=== PATIENT | female | born 1950 | race Caucasian/White ===

== ENCOUNTER 2020-01-03 12:02 | Inpatient (IN) | payer OTHER, SELFPAY ==
[2020-01-03] VITALS (12 sets, daily range): BP systolic 122–131; BP diastolic 57–79; PULSE 88–100; RESP 16–35; TEMP 36.5–36.6; O2SAT 84–100; BMI 22.6
--- NOTE | ~2020-01-03 | XR_ITS ---
XR chest 2V 01/03/2020 16:13 Indication: Weakness and cough. Shortness of breath. Procedure: AP and lateral views of the chest Comparison: 04/26/2017 Findings: There is extensive airspace disease throughout both lungs. Heart size normal. No definite p leural effusion or pneumothorax. Impression: 1: Extensive bilateral airspace disease with areas of reticulonodular consolidation, most likely pneu monia. Edema is less favored. There may be underlying chronic interstitial lung disease. Reviewed, dictated and finalized at location B. NDERER Impression: 1: Extensive bilateral airspace disease with areas of reticulonodular consolida tion, most likely pneumonia. Edema is less favored. There may be underlying chr onic interstitial lung disease.
--- NOTE | ~2020-01-03 | XR_ITS ---
XR chest 2V 01/07/2020 08:51 Indication: Hypoxia appeared pneumonia. Procedure: 2 view chest Comparison: Comparison to multiple prior studies sequentially, with oldest reviewed study dated 12/14. Findings: Improving bilateral peripheral interstitial infiltrates both basilar predominance. Heart si ze normal. No pleural effusion or pneumothorax. No acute osseous abnormality. No pneumothorax. Impression: 1: Improving bilateral peripheral interstitial infiltrates, likely resolving pneumonia. Reviewed, dictated and finalized at location A. Impression: 1: Improving bilateral peripheral interstitial infiltrates, likely resolving pn eumonia.
--- NOTE | 2020-01-03 13:05 | PC.NURSE ---
1305- Called [facility] no response
--- NOTE | 2020-01-03 13:05 | PC.NURSE ---
no answer when called from [facility]
--- NOTE | 2020-01-03 14:22 | ED.SOB ---
HPI - SOB/Dyspnea General Chief Complaint: Shortness of Breath/Dyspnea Stated Complaint: altered mental status Time Seen by Provider: 01/03/20 14:22 Source: patient Mode of arrival: wheelchair Limitations: no limitations History of Present Illness HPI Narrative: Pt is a 69 y/o female, with a H/O COPD, who presents to the ED with c/o SOB. Pt is not one home O2 normally. Per family, about 3 weeks ago she had N/V/D and a fever, which got better. For the last 2 weeks she has been having chills intermittently and has been fatigued. Pt is a 1.5-2PPD smoker and has a productive cough with green phlegm. Pt lives with her niece that takes care of her. elicited complaint: shortness of breath Pertinent past history: COPD Onset (ago): unknown Context: recent illness Timing: constant Known history of: COPD Associated symptoms: cough and other (fatigue) Related Data Home Medications Medication Instructions Recorded Confirmed clonazepam 0.5 mg PO HS 01/03/20 hydrocodone-acetaminophen [[place]] 1 tablet PO Q6H PRN 01/03/20 lactulose 30 g PO TID 01/03/20 losartan 50 mg PO DAILY 01/03/20 oxybutynin chloride 5 mg PO TID 01/03/20 phenytoin sodium extended 100 mg PO QID 01/03/20 pravastatin 20 mg PO HS 01/03/20 risperidone 0.5 mg PO BID 01/03/20 venlafaxine 150 mg PO BID 01/03/20 Allergies Allergy/AdvReac Type Severity Reaction Status Date / Time No Known Allergies Allergy Verified 01/03/20 17:55 Review of Systems Review of Systems: All systems reviewed & are unremarkable except as noted in HPI and below Constitutional: Constitutional: Reports chills, Reports fatigue and Denies fever(s) Respiratory: Respiratory: Reports cough and Reports dyspnea Gastrointestinal: Gastrointestinal: Denies diarrhea, Denies nausea and Denies vomiting PMF Past Medical History Medical History (Updated 01/03/20 @ 18:16 by Anum Leigh MD) Anxiety Colon cancer COPD (chronic obstructive pulmonary disease) Depression [place] (hard of hearing) HTN (hypertension) Surgical History Surgical History (Updated 01/03/20 @ 15:07 by Yecenia Trinidad) History of left hip replacement Family History Family History (Updated 07/28/16 @ 11:19 by DOCTOR UNKNOWN) Mother Diabetes mellitus Hypertension Family history of alcoholism Cerebrovascular accident Family history of arthritis Family history of malignant neoplasm Family history of seizure disorder Social History Social History (Updated 01/03/20 @ 15:07 by Yecenia Trinidad) Alcohol intake: former Gender identity (if verbalized by the patient): Female Comments Her PCP is Dr. Chisholm. Exam Const: General: cooperative, no acute distress, alert and ill appearing (mildly) Nutritional Appearance: well nourished Orientation/consciousness: patient oriented x3 Limitations: no limitations HENMT: Mouth: Yes lip normal and Yes moist mucous membranes Resp: Effort & Inspection: normal respiratory effort Auscultation: rhonchi lower bilaterally, wheezes (diffuse) and diminished lung sounds bilateral Cardio: Rate: tachycardic Rhythm: regular rhythm GI: GI Palp: Yes Soft to palpation and No Tenderness to palpation present (GI) Auscultation: normal bowel sounds Skin: General skin exam: normal color Neuro: General: patient oriented x3 Cognition (Neuro): normal cognition Speech: normal speech Extrem: General: normal to inspection, full ROM and no clubbing, cyanosis or edema Psych: Mental Status: mental status grossly normal Affect: normal affect Attitude: cooperative Course Course Emergency Course: Patient presents to the emergency department with weakness and shortness of breath. Patient with findings of hypoxia. Patient started on oxygen and continuous nebulizer treatment. Chest x-ray reveals pneumonia. Patient given IV fluids and IV antibiotics. Will be admitted to hospitalist service for hypoxic respiratory failure due to pneumonia and COPD. Consultations C
--- NOTE | 2020-01-03 14:32 | ECG_ITS ---
Measurements Intervals [place] Rate: 88 P: 38 MO: 152 QRS: 46 QRSD: 88 T: 57 QT: 355 QTc: 430 Interpretive Statements SINUS RHYTHM BASELINE ARTIFACT- I, II, AVR, AVL, AVF, V4-V6 NORMAL ECG Electronically Signed On 01-03-2020 15:05:01 [employer] by Tee Hamlin D.O.
[2020-01-03] MEDS: ALBUTEROL SULFATE NEB 2.5 MG/0.5 ML INH 15 MG INHALATION (14:45)
[2020-01-03] MEDS: IPRATROPIUM BR 0.02% INH SOLN 0.5 MG/2.5 ML VIAL 1.5 MG INHALATION (14:46)
[2020-01-03 14:50] LABS: Basophils Absolute Auto 0.1 K/mm3 (0.0-0.1); Basophils Percent Auto 0.3 % (0.2-1.2); Eosinophils Percent Auto 0.2 % (0-4.4); Hematocrit 32.1 % (37.0-47.0); Hemoglobin 11.1 g/dL (12.0-15.0); Immature Granulocyte Absolute 0.93 K/mm3 (0.00-0.031); Immature Granulocyte Percent A 5.3 % (0-0.5); Lymphocytes Absolute Auto 1.06 K/mm3 (0.9-3.2); Mean Corpuscular HGB Conc 34.6 g/dl (32-36); Mean Corpuscular Hemoglobin 31.7 pg (26-34); Mean Corpuscular Volume 91.7 fl (80-100); Mean Platelet Volume 8.5 fl (7.4-10.4); Monocytes Percent Auto 5.4 % (2.6-8.5); Neutrophils Absolute Auto 14.6 K/mm3 (1.3-6.7); Neutrophils Percent Auto 82.8 % (45.5-73.1); Platelet Count Result 415 k/mm3 (150-375); Red Cell Distribution Width 12.7 % (11.5-14.5); White Blood Count 17.6 K/mm3 (4.5-10.0)
[2020-01-03] MEDS: LACTATED RINGERS 1,000 ML 999 ML IV CONT (14:52)
[2020-01-03 14:54] LABS: Alveolar/Arterial O2 Gradient 100.6 mmHg; Base Excess ABG 3.5 mEq/l (+/-2.0); Device NASAL CANNULA; Fractional Inspired Oxygen 28 %; Modified Allen's Test Pass; Oxygen Content ABG 15.3 %vol (16.0-22.0); Oxygen Saturation ABG 91.1 % (95.0-100.0); Oxyhemoglobin 87.9 % THb (90.0-100.0); PCO2 ABG 36.9 mmHg (35.0-45.0); PO2 ABG 55.5 mmHg (80.0-100.0); PO2 FiO2 Ratio Arterial Blood 1.98 %; Site Drawn RIGHT RADIAL; Total Hemoglobin 12.4 g/dL (12.0-18.0); pH ABG 7.482 (7.350-7.450)
[2020-01-03 15:00] LABS: INR 1.6; Prothrombin Time 18.2 Seconds (11.1-14.7)
[2020-01-03 15:01] LABS: Partial Thromboplastin Time 40.3 SECONDS (22.3-36.8)
[2020-01-03 15:03] LABS: Alanine Aminotransferase 21 U/L (4-35); Albumin Level 3.2 g/dL (3.5-5.1); Alkaline Phosphatase 222 U/L (38-126); Aspartate Amino Transferase 43 U/L (14-36); Bilirubin,Total 0.8 mg/dL (0.2-1.3); Blood Urea Nitrogen 13 mg/dL (7-17); Calcium 8.6 mg/dL (8.4-10.2); Carbon Dioxide 29 mmol/L (22-30); Chloride 86 mmol/L (98-107); Estimated CRCL calculation 81 ml/min; Estimated Glomerular Filt Rate > 60; Glucose 116 mg/dL (65-105); Potassium 3.7 mmol/L (3.4-5.0); Sodium 126 mmol/L (137-145)
[2020-01-03 15:10] LABS: NT Pro B Type Natriuretic Pept 889 PG/ML (5-100)
[2020-01-03 16:06] LABS: Add Urine Microscopic? YES; Appearance Urine Clear (Clear); Bacteria Urine 4+ /hpf; Bilirubin Urine Negative (Negative); Blood Urine Negative (Negative); Color Urine Amber (Yellow); Glucose Urine UA Negative (Negative); Ketones Urine Negative (Negative); Leukocyte Esterase Ur Negative LEU/UL (Negative); Nitrate Urine Negative (Negative); Protein Urine 2+ mg/dL (Negative); RBC Urine 0-2 /hpf (0-2); Specific Grav Ur 1.017 (1.001-1.035); Squamous Epithelial Cell Urine Occasional /hpf (Few)
[2020-01-03 17:31] LABS: Lactic Acid Reflex 1.4 mmol/L (0.7-2.1)
[2020-01-03] MEDS: ALBUTEROL SULFATE NEB 2.5 MG/0.5 ML INH 5 MG INHALATION (20:13)
[2020-01-03] MEDS: IPRATROPIUM BR 0.02% INH SOLN 0.5 MG/2.5 ML VIAL INHALATION (20:13)
--- NOTE | 2020-01-03 20:29 | ADMGEN ---
This patient, Pattie Malloy, was admitted to Medical Room 348-. Patient/family oriented to hospital policies and general routines including ID bracelet, bed and alarms, visiting hours, pain management, procedures, bathroom and other care routines, personal items, smoking policy, room service/diet, and visiting hours. Valuables list has been completed. Information on how to activate the Rapid Response Team has been discussed. Patient/Family are encouraged to report perceived risks to care and to ask questions if they do not understand what they are told or what they should do.
[2020-01-04] MEDS: ALBUTEROL SULFATE NEB 2.5 MG/0.5 ML INH 5 MG INHALATION (01:44)
[2020-01-04] MEDS: IPRATROPIUM BR 0.02% INH SOLN 0.5 MG/2.5 ML VIAL INHALATION (01:45)
[2020-01-04 01:46] VITALS: PULSE 81; RESP 16
[2020-01-04] MEDS: PHENYTOIN SODIUM 100 MG CAP PO ×5 (02:01→21:57)
[2020-01-04 06:00] VITALS: BP 116/58; PULSE 78; RESP 16; TEMP 36.2; O2SAT 95
--- NOTE | 2020-01-04 08:00 | PCRCNOTE ---
Window of time for administration has passed. See next scheduled administration.
[2020-01-04] MEDS: risperiDONE 0.5 MG TABLET PO ×2 (09:21→16:32)
[2020-01-04] MEDS: VITAMIN B COMPLEX CAPSULE 1 CAP PO (09:21)
[2020-01-04] MEDS: OXYBUTYNIN CHLORIDE 5 MG TABLET PO ×3 (09:22→16:30)
--- NOTE | 2020-01-04 09:32 | PM.IMHP ---
H&P: HPI History of Present Illness Chief complaint: Acute hypoxic respiratory failure/sepsis/pneumonia Narrative: Pattie Malloy is a 69 year old female with a history of liver cirrhosis from alcohol abuse in the past, seizures, COPD, tobacco abuse 1.5-2 packs per day, who presented to the emergency department with gradually worsening weakness, fatigue, productive cough and shortness of breath. The patient lives with her nieceEufemia, who provided most of the history who states that the patient had symptoms of possible influenza about 3 or 4 weeks ago, with associated nausea, vomiting, diarrhea, body aches. Once those symptoms resolved a few weeks ago she continued to have worsening fatigue (sleeping most of the day and evening), generalized weakness (began using a walker), productive cough with green/valentino/brown sputum, shortness of breath at rest and with exertion, and Eufemia states it looks like she was having trouble breathing while she was sleeping at night as well. Eufemia also states the patient was becoming more confused and states that she does not take her lactulose every day and sometimes does not have a bowel movement for 2 or 3 days. The patient currently denies any chest pain, shortness of breath, fever, chills, nausea, vomiting, abdominal pain, diarrhea, leg swelling, calf pain, dysuria, frequent urination, headache, dizziness, lightheadedness or any other symptoms at this time. The patient is very hard of hearing which does limit her history. Code status: Full code [id number]: Eufemia Wick Shelly PCP: Dr. Ackerman Review of Systems Review of Systems: All systems reviewed & are unremarkable except as noted in HPI and below PMFSH Past Medical History Medical History (Updated 01/04/20 @ 13:09 by Bonnie Dinh PA-C) Alcoholic cirrhosis of liver Anxiety Colon cancer Underwent partial colectomy, no radiation or chemotherapy COPD (chronic obstructive pulmonary disease) Depression [place] (hard of hearing) HTN (hypertension) Seizure Septic hip History of left hip arthroplasty that became septic and requiring a 2nd surgery. Tobacco abuse Smokes 1.5-2 packs per day Urinary incontinence Stress incontinence Surgical History Surgical History History of left hip replacement x2, after initial became infected. History of partial colectomy Removal of colon cancer Family History Family History Mother Diabetes mellitus Hypertension Family history of alcoholism Cerebrovascular accident Family history of arthritis Family history of malignant neoplasm Family history of seizure disorder Social History Social History (Updated 01/04/20 @ 12:58 by Bonnie Dinh PA-C) Smoking packs per day: 2 Smoking cigarettes per day: 40.0 Years smoked: 53 Smoking pack-years: 106.00 Smoking status: Current every day smoker Tobacco type: cigarettes Second hand tobacco smoke exposure: Yes Alcohol intake: former Alcohol use details: Former alcohol abuse, now with liver cirrhosis Substance use: current Substance use type: marijuana Last use: heavy marijuana use, last use was at least a week ago Living arrangements: with family Additional living arrangements comments: Lives with her niece Eufemia for the last 7 years. She normally walks with out any assist devices, until the last few weeks she has been using a walker. Occupation/Education: retired Gender identity (if verbalized by the patient): Female Spiritual care concerns: No Agree to blood products: Yes Meds Home Medications and Allergies Home Medications Medication Instructions Recorded Confirmed Type clonazepam 0.5 mg PO TID PRN 01/03/20 01/03/20 History hydrocodone-acetaminophen [[place]] 1 tablet PO Q6H PRN 01/03/20 01/03/20 History lactulose 30 ml PO TID 01/03/20 01/03/20 History losartan 5
[2020-01-04 10:17] VITALS: BMI 22.6
[2020-01-04] MEDS: VENLAFAXINE HCL 75 MG TABLET 150 MG PO ×2 (10:39→16:31)
[2020-01-04] MEDS: THERAPEUTIC MULTIVITAMINS/MINERALS TAB (*BKC) 1 TABLET PO (10:39)
[2020-01-04] MEDS: LACTULOSE 20 GM/30 ML UDC PO ×3 (10:39→16:30)
[2020-01-04] MEDS: LOSARTAN POTASSIUM 50 MG TABLET PO (10:39)
[2020-01-04 13:49] LABS: Hematocrit 32.1 % (37.0-47.0); Hemoglobin 10.8 g/dL (12.0-15.0); Mean Corpuscular HGB Conc 33.6 g/dl (32-36); Mean Corpuscular Hemoglobin 31.7 pg (26-34); Mean Corpuscular Volume 94.1 fl (80-100); Mean Platelet Volume 8.8 fl (7.4-10.4); Platelet Count Result 439 k/mm3 (150-375); Red Blood Count 3.41 M/mm3 (4.2-5.4); Red Cell Distribution Width 13.1 % (11.5-14.5); White Blood Count 13.1 K/mm3 (4.5-10.0)
[2020-01-04 13:58] LABS: Alanine Aminotransferase 24 U/L (4-35); Albumin Level 3.2 g/dL (3.5-5.1); Alkaline Phosphatase 197 U/L (38-126); Aspartate Amino Transferase 50 U/L (14-36); Bilirubin,Total 0.5 mg/dL (0.2-1.3); Blood Urea Nitrogen 9 mg/dL (7-17); Calcium 8.8 mg/dL (8.4-10.2); Carbon Dioxide 31 mmol/L (22-30); Chloride 95 mmol/L (98-107); Estimated CRCL calculation 81 ml/min; Estimated Glomerular Filt Rate > 60; Glucose 126 mg/dL (65-105); Potassium 3.4 mmol/L (3.4-5.0); Sodium 132 mmol/L (137-145)
[2020-01-04 14:00] VITALS: BP 139/71; PULSE 85; RESP 18; TEMP 36.2; O2SAT 96
--- NOTE | 2020-01-04 14:00 | PCRCNOTE ---
Window of time for administration has passed. See next scheduled administration.
[2020-01-04 14:13] LABS: Band Neutrophils Percent 3 % (0-6); Basophils Absolute Manual 0.13 K/mm3 (0.0-0.1); Basophils Percent Manual 1 % (0-1); Eosinophils Absolute Manual 0.26 K/mm3 (0.02-0.5); Eosinophils Percent Manual 2 % (0-4); Lymphocytes Absolute Manual 0.78 K/mm3 (1.1-4.5); Metamyelocytes Percent 4 %; Monocytes Absolute Manual 1.04 K/mm3 (0.1-0.90); Monocytes Percent Manual 8 % (3-9); Neutrophils Absolute Manual 10.34 K/mm3 (1.7-7.2); Neutrophils Percent Manual 76 % (46-73); Total Cells Counted 100
[2020-01-04 14:14] LABS: Platelet Estimate Increased (Adequate); Polychromasia 1+ (NORMAL)
[2020-01-04] MEDS: methylPREDNISolone SOD SUCC 125 MG VIAL 60 MG IV PUSH ×2 (16:06→21:56)
[2020-01-04] MEDS: ENOXAPARIN 40 MG/0.4 ML SYRINGE SUB-Q (16:07)
[2020-01-04 21:20] VITALS: BP 136/73; PULSE 76; RESP 18; TEMP 36.4; O2SAT 96
[2020-01-04] MEDS: PRAVASTATIN SODIUM 20 MG TABLET PO (21:56)
[2020-01-04] MEDS: FAMOTIDINE 20 MG TABLET PO (21:56)
--- NOTE | 2020-01-04 22:38 | PCRCNOTE ---
Window of time for administration has passed. See next scheduled administration.
[2020-01-05] VITALS (13 sets, daily range): BP systolic 128–141; BP diastolic 67–75; PULSE 67–88; RESP 16–24; TEMP 36.6–36.7; O2SAT 91–94
[2020-01-05] MEDS: ALBUTEROL SULFATE NEB 2.5 MG/0.5 ML INH 5 MG INHALATION ×4 (04:02→19:17)
[2020-01-05] MEDS: IPRATROPIUM BR 0.02% INH SOLN 0.5 MG/2.5 ML VIAL INHALATION ×4 (04:03→19:17)
[2020-01-05 06:03] LABS: Alanine Aminotransferase 36 U/L (4-35); Albumin Level 3.1 g/dL (3.5-5.1); Alkaline Phosphatase 243 U/L (38-126); Aspartate Amino Transferase 64 U/L (14-36); Bilirubin,Total 0.5 mg/dL (0.2-1.3); Blood Urea Nitrogen 8 mg/dL (7-17); Calcium 8.6 mg/dL (8.4-10.2); Carbon Dioxide 29 mmol/L (22-30); Chloride 97 mmol/L (98-107); Estimated CRCL calculation 98 ml/min; Estimated Glomerular Filt Rate > 60; Glucose 113 mg/dL (65-105); Potassium 3.8 mmol/L (3.4-5.0); Sodium 131 mmol/L (137-145)
[2020-01-05 06:06] LABS: Basophils Absolute Auto 0.1 K/mm3 (0.0-0.1); Basophils Percent Auto 0.9 % (0.2-1.2); Eosinophils Percent Auto 0.2 % (0-4.4); Hematocrit 31.8 % (37.0-47.0); Hemoglobin 10.8 g/dL (12.0-15.0); Immature Granulocyte Absolute 1.45 K/mm3 (0.00-0.031); Immature Granulocyte Percent A 12.6 % (0-0.5); Lymphocytes Absolute Auto 1.13 K/mm3 (0.9-3.2); Lymphocytes Percent Auto 9.8 % (18.3-44.2); Mean Corpuscular Hemoglobin 31.8 pg (26-34); Mean Corpuscular Volume 93.5 fl (80-100); Mean Platelet Volume 8.7 fl (7.4-10.4); Monocytes Absolute Auto 0.6 K/mm3 (0.1-0.6); Neutrophils Absolute Auto 8.2 K/mm3 (1.3-6.7); Neutrophils Percent Auto 71.5 % (45.5-73.1); Platelet Count Result 480 k/mm3 (150-375); White Blood Count 11.5 K/mm3 (4.5-10.0)
[2020-01-05] MEDS: methylPREDNISolone SOD SUCC 125 MG VIAL 60 MG IV PUSH ×3 (06:27→21:58)
[2020-01-05] MEDS: ENOXAPARIN 40 MG/0.4 ML SYRINGE SUB-Q (09:17)
[2020-01-05] MEDS: VITAMIN B COMPLEX CAPSULE 1 CAP PO (09:17)
[2020-01-05] MEDS: LACTULOSE 20 GM/30 ML UDC PO ×3 (09:17→16:45)
[2020-01-05] MEDS: THERAPEUTIC MULTIVITAMINS/MINERALS TAB (*BKC) 1 TABLET PO (09:18)
[2020-01-05] MEDS: VENLAFAXINE HCL 75 MG TABLET 150 MG PO ×2 (09:18→16:46)
[2020-01-05] MEDS: risperiDONE 0.5 MG TABLET PO ×2 (09:18→16:46)
[2020-01-05] MEDS: FAMOTIDINE 20 MG TABLET PO ×2 (09:18→21:58)
[2020-01-05] MEDS: LOSARTAN POTASSIUM 50 MG TABLET PO (09:18)
[2020-01-05] MEDS: PHENYTOIN SODIUM 100 MG CAP PO ×4 (09:18→21:57)
[2020-01-05] MEDS: OXYBUTYNIN CHLORIDE 5 MG TABLET PO ×3 (09:18→16:46)
--- NOTE | 2020-01-05 16:27 | PM.IMPN ---
Progress Note: A&P Assessment and Plan (1) Sepsis: Qualifiers: Acute respiratory failure type: with hypoxia Sepsis acute organ dysfunction status: with acute organ dysfunction Sepsis type: sepsis due to unspecified organism Severe sepsis acute organ dysfunction type: acute respiratory failure Severe sepsis shock status: without septic shock Qualified Code(s): A41.9 - Sepsis, unspecified organism; R65.20 - Severe sepsis without septic shock; J96.01 - Acute respiratory failure with hypoxia Code(s): A41.9 - Sepsis, unspecified organism Status: Acute Assessment and Plan: The patient was septic upon arrival with increased respiratory rate, hypoxia, leukocytosis and diagnosis of pneumonia. Blood cultures, urine cultures negative to date. Sputum cultures pending. VSS, afebrile, WBC improved to 11.5k today Continue IV antibiotics Monitor Trend WBC (2) Acute hypoxemic respiratory failure: Code(s): J96.01 - Acute respiratory failure with hypoxia Status: Acute Assessment and Plan: Hypoxia secondary to acute pneumonia and COPD exacerbation. Patient's initial oxygen saturation was 84% on room air on arrival. ABG shows 55.5 mmHg pO2. Continues to require 2L O2 NC. Hypoxia secondary to acute pneumonia and COPD exacerbation. Ordered a Cornet and incentive spirometer. Continue monitoring oxygen saturation. Wean oxygen as tolerated to keep O2 between 90-95%. Continue DuoNeb treatments Continue solu-medrol at Q8hr today as patient still wheezing on exam Monitor (3) Community acquired pneumonia: Qualifiers: Laterality: unspecified laterality Qualified Code(s): J18.9 - Pneumonia, unspecified organism Code(s): J18.9 - Pneumonia, unspecified organism Status: Acute Assessment and Plan: Patient had influenza-like symptoms a few weeks ago and had progressively worsening respiratory complaints and was found to have bilateral lower lobe pneumonia which is less likely secondary to viral syndrome versus bacterial infection. Continue IV ceftriaxone and azithromycin for community-acquired pneumonia. Mucinex was started along with DuoNeb treatments every 6 hours. Continue Cornet an incentive spirometer ordered. Continue monitoring patient respiratory symptoms over the next few days. (4) COPD exacerbation: Code(s): J44.1 - Chronic obstructive pulmonary disease with (acute) exacerbation Status: Acute Assessment and Plan: Patient has increased wheezing to anterior and posterior lung stanton with inspiration and expiration. Continue IV Solu-Medrol 60 mg q.8 hours for COPD exacerbation as patient still significantly wheezey on exam; consider tapering frequency tomorrow if showing improvement Continue DuoNebs every 6 hours. Continue monitoring the patient's oxygenation (5) Alcoholic cirrhosis of liver: Code(s): K70.30 - Alcoholic cirrhosis of liver without ascites Status: Acute Assessment and Plan: History of liver cirrhosis from alcohol abuse and on lactulose 30 mg 3 times a day. Patient's niece says she does not take her lactulose every day and can sometimes go days without having a bowel movement. Patient A&Ox3 for me today Will continue her lactulose Monitor (6) Tobacco abuse: Code(s): Z72.0 - Tobacco use Status: Acute Assessment and Plan: Patient smokes 1.5-2 packs of cigarettes per day. Smoking cessation essential. nicotine patch p.r.n. if she feels she needs it. (7) Anxiety and depression: Code(s): F41.9 - Anxiety disorder, unspecified; F32.9 - Major depressive disorder, single episode, unspecified Status: Acute
[2020-01-05] MEDS: PRAVASTATIN SODIUM 20 MG TABLET PO (21:58)
[2020-01-06] VITALS (13 sets, daily range): BP systolic 144–157; BP diastolic 69–95; PULSE 63–88; RESP 16–20; TEMP 36.4–36.6; O2SAT 90–99
[2020-01-06] MEDS: IPRATROPIUM BR 0.02% INH SOLN 0.5 MG/2.5 ML VIAL INHALATION ×4 (02:06→19:34)
[2020-01-06] MEDS: ALBUTEROL SULFATE NEB 2.5 MG/0.5 ML INH 5 MG INHALATION ×4 (02:07→19:34)
[2020-01-06 06:33] LABS: Basophils Absolute Auto 0.1 K/mm3 (0.0-0.1); Basophils Percent Auto 0.5 % (0.2-1.2); Eosinophils Percent Auto 0.2 % (0-4.4); Hematocrit 31.1 % (37.0-47.0); Hemoglobin 10.3 g/dL (12.0-15.0); Immature Granulocyte Absolute 1.28 K/mm3 (0.00-0.031); Immature Granulocyte Percent A 10.5 % (0-0.5); Lymphocytes Absolute Auto 1.37 K/mm3 (0.9-3.2); Lymphocytes Percent Auto 11.3 % (18.3-44.2); Mean Corpuscular HGB Conc 33.1 g/dl (32-36); Mean Corpuscular Hemoglobin 31.6 pg (26-34); Mean Corpuscular Volume 95.4 fl (80-100); Mean Platelet Volume 8.8 fl (7.4-10.4); Monocytes Absolute Auto 0.7 K/mm3 (0.1-0.6); Monocytes Percent Auto 6.1 % (2.6-8.5); Neutrophils Absolute Auto 8.7 K/mm3 (1.3-6.7); Neutrophils Percent Auto 71.4 % (45.5-73.1); Platelet Count Result 518 k/mm3 (150-375); Red Blood Count 3.26 M/mm3 (4.2-5.4); Red Cell Distribution Width 13.1 % (11.5-14.5); White Blood Count 12.2 K/mm3 (4.5-10.0)
[2020-01-06] MEDS: methylPREDNISolone SOD SUCC 125 MG VIAL 60 MG IV PUSH ×2 (06:34→17:46)
[2020-01-06 06:52] LABS: Alanine Aminotransferase 58 U/L (4-35); Albumin Level 3.1 g/dL (3.5-5.1); Alkaline Phosphatase 228 U/L (38-126); Aspartate Amino Transferase 91 U/L (14-36); Bilirubin,Total 0.5 mg/dL (0.2-1.3); Blood Urea Nitrogen 8 mg/dL (7-17); Calcium 8.7 mg/dL (8.4-10.2); Carbon Dioxide 29 mmol/L (22-30); Chloride 99 mmol/L (98-107); Estimated CRCL calculation 81 ml/min; Estimated Glomerular Filt Rate > 60; Glucose 87 mg/dL (65-105); Magnesium 1.9 mg/dL (1.6-2.3); Potassium 3.4 mmol/L (3.4-5.0); Sodium 131 mmol/L (137-145)
[2020-01-06] MEDS: FAMOTIDINE 20 MG TABLET PO ×2 (08:43→19:56)
[2020-01-06] MEDS: VENLAFAXINE HCL 75 MG TABLET 150 MG PO ×2 (08:43→16:46)
[2020-01-06] MEDS: THERAPEUTIC MULTIVITAMINS/MINERALS TAB (*BKC) 1 TABLET PO (08:43)
[2020-01-06] MEDS: PHENYTOIN SODIUM 100 MG CAP PO ×4 (08:43→19:56)
[2020-01-06] MEDS: OXYBUTYNIN CHLORIDE 5 MG TABLET PO ×3 (08:44→16:47)
[2020-01-06] MEDS: LOSARTAN POTASSIUM 50 MG TABLET PO (08:44)
[2020-01-06] MEDS: LACTULOSE 20 GM/30 ML UDC PO ×2 (08:44→12:40)
[2020-01-06] MEDS: VITAMIN B COMPLEX CAPSULE 1 CAP PO (08:44)
[2020-01-06] MEDS: ENOXAPARIN 40 MG/0.4 ML SYRINGE SUB-Q (08:44)
[2020-01-06] MEDS: risperiDONE 0.5 MG TABLET PO ×2 (08:44→16:47)
--- NOTE | 2020-01-06 15:24 | PM.IMPN ---
Progress Note: A&P Assessment and Plan (1) Sepsis: Qualifiers: Acute respiratory failure type: with hypoxia Sepsis acute organ dysfunction status: with acute organ dysfunction Sepsis type: sepsis due to unspecified organism Severe sepsis acute organ dysfunction type: acute respiratory failure Severe sepsis shock status: without septic shock Qualified Code(s): A41.9 - Sepsis, unspecified organism; R65.20 - Severe sepsis without septic shock; J96.01 - Acute respiratory failure with hypoxia Code(s): A41.9 - Sepsis, unspecified organism Status: Acute Assessment and Plan: The patient was septic upon arrival with increased respiratory rate, hypoxia, leukocytosis and diagnosis of pneumonia. Blood cultures, urine cultures and sputum cultures were taken. Patient has been afebrile, normal blood pressure, normal heart rate, normal respiratory rate and oxygen saturation 90% on 1.5 L. He was started on IV antibiotics, IV fluid hydration, in further monitoring of vitals and leukocytosis. (2) Acute hypoxemic respiratory failure: Code(s): J96.01 - Acute respiratory failure with hypoxia Status: Acute Assessment and Plan: Patient's initial oxygen saturation was 84% on room air on arrival. She was placed on 2 L via nasal cannula with improvement of her hypoxia. Hypoxia secondary to acute pneumonia and COPD exacerbation. Ordered a Cornet and incentive spirometer. Oxygen saturation 90% on 1.5 L. Will continue weaning as tolerated. Will consult pulmonology due to hypoxia, COPD and not be on any home medications. The patient may require home oxygen upon discharge will have an oxygen evaluation prior to discharge. Continue monitoring oxygen saturation. Wean oxygen as tolerated to keep O2 between 90-95%. DuoNeb treatments. (3) Community acquired pneumonia: Qualifiers: Laterality: unspecified laterality Qualified Code(s): J18.9 - Pneumonia, unspecified organism Code(s): J18.9 - Pneumonia, unspecified organism Status: Acute Assessment and Plan: Patient had influenza like symptoms a few weeks ago and had progressively worsening respiratory complaints and was found to have bilateral lower lobe pneumonia which is less likely secondary to viral syndrome versus bacterial infection. Patient reports feeling better today, still hypoxic Patient was started on IV ceftriaxone and azithromycin for community-acquired pneumonia. Mucinex was started along with DuoNeb treatments every 6 hours. Cornet an incentive spirometer ordered. Will repeat chest x-ray in the morning. Continue monitoring patient respiratory symptoms over the next few days. (4) COPD exacerbation: Code(s): J44.1 - Chronic obstructive pulmonary disease with (acute) exacerbation Status: Acute Assessment and Plan: Patient has increased wheezing to anterior and posterior lung stanton with inspiration and expiration. Patient is on Solu-Medrol q.12 hours. Due to continued wheezing, COPD, hypoxia will have Pulmonary consult for further input which is greatly appreciated. Continue DuoNebs every 6 hours. Continue monitoring the patient's oxygenation, wheezing and decreased Solu-Medrol as tolerated. (5) Alcoholic cirrhosis of liver: Code(s): K70.30 - Alcoholic cirrhosis of liver without ascites Status: Acute Assessment and Plan: History of liver cirrhosis from alcohol abuse and on lactulose 30 mg 3 times a day. The patient has had multiple bowel movements today. She is currently on lactulose 20 mg 3 times a day. Patient's niece says she does not take her lactulose every day and can sometimes go days without having a bowel movement. Will continue her lactulose and monitoring her symptoms.
[2020-01-06] MEDS: PRAVASTATIN SODIUM 20 MG TABLET PO (19:56)
[2020-01-07] VITALS (13 sets, daily range): BP systolic 134–156; BP diastolic 67–76; PULSE 68–81; RESP 16–22; TEMP 36.6–36.9; O2SAT 95–97
[2020-01-07] MEDS: IPRATROPIUM BR 0.02% INH SOLN 0.5 MG/2.5 ML VIAL INHALATION ×4 (01:46→20:45)
[2020-01-07] MEDS: ALBUTEROL SULFATE NEB 2.5 MG/0.5 ML INH 5 MG INHALATION ×4 (01:46→20:45)
--- NOTE | 2020-01-07 03:00 | PCRCNOTE ---
Daylight Savings Time For Daylight Savings Time Ending in the Fall - Clocks are moved back. For Daylight Savings Time Beginning in the Spring - Clocks are moved ahead. For [facility], the time of change occurs at 0200 hrs. Time is taken from the beverage server. This entry on the patient's chart recognizes the change in time reflected during documentation. Example: 2 entries for vital signs may be charted for 0200 hrs.
--- NOTE | 2020-01-07 03:13 | PC.NURSE ---
Daylight Savings Time For Daylight Savings Time Ending in the Fall - Clocks are moved back. For Daylight Savings Time Beginning in the Spring - Clocks are moved ahead. For [facility], the time of change occurs at 0200 hrs. Time is taken from the bartender server. This entry on the patient's chart recognizes the change in time reflected during documentation. Example: 2 entries for vital signs may be charted for 0200 hrs.
[2020-01-07] MEDS: methylPREDNISolone SOD SUCC 125 MG VIAL 60 MG IV PUSH (05:47)
[2020-01-07 06:18] LABS: Hematocrit 31.8 % (37.0-47.0); Hemoglobin 10.5 g/dL (12.0-15.0); Mean Corpuscular Hemoglobin 31.7 pg (26-34); Mean Corpuscular Volume 96.1 fl (80-100); Mean Platelet Volume 8.5 fl (7.4-10.4); Platelet Count Result 517 k/mm3 (150-375); Red Blood Count 3.31 M/mm3 (4.2-5.4); Red Cell Distribution Width 13.2 % (11.5-14.5); White Blood Count 9.9 K/mm3 (4.5-10.0)
[2020-01-07 06:37] LABS: Blood Urea Nitrogen 7 mg/dL (7-17); Calcium 8.3 mg/dL (8.4-10.2); Carbon Dioxide 29 mmol/L (22-30); Chloride 99 mmol/L (98-107); Estimated CRCL calculation 98 ml/min; Estimated Glomerular Filt Rate > 60; Glucose 74 mg/dL (65-105); Potassium 3.2 mmol/L (3.4-5.0); Sodium 132 mmol/L (137-145)
[2020-01-07] MEDS: ENOXAPARIN 40 MG/0.4 ML SYRINGE SUB-Q (09:19)
[2020-01-07] MEDS: NYSTATIN 100,000 UNITS/ML SUSP 5 ML ORAL.SUSP PO ×4 (09:19→20:16)
[2020-01-07] MEDS: POTASSIUM CHLORIDE 20 MEQ PACKET (FOR LIQUID) 40 MEQ PO (09:19)
[2020-01-07] MEDS: VENLAFAXINE HCL 75 MG TABLET 150 MG PO ×2 (09:20→16:59)
[2020-01-07] MEDS: LOSARTAN POTASSIUM 50 MG TABLET PO (09:20)
[2020-01-07] MEDS: THERAPEUTIC MULTIVITAMINS/MINERALS TAB (*BKC) 1 TABLET PO (09:20)
[2020-01-07] MEDS: PHENYTOIN SODIUM 100 MG CAP PO ×4 (09:20→20:16)
[2020-01-07] MEDS: VITAMIN B COMPLEX CAPSULE 1 CAP PO (09:21)
[2020-01-07] MEDS: OXYBUTYNIN CHLORIDE 5 MG TABLET PO ×3 (09:21→16:59)
[2020-01-07] MEDS: LACTULOSE 20 GM/30 ML UDC PO ×2 (09:21→16:58)
[2020-01-07] MEDS: risperiDONE 0.5 MG TABLET PO ×2 (09:21→16:59)
[2020-01-07] MEDS: FAMOTIDINE 20 MG TABLET PO ×2 (09:21→20:16)
--- NOTE | 2020-01-07 10:26 | PM.IMPN ---
Progress Note: A&P Assessment and Plan (1) Sepsis: Qualifiers: Acute respiratory failure type: with hypoxia Sepsis acute organ dysfunction status: with acute organ dysfunction Sepsis type: sepsis due to unspecified organism Severe sepsis acute organ dysfunction type: acute respiratory failure Severe sepsis shock status: without septic shock Qualified Code(s): A41.9 - Sepsis, unspecified organism; R65.20 - Severe sepsis without septic shock; J96.01 - Acute respiratory failure with hypoxia Code(s): A41.9 - Sepsis, unspecified organism Status: Acute Assessment and Plan: The patient was septic upon arrival with increased respiratory rate, hypoxia, leukocytosis and diagnosis of pneumonia. Blood cultures, urine cultures and sputum cultures were taken. Patient has been afebrile, normal blood pressure, normal heart rate, normal respiratory rate and she was 97% on 2 L via nasal cannula this morning. He was started on IV antibiotics, IV fluid hydration, in further monitoring of vitals and leukocytosis. (2) Acute hypoxemic respiratory failure: Code(s): J96.01 - Acute respiratory failure with hypoxia Status: Acute Assessment and Plan: Patient's initial oxygen saturation was 84% on room air on arrival. She was placed on 2 L via nasal cannula with improvement of her hypoxia. Hypoxia secondary to acute pneumonia and COPD exacerbation. Ordered a Cornet and incentive spirometer. Oxygen saturation 97% on 2 L. Will continue weaning as tolerated. Will consult pulmonology due to hypoxia, COPD and not be on any home medications. The patient may require home oxygen upon discharge will have an oxygen evaluation prior to discharge. Continue monitoring oxygen saturation. Wean oxygen as tolerated to keep O2 between 90-95%. DuoNeb treatments. (3) Community acquired pneumonia: Qualifiers: Laterality: unspecified laterality Qualified Code(s): J18.9 - Pneumonia, unspecified organism Code(s): J18.9 - Pneumonia, unspecified organism Status: Acute Assessment and Plan: Patient had influenza like symptoms a few weeks ago and had progressively worsening respiratory complaints and was found to have bilateral lower lobe pneumonia which is less likely secondary to viral syndrome versus bacterial infection. Patient reports feeling better today, still hypoxic Patient was started on IV ceftriaxone and azithromycin for community-acquired pneumonia. Mucinex was started along with DuoNeb treatments every 6 hours. Cornet an incentive spirometer ordered. Will repeat chest x-ray in the morning. Continue monitoring patient respiratory symptoms over the next few days. (4) COPD exacerbation: Code(s): J44.1 - Chronic obstructive pulmonary disease with (acute) exacerbation Status: Acute Assessment and Plan: Patient has increased wheezing to anterior and posterior lung stanton with inspiration and expiration. No wheezing auscultated today. Will decrease Solu-Medrol to q.24 hours. Pulmonary consult for further input which is greatly appreciated. Continue DuoNebs every 6 hours. Continue monitoring the patient's oxygenation, wheezing and decreased Solu-Medrol as tolerated. (5) Alcoholic cirrhosis of liver: Code(s): K70.30 - Alcoholic cirrhosis of liver without ascites Status: Acute Assessment and Plan: History of liver cirrhosis from alcohol abuse and on lactulose 30 mg 3 times a day. The patient has had 1 bowel movement today. She is currently on lactulose 20 mg BID. Patient's niece says she does not take her lactulose every day and can sometimes go days without having a bowel movement. Will continue her lactulose and monitoring her symptoms.
--- NOTE | 2020-01-07 15:58 | PM.CNPUL ---
Assessment and Plan Assessment and plan (1) Community acquired pneumonia: Qualifiers: Laterality: unspecified laterality Qualified Code(s): J18.9 - Pneumonia, unspecified organism Code(s): J18.9 - Pneumonia, unspecified organism Status: Acute Assessment and Plan: Agree with current antibiotic regimen of Ceftriaxone and Azithromycin. Clinically improving. - Influenza A/B swab rapid oredered to r/o supperimposed infection - Legionella urine antigen ordered. (2) Acute hypoxemic respiratory failure: Code(s): J96.01 - Acute respiratory failure with hypoxia Status: Acute Assessment and Plan: Resolved. on minimal oxygen (3) COPD exacerbation: Code(s): J44.1 - Chronic obstructive pulmonary disease with (acute) exacerbation Status: Acute Assessment and Plan: - continue with current systemic steroids for 5-7 days - continue with nebulized bronchodilators as currently ordered - PT/OT and encourage mobilization. History of Present Illness History of Present Illness Consult date: 01/07/20 Chief complaint: Acute hypoxic respiratory failure/sepsis/pneumonia Narrative: 69 y/o female with COPD, HTN, hyperlipidemia, seizure disorder admisted with acute hypoxemic respiratory failure due to pnuemonia. CXR showed diffuse bilateral diffuse interstitial infiltrates. It was difficult getting a history from the patient as she is very hard of hearding. She did admite to haider colored sputum production. She was also hyponatremic and had leukocytosis on admission both of which are improving. She was started on Ceftrixone, Azithromycin, systemic steroids, Nebulized bronchodilators and oxygen therapy. She is starting to feel better Review of Systems Review of Systems: All systems reviewed & are unremarkable except as noted in HPI and below [facility] Past Medical History Medical History (Updated 01/04/20 @ 13:09 by Bonnie Dinh PA-C) Alcoholic cirrhosis of liver Anxiety Colon cancer Underwent partial colectomy, no radiation or chemotherapy COPD (chronic obstructive pulmonary disease) Depression [place] (hard of hearing) HTN (hypertension) Seizure Septic hip History of left hip arthroplasty that became septic and requiring a 2nd surgery. Tobacco abuse Smokes 1.5-2 packs per day Urinary incontinence Stress incontinence Surgical History Surgical History History of left hip replacement x2, after initial became infected. History of partial colectomy Removal of colon cancer Family History Family History Mother Diabetes mellitus Hypertension Family history of alcoholism Cerebrovascular accident Family history of arthritis Family history of malignant neoplasm Family history of seizure disorder Social History Social History (Updated 01/04/20 @ 12:58 by Bonnie Dinh PA-C) Smoking packs per day: 2 Smoking cigarettes per day: 40.0 Years smoked: 53 Smoking pack-years: 106.00 Smoking status: Current every day smoker Tobacco type: cigarettes Second hand tobacco smoke exposure: Yes Alcohol intake: former Alcohol use details: Former alcohol abuse, now with liver cirrhosis Substance use: current Substance use type: marijuana Last use: heavy marijuana use, last use was at least a week ago Living arrangements: with family Additional living arrangements comments: Lives with her niece Eufemia for the last 7 years. She normally walks with out any assist devices, until the last few weeks she has been using a walker. Occupation/Education: retired Gender identity (if verbalized by the patient): Female Spiritual care concerns: No Agree to blood products: Yes Meds Home Medications and Allergies Home Medications Medication Instructions Recorded Confirmed Type clonazepam 0.5 mg PO TID PRN 01/03/20 01/03/20 Hi
[2020-01-07 16:46] LABS: Influenza Control Positive
[2020-01-07] MEDS: PRAVASTATIN SODIUM 20 MG TABLET PO (20:16)
[2020-01-08] VITALS (12 sets, daily range): BP systolic 144–150; BP diastolic 70–77; PULSE 66–100; RESP 16–20; TEMP 36.5–36.8; O2SAT 84–100
[2020-01-08] MEDS: ALBUTEROL SULFATE NEB 2.5 MG/0.5 ML INH 5 MG INHALATION ×3 (02:43→14:13)
[2020-01-08] MEDS: IPRATROPIUM BR 0.02% INH SOLN 0.5 MG/2.5 ML VIAL INHALATION ×3 (02:44→14:13)
[2020-01-08 06:11] LABS: Hematocrit 32.8 % (37.0-47.0); Hemoglobin 10.8 g/dL (12.0-15.0); Mean Corpuscular HGB Conc 32.9 g/dl (32-36); Mean Platelet Volume 8.4 fl (7.4-10.4); Platelet Count Result 500 k/mm3 (150-375); Red Blood Count 3.38 M/mm3 (4.2-5.4); Red Cell Distribution Width 13.3 % (11.5-14.5); White Blood Count 10.2 K/mm3 (4.5-10.0)
[2020-01-08 06:27] LABS: Blood Urea Nitrogen 7 mg/dL (7-17); Calcium 8.8 mg/dL (8.4-10.2); Carbon Dioxide 27 mmol/L (22-30); Chloride 101 mmol/L (98-107); Estimated CRCL calculation 81 ml/min; Estimated Glomerular Filt Rate > 60; Glucose 83 mg/dL (65-105); Magnesium 1.9 mg/dL (1.6-2.3); Potassium 3.4 mmol/L (3.4-5.0); Sodium 133 mmol/L (137-145)
--- NOTE | 2020-01-08 08:31 | PCOTNOTE ---
Attempted to see pt for skilled OT this morning. Pt was eating breakfast.
[2020-01-08] MEDS: VITAMIN B COMPLEX CAPSULE 1 CAP PO (08:56)
[2020-01-08] MEDS: LACTULOSE 20 GM/30 ML UDC PO ×2 (08:56→17:26)
[2020-01-08] MEDS: predniSONE 20 MG TABLET 60 MG PO (08:56)
[2020-01-08] MEDS: OXYBUTYNIN CHLORIDE 5 MG TABLET PO ×3 (08:56→17:27)
[2020-01-08] MEDS: risperiDONE 0.5 MG TABLET PO ×2 (08:56→17:27)
[2020-01-08] MEDS: LOSARTAN POTASSIUM 50 MG TABLET PO (08:56)
[2020-01-08] MEDS: VENLAFAXINE HCL 75 MG TABLET 150 MG PO ×2 (08:56→17:28)
[2020-01-08] MEDS: THERAPEUTIC MULTIVITAMINS/MINERALS TAB (*BKC) 1 TABLET PO (08:57)
[2020-01-08] MEDS: NYSTATIN 100,000 UNITS/ML SUSP 5 ML ORAL.SUSP PO ×3 (08:57→17:26)
[2020-01-08] MEDS: ENOXAPARIN 40 MG/0.4 ML SYRINGE SUB-Q (08:57)
[2020-01-08] MEDS: FAMOTIDINE 20 MG TABLET PO (08:57)
[2020-01-08] MEDS: PHENYTOIN SODIUM 100 MG CAP PO ×3 (08:57→17:27)
--- NOTE | 2020-01-08 12:50 | PM.DS ---
DS: Diagnosis Admitting Diagnosis Admitting Diagnosis: Sepsis, unspecified organism Discharge Diagnosis (1) Sepsis: Qualifiers: Acute respiratory failure type: with hypoxia Sepsis acute organ dysfunction status: with acute organ dysfunction Sepsis type: sepsis due to unspecified organism Severe sepsis acute organ dysfunction type: acute respiratory failure Severe sepsis shock status: without septic shock Qualified Code(s): A41.9 - Sepsis, unspecified organism; R65.20 - Severe sepsis without septic shock; J96.01 - Acute respiratory failure with hypoxia Code(s): A41.9 - Sepsis, unspecified organism Status: Acute Assessment and Plan: The patient was septic upon arrival with increased respiratory rate, hypoxia, leukocytosis and diagnosis of pneumonia. Blood cultures, urine cultures and sputum cultures were taken. Patient has been afebrile, normal blood pressure, normal heart rate, normal respiratory rate and she was 96% on 2 L via nasal cannula this morning. (2) Acute hypoxemic respiratory failure: Code(s): J96.01 - Acute respiratory failure with hypoxia Status: Acute Assessment and Plan: Patient's initial oxygen saturation was 84% on room air on arrival. She was placed on 2 L via nasal cannula with improvement of her hypoxia. Hypoxia secondary to acute pneumonia and COPD exacerbation. Ordered a Cornet and incentive spirometer. Oxygen saturation 96% on 2 L. Home Oxygen Evaluation showed the patient required 2L of oxygen with rest and with exertion. Pulmonology evaluated the patient and recommends starting some home medications daily and nebulizer treatments. Educate the patient and family about the importance of keeping her oxygen saturation between 90-95% to prevent hypercapnia. (3) Community acquired pneumonia: Qualifiers: Laterality: unspecified laterality Qualified Code(s): J18.9 - Pneumonia, unspecified organism Code(s): J18.9 - Pneumonia, unspecified organism Status: Acute Assessment and Plan: Patient had influenza like symptoms a few weeks ago and had progressively worsening respiratory complaints and was found to have bilateral lower lobe pneumonia which is less likely secondary to viral syndrome versus bacterial infection. Patient reports feeling better today, still hypoxic and requiring 2 L via nasal cannula. She states her sputum production is more clear today. Continue with Mucinex as needed for chest congestion. Continue Cornet an incentive spirometer throughout the day. Patient is overall feeling better and will discharge her home on oral Augmentin for another few days. (4) COPD exacerbation: Code(s): J44.1 - Chronic obstructive pulmonary disease with (acute) exacerbation Status: Acute Assessment and Plan: Patient has increased wheezing to anterior and posterior lung stanton with inspiration and expiration. No wheezing auscultated today. Will discharge her on prednisone taper. Pulmonary evaluated the patient and will follow-up with her in 1 week. (5) Alcoholic cirrhosis of liver: Code(s): K70.30 - Alcoholic cirrhosis of liver without ascites Status: Acute Assessment and Plan: History of liver cirrhosis from alcohol abuse and on lactulose 30 mg 3 times a day. The patient has had 1 bowel movement today. She is currently on lactulose 20 mg BID. Indicated patient and family that they need to make sure she has 2-3 bowel movements per day to removed the ammonia level and toxins from her body. They understand agree with plans time. (6) Tobacco abuse: Code(s): Z72.0 - Tobacco use Status: Acute Assessment and Plan: Patient smokes 1.5-2 packs of ciga
--- NOTE | 2020-01-08 13:45 | PM.PNPUL ---
Progress Note: A&P Assessment and Plan (1) Community acquired pneumonia: Qualifiers: Laterality: unspecified laterality Qualified Code(s): J18.9 - Pneumonia, unspecified organism Code(s): J18.9 - Pneumonia, unspecified organism Status: Acute Assessment and Plan: Agree with current antibiotic regimen of Ceftriaxone and Azithromycin. Clinically improving with decrease in infiltrates from 01/02 compared to 01/07/2020. Her WBC is 10.8, up minimally from 9.9 yesterday, lower than at admission. Sodium is 133, almost normal. - Influenza A/B swab rapid is Negative. - Legionella urine antigen is still pending. - For discharge, I recommend * Pred taper with 60 for 2 days, decrease by 10 mg every 2 days until she is completely off, * Stopping azithromycin as she has completed a full course, * Augmentin 875 mg twice a day for 2 more days. * Repeat CXR in a month. * She may follow up in our office, calling to make an appointment after discharge. Since she has no inhalers at home, she would benefit from having a * nebulizer for albuterol and ipratropium up to 4 times a day as needed for shortness of breath. Care Coordination is schooling me in how to get this to happen with the help of RT. She should also be on a controller med such as * Symbicort 160/4.5, 2 puffs twice a day, rinse and spit after using. Plans discussed with Bonnie Dinh PA-C. (2) Acute hypoxemic respiratory failure: Code(s): J96.01 - Acute respiratory failure with hypoxia Status: Acute Assessment and Plan: Resolved. on minimal oxygen; now 96% on 1 L/min. - Home O2 study pending. She may not need O2 to go home. She lives in a small room, in a house with her niece, who smokes. She does not exert herself much at home, and may not require supplemental O2 at discharge. (3) COPD exacerbation: Code(s): J44.1 - Chronic obstructive pulmonary disease with (acute) exacerbation Status: Acute Assessment and Plan: - continue with oral steroids for several more days. - continue with nebulized bronchodilators as currently ordered - PT/OT and encourage mobilization. (4) Tobacco abuse: Code(s): Z72.0 - Tobacco use Status: Acute Assessment and Plan: We talked about tobacco cessation. She lives with her niece who smokes. Patient is somewhat interested in quitting tobacco, and I encouraged her to stay off when she returns home since she has been off tobacco since admission since Jan 02. Subjective Date/time seen: 01/08/20 13:45 69 y/o female with COPD, HTN, hyperlipidemia, seizure disorder admisted with acute hypoxemic respiratory failure due to pnuemonia. CXR showed diffuse bilateral diffuse interstitial infiltrates. She is alert, feels better and wants to go home. She is on 1 L/min at rest. She was not on O2 before coming to the hospital. She had her sputum and hyponatremic with leukocytosis on admission, better. She was treated with Ceftriaxone, Azithromycin, systemic steroids, Nebulized bronchodilators and oxygen therapy. Blood cultures were negative. Sputum grew yeast = not a pathogen. Review of Systems Review of Systems: All systems reviewed & are unremarkable except as noted in HPI and below Exam Const: General: comfortable and no acute distress HENMT: Mouth: Yes moist mucous membranes Neck: Neck: supple and no JVD Resp: Effort & Inspection: normal respiratory effort Auscultation: crackles (rick the right base) and diminished lung sounds Cardio: Rate: regular rate Rhythm: regular rhythm GI: Auscultation: normal bowel sounds Skin: General skin exam: normal color and no rashes or lesions noted Neuro: Speech: normal speech Extrem: General: normal to inspection, no edema and no pedal edema Psych: Mental Status: mental status grossly normal (with decreased hearing which creates a barrier to communicating) Affect: normal affect Objective Data Vital Signs Vital Signs: Vital
--- NOTE | 2020-01-08 15:14 | HOMEO2EVAL ---
Home Oxygen Evaluation RC: Home Oxygen (O2) Evaluation Start: 01/08/20 07:54 Freq: ONCE Status: Active Protocol: RPE Activity Type Activity Date Activity User E-Sign Co-Sign Detail Recorded Client Recorded Date Recorded By Document 01/08/20 14:08 KRM [id number] 01/08/20 15:14 KRM Document 01/08/20 14:09 KRM [id number] 01/08/20 15:14 KRM Document 01/08/20 14:11 KRM [id number] 01/08/20 15:14 KRM 01/08/20 01/08/20 01/08/20 14:08 14:09 14:11 Home O2 Evaluation Test Phase Resting Resting Resting Oxygen Delivery Room Air Nasal Cannula Nasal Cannula Oxygen Flow Rate (L/min) 1 2 Pulse Oximetry (90-100 %) 84 L 89 L 91 Pulse Rate (60-100 beats/min) 89 87 89 Home Oxygen Evaluation Comments PT. WAS NOT ABLE TO AMBULATE AT THIS TIME. Treatment Charges O2 Evaluation
--- NOTE | 2020-01-08 15:14 | PCRCNOTE ---
HOME O2 EVALUATION COMPLETE. PT. REQUIRES 2LPM. SETTING PT. UP WITH APRIA.
[2020-01-10 18:52] LABS: Legionella pneumophila Ag Ur Not Detected (Not Detected)
== END 2020-01-08 19:43 | disposition home or self-care (01) | DRG 720 ==
LOC: ANHED 18:16 → ANH3MED 18:57
PROVIDERS: Internal Medicine Critical Care Medicine; Physician Assistant; Admitting Provider Internal Medicine; Emergency Provider Emergency Medicine; PCP Family Medicine; Visit Provider Physician Assistant
DX: A41.9 Sepsis, unspecified organism (principal); J96.01 Acute respiratory failure with hypoxia; R65.20 Severe sepsis without septic shock; J18.9 Pneumonia, unspecified organism; J44.1 Chronic obstructive pulmonary disease with (acute) exacerbation; J44.0 Chronic obstructive pulmonary disease with (acute) lower respiratory infection; F17.210 Nicotine dependence, cigarettes, uncomplicated; F41.8 Other specified anxiety disorders; R56.9 Unspecified convulsions; H91.90 Unspecified hearing loss, unspecified ear; K70.30 Alcoholic cirrhosis of liver without ascites; Z90.49 Acquired absence of other specified parts of digestive tract; Z85.038 Personal history of other malignant neoplasm of large intestine; I10 Essential (primary) hypertension; N39.3 Stress incontinence (female) (male); Z96.642 Presence of left artificial hip joint; F10.10 Alcohol abuse, uncomplicated; B37.9 Candidiasis, unspecified; E87.1 Hypo-osmolality and hyponatremia
CPT/HCPCS: 36415; 36600; 51701; 71046; 80048; 80053; 81001; 82805; 83605; 83735; 83880; 85025; 85027; 85610; 85730; 87040; 87070; 87086; 87205; 87449; 87804; 93005; 94618; 94640; 94667; 94668; 96361; 96365; 96367; 97110; 97116; 97161; 97165; 97530; 97535; 99291; A9270; J0456; J0696; J1650; J2930; J7120; J7512

== ENCOUNTER 2020-04-14 18:28 | Outpatient (CLI) | payer OTHER, SELFPAY ==
--- NOTE | ~2020-04-14 | XR_ITS ---
EXAMINATION: XR chest 2V DATE: 04/14/2020 19:31 INDICATION: Pneumonia. TECHNIQUE: Frontal and lateral views of the chest were obtained. COMPARISON: Chest 2 views 01/07/2020, 01/03/2020 FINDINGS: There are mild airspace opacities in the lower lung zones. No pleural effusion or pneumotho rax. The heart size is normal. There are multiple chronic compression fractures in the spine. IMPRESSION: 1. Worsened mild airspace opacities in the lower lung zones, consistent with atelectasis versus pneum onia. Reviewed, dictated and finalized at location A. IMPRESSION: 1. Worsened mild airspace opacities in the lower lung zones, consistent with at electasis versus pneumonia.
[2020-04-14 18:54] LABS: Basophils Absolute Auto 0.06 K/mm3 (0.00-0.10); Basophils Percent Auto 1.1 % (0.0-1.0); Eosinophils Absolute Auto 0.12 K/mm3 (0.02-0.50); Eosinophils Percent Auto 2.2 % (1.0-6.0); Hemoglobin 13.2 g/dL (11.7-13.8); Immature Granulocyte Absolute 0.01 K/mm3 (0.00-0.00); Immature Granulocyte Percent A 0.2 % (0.0-0.0); Lymphocytes Absolute Auto 1.32 K/mm3 (1.10-4.50); Lymphocytes Percent Auto 24.1 % (18.0-42.0); Mean Corpuscular HGB Conc 33.8 g/dL (32.0-36.0); Mean Corpuscular Hemoglobin 32.9 pg (27.0-31.0); Mean Corpuscular Volume 97.3 fL (78.0-102.0); Monocytes Absolute Auto 0.63 K/mm3 (0.10-0.90); Monocytes Percent Auto 11.5 % (2.0-11.0); Neutrophils Absolute Auto 3.3 K/mm3 (1.7-7.2); Neutrophils Percent Auto 60.9 % (50.0-70.0); Platelet Count Result 313 K/mm3 (150-420); Red Blood Count 4.01 M/mm3 (4.20-5.40); Red Cell Distribution Width 12.2 % (11.6-14.4); White Blood Count 5.5 K/mm3 (4.8-10.8)
[2020-04-14 19:09] LABS: Add Urine Microscopic? YES; Appearance Urine Sl Cloudy (Clear); Bilirubin Urine Negative (Negative); Blood Urine Negative (Negative); Color Urine Yellow (Yellow); Glucose Urine UA Negative (Negative); Ketones Urine Negative (Negative); Leukocyte Esterase Ur 1+ (Negative); Nitrate Urine Positive (Negative); Protein Urine Negative (Negative); Urobilinogen Urine 0.2 mg/dL (0.2-1.0)
[2020-04-14 19:14] LABS: Creatinine Urine 28.28 mg/dL (40-278)
[2020-04-14 19:17] LABS: RBC Urine None seen /hpf (0-2); WBC Clumps Urine Present /hpf; WBC Urine 21-30 /hpf (0-3)
[2020-04-14 19:18] LABS: Bacteria Urine 3+ /hpf; Mucus Urine None seen /lpf; Squamous Epithelial Cell Urine Few /hpf (Few)
[2020-04-14 19:19] LABS: Microalbumin Urine Random 87.4 mg/L
[2020-04-14 19:26] LABS: Alanine Aminotransferase 30 U/L (14-59); Albumin Level 3.3 g/dL (3.4-5.0); Alkaline Phosphatase 162 U/L (46-116); Anion Gap 8.6 mmol/L (7-16); Aspartate Amino Transferase 33 U/L (15-37); Bilirubin,Total 0.2 mg/dL (0.00-1.00); Blood Urea Nitrogen 5 mg/dL (7-18); Calcium 8.4 mg/dL (8.5-10.1); Carbon Dioxide 30 mmol/L (21-32); Chloride 93 mmol/L (98-108); Estimated Glomerular Filt Rate > 60; Glucose 72 mg/dL (70-99); Osmolality Calculated 262 mOsm/kg (285-295); Potassium 3.6 mmol/L (3.5-5.1); Sodium 128 mmol/L (136-145); Thyroid Stimulating Hormone 2.91 uIU/mL (0.36-3.74); Total Protein 7.4 g/dL (6.4-8.2)
[2020-04-14 19:39] LABS: Ammonia < 10 umol/L (11-32)
== END 2020-04-14 18:29 | disposition home or self-care (01) ==
LOC: CHSLAB 18:30
PROVIDERS: PCP Family Medicine; Visit Provider Family Medicine
DX: J18.9 Pneumonia, unspecified organism (principal); E11.9 Type 2 diabetes mellitus without complications; K72.10 Chronic hepatic failure without coma; I10 Essential (primary) hypertension
CPT/HCPCS: 36415; 71046; 80053; 81001; 82043; 82140; 84443; 85025

== ENCOUNTER 2021-03-20 18:24 | Outpatient (CLI) | payer OTHER, SELFPAY ==
[2021-03-20 18:55] LABS: Alanine Aminotransferase 28 U/L (14-59); Albumin Level 3.4 g/dL (3.4-5.0); Alkaline Phosphatase 119 U/L (46-116); Ammonia 25 umol/L (11-32); Anion Gap 9 mmol/L (8-16); Aspartate Amino Transferase 20 U/L (15-37); Bilirubin,Total 0.2 mg/dL (0.00-1.00); Blood Urea Nitrogen 8 mg/dL (7-18); Calcium 8.7 mg/dL (8.5-10.1); Carbon Dioxide 26 mmol/L (21-32); Chloride 97 mmol/L (98-108); Estimated Glomerular Filt Rate > 60; Glucose 97 mg/dL (70-99); Osmolality Calculated 272 mOsm/kg (285-295); Sodium 132 mmol/L (136-145); Total Protein 6.9 g/dL (6.4-8.2)
[2021-03-20 19:00] LABS: Basophils Absolute Auto 0.05 K/mm3 (0.00-0.10); Basophils Percent Auto 0.8 % (0.0-1.0); Eosinophils Absolute Auto 0.18 K/mm3 (0.02-0.50); Eosinophils Percent Auto 2.8 % (1.0-6.0); Hemoglobin 12.8 g/dL (11.7-13.8); Immature Granulocyte Absolute 0.02 K/mm3 (0.00-0.00); Immature Granulocyte Percent A 0.3 % (0.0-0.0); Lymphocytes Absolute Auto 1.31 K/mm3 (1.10-4.50); Lymphocytes Percent Auto 20.1 % (18.0-42.0); Mean Corpuscular HGB Conc 35.6 g/dL (32.0-36.0); Mean Corpuscular Hemoglobin 34.4 pg (27.0-31.0); Mean Corpuscular Volume 96.8 fL (78.0-102.0); Mean Platelet Volume 8.7 fl (9.2-11.8); Monocytes Absolute Auto 0.69 K/mm3 (0.10-0.90); Monocytes Percent Auto 10.6 % (2.0-11.0); Neutrophils Absolute Auto 4.3 K/mm3 (1.7-7.2); Neutrophils Percent Auto 65.4 % (50.0-70.0); Platelet Count Result 281 K/mm3 (150-420); Red Blood Count 3.72 M/mm3 (4.20-5.40); Red Cell Distribution Width 12.2 % (11.6-14.4); White Blood Count 6.5 K/mm3 (4.8-10.8)
== END 2021-03-20 18:25 | disposition home or self-care (01) ==
LOC: CHSLAB 18:26
PROVIDERS: PCP Family Medicine; Visit Provider Family Medicine
DX: K72.00 Acute and subacute hepatic failure without coma (principal); I10 Essential (primary) hypertension
CPT/HCPCS: 36415; 80053; 82140; 85025

== ENCOUNTER 2021-10-26 18:25 | Inpatient (IN) | payer OTHER, SELFPAY ==
[2021-10-26] VITALS (13 sets, daily range): BP systolic 93–112; BP diastolic 58–76; PULSE 87–147; RESP 18–34; TEMP 36.6–36.8; O2SAT 91–94; BMI 27.1
--- NOTE | ~2021-10-26 | US_ITS ---
EXAMINATION: US abscess cyst aspiration EXAM DATE: 11/02/2021 13:06 INDICATION: Periprosthetic abscess left hip dislocation. TECHNIQUE: The procedure including the risks, benefits, and alternatives was discussed with the patie nt. Risks discussed included bleeding and infection. The patient understood the risks and agreed to p roceed. Left hip was evaluated by ultrasound to determine location of fluid collection. The skin overlying t he left hip was prepped and draped in usual sterile fashion. Anesthetic was administered with 3 mL of 1% lidocaine subcutaneously. An 18 gauge needle was then used to aspirate fluid under sonographic gu idance. Real-time ultrasound demonstrate the needle tip within the fluid collection. A total of 43 mL purulent appearing material was able to be aspirated. There was still some residual fluid present af ter the procedure unable to be aspirated. Sample this fluid was placed in a purple top bile and the r emainder in a syringe, sent to the lab for cell count, differential, culture and sensitivity (this wa s specifically discussed with the lab and angiography technologist). The entry site was cleaned and dr essed. There were no immediate complications. FINDINGS: Real-time ultrasound images demonstrated needle tip within the collection overlying left h ip, hip joint effusion. IMPRESSION: 1. Status post left hip aspiration yielding 43 mL purulent appearing material. Some fluid remained a nd was unable to be aspirated. 2. Follow-up lab results. Reviewed, dictated and finalized at location A. ING INSPECTOR IMPRESSION: 1. Status post left hip aspiration yielding 43 mL purulent appearing material. Some fluid remained and was unable to be aspirated. 2. Follow-up lab results.
--- NOTE | ~2021-10-26 | CT_ITS ---
EXAMINATION: CT abdomen pelvis w con DATE: 10/26/2021 20:05 INDICATION: Lower abdominal pain. Urinary incontinence. TECHNIQUE: Computed tomography (CT) of the abdomen and pelvis was performed with 100 mL Omnipaque-350 intravenous contrast. Automated exposure control and iterative reconstruction technique were employe d. The dose-length product was 530.88 mGy-cm. COMPARISON: None FINDINGS: Very small right pleural effusion. Patchy airspace opacities in the dependent basilar aspect of the b ilateral lower lobes with mild smooth septal line thickening the basilar right lower lobe. Heart size is normal. Atherosclerotic coronary artery calcific lesion. No pericardial effusion. Small sliding-t ype hiatal hernia. A few scattered splenic calcification consistent with old granulomatous disease. N odular liver surface consistent with cirrhosis. A few small calcified gallstones in the dependent asp ect of the otherwise normal-appearing gallbladder. Pancreas and bilateral adrenal glands are normal. There are few subcentimeter bilateral renal cysts. Prominent cephalad displacement of a dislocated fi fth left total hip arthroplasty with longstem modular femoral component with cerclage wires. Streak a rtifact from the arthroplasty obscures portions of the left and inferior pelvis. Moderate amount of s tool throughout the normal caliber colon. No obstruction. Suture lines in the region of the sequences suggesting prior bowel surgery with possible ileocolic anastomosis. Bladder and uterus are unremarka ble. No free intraperitoneal gas or fluid. No pathologically enlarged abdominal or pelvic lymphadenop athy. Severe lumbar spondylosis. Chronic compression fractures at T10, L1, L2 and L5. Severe right hi p osteoarthritis. IMPRESSION: 1. No evident acute intra-abdominal/pelvic process. Evaluation in the pelvis is somewhat limited by p rominent metallic streak artifact from a dislocated revision left total hip arthroplasty. 2. Patchy consolidation at the basilar left lower lobes which could represent atelectasis or pneumoni a. 3. Small right pleural effusion. 4. Cirrhosis. Reviewed, dictated and finalized at location . NG TRIMMER IMPRESSION: 1. No evident acute intra-abdominal/pelvic process. Evaluation in the pelvis is somewhat limited by prominent metallic streak artifact from a dislocated lauren ion left total hip arthroplasty. 2. Patchy consolidation at the basilar left lower lobes which could represent a telectasis or pneumonia. 3. Small right pleural effusion. 4. Cirrhosis.
--- NOTE | ~2021-10-26 | XR_ITS ---
EXAMINATION: XR chest 1V portable DATE: 10/26/2021 19:05 INDICATION: Weakness and cough TECHNIQUE: frontal view of the chest was obtained. COMPARISON: Chest radiograph dated 04/14/2020 FINDINGS: Again seen is pulmonary vascular congestion and lower lung predominant increased interstitial pattern . No pleural effusion or pneumothorax. The cardiomediastinal silhouette is normal. Severe right gleno humeral osteoarthritis. IMPRESSION: 1. Pulmonary vascular congestion and lower lung predominant increased interstitial pattern which coul d represent pulmonary edema, pneumonia, atelectasis or some combination thereof. Reviewed, dictated and finalized at location H. SURISED CONTAINER FILLER IMPRESSION: 1. Pulmonary vascular congestion and lower lung predominant increased interstit ial pattern which could represent pulmonary edema, pneumonia, atelectasis or so me combination thereof.
--- NOTE | ~2021-10-26 | XR_ITS ---
EXAMINATION: XR hip LT 2V w AP pelvis INDICATION: Left hip pain TECHNIQUE: Two views of the left hip are obtained. COMPARISON: 06/24/2015 FINDINGS: There are changes of left total hip arthroplasty. The femoral component of the arthroplasty is dislocated and proximally migrated with respect to the acetabular component. No fracture is ident ified. There is severe osteoarthritis of the right hip. IMPRESSION: 1. Dislocated femoral component of the left hip arthroplasty. Reviewed, dictated and finalized at location F. NG MIXER
--- NOTE | ~2021-10-26 | US_ITS ---
EXAMINATION: US hip asp inj w image LT DATE: 10/31/2021 13:17 INDICATION: Left hip joint effusion. TECHNIQUE: The procedure including the risks, benefits, and alternatives was discussed with the patie nt. Risks discussed included bleeding and infection. The patient understood the risks and agreed to p roceed. The skin overlying the left hip was prepped and draped in usual sterile fashion. Anesthetic was administered with 1% lidocaine subcutaneously. An 18 gauge needle was then used to aspirate flui d under continuous sonographic guidance. The entry site was cleaned and dressed. There were no immed iate complications. FINDINGS: Ultrasound images demonstrate the needle in a left hip joint effusion. IMPRESSION: 1. Ultrasound-guided needle aspiration of the left hip effusion yielding 80 mL opaque, green-brown fl uid. Note that not all of the fluid could be aspirated. Reviewed, dictated and finalized at location A. CTOR OF USER EXPERIENCE IMPRESSION: 1. Ultrasound-guided needle aspiration of the left hip effusion yielding 80 mL opaque, green-brown fluid. Note that not all of the fluid could be aspirated.
--- NOTE | 2021-10-26 18:49 | ECG_ITS ---
Measurements Intervals [place] Rate: 94 P: 51 MS: 164 QRS: 38 QRSD: 86 T: 50 QT: 327 QTc: 410 Interpretive Statements SINUS RHYTHM BASELINE ARTIFACT- I, II, III, AVR, AVL, AVF, V1-V6 NORMAL ECG Electronically Signed On 10-26-2021 20:15:17 CAR BODY INSPECTOR by Tee Hamlin D.O.
[2021-10-26 19:22] LABS: Hematocrit 28.8 % (37.0-47.0); Hemoglobin 10.2 g/dL (12.0-15.0); Mean Corpuscular HGB Conc 35.4 g/dl (32-36); Mean Corpuscular Hemoglobin 33.8 pg (26-34); Mean Corpuscular Volume 95.4 fl (80-100); Mean Platelet Volume 8.6 fl (7.4-10.4); Platelet Count Result 289 k/mm3 (150-375); Red Blood Count 3.02 M/mm3 (4.2-5.4); Red Cell Distribution Width 12.4 % (11.5-14.5); White Blood Count 20.2 K/mm3 (4.5-10.0)
--- NOTE | 2021-10-26 19:24 | PC.NURSE ---
Report received from CARMEN Yap. Assumed care of patient at this time.
[2021-10-26 19:34] LABS: Alanine Aminotransferase 16 U/L (4-35); Albumin Level 2.9 g/dL (3.5-5.1); Alkaline Phosphatase 139 U/L (38-126); Anion Gap 3 mmol/L (8-16); Aspartate Amino Transferase 32 U/L (14-36); Bilirubin,Total 0.7 mg/dL (0.2-1.3); Blood Urea Nitrogen 17 mg/dL (7-17); Calcium 7.9 mg/dL (8.4-10.2); Carbon Dioxide 25 mmol/L (22-30); Chloride 89 mmol/L (98-107); Estimated CRCL calculation 56 ml/min; Estimated Glomerular Filt Rate > 60; Glucose 91 mg/dL (65-110); Potassium 4.4 mmol/L (3.4-5.0); Sodium 117 mmol/L (137-145)
[2021-10-26 19:36] LABS: Add Urine Microscopic? YES; Appearance Urine Cloudy (Clear); Bacteria Urine 2+ /hpf; Bilirubin Urine Negative (Negative); Blood Urine Negative (Negative); Color Urine Amber (Yellow); Glucose Urine UA Negative (Negative); Ketones Urine Negative (Negative); Leukocyte Esterase Ur Negative LEU/UL (Negative); Mucus Urine Rare /lpf; Nitrate Urine Negative (Negative); Protein Urine Negative (Negative); RBC Urine 0-2 /hpf (0-2); Specific Grav Ur 1.014 (1.001-1.035); Squamous Epithelial Cell Urine Rare /hpf (Few)
[2021-10-26 19:52] LABS: Lymphocytes Percent Manual 4 % (18-44); Neutrophils Percent Manual 96 % (46-73); Total Cells Counted 100
--- NOTE | 2021-10-26 19:52 | PC.NURSE ---
Patient taken to CT via stretcher.
[2021-10-26 19:53] LABS: Platelet Estimate Adequate (Adequate)
--- NOTE | 2021-10-26 19:54 | ED.GENADULT ---
HPI - General Adult General Chief complaint: Weakness Stated complaint: increased weakness x 2 days with dry cough Time Seen by Provider: 10/26/21 19:19 History of Present Illness HPI narrative: Patient is a 71-year-old female who presents to the ER with weakness. She is hard of hearing and has difficulty giving a history. She endorses lower abdominal pain that is worse with palpation. She has been incontinent of urine. She cannot give any history regarding to how long she has had abdominal discomfort. She does not endorse any respiratory distress or cough at this time. Related Data Home Medications Medication Instructions Recorded Confirmed Multivitamin Women 50 Plus 1 tablet PO DAILY 01/03/20 10/27/21 clonazepam 0.5 mg PO TID PRN 01/03/20 10/27/21 hydrocodone-acetaminophen [[place]] 1 tablet PO Q6H PRN 01/03/20 10/27/21 losartan 50 mg PO DAILY 01/03/20 10/27/21 oxybutynin chloride 5 mg PO TID 01/03/20 10/27/21 phenytoin sodium extended 100 mg PO QID 01/03/20 10/27/21 pravastatin 20 mg PO HS 01/03/20 10/27/21 risperidone 0.5 mg PO BID 01/03/20 10/27/21 venlafaxine 112.5 mg PO BID 01/03/20 10/27/21 vitamin B complex [Super B-50 1 cap PO DAILY 01/03/20 10/27/21 Complex] Allergies Allergy/AdvReac Type Severity Reaction Status Date / Time No Known Allergies Allergy Verified 10/27/21 00:49 Review of Systems Review of Systems: ROS unobtainable: Yes other (Hard of hearing) [facility] Past Medical History Medical History (Updated 10/27/21 @ 07:20 by Osmany Clemons MD) Alcoholic cirrhosis of liver Anxiety Colon cancer Underwent partial colectomy, no radiation or chemotherapy COPD (chronic obstructive pulmonary disease) Depression [place] (hard of hearing) HTN (hypertension) Seizure Septic hip History of left hip arthroplasty that became septic and requiring a 2nd surgery. Tobacco abuse Smokes 1.5-2 packs per day Urinary incontinence Stress incontinence Surgical History Surgical History History of left hip replacement x2, after initial became infected. History of partial colectomy Removal of colon cancer Family History Family History Mother Diabetes mellitus Hypertension Family history of alcoholism Cerebrovascular accident Family history of arthritis Family history of malignant neoplasm Family history of seizure disorder Social History Social History (Updated 01/04/20 @ 12:58 by Bonnie Silva PA-C) Smoking packs per day: 1 Smoking cigarettes per day: 20.0 Years smoked: 40 Smoking pack-years: 40.00 Smoking status: Heavy tobacco smoker Tobacco type: cigarettes Second hand tobacco smoke exposure: Yes Alcohol intake: former Alcohol use details: Former alcohol abuse, now with liver cirrhosis Substance use: current Substance use type: marijuana Other substance usage details: former heavy drinker-no drinks in 4-5 yrs Last use: heavy marijuana use, last use was at least a week ago Additional living arrangements comments: Lives with her niece Eufemia for the last 7 years. She normally walks with out any assist devices, until the last few weeks she has been using a walker. Gender identity (if verbalized by the patient): Female Spiritual care concerns: No Agree to blood products: Yes Exam Narrative: GENERAL: Chronically ill-appearing, well-nourished, and in no acute distress. HEAD: Normocephalic, atraumatic. ENT: Mucous membranes moist. CHEST: Clear to auscultation. No respiratory distress. HEART: Regular rate and rhythm. Normal peripheral pulses. ABDOMEN: Soft, mild tenderness to bilateral lower quadrants of the abdomen with no guarding, nondistended, normal active bowel sounds. EXTREMITIES: Normal range of motion. No edema. SKIN: Warm, dry, no rash. NEURO: Alert and oriented x3. PSYCH: Normal mood and affect. Course Course Yusra
[2021-10-26] MEDS: SODIUM CHLORIDE 0.9% IV 1,000 ML 999 ML IV CONT (20:13)
--- NOTE | 2021-10-26 21:50 | PM.IMHP ---
H&P: HPI History of Present Illness Date/Time: 10/26/21 21:50 Chief Complaint: Weakness Narrative: This is a 71-year-old female with past medical history significant for hypertension, seizure, tobacco use, COPD, colon cancer, alcoholic cirrhosis of the liver, dislocated left arthroplasty of the hip. Patient was brought to the emergency room by a family member most of the history was taken from medical records and family member as patient is very hard of hearing and therefore history taking is somehow limited. Patient according to records was complaining of abdominal pain a CT of abdomen and pelvis did not show any acute abnormalities except for left dislocated arthroplasty of the hip which is seems to be chronic, however it did show lung infiltrates. Preliminary workup was significant for a sodium of 117, a white count of 20,000, chest x-ray was significant for diffuse bilateral infiltrates of both lung stanton. In emergency room patient had a blood pressure upon presentation of 93/62 and an oxygen saturation of 84% on room air patient required supplementation of oxygen by nasal cannula and required fluid boluses as well she then had a heart rate that increased to 160-170 and an EKG showed atrial fibrillation with rapid ventricular response. Patient is been admitted for further evaluation, management and treatment Review of Systems Review of Systems: Abdominal pain ,shortness of breath. ROS unobtainable: Yes other (History taking was extremely limited due to patient been hard of hearing.) [facility] Past Medical History Medical History (Updated 10/27/21 @ 02:16 by Alda Farias MD) Alcoholic cirrhosis of liver Anxiety Colon cancer Underwent partial colectomy, no radiation or chemotherapy COPD (chronic obstructive pulmonary disease) Depression [place] (hard of hearing) HTN (hypertension) Seizure Septic hip History of left hip arthroplasty that became septic and requiring a 2nd surgery. Tobacco abuse Smokes 1.5-2 packs per day Urinary incontinence Stress incontinence Surgical History Surgical History History of left hip replacement x2, after initial became infected. History of partial colectomy Removal of colon cancer Family History Family History Mother Diabetes mellitus Hypertension Family history of alcoholism Cerebrovascular accident Family history of arthritis Family history of malignant neoplasm Family history of seizure disorder Social History Social History (Updated 01/04/20 @ 12:58 by Bonnie Silva PA-C) Smoking packs per day: 1 Smoking cigarettes per day: 20.0 Years smoked: 40 Smoking pack-years: 40.00 Smoking status: Heavy tobacco smoker Tobacco type: cigarettes Second hand tobacco smoke exposure: Yes Alcohol intake: former Alcohol use details: Former alcohol abuse, now with liver cirrhosis Substance use: current Substance use type: marijuana Other substance usage details: former heavy drinker-no drinks in 4-5 yrs Last use: heavy marijuana use, last use was at least a week ago Additional living arrangements comments: Lives with her niece Eufemia for the last 7 years. She normally walks with out any assist devices, until the last few weeks she has been using a walker. Gender identity (if verbalized by the patient): Female Spiritual care concerns: No Agree to blood products: Yes Meds Home Medications and Allergies Home Medications Medication Instructions Recorded Confirmed Type Multivitamin Women 50 Plus 1 tablet PO DAILY 01/03/20 10/27/21 History clonazepam 0.5 mg PO TID PRN 01/03/20 10/27/21 History hydrocodone-acetaminophen [[place]] 1 tablet PO Q6H PRN 01/03/20 10/27/21 History losartan 50 mg PO DAILY 01/03/20 10/27/21 History oxybutynin chloride 5 mg PO TID 01/03/20 10/27/21 History phenytoin sodium extended 100 mg PO QID 01/03/20
--- NOTE | 2021-10-26 21:52 | PC.NURSE ---
Patient placed on 2Lvia NC due to O2 sat decreased when sleeping.
--- NOTE | 2021-10-26 22:11 | PC.NURSE ---
1845 Patient went in to negar, TOR obtain EKG. in room. EKG obtained.
--- NOTE | 2021-10-26 22:12 | ECG_ITS ---
Measurements Intervals [place] Rate: 144 P: NV: 0 QRS: 42 QRSD: 77 T: 0 QT: 258 QTc: 400 Interpretive Statements ATRIAL FIBRILLATION WITH RAPID VENTRICULAR RESPONSE LOW QRS VOLTAGE IN PRECORDIAL LEADS NONSPECIFIC ST & T-WAVE ABNORMALITY- DIFFUSE LEADS BASELINE ARTIFACT- I, III, AVR, AVL,A VF ABNORMAL ECG Electronically Signed On 10-27-2021 16:45:39 AERONAUTICAL RESEARCH ENGINEER by Tee Hamlin D.O.
[2021-10-26] MEDS: SODIUM CHLORIDE 0.9% IV 1,000 ML 125 ML IV CONT (22:20)
[2021-10-26] MEDS: dilTIAZem HCl INJ 25 MG/5 ML VIAL 10 MG IV PUSH (22:20)
[2021-10-26 22:51] LABS: EDCOVIDSCREEN Negative (Negative)
--- NOTE | 2021-10-26 23:54 | PC.NURSE ---
2345 left voicemail for Eufemia to call back for admission information.
[2021-10-27] VITALS (35 sets, daily range): BP systolic 89–145; BP diastolic 58–85; PULSE 66–156; RESP 16–20; TEMP 36.4–36.9; O2SAT 90–97
[2021-10-27] MEDS: SODIUM CHLORIDE 0.9% IV 1,000 ML 999 ML IV CONT
--- NOTE | 2021-10-27 | ECHO_ITS ---
Patient Info Name: Pattie Malloy Age: 71 years : 1950 Gender: Female Ht: 61 in Wt: 143 lbs BSA: 1.69 m2 HR: 133 bpm BP: 104 / 63 mmHg Heart Rhythm: Tachycardia Technical Quality: Fair Exam Date: 10/27/2021 10:56 AM Exam Location: [facility] Pulmonary Patient Status: Inpatient Admit Date: 10/27/2021 Staff Ordering Physician: Alda Farias MD Computational Chemist: Shaneka Steele RDCS Attending Provider: Alda Farias MD Referring Physician: Jarrett SANTAMARIA; Exam Type: CA echo dop color flow w con Study Info Indications - Afib Complete two-dimensional, color flow and Doppler transthoracic echocardiogram is performed. Summary 1. Complete two-dimensional, color flow and Doppler transthoracic echocardiogram is performed. 2. Left ventricular systolic function is hyperdynamic, estimated at >70%. 3. Right ventricular chamber dimension is normal. 4. Left atrial chamber dimension is severely enlarged. 5. There is mild aortic valve sclerosis. 6. Definity contrast injected to improve visualization. Left Ventricle Left ventricular chamber dimension is normal. Left ventricular systolic function is hyperdynamic, estimated at >70%. The left ventricular diastolic function is indeterminate. Right Ventricle Right ventricular chamber dimension is normal. Left Atria Left atrial chamber dimension is severely enlarged. Right Atria Right atrial chamber dimension is normal. Aortic Valve The aortic valve is trileaflet. There is mild aortic valve sclerosis. Pulmonic Valve The pulmonic valve is not well visualized. Mitral Valve The mitral valve has normal leaflets. Tricuspid Valve The tricuspid valve leaflets are not well visualized. Pericardium/Pleural The pericardium appears normal. Aorta The aortic root size at the sinus of Valsalva is normal. Left Ventricular Outflow Tract Name Value Normal LVOT 2D LVOT Diameter 1.99 cm LVOT Doppler LVOT Peak Gradient 5 mmHg LVOT Mean Gradient 2 mmHg LVOT VTI 13.95 cm LVOT VTI/AV VTI Ratio 0.75 LVOT Stroke Volume 43.42 ml LVOT CO 6.34 l/min LVOT CI 3.75 L/min/m2 Pulmonic Valve Name Value Normal RVOT Doppler RVOT Peak Gradient 3 mmHg PV Doppler PV Peak Gradient 4 mmHg Tricuspid Valve Name Value Normal TV Regurgitation Doppler
--- NOTE | 2021-10-27 | PC.NURSE ---
This patient, Pattie Malloy, was admitted to IMU Room 212-01. Patient/family oriented to hospital policies and general routines including ID bracelet, bed and alarms, visiting hours, pain management, procedures, bathroom and other care routines, personal items, smoking policy, room service/diet, and visiting hours. Valuables list has been completed. Information on how to activate the Rapid Response Team has been discussed. Patient/Family are encouraged to report perceived risks to care and to ask questions if they do not understand what they are told or what they should do.
[2021-10-27] MEDS: dilTIAZem 100 MG/100 ML 100 MG/100 ML BAG IV CONT (01:30)
[2021-10-27] MEDS: ENOXAPARIN 80 MG/0.8 ML SYRINGE 65 MG SUB-Q ×2 (01:30→13:44)
[2021-10-27 02:11] LABS: Sodium 119 mmol/L (137-145)
[2021-10-27] MEDS: methylPREDNISolone SOD SUCC 40 MG VIAL IV PUSH ×4 (02:54→19:59)
[2021-10-27] MEDS: IPRATROPIUM BR 0.02% INH SOLN 0.5 MG/2.5 ML VIAL INHALATION ×4 (03:40→21:27)
[2021-10-27] MEDS: dilTIAZem HCl INJ 25 MG/5 ML VIAL 20 MG IV PUSH (04:29)
[2021-10-27 05:17] LABS: Hematocrit 29.7 % (37.0-47.0); Hemoglobin 10.7 g/dL (12.0-15.0); Mean Corpuscular Hemoglobin 33.2 pg (26-34); Mean Corpuscular Volume 92.2 fl (80-100); Mean Platelet Volume 8.5 fl (7.4-10.4); Platelet Count Result 334 k/mm3 (150-375); Red Blood Count 3.22 M/mm3 (4.2-5.4); Red Cell Distribution Width 12.1 % (11.5-14.5); White Blood Count 24.3 K/mm3 (4.5-10.0)
[2021-10-27 05:25] LABS: Anion Gap 8 mmol/L (8-16); Blood Urea Nitrogen 11 mg/dL (7-17); Calcium 7.3 mg/dL (8.4-10.2); Carbon Dioxide 20 mmol/L (22-30); Chloride 96 mmol/L (98-107); Estimated CRCL calculation 75 ml/min; Estimated Glomerular Filt Rate > 60; Glucose 100 mg/dL (65-110); Magnesium 1.8 mg/dL (1.6-2.3); Phosphorus 3.5 mg/dL (2.5-4.5); Potassium 3.9 mmol/L (3.4-5.0); Sodium 124 mmol/L (137-145)
[2021-10-27 05:26] LABS: Sodium 124 mmol/L (137-145)
[2021-10-27] MEDS: DEXTROSE 5%/0.45% SOD CHL 1,000 ML 75 ML IV CONT (07:33)
[2021-10-27] MEDS: PHENYTOIN SODIUM 100 MG EXTENDED RELEASE CAP PO ×4 (08:47→21:48)
[2021-10-27] MEDS: LOSARTAN POTASSIUM 50 MG TABLET PO (08:47)
[2021-10-27] MEDS: risperiDONE 0.5 MG TABLET PO ×2 (08:48→17:42)
[2021-10-27] MEDS: OXYBUTYNIN CHLORIDE 5 MG TABLET PO ×3 (08:48→17:43)
[2021-10-27] MEDS: THERAPEUTIC MULTIVITAMINS/MINERALS TAB (*BKC) 1 TABLET PO (08:48)
[2021-10-27] MEDS: VENLAFAXINE HCL 37.5 MG TABLET 112.5 MG PO ×2 (08:48→17:42)
[2021-10-27 08:59] LABS: Sodium 123 mmol/L (137-145)
[2021-10-27] MEDS: FLUTICASONE/SALMETEROL 115-21 MCG INHALER 1 PUFF 2 PUFF INHALATION ×2 (09:09→21:27)
[2021-10-27] MEDS: PERFLUTREN LIPID MICROSPHERES 1.5 ML VIAL DILUTED TO 10 ML TOTAL VOLUME IV PUSH (12:00)
[2021-10-27] MEDS: dilTIAZem 100 MG/100 ML 100 MG/100 ML BAG 10 MG IV CONT ×2 (12:05→19:57)
--- NOTE | 2021-10-27 12:12 | P.CONNP_ITS ---
Assessment and Plan Assessment and plan (1) Hyponatremia: Code(s): E87.1 - Hypo-osmolality and hyponatremia Status: Acute Assessment and Plan: * acute on chronic from review of records * acute component: * suspect due volume depletion/dehydration * possible pneumonia * noted improvement in sodium with normal saline IVFs * chronic component - multiple risk factors: * known lung disease at baseline (COPD) * liver cirrhosis * venlafaxine use (and possibly clonazepam) * narcotic use (Narco) * due to concerns of overcorrection, normal saline IVFs on hold * check urine electrolytes, SPEP, UPEP, cortisol, TSH as well as serum/urine osmolality * goal for rate of change is ~ 4 - 6mmol/L in 24hr but not to exceed 8mmol/L * follow serial sodium levels for now (2) Atrial fibrillation with RVR: Code(s): I48.91 - Unspecified atrial fibrillation Status: Acute Assessment and Plan: * possibly exacerbated by pneumonia * rate control strategy * started on anticoagulation * follow-up on Echo * Cardiology consulted (3) Community acquired pneumonia: Code(s): J18.9 - Pneumonia, unspecified organism Status: Acute Assessment and Plan: * as noted by admission imaging * follow blood cultures * on empiric antibiotics (4) Acute hypoxemic respiratory failure: Code(s): J96.01 - Acute respiratory failure with hypoxia Status: Acute Assessment and Plan: * suspect secondary to pneumonia * complicated by known history of COPD * on steroids, neubulizer treatments, and antibiotics * follow respiratory status (5) Hypotension: Code(s): I95.9 - Hypotension, unspecified Status: Acute Assessment and Plan: * as noted since admission * s/p IVF boluses in ER * due to Afib with RVR(?) * on last hospitalization in December 2019, BP was running ~ 120 - 150s systolic Will continue to follow. History of Present Illness Reason for Consult Consult date: 10/27/21 Reason for consult: hyponatremia (acute on chronic) Chief Complaint Chief complaint: Pneumonia,Hyponatremia,Hypoxia,COVID PUI History of Present Illness Narrative: A great majority of the history I have obtained is from review of the electronic medical record as getting a full and complete history from the patient is somewhat difficult given the fact that she is hard of hearing But she was able to provide some information. The patient is a 71-year-old female with a past medical history as outlined below who presented to [facility] Emergency room for weakness and abdominal pain. Family reports that the patient has been complaint of lower abdominal pain a lthough it is not entirely clear how long this symptom has been present. The pain is apparently worse with palpation and there is nothing reported that seems to improve the symptoms. She denies any history of fever, chills, nausea, diarrhea, shortness of breath or chest pain. No reported cough or sputum production either. Workup and evaluation emergency room demonstrated the patient to be somewhat hypotensive with systolic BP is in the 90s and in no acute distress other than the a for mentioned abdominal pain. she was found to be hypoxic with an O2 saturation of 84% on room air which improved after application of oxygen by nasal cannula. Her heart rate was noted to be in the 161 70s an EKG demonstrated atrial fibrillation with rapid ventricular response. Routine blood test [place] [id number], a sodium level of 117, and a chest
--- NOTE | 2021-10-27 12:12 | PM.CNNEP ---
Assessment and Plan Assessment and plan (1) Hyponatremia: Code(s): E87.1 - Hypo-osmolality and hyponatremia Status: Acute Assessment and Plan: acute on chronic from review of records acute component: suspect due volume depletion/dehydration possible pneumonia noted improvement in sodium with normal saline IVFs chronic component - multiple risk factors: known lung disease at baseline (COPD) liver cirrhosis venlafaxine use (and possibly clonazepam) narcotic use (Narco) due to concerns of overcorrection, normal saline IVFs on hold check urine electrolytes, SPEP, UPEP, cortisol, TSH as well as serum/urine osmolality goal for rate of change is ~ 4 - 6mmol/L in 24hr but not to exceed 8mmol/L follow serial sodium levels for now (2) Atrial fibrillation with RVR: Code(s): I48.91 - Unspecified atrial fibrillation Status: Acute Assessment and Plan: possibly exacerbated by pneumonia rate control strategy started on anticoagulation follow-up on Echo Cardiology consulted (3) Community acquired pneumonia: Code(s): J18.9 - Pneumonia, unspecified organism Status: Acute Assessment and Plan: as noted by admission imaging follow blood cultures on empiric antibiotics (4) Acute hypoxemic respiratory failure: Code(s): J96.01 - Acute respiratory failure with hypoxia Status: Acute Assessment and Plan: suspect secondary to pneumonia complicated by known history of COPD on steroids, neubulizer treatments, and antibiotics follow respiratory status (5) Hypotension: Code(s): I95.9 - Hypotension, unspecified Status: Acute Assessment and Plan: as noted since admission s/p IVF boluses in ER due to Afib with RVR(?) on last hospitalization in December 2019, BP was running ~ 120 - 150s systolic Will continue to follow. History of Present Illness Reason for Consult Consult date: 10/27/21 Reason for consult: hyponatremia (acute on chronic) Chief Complaint Chief complaint: Pneumonia,Hyponatremia,Hypoxia,COVID PUI History of Present Illness Narrative: A great majority of the history I have obtained is from review of the electronic medical record as getting a full and complete history from the patient is somewhat difficult given the fact that she is hard of hearing But she was able to provide some information. The patient is a 71-year-old female with a past medical history as outlined below who presented to [facility] Emergency room for weakness and abdominal pain. Family reports that the patient has been complaint of lower abdominal pain although it is not entirely clear how long this symptom has been present. The pain is apparently worse with palpation and there is nothing reported that seems to improve the symptoms. She denies any history of fever, chills, nausea, diarrhea, shortness of breath or chest pain. No reported cough or sputum production either. Workup and evaluation emergency room demonstrated the patient to be somewhat hypotensive with systolic BP is in the 90s and in no acute distress other than the a for mentioned abdominal pain. she was found to be hypoxic with an O2 saturation of 84% on room air which improved after application of oxygen by nasal cannula. Her heart rate was noted to be in the 161 70s an EKG demonstrated atrial fibrillation with rapid ventricular response. Routine blood test [place] [id number], a sodium level of 117, and a chest x-ray which demonstrated diffuse bilateral infiltrates in both lungs. Given her abdominal pain, a CT scan of her abdomen pelvis was done which demonstrated no intra-abdominal abnormalities aside from a left dislocated arthroplasty. She received IV fluid boluses in the emergency room given her relative hypotension, appropriate cultures were drawn given the a for mentioned pneumonia, and she was started on IV antibi
[2021-10-27 13:07] LABS: Sodium 124 mmol/L (137-145)
[2021-10-27 14:07] LABS: Creatinine Urine 73.3 mg/dL; Total Protein Urine Random 26 mg/dL; Ur Ttl Prot Creatinine Ratio 0.35 mg/mg (0-0.20)
[2021-10-27 14:12] LABS: Sodium Urine Random 6 meq/L
[2021-10-27 14:32] LABS: Eosinophil Urine Rare % (None Seen)
--- NOTE | 2021-10-27 16:05 | PM.CNCAR ---
Assessment and Plan Additional Plan 71-year-old woman with a history of chronic liver disease related to alcohol abuse and a history of chronic lung disease related to heavy cigarette smoking. She enters the hospital with generalized weakness was found to be hyponatremic and in that setting he went acute be into atrial fib and now appears to be more typically in atrial flutter this afternoon. She has been placed on some IV diltiazem which is modestly improving the heart rate. She has been anticoagulated with Lovenox. Echocardiogram has been done as yet to be interpreted. I am going to start her on sotalol at this time to try to restore sinus rhythm since we have records this just began this morning. If and when she converts the IV diltiazem can be stopped. I am going to stop the losartan she normally takes for blood pressure as her blood pressure is marginal and at this time she may not tolerate sotalol well in combination with the ARB. Follow her with you during this hospitalization. Chi Cha MD [facility] History of Present Illness History of Present Illness Consult date/time: 10/27/21 16:05 Consult reason: atrial fibrillation Reason For Visit: Pneumonia,Hyponatremia,Hypoxia,COVID PUI Narrative: This is a 71-year-old woman who I am seeing at the request of the hospitalist for assistance with evaluation of atrial fib. She has no prior history of this according to the chart or according to the patient. She is a very poor historian when I came into the room to see her this afternoon only indicating that she was brought here by family members because she was extremely weak. She was not really aware of any sense of palpitations shortness of breath chest pain or any other specific cardiac symptomatology. In the emergency room while she was being evaluated for this weakness she was found to be rather hyponatremic with a sodium level of 116 and was then admitted for further evaluation and management. When she got here her 1st electrocardiogram showed sinus rhythm/sinus tachycardia. Subsequent EKG appears to show atrial fib with RVR. She is not specifically aware of the tachy palpitations. She on telemetry now appears to be more in a typical atrial flutter with a fairly regular rhythm with a heart rate of about 140. She was placed on some IV diltiazem and given anticoagulation with Lovenox. In this setting I am seeing her in consultation. According to the records she has a history of hypertension history of chronic lung disease from heavy cigarette smoking and a history of alcoholic cirrhosis from a former history of ethanol excess. Upon entering the room to see her she is not in any distress but she seems to be rather hard of hearing and once again a bit unclear as to why she is in the hospital. Review of Systems Review of Systems: ROS unobtainable: Yes unobtainable due to mental status PMFSH Past Medical History Medical History (Updated 10/27/21 @ 12:21 by Dennis Ayala MD) Alcoholic cirrhosis of liver Anxiety Colon cancer Underwent partial colectomy, no radiation or chemotherapy COPD (chronic obstructive pulmonary disease) Depression KAIBAB (hard of hearing) HTN (hypertension) Seizure Septic hip History of left hip arthroplasty that became septic and requiring a 2nd surgery. Tobacco abuse Smokes 1.5-2 packs per day Urinary incontinence Stress incontinence Surgical History Surgical History History of left hip replacement x2, after initial became infected. History of partial colectomy Removal of colon cancer Family History Family History Mother Diabetes mellitus Hypertension Family history of alcoholism Cerebrovascular accident Family history of arthritis Family history of malignant neoplasm Family history of seizure disorder Social History Social History (Updated 01/04/20 @ 12:58 by Dana
--- NOTE | 2021-10-27 17:41 | PCRCNOTE ---
Window of time for administration has passed. See next scheduled administration.
--- NOTE | 2021-10-27 17:44 | PM.IMPN ---
Progress Note: A&P Assessment and Plan (1) Acute hypoxemic respiratory failure: Code(s): J96.01 - Acute respiratory failure with hypoxia Status: Acute Assessment and Plan: Supplemental oxygen by nasal cannula 2 L Try and keep oxygen saturation between 92-94% Supportive care Continuous pulse ox 10/27/2021 Interval history: 71-year-old female with history of alcohol abuse resulting in liver cirrhosis as well as emphysema with chronic smoking presented emergency department with a complaint of generalized weakness unfortunately patient is very hard of hearing currently quite somnolent upon arrival patient was in atrial fibrillation with RVR diltiazem drip was started however patient blood pressure is soft, patient seen by plugger continue diltiazem drip and added sotalol and hope for converting into sinus rhythm, will continue to monitor and further recommendation to follow. (2) Community acquired pneumonia: Code(s): J18.9 - Pneumonia, unspecified organism Status: Acute Assessment and Plan: Patient was started on Rocephin and Zithromax Cultures in progress Supportive care COVID-19 is negative (3) COPD exacerbation: Code(s): J44.1 - Chronic obstructive pulmonary disease with (acute) exacerbation Status: Acute Assessment and Plan: Breathing treatments q.4 Systemic steroids (4) Atrial fibrillation with RVR: Code(s): I48.91 - Unspecified atrial fibrillation Status: Acute Assessment and Plan: Started on diltiazem drip Continue to monitor Echocardiogram in a.m. Started on anticoagulation (5) Tobacco abuse: Code(s): Z72.0 - Tobacco use Status: Acute Assessment and Plan: Currently blood pressure is on the lower side nicotine patch not a good choice Encouraged tobacco cessation (6) Alcoholic cirrhosis of liver: Code(s): K70.30 - Alcoholic cirrhosis of liver without ascites Status: Acute Assessment and Plan: Patient on lactulose Currently with blood pressure being low and signs of dehydration on physical exam with dry mucous membranes Holding lactulose Restart as needed (7) Seizure: Code(s): R56.9 - Unspecified convulsions Status: Acute Assessment and Plan: Continue home meds Continue to monitor Subjective Date/time seen: 10/27/21 17:44 Chief Complaint: Weakness Narrative: This is a 71-year-old female with past medical history significant for hypertension, seizure, tobacco use, COPD, colon cancer, alcoholic cirrhosis of the liver, dislocated left arthroplasty of the hip. Patient was brought to the emergency room by a family member most of the history was taken from medical records and family member as patient is very hard of hearing and therefore history taking is somehow limited. Patient according to records was complaining of abdominal pain a CT of abdomen and pelvis did not show any acute abnormalities except for left dislocated arthroplasty of the hip which is seems to be chronic, however it did show lung infiltrates. Preliminary workup was significant for a sodium of 117, a white count of 20,000, chest x-ray was significant for diffuse bilateral infiltrates of both lung stnaton. In emergency room patient had a blood pressure upon presentation of 93/62 and an oxygen saturation of 84% on room air patient required supplementation of oxygen by nasal cannula and required fluid boluses as well she then had a heart rate that increased to 160-170 and an EKG showed atrial fibrillation with rapid ventricular response. Patient is been admitted for further evaluation, management and treatment. 10/27/2021 Interval history: 71-year-old female with history of alcohol abuse resulting in liver cirrhosis as well as emphysema with chronic smoking presented emergency department with a complaint of generalized weakness unfortunately patient is very hard of hearing currently quite somnolent upon arrival patient was in atr
[2021-10-27] MEDS: DOXYCYCLINE IV 100 MG in SODIUM CHLORIDE 0.9% IV 100 ML IVPB (18:50)
[2021-10-27 19:07] LABS: Sodium 120 mmol/L (137-145)
[2021-10-27] MEDS: SODIUM CHLORIDE 0.9% IV 1,000 ML 50 ML IV CONT (19:52)
[2021-10-27] MEDS: SOTALOL HCL 80 MG TABLET PO (19:59)
--- NOTE | 2021-10-27 20:09 | ECG_ITS ---
Measurements Intervals [place] Rate: 64 P: 49 VT: 174 QRS: 42 QRSD: 86 T: 53 QT: 377 QTc: 391 Interpretive Statements SINUS RHYTHM BASELINE ARTIFACT- I, III, AVL NORMAL ECG Electronically Signed On 10-28-2021 7:32:36 UNDERWRITING ACCOUNT REPRESENTATIVE by Tee Hamlin D.O.
[2021-10-27 23:20] LABS: Sodium 118 mmol/L (137-145)
[2021-10-28] VITALS (28 sets, daily range): BP systolic 107–121; BP diastolic 60–67; PULSE 55–78; RESP 18–20; TEMP 35.9–36.7; O2SAT 92–100
[2021-10-28] MEDS: ENOXAPARIN 80 MG/0.8 ML SYRINGE 65 MG SUB-Q ×2 (00:17→12:58)
[2021-10-28] MEDS: HYDROcodone/acetaminophen (*CRX) 5-325 MG TABLET 1 TAB PO ×3 (02:08→21:20)
[2021-10-28] MEDS: TRIMETHOBENZAMIDE HCL 200 MG/2 ML VIAL IM (02:33)
[2021-10-28] MEDS: methylPREDNISolone SOD SUCC 40 MG VIAL IV PUSH ×4 (02:35→20:59)
[2021-10-28] MEDS: IPRATROPIUM BR 0.02% INH SOLN 0.5 MG/2.5 ML VIAL INHALATION ×5 (03:11→21:13)
[2021-10-28 03:50] LABS: Sodium 119 mmol/L (137-145)
[2021-10-28] MEDS: DOXYCYCLINE IV 100 MG in SODIUM CHLORIDE 0.9% IV 100 ML IVPB ×2 (05:27→16:57)
[2021-10-28 06:25] LABS: Hematocrit 26.9 % (37.0-47.0); Hemoglobin 9.6 g/dL (12.0-15.0); Mean Corpuscular HGB Conc 35.7 g/dl (32-36); Mean Corpuscular Hemoglobin 33.3 pg (26-34); Mean Corpuscular Volume 93.4 fl (80-100); Mean Platelet Volume 8.9 fl (7.4-10.4); Platelet Count Result 344 k/mm3 (150-375); Red Blood Count 2.88 M/mm3 (4.2-5.4); Red Cell Distribution Width 12.5 % (11.5-14.5); White Blood Count 23.4 K/mm3 (4.5-10.0)
[2021-10-28 06:50] LABS: Sodium 118 mmol/L (137-145)
[2021-10-28 07:17] LABS: Cortisol Random 8.53 ug/dL
[2021-10-28] MEDS: FLUTICASONE/SALMETEROL 115-21 MCG INHALER 1 PUFF 2 PUFF INHALATION ×2 (08:34→21:13)
[2021-10-28] MEDS: THERAPEUTIC MULTIVITAMINS/MINERALS TAB (*BKC) 1 TABLET PO (09:05)
[2021-10-28] MEDS: OXYBUTYNIN CHLORIDE 5 MG TABLET PO ×3 (09:06→16:59)
[2021-10-28] MEDS: PHENYTOIN SODIUM 100 MG EXTENDED RELEASE CAP PO ×4 (09:06→20:58)
[2021-10-28] MEDS: VENLAFAXINE HCL 37.5 MG TABLET 112.5 MG PO ×2 (09:06→16:59)
[2021-10-28] MEDS: risperiDONE 0.5 MG TABLET PO ×2 (09:06→17:00)
[2021-10-28] MEDS: SOTALOL HCL 80 MG TABLET PO ×2 (09:07→20:58)
[2021-10-28 10:36] LABS: Albumin Level 2.9 g/dL (3.5-5.1); Anion Gap 2 mmol/L (8-16); Blood Urea Nitrogen 21 mg/dL (7-17); Carbon Dioxide 24 mmol/L (22-30); Chloride 92 mmol/L (98-107); Estimated CRCL calculation 56 ml/min; Estimated Glomerular Filt Rate > 60; Glucose 127 mg/dL (65-110); Phosphorus 3.1 mg/dL (2.5-4.5); Potassium 4.2 mmol/L (3.4-5.0); Sodium 118 mmol/L (137-145)
--- NOTE | 2021-10-28 11:00 | ECG_ITS ---
Measurements Intervals [place] Rate: 59 P: 32 SC: 181 QRS: 29 QRSD: 93 T: 39 QT: 457 QTc: 453 Interpretive Statements SINUS BRADYCARDIA BASELINE ARTIFACT- I, II, III, AVR, V1, V5 BORDERLINE ECG Electronically Signed On 10-28-2021 11:46:04 DEVELOPMENTAL MATHEMATICS INSTRUCTOR by Tee Hamlin D.O.
[2021-10-28] MEDS: SODIUM CHLORIDE 0.9% IV 1,000 ML 75 ML IV CONT (11:05)
--- NOTE | 2021-10-28 11:27 | PM.IMPN ---
Progress Note: A&P Assessment and Plan (1) Acute hypoxemic respiratory failure: Code(s): J96.01 - Acute respiratory failure with hypoxia Status: Acute Assessment and Plan: Supplemental oxygen by nasal cannula 2 L Try and keep oxygen saturation between 92-94% Supportive care Continuous pulse ox 10/27/2021 Interval history: 71-year-old female with history of alcohol abuse resulting in liver cirrhosis as well as emphysema with chronic smoking presented emergency department with a complaint of generalized weakness unfortunately patient is very hard of hearing currently quite somnolent upon arrival patient was in atrial fibrillation with RVR diltiazem drip was started however patient blood pressure is soft, patient seen by raise driller continue diltiazem drip and added sotalol and hope for converting into sinus rhythm, will continue to monitor and further recommendation to follow. 10/28/2021 On oxygen supplementation which is decreasing not in respiratory distress due to pneumonia underlying (2) Community acquired pneumonia: Code(s): J18.9 - Pneumonia, unspecified organism Status: Acute Assessment and Plan: Patient was started on Rocephin and Zithromax Cultures positive for GC in chains Supportive care COVID-19 is negative On vancomycin ceftriaxone and doxycycline Check pneumococcal Legionella and mycoplasma (3) COPD exacerbation: Code(s): J44.1 - Chronic obstructive pulmonary disease with (acute) exacerbation Status: Acute Assessment and Plan: Breathing treatments q.4 Systemic steroids (4) Atrial fibrillation with RVR: Code(s): I48.91 - Unspecified atrial fibrillation Status: Acute Assessment and Plan: Started on diltiazem drip now off was loaded with sotalol converted to sinus rhythm Continue to monitor Echocardiogram 10/27/2021 EF more than 70% severely enlarged left atrium mild aortic valve sclerosis Started on anticoagulation with enoxaparin (5) Tobacco abuse: Code(s): Z72.0 - Tobacco use Status: Acute Assessment and Plan: Currently blood pressure is on the lower side nicotine patch not a good choice Encouraged tobacco cessation (6) Alcoholic cirrhosis of liver: Code(s): K70.30 - Alcoholic cirrhosis of liver without ascites Status: Acute Assessment and Plan: Patient on lactulose Currently with blood pressure being low and signs of dehydration on physical exam with dry mucous membranes Holding lactulose Restart as needed (7) Seizure: Code(s): R56.9 - Unspecified convulsions Status: Acute Assessment and Plan: Continue home meds Continue to monitor (8) Bacteremia: Code(s): R78.81 - Bacteremia Status: Acute Assessment and Plan: Blood culture 10/26/2021 GPC in chains (9) Hypotension: Code(s): I95.9 - Hypotension, unspecified Status: Acute Assessment and Plan: This is improved continue to monitor likely from sepsis with bacteremia (10) Hyponatremia: Code(s): E87.1 - Hypo-osmolality and hyponatremia Status: Acute Assessment and Plan: 117 on admission baseline sodium 130s in 03/2021 have been mild chronic hyponatremia Improved with IV hydration to 120s, dwindling down again this morning is been restarted on normal saline at 75 cc an hour Nephrology has been consulted Subjective Date/time seen: 10/28/21 11:27 Interval history: HPI:This is a 71-year-old female with past medical history significant for hypertension, seizure, tobacco use, COPD, colon cancer, alcoholic cirrhosis of the liver, dislocated left arthroplasty of the hip. Patient was brought to the emergency room by a family member most of the history was taken from medical records and family member as patient is very hard of hearing and therefore history taking is somehow limited. Patient according to records was complaining of abdominal pain a CT of abdomen and pelvis did not s
--- NOTE | 2021-10-28 12:02 | P.PNNP_ITS ---
Progress Note: A&P Assessment and Plan (1) Hyponatremia: Code(s): E87.1 - Hypo-osmolality and hyponatremia Status: Acute Assessment and Plan: * acute on chronic from review of records * sodium has been running 126 - 133mmol in the last year * acute component: * suspect due volume depletion/dehydration -- initial improvement in sodium with IVFs -- urine electrolytes c/w prerenal azotemia * possible pneumonia * chronic component - multiple risk factors: * known lung disease at baseline (COPD) * liver cirrhosis * venlafaxine use (and possibly clonazepam) * narcotic use ([place]) * SPEP, UPEP as well as serum/urine osmolality pending * TSH normal and cortisol level low * on IV steroids so unable to check cosyntropin stim test now * goal for rate of change is ~ 4 - 6mmol/L in 24hr but not to exceed 8mmol/L * sodium has worsened in the last 24 hours * restart trial of normal saline given prerenal electrolytes * change all IVPB/IV meds to normal saline carrier fluid * not eating/drinking very much but may need to add fluid restriction * if sodium fails to improve today, will consider 3% saline to get sodium level > 120 * follow serial sodium levels for now (2) Atrial fibrillation with RVR: Code(s): I48.91 - Unspecified atrial fibrillation Status: Acute Assessment and Plan: * resolving at this connor * possibly exacerbated by pneumonia * converted to NSR with sotalol * on anticoagulation * Echo results noted * Cardiology following (3) Community acquired pneumonia: Code(s): J18.9 - Pneumonia, unspecified organism Status: Acute Assessment and Plan: * as noted by admission imaging * follow blood cultures positive for Strep pneumoniae * on antibiotics * follow repeat cultures (4) Acute hypoxemic respiratory failure: Code(s): J96.01 - Acute respiratory failure with hypoxia Status: Acute Assessment and Plan: * suspect secondary to pneumonia (+blood cultures noted) * complicated by known history of COPD * on steroids, nebulizer treatments, and antibiotics * follow respiratory status (5) Hypotension: Code(s): I95.9 - Hypotension, unspecified Status: Acute Assessment and Plan: * as noted since admission * doing a bit better at this time * s/p IVF boluses in ER * due to Afib with RVR versus sepsis (+blood cultures) or combination of both * on last hospitalization in December 2019, BP was running ~ 120 - 150s systolic Will continue to follow. Subjective Date/time seen: 10/28/21 12:02 Mentation today seems a bit better in comparison to when I saw her yesterday; still quite hard of hearing but able to respond to questions; denies any acute issues/problems at the time of my visit; no events overnight or earlier this AM. Exam Narrative: General: WD/WN female in NAD Heart: normal S1 and S2; no rub Lungs: coarse with a few wheezes noted Abdomen: soft, nontender, nondistended, positive bowel sounds Extremities: no cyanosis or clubbing; no edema Skin: warm and dry Objective Data Vital Signs Vital Signs: Vital Signs Temp Pulse Resp BP Pulse Ox 10/28/21 09:07 67 10/28/21 08:43 61 18 10/28/21 08:34 70 18 94 10/28/21 08:33 35.9 C L 64 20 120/67 100 10/28/21 05:57 59 L 10/28/21 04
--- NOTE | 2021-10-28 12:02 | PM.PNNEP ---
Progress Note: A&P Assessment and Plan (1) Hyponatremia: Code(s): E87.1 - Hypo-osmolality and hyponatremia Status: Acute Assessment and Plan: acute on chronic from review of records sodium has been running 126 - 133mmol in the last year acute component: suspect due volume depletion/dehydration -- initial improvement in sodium with IVFs -- urine electrolytes c/w prerenal azotemia possible pneumonia chronic component - multiple risk factors: known lung disease at baseline (COPD) liver cirrhosis venlafaxine use (and possibly clonazepam) narcotic use ([place]co) SPEP, UPEP as well as serum/urine osmolality pending TSH normal and cortisol level low on IV steroids so unable to check cosyntropin stim test now goal for rate of change is ~ 4 - 6mmol/L in 24hr but not to exceed 8mmol/L sodium has worsened in the last 24 hours restart trial of normal saline given prerenal electrolytes change all IVPB/IV meds to normal saline carrier fluid not eating/drinking very much but may need to add fluid restriction if sodium fails to improve today, will consider 3% saline to get sodium level > 120 follow serial sodium levels for now (2) Atrial fibrillation with RVR: Code(s): I48.91 - Unspecified atrial fibrillation Status: Acute Assessment and Plan: resolving at this connor possibly exacerbated by pneumonia converted to NSR with sotalol on anticoagulation Echo results noted Cardiology following (3) Community acquired pneumonia: Code(s): J18.9 - Pneumonia, unspecified organism Status: Acute Assessment and Plan: as noted by admission imaging follow blood cultures positive for Strep pneumoniae on antibiotics follow repeat cultures (4) Acute hypoxemic respiratory failure: Code(s): J96.01 - Acute respiratory failure with hypoxia Status: Acute Assessment and Plan: suspect secondary to pneumonia (+blood cultures noted) complicated by known history of COPD on steroids, nebulizer treatments, and antibiotics follow respiratory status (5) Hypotension: Code(s): I95.9 - Hypotension, unspecified Status: Acute Assessment and Plan: as noted since admission doing a bit better at this time s/p IVF boluses in ER due to Afib with RVR versus sepsis (+blood cultures) or combination of both on last hospitalization in December 2019, BP was running ~ 120 - 150s systolic Will continue to follow. Subjective Date/time seen: 10/28/21 12:02 Mentation today seems a bit better in comparison to when I saw her yesterday; still quite hard of hearing but able to respond to questions; denies any acute issues/problems at the time of my visit; no events overnight or earlier this AM. Exam Narrative: General: WD/WN female in NAD Heart: normal S1 and S2; no rub Lungs: coarse with a few wheezes noted Abdomen: soft, nontender, nondistended, positive bowel sounds Extremities: no cyanosis or clubbing; no edema Skin: warm and dry Objective Data Vital Signs Vital Signs: Vital Signs Temp Pulse Resp BP Pulse Ox 10/28/21 09:07 67 10/28/21 08:43 61 18 10/28/21 08:34 70 18 94 10/28/21 08:33 35.9 C L 64 20 120/67 100 10/28/21 05:57 59 L 10/28/21 04:00 36.7 C 58 L 20 121/60 97 10/28/21 03:20 57 L 18 10/28/21 03:12 55 L 18 10/28/21 02:00 59 L 10/28/21 00:00 58 L 97 10/27/21 23:46 36.7 C 66 20 129/63 97 10/27/21 22:00 71 94 10/27/21 21:40 84 18 10/27/21 21:31 75 96 10/27/21 21:28 75 18 10/27/21 21:06 145/85 H 10/27/21 20:27 71 10/27/21 20:00 36.6 C 126 H 20 104/65 96 10/27/21 19:59 139 H 10/27/21 19:57 138 H 10/27/21 18:00 135 H 10/27/21 16:00 36.6 C 140 H 18 92/61 L 95 10/27/21 15:37 89/60 L 10/27/21 14:00 134 H Intake/Output
--- NOTE | 2021-10-28 13:14 | PM.PNCARD ---
Progress Note: A&P Assessment and Plan (1) Atrial fibrillation with RVR: Code(s): I48.91 - Unspecified atrial fibrillation Status: Acute Assessment and Plan: New onset of atrial fibrillation that was witnessed on telemetry during this admission. She was initially placed on a diltiazem drip for rate control. Yesterday, she was also started on sotalol which successfully restored sinus rhythm. Diltiazem has since been stopped. Today she remains in sinus rhythm with a rate in the high 50s. She's being anticoagulated with lovenox now, she has a [id number] score of 3 (age, female gender, HTN) so systemic anticoagulation is indicated. Will shift her to apixaban starting this evening. Continue sotalol 80 mg p.o. b.i.d.. Check EKG 2 hours after each dose for 5 doses monitor electrolytes daily in particular K+ and Mag with goal levels of 4.0 and 2.0 Check mag now Continue telemetry Avoid addition of any QT prolonging agents (already on venlafaxine) (2) Acute hypoxemic respiratory failure: Code(s): J96.01 - Acute respiratory failure with hypoxia Status: Acute Assessment and Plan: Chronic lung disease now with acute respiratory failure due to pneumonia. She is started antibiotics. Stable on 2 L oxygen per nasal cannula. Management per primary service. (3) Encounter for monitoring sotalol therapy: Code(s): Z51.81 - Encounter for therapeutic drug level monitoring; Z79.899 - Other group home (current) drug therapy Status: Acute Assessment and Plan: First dose sotalol 10/17/21 at 20:00. QTc this A.M. after second dose 453ms. Avoid use of any other QT prolonging agents. Continue current dose of sotalol. Subjective Date/time seen: 10/28/21 13:14 Review of Systems Review of Systems: ROS unobtainable: Yes unobtainable due to mental status Exam Const: General: comfortable and no acute distress Other: Elderly white female sleeping comfortably in bed. Awakens to voice. HENMT: Head: normal to inspection Ears: hearing grossly abnormal bilaterally Mouth: Yes moist mucous membranes Eyes: Sclera: sclerae normal Pupils: Equal, round and reactive pupils present Neck: Neck: supple and no JVD Resp: Effort & Inspection: normal respiratory effort Auscultation: wheezes expiratory wheezes and diminished lung sounds Cardio: Rate: regular rate Rhythm: regular rhythm Heart sounds: no murmurs Peripheral pulses: Peripheral pulses 2+ throughout GI: Auscultation: normal bowel sounds Skin: General skin exam: normal color Neuro: Cranial nerves: Yes Equal, round and reactive pupils present Cognition (Neuro): normal cognition Extrem: General: normal to inspection Objective Data Vital Signs Vital Signs: Vital Signs - 24 hr 10/27/21 14:00 10/27/21 15:37 10/27/21 16:00 Temperature 36.6 C Pulse Rate 134 H 140 H Respiratory Rate 18 Blood Pressure 89/60 L 92/61 L Pulse Oximetry 95 10/27/21 18:00 10/27/21 19:57 10/27/21 19:59 Temperature Pulse Rate 135 H 138 H 139 H Respiratory Rate Blood Pressure Pulse Oximetry 10/27/21 20:00 10/27/21 20:27 10/27/21 21:06 Temperature 36.6 C Pulse Rate 126 H 71 Respiratory Rate 20 Blood Pressure 104/65 145/85 H Pulse Oximetry 96 10/27/21 21:28 10/27/21 21:31 10/27/21 21:40 Temperature Pulse Rate 75 75 84 Respiratory Rate 18 18 Blood Pressure Pulse Oximetry 96 10/27/21 22:00 10/27/21 23:46 10/28/21 00:00 Temperature 36.7 C Pulse Rate 71 66 58 L Respiratory Rate 20 Blood Pressure 129/63 Pulse Oximetry 94 97 97 10/28/21 02:00 10/28/21 03:12 10/28/21 03:20 Temperature Pulse Rate 59 L 55 L 57 L Respiratory Rate 18 18 Blood Pressure Pulse Oximetry 10/28/21 04:00 10/28/21 05:57 10/28/21 08:33 Temperature 36.7 C 35.9 C L Pulse Rate 58 L 59 L 64 Respiratory Rate 20 20 Blood Pressure 121/60 120/67 Pulse Oximetry 97 100 10/28/21 08:34
[2021-10-28 14:33] LABS: Ammonia < 9 umol/L (9-30); Anion Gap 7 mmol/L (8-16); Blood Urea Nitrogen 21 mg/dL (7-17); Calcium 7.9 mg/dL (8.4-10.2); Carbon Dioxide 22 mmol/L (22-30); Chloride 93 mmol/L (98-107); Estimated CRCL calculation 56 ml/min; Estimated Glomerular Filt Rate > 60; Glucose 122 mg/dL (65-110); Potassium 4.4 mmol/L (3.4-5.0); Sodium 122 mmol/L (137-145)
[2021-10-28] MEDS: VANCOMYCIN HCL 1,000 MG in SODIUM CHLORIDE 0.9% IV 250 ML 250 MG IVPB (16:58)
[2021-10-28 19:06] LABS: Sodium 121 mmol/L (137-145)
[2021-10-28] MEDS: cefTRIAXone 2 GM in SODIUM CHLORIDE 0.9% IV 100 ML IVPB (20:59)
[2021-10-28] MEDS: APIXABAN 5 MG TABLET PO (20:59)
[2021-10-28 22:35] LABS: Sodium 120 mmol/L (137-145)
[2021-10-29] VITALS (21 sets, daily range): BP systolic 101–128; BP diastolic 50–72; PULSE 50–69; RESP 16–24; TEMP 35.8–36.7; O2SAT 91–97
[2021-10-29] MEDS: IPRATROPIUM BR 0.02% INH SOLN 0.5 MG/2.5 ML VIAL INHALATION ×5 (01:36→21:05)
[2021-10-29] MEDS: methylPREDNISolone SOD SUCC 40 MG VIAL IV PUSH ×4 (02:18→20:29)
[2021-10-29] MEDS: HYDROcodone/acetaminophen (*CRX) 5-325 MG TABLET 1 TAB PO ×2 (02:30→18:55)
--- NOTE | 2021-10-29 04:48 | ECG_ITS ---
Measurements Intervals [place] Rate: 53 P: 37 ME: 190 QRS: 42 QRSD: 89 T: 49 QT: 479 QTc: 452 Interpretive Statements SINUS BRADYCARDIA LOW QRS VOLTAGE IN PRECORDIAL LEADS BASELINE ARTIFACT- I, III BORDERLINE ECG Electronically Signed On 10-29-2021 5:43:38 CLINICAL LEADER by Tee Hamlin D.O.
[2021-10-29 05:18] LABS: Hematocrit 28.6 % (37.0-47.0); Hemoglobin 10.1 g/dL (12.0-15.0); Mean Corpuscular HGB Conc 35.3 g/dl (32-36); Mean Corpuscular Hemoglobin 33.7 pg (26-34); Mean Corpuscular Volume 95.3 fl (80-100); Mean Platelet Volume 8.8 fl (7.4-10.4); Platelet Count Result 419 k/mm3 (150-375); Red Cell Distribution Width 12.8 % (11.5-14.5); White Blood Count 22.5 K/mm3 (4.5-10.0)
[2021-10-29 05:31] LABS: Anion Gap 6 mmol/L (8-16); Blood Urea Nitrogen 22 mg/dL (7-17); Calcium 7.8 mg/dL (8.4-10.2); Carbon Dioxide 21 mmol/L (22-30); Chloride 97 mmol/L (98-107); Estimated CRCL calculation 55 ml/min; Estimated Glomerular Filt Rate > 60; Glucose 105 mg/dL (65-110); Potassium 4.5 mmol/L (3.4-5.0); Sodium 124 mmol/L (137-145)
[2021-10-29] MEDS: DOXYCYCLINE IV 100 MG in SODIUM CHLORIDE 0.9% IV 100 ML IVPB ×2 (06:25→18:55)
[2021-10-29 06:35] LABS: Vancomycin Trough 14.4 ug/mL (10.0-20.0)
[2021-10-29] MEDS: FLUTICASONE/SALMETEROL 115-21 MCG INHALER 1 PUFF 2 PUFF INHALATION ×2 (08:40→20:40)
[2021-10-29] MEDS: VANCOMYCIN HCL 1,250 MG in SODIUM CHLORIDE 0.9% IV 250 ML 250 MG IVPB ×2 (09:53→20:27)
[2021-10-29] MEDS: MORPHINE SULFATE (*CRX) 4 MG/ML INJ IV PUSH (09:57)
[2021-10-29] MEDS: cefTRIAXone 2 GM in SODIUM CHLORIDE 0.9% IV 100 ML IVPB ×2 (09:57→22:05)
[2021-10-29] MEDS: PHENYTOIN SODIUM 100 MG EXTENDED RELEASE CAP PO ×4 (10:08→20:28)
[2021-10-29] MEDS: SOTALOL HCL 80 MG TABLET PO ×2 (10:08→20:28)
[2021-10-29] MEDS: APIXABAN 5 MG TABLET PO ×2 (10:09→20:28)
[2021-10-29] MEDS: SODIUM CHLORIDE 500 MG TABLET PO ×2 (10:09→18:52)
[2021-10-29] MEDS: OXYBUTYNIN CHLORIDE 5 MG TABLET PO ×3 (10:09→18:53)
[2021-10-29] MEDS: VENLAFAXINE HCL 37.5 MG TABLET 112.5 MG PO ×2 (10:09→18:53)
[2021-10-29] MEDS: THERAPEUTIC MULTIVITAMINS/MINERALS TAB (*BKC) 1 TABLET PO (10:10)
[2021-10-29] MEDS: risperiDONE 0.5 MG TABLET PO ×2 (10:10→18:52)
--- NOTE | 2021-10-29 10:41 | ECG_ITS ---
Measurements Intervals [place] Rate: 63 P: 43 AL: 177 QRS: 44 QRSD: 78 T: 57 QT: 416 QTc: 426 Interpretive Statements SINUS RHYTHM ATRIAL PREMATURE COMPLEX LOW QRS VOLTAGE IN PRECORDIAL LEADS BASELINE ARTIFACT- I, II, III, AVL, V1, V6 BORDERLINE ECG Electronically Signed On 10-29-2021 13:33:13 DRIVER MANAGER by Tee Hamlin D.O.
[2021-10-29 11:30] LABS: Albumin Level 2.7 g/dL (3.5-5.1); Anion Gap 6 mmol/L (8-16); Blood Urea Nitrogen 21 mg/dL (7-17); Calcium 7.8 mg/dL (8.4-10.2); Carbon Dioxide 23 mmol/L (22-30); Chloride 98 mmol/L (98-107); Estimated CRCL calculation 55 ml/min; Estimated Glomerular Filt Rate > 60; Glucose 100 mg/dL (65-110); Phosphorus 3.1 mg/dL (2.5-4.5); Potassium 4.2 mmol/L (3.4-5.0); Sodium 127 mmol/L (137-145)
--- NOTE | 2021-10-29 11:38 | P.PNNP_ITS ---
Progress Note: A&P Assessment and Plan (1) Hyponatremia: Code(s): E87.1 - Hypo-osmolality and hyponatremia Status: Acute Assessment and Plan: * acute on chronic from review of records * sodium has been running 126 - 133mmol in the last year * acute component: * suspect due volume depletion/dehydration -- initial improvement in sodium with IVFs -- urine electrolytes c/w prerenal azotemia * possible pneumonia * chronic component - multiple risk factors: * known lung disease at baseline (COPD) * liver cirrhosis * venlafaxine use (and possibly clonazepam) * narcotic use ([place]) * SPEP, UPEP as well as serum/urine osmolality pending * TSH normal and cortisol level low, probably suppressed by the steroids. * on IV steroids so unable to check cosyntropin stim test now * Will repeat this once off IV steroids * goal for rate of change is ~ 4 - 6mmol/L in 24hr but not to exceed 8mmol/L * sodium has worsened in the last 24 hours * Sodium level improved to 127. * On sodium chloride tablets. * On 1200cc fluid restriction * follow serial sodium levels for now (2) Atrial fibrillation with RVR: Code(s): I48.91 - Unspecified atrial fibrillation Status: Acute Assessment and Plan: * converted to NSR with sotalol * HR 61 * on anticoagulation * Echo results noted * Cardiology following (3) Community acquired pneumonia: Code(s): J18.9 - Pneumonia, unspecified organism Status: Acute Assessment and Plan: * as noted by admission imaging * follow blood cultures positive for Strep pneumoniae * on doxy, ceftriaxone, vancomycin. (4) Acute hypoxemic respiratory failure: Code(s): J96.01 - Acute respiratory failure with hypoxia Status: Acute Assessment and Plan: * suspect secondary to pneumonia (+blood cultures noted) * complicated by known history of COPD * on steroids, nebulizer treatments, and antibiotics * follow respiratory status (5) Hypotension: Code(s): I95.9 - Hypotension, unspecified Status: Acute Assessment and Plan: * Blood pressure improved the last few days. Will continue to follow. Subjective Date/time seen: 10/29/21 11:38 Interval history: Patient is feeling okay. Patient is eating and drinking okay Exam Narrative: General: WD/WN female in NAD Heart: normal S1 and S2; no rub or gallop. Lungs: coarse with a few wheezes noted Abdomen: soft, nontender, nondistended, positive bowel sounds Extremities: no cyanosis or clubbing; no edema Skin: no rash Objective Data Vital Signs Vital Signs: Vital Signs - 24 hr 10/28/21 12:00 10/28/21 12:05 10/28/21 12:15 Temperature Pulse Rate 58 L 72 76 Respiratory Rate 18 18 Blood Pressure Pulse Oximetry 10/28/21 12:45 10/28/21 14:00 10/28/21 14:35 Temperature 36.3 C L Pulse Rate 58 L 66 77 Respiratory Rate 18 18 Blood Pressure 108/61 Pulse Oximetry 100 10/28/21 14:45 10/28/21 16:00 10/28/21 16:25 Temperature 36.7 C Pulse Rate 78 60 58 L Respiratory Rate 18 18 Blood Pressure 115/66 Pulse Oximetry 95 10/28/21 18:00 10/28/21 20:00 10/28/21 20:58 Temperature 36.2
--- NOTE | 2021-10-29 11:38 | PM.PNNEP ---
Progress Note: A&P Assessment and Plan (1) Hyponatremia: Code(s): E87.1 - Hypo-osmolality and hyponatremia Status: Acute Assessment and Plan: acute on chronic from review of records sodium has been running 126 - 133mmol in the last year acute component: suspect due volume depletion/dehydration -- initial improvement in sodium with IVFs -- urine electrolytes c/w prerenal azotemia possible pneumonia chronic component - multiple risk factors: known lung disease at baseline (COPD) liver cirrhosis venlafaxine use (and possibly clonazepam) narcotic use ([place]) SPEP, UPEP as well as serum/urine osmolality pending TSH normal and cortisol level low, probably suppressed by the steroids. on IV steroids so unable to check cosyntropin stim test now Will repeat this once off IV steroids goal for rate of change is ~ 4 - 6mmol/L in 24hr but not to exceed 8mmol/L sodium has worsened in the last 24 hours Sodium level improved to 127. On sodium chloride tablets. On 1200cc fluid restriction follow serial sodium levels for now (2) Atrial fibrillation with RVR: Code(s): I48.91 - Unspecified atrial fibrillation Status: Acute Assessment and Plan: converted to NSR with sotalol HR 61 on anticoagulation Echo results noted Cardiology following (3) Community acquired pneumonia: Code(s): J18.9 - Pneumonia, unspecified organism Status: Acute Assessment and Plan: as noted by admission imaging follow blood cultures positive for Strep pneumoniae on doxy, ceftriaxone, vancomycin. (4) Acute hypoxemic respiratory failure: Code(s): J96.01 - Acute respiratory failure with hypoxia Status: Acute Assessment and Plan: suspect secondary to pneumonia (+blood cultures noted) complicated by known history of COPD on steroids, nebulizer treatments, and antibiotics follow respiratory status (5) Hypotension: Code(s): I95.9 - Hypotension, unspecified Status: Acute Assessment and Plan: Blood pressure improved the last few days. Will continue to follow. Subjective Date/time seen: 10/29/21 11:38 Interval history: Patient is feeling okay. Patient is eating and drinking okay Exam Narrative: General: WD/WN female in NAD Heart: normal S1 and S2; no rub or gallop. Lungs: coarse with a few wheezes noted Abdomen: soft, nontender, nondistended, positive bowel sounds Extremities: no cyanosis or clubbing; no edema Skin: no rash Objective Data Vital Signs Vital Signs: Vital Signs - 24 hr 10/28/21 12:00 10/28/21 12:05 10/28/21 12:15 Temperature Pulse Rate 58 L 72 76 Respiratory Rate 18 18 Blood Pressure Pulse Oximetry 10/28/21 12:45 10/28/21 14:00 10/28/21 14:35 Temperature 36.3 C L Pulse Rate 58 L 66 77 Respiratory Rate 18 18 Blood Pressure 108/61 Pulse Oximetry 100 10/28/21 14:45 10/28/21 16:00 10/28/21 16:25 Temperature 36.7 C Pulse Rate 78 60 58 L Respiratory Rate 18 18 Blood Pressure 115/66 Pulse Oximetry 95 10/28/21 18:00 10/28/21 20:00 10/28/21 20:58 Temperature 36.2 C L Pulse Rate 64 64 62 Respiratory Rate 18 Blood Pressure 107/62 Pulse Oximetry 95 10/28/21 21:14 10/28/21 21:16 10/28/21 21:20 Temperature Pulse Rate 68 70 Respiratory Rate 18 18 Blood Pressure Pulse Oximetry 92 10/28/21 22:00 10/29/21 00:00 10/29/21 01:37 Temperature 36.1 C L Pulse Rate 55 L 51 L 54 L Respiratory Rate 18 16 Blood Pressure 105/54 L Pulse Oximetry 97 10/29/21 02:00 10/29/21 04:00 10/29/21 06:00 Temperature 35.8 C L Pulse Rate 62 51 L 58 L Respiratory Rate 20 Blood Pressure 112/59 L Pulse Oximetry 91 10/29/21 08:00 10/29/21 08:39 10/29/21 08:46 Temperature 36.6 C Pulse Rate 55 L 51 L 57 L Respiratory Rate 24 H 16 16 Blood Pressure 114/72 Pulse Oximetry 92
--- NOTE | 2021-10-29 11:53 | PM.PNCARD ---
Progress Note: A&P Additional Plan 71-year-old lady with atrial fibrillation RVR on presentation. She presented mostly with symptomatic/problematic weakness and hyponatremia. She converted to sinus rhythm with sotalol she is stable from that perspective ECG looks fine no evidence of QT prolongation. From the cardiovascular perspective she can be discharged at this time. The primary team has not seen her yet today so I am not sure if plans are for discharge at this time. We will follow her with you during the hospital stay and arrange for appropriate office follow-up of her atrial fibrillation upon discharge. Chi Cha MD [facility] Subjective Date/time seen: Date of service: 10/29/21 11:53 Interval history: Follow-up visit in this 71-year-old lady with: Acute onset of atrial fibrillation with RVR. She has been she started on sotalol which medically converted her to sinus rhythm. Rhythm is stable ECG is normal no QT prolongation. She is systemically anticoagulated with apixaban. Patient is free of any cardiovascular complaints today. Exam Const: General: comfortable and no acute distress Other: Elderly white female sleeping comfortably in bed. Awakens to voice. HENMT: Head: normal to inspection Ears: hearing grossly abnormal bilaterally Mouth: Yes moist mucous membranes Eyes: Sclera: sclerae normal Pupils: Equal, round and reactive pupils present Neck: Neck: supple and no JVD Resp: Effort & Inspection: normal respiratory effort Auscultation: wheezes expiratory wheezes and diminished lung sounds Other: Breath sounds are diminished throughout both lung [place] no active wheezing or rales Cardio: Rate: regular rate Rhythm: regular rhythm Heart sounds: no murmurs Peripheral pulses: Peripheral pulses 2+ throughout GI: Auscultation: normal bowel sounds Skin: General skin exam: normal color Neuro: Cranial nerves: Yes Equal, round and reactive pupils present Cognition (Neuro): normal cognition Extrem: General: normal to inspection Objective Data Vital Signs Vital Signs: Vital Signs - 24 hr 10/28/21 12:00 10/28/21 12:05 10/28/21 12:15 Temperature Pulse Rate 58 L 72 76 Respiratory Rate 18 18 Blood Pressure Pulse Oximetry 10/28/21 12:45 10/28/21 14:00 10/28/21 14:35 Temperature 36.3 C L Pulse Rate 58 L 66 77 Respiratory Rate 18 18 Blood Pressure 108/61 Pulse Oximetry 100 10/28/21 14:45 10/28/21 16:00 10/28/21 16:25 Temperature 36.7 C Pulse Rate 78 60 58 L Respiratory Rate 18 18 Blood Pressure 115/66 Pulse Oximetry 95 10/28/21 18:00 10/28/21 20:00 10/28/21 20:58 Temperature 36.2 C L Pulse Rate 64 64 62 Respiratory Rate 18 Blood Pressure 107/62 Pulse Oximetry 95 10/28/21 21:14 10/28/21 21:16 10/28/21 21:20 Temperature Pulse Rate 68 70 Respiratory Rate 18 18 Blood Pressure Pulse Oximetry 92 10/28/21 22:00 10/29/21 00:00 10/29/21 01:37 Temperature 36.1 C L Pulse Rate 55 L 51 L 54 L Respiratory Rate 18 16 Blood Pressure 105/54 L Pulse Oximetry 97 10/29/21 02:00 10/29/21 04:00 10/29/21 06:00 Temperature 35.8 C L Pulse Rate 62 51 L 58 L Respiratory Rate 20 Blood Pressure 112/59 L Pulse Oximetry 91 10/29/21 08:00 10/29/21 08:39 10/29/21 08:46 Temperature 36.6 C Pulse Rate 55 L 51 L 57 L Respiratory Rate 24 H 16 16 Blood Pressure 114/72 Pulse Oximetry 92 10/29/21 10:08 10/29/21 11:21 10/29/21 11:29 Temperature Pulse Rate 60 59 L 61 Respiratory Rate 16 18 Blood Pressure Pulse Oximetry Intake/Output Intake/Output: Intake & Output 10/26/21 10/27/21 10/28/21 10/29/21 23:59 23:59 23:59 23:59 Intake Total 1300 2301 2842 850 Output Total 1250 1025 3200 Balance 1300 1051 3763 -1379 Meds/Results Medications: Active Medications Generic Name Dose Route Start Last Admin Trade Name Freq PRN Reason Stop Dose Admin Acetaminophen 650 mg 10/26/21 22:02 Acetami
--- NOTE | 2021-10-29 12:33 | PM.IMPN ---
Progress Note: A&P Assessment and Plan (1) Acute hypoxemic respiratory failure: Code(s): J96.01 - Acute respiratory failure with hypoxia Status: Acute Assessment and Plan: Supplemental oxygen by nasal cannula 2 L Try and keep oxygen saturation between 92-94% Supportive care Continuous pulse ox 10/27/2021 Interval history: 71-year-old female with history of alcohol abuse resulting in liver cirrhosis as well as emphysema with chronic smoking presented emergency department with a complaint of generalized weakness unfortunately patient is very hard of hearing currently quite somnolent upon arrival patient was in atrial fibrillation with RVR diltiazem drip was started however patient blood pressure is soft, patient seen by block setter gypsum continue diltiazem drip and added sotalol and hope for converting into sinus rhythm, will continue to monitor and further recommendation to follow. 10/28/2021 On oxygen supplementation which is decreasing not in respiratory distress due to pneumonia underlying (2) Community acquired pneumonia: Code(s): J18.9 - Pneumonia, unspecified organism Status: Acute Assessment and Plan: Patient was started on Rocephin and Zithromax Cultures positive for Streptococcus pneumoniae Supportive care COVID-19 is negative On vancomycin ceftriaxone and doxycycline Check pneumococcal Legionella and mycoplasma (3) COPD exacerbation: Code(s): J44.1 - Chronic obstructive pulmonary disease with (acute) exacerbation Status: Acute Assessment and Plan: Breathing treatments q.4 Systemic steroids (4) Atrial fibrillation with RVR: Code(s): I48.91 - Unspecified atrial fibrillation Status: Acute Assessment and Plan: Started on diltiazem drip now off was loaded with sotalol converted to sinus rhythm Continue to monitor Echocardiogram 10/27/2021 EF more than 70% severely enlarged left atrium mild aortic valve sclerosis Started on anticoagulation with enoxaparin which is switch to apixaban now Remains on sotalol and apixaban per Cardiology (5) Tobacco abuse: Code(s): Z72.0 - Tobacco use Status: Acute Assessment and Plan: Currently blood pressure is on the lower side nicotine patch not a good choice Encouraged tobacco cessation (6) Alcoholic cirrhosis of liver: Code(s): K70.30 - Alcoholic cirrhosis of liver without ascites Status: Acute Assessment and Plan: Patient on lactulose Currently with blood pressure being low and signs of dehydration on physical exam with dry mucous membranes Holding lactulose Restart as needed (7) Seizure: Code(s): R56.9 - Unspecified convulsions Status: Acute Assessment and Plan: Continue home meds Continue to monitor (8) Bacteremia: Code(s): R78.81 - Bacteremia Status: Acute Assessment and Plan: Blood culture 10/26/2021 GPC in chains turned out to be Streptococcus pneumoniae Repeat blood culture this morning to ensure clearance (9) Hypotension: Code(s): I95.9 - Hypotension, unspecified Status: Acute Assessment and Plan: This is improved continue to monitor likely from sepsis with bacteremia Hypotension has now resolved (10) Hyponatremia: Code(s): E87.1 - Hypo-osmolality and hyponatremia Status: Acute Assessment and Plan: 117 on admission baseline sodium 130s in 03/2021 have been mild chronic hyponatremia Improved with IV hydration to 120s, dwindling down again this morning is been restarted on normal saline at 75 cc an hour Nephrology has been consulted Slowly improving sodium level nephrology being consulted and following Subjective Date/time seen: 10/29/21 12:33 Interval history: HPI:This is a 71-year-old female with past medical history significant for hypertension, seizure, tobacco use, COPD, colon cancer, alcoholic cirrhosis of the liver, dislocated left arthroplasty of the hip. Patient was brought to
[2021-10-29 18:52] LABS: Sodium 120 mmol/L (137-145)
[2021-10-30] VITALS (20 sets, daily range): BP systolic 115–154; BP diastolic 60–77; PULSE 49–93; RESP 14–18; TEMP 36.2–36.7; O2SAT 92–95
[2021-10-30] MEDS: IPRATROPIUM BR 0.02% INH SOLN 0.5 MG/2.5 ML VIAL INHALATION ×4 (00:50→21:11)
[2021-10-30] MEDS: methylPREDNISolone SOD SUCC 40 MG VIAL IV PUSH ×3 (02:58→15:01)
[2021-10-30 05:19] LABS: Hemoglobin 11.1 g/dL (12.0-15.0); Mean Corpuscular HGB Conc 34.7 g/dl (32-36); Mean Corpuscular Volume 95.2 fl (80-100); Mean Platelet Volume 8.7 fl (7.4-10.4); Platelet Count Result 497 k/mm3 (150-375); Red Blood Count 3.36 M/mm3 (4.2-5.4); Red Cell Distribution Width 12.9 % (11.5-14.5); White Blood Count 21.5 K/mm3 (4.5-10.0)
[2021-10-30] MEDS: DOXYCYCLINE IV 100 MG in SODIUM CHLORIDE 0.9% IV 100 ML IVPB (05:20)
[2021-10-30 05:30] LABS: Anion Gap 7 mmol/L (8-16); Blood Urea Nitrogen 21 mg/dL (7-17); Calcium 7.9 mg/dL (8.4-10.2); Carbon Dioxide 23 mmol/L (22-30); Chloride 97 mmol/L (98-107); Estimated CRCL calculation 55 ml/min; Estimated Glomerular Filt Rate > 60; Glucose 103 mg/dL (65-110); Potassium 4.7 mmol/L (3.4-5.0); Sodium 127 mmol/L (137-145)
[2021-10-30] MEDS: VENLAFAXINE HCL 37.5 MG TABLET 112.5 MG PO ×2 (08:20→17:51)
[2021-10-30] MEDS: SOTALOL HCL 80 MG TABLET PO ×2 (08:20→20:54)
[2021-10-30] MEDS: FUROSEMIDE 20 MG TABLET PO ×2 (08:21→17:52)
[2021-10-30] MEDS: THERAPEUTIC MULTIVITAMINS/MINERALS TAB (*BKC) 1 TABLET PO (08:21)
[2021-10-30] MEDS: SODIUM CHLORIDE 500 MG TABLET PO ×2 (08:21→17:51)
[2021-10-30] MEDS: APIXABAN 5 MG TABLET PO ×2 (08:21→20:54)
[2021-10-30] MEDS: PHENYTOIN SODIUM 100 MG EXTENDED RELEASE CAP PO ×4 (08:21→20:55)
[2021-10-30] MEDS: OXYBUTYNIN CHLORIDE 5 MG TABLET PO ×3 (08:21→17:51)
[2021-10-30] MEDS: risperiDONE 0.5 MG TABLET PO ×2 (08:21→17:52)
[2021-10-30] MEDS: FLUTICASONE/SALMETEROL 115-21 MCG INHALER 1 PUFF 2 PUFF INHALATION ×2 (08:30→21:13)
--- NOTE | 2021-10-30 09:00 | PC.NURSE ---
This patient, Pattie Malloy, was received from IMU on 10/30/21 at 0900. Patient/family oriented to unit policies and routines
[2021-10-30] MEDS: cefTRIAXone 2 GM in SODIUM CHLORIDE 0.9% IV 100 ML IVPB ×2 (09:37→20:55)
[2021-10-30] MEDS: HYDROcodone/acetaminophen (*CRX) 5-325 MG TABLET 1 TAB PO ×2 (09:37→15:01)
--- NOTE | 2021-10-30 09:39 | P.PNNP_ITS ---
Progress Note: A&P Assessment and Plan (1) Hyponatremia: Code(s): E87.1 - Hypo-osmolality and hyponatremia Status: Acute Assessment and Plan: * acute on chronic from review of records * sodium has been running 126 - 133mmol in the last year * Chronic component most likely multifactorial, including cirrhosis, venlafaxine, narcotics, and COPD. * SPEP and UPEP pending. * Osmolality is are still not back yet. * She has an acute component: * suspect due volume depletion/dehydration * possible pneumonia * TSH normal and cortisol level low, probably suppressed by the steroids. * on IV steroids so unable to check cosyntropin stim test now * Will repeat this once off IV steroids * goal for rate of change is ~ 4 - 6mmol/L in 24hr but not to exceed 8mmol/L * sodium is bouncing up and down. 10/28 Na 120 then 127 then 120 10/29 Na 124 10/30 Na 127 * Treatment: * On lasix 20 bid and sodium chloride tablets bid. * On 1000cc fluid restriction * check another sodium later today. (2) Atrial fibrillation with RVR: Code(s): I48.91 - Unspecified atrial fibrillation Status: Acute Assessment and Plan: * converted to NSR with sotalol * on anticoagulation * Cardiology following (3) Community acquired pneumonia: Code(s): J18.9 - Pneumonia, unspecified organism Status: Acute Assessment and Plan: * as noted by admission imaging * follow blood cultures positive for Strep pneumoniae * wbc still high (on steroids) and pt afebrile. * on doxy, ceftriaxone, vancomycin. (4) Acute hypoxemic respiratory failure: Code(s): J96.01 - Acute respiratory failure with hypoxia Status: Acute Assessment and Plan: * suspect secondary to pneumonia (+blood cultures noted) * complicated by known history of COPD * on steroids, nebulizer treatments, and antibiotics * follow respiratory status (5) Hypotension: Code(s): I95.9 - Hypotension, unspecified Status: Acute Assessment and Plan: * Blood pressure improved the last few days. * off bp meds. Subjective Date/time seen: 10/30/21 09:39 Interval history: Patient is feeling okay. Getting a new IV. Patient is eating and drinking okay No chest pain or shortness of breath Exam Narrative: General: WD/WN female in NAD Heart: normal S1 and S2; no rub Lungs: Fairly clear Abdomen: soft, nontender, nondistended, positive bowel sounds Extremities: no cyanosis or clubbing; no edema Skin: no rash or subQ nodules Objective Data Vital Signs Vital Signs: Vital Signs - 24 hr 10/29/21 10:00 10/29/21 10:08 10/29/21 11:21 Temperature Pulse Rate 60 60 59 L Respiratory Rate 16 Blood Pressure Pulse Oximetry 10/29/21 11:29 10/29/21 12:00 10/29/21 16:00 Temperature 36.7 C 36.7 C Pulse Rate 61 57 L 58 L Respiratory Rate 18 24 H 24 H Blood Pressure 128/66 120/62 Pulse Oximetry 92 91 10/29/21 16:32 10/29/21 20:00 10/29/21 20:28 Temperature 36.7 C Pulse Rate 64 59 L 59 L Respiratory Rate 16 18 Blood Pressure 101/58 L Pulse Oximetry 97 10/29/21 21:05 10/29/21 21:16 10/29/21 22:00 Temperature Pulse Rate 66 69 60 Re
--- NOTE | 2021-10-30 09:39 | PM.PNNEP ---
Progress Note: A&P Assessment and Plan (1) Hyponatremia: Code(s): E87.1 - Hypo-osmolality and hyponatremia Status: Acute Assessment and Plan: acute on chronic from review of records sodium has been running 126 - 133mmol in the last year Chronic component most likely multifactorial, including cirrhosis, venlafaxine, narcotics, and COPD. SPEP and UPEP pending. Osmolality is are still not back yet. She has an acute component: suspect due volume depletion/dehydration possible pneumonia TSH normal and cortisol level low, probably suppressed by the steroids. on IV steroids so unable to check cosyntropin stim test now Will repeat this once off IV steroids goal for rate of change is ~ 4 - 6mmol/L in 24hr but not to exceed 8mmol/L sodium is bouncing up and down. 10/28 Na 120 then 127 then 120 10/29 Na 124 10/30 Na 127 Treatment: On lasix 20 bid and sodium chloride tablets bid. On 1000cc fluid restriction check another sodium later today. (2) Atrial fibrillation with RVR: Code(s): I48.91 - Unspecified atrial fibrillation Status: Acute Assessment and Plan: converted to NSR with sotalol on anticoagulation Cardiology following (3) Community acquired pneumonia: Code(s): J18.9 - Pneumonia, unspecified organism Status: Acute Assessment and Plan: as noted by admission imaging follow blood cultures positive for Strep pneumoniae wbc still high (on steroids) and pt afebrile. on doxy, ceftriaxone, vancomycin. (4) Acute hypoxemic respiratory failure: Code(s): J96.01 - Acute respiratory failure with hypoxia Status: Acute Assessment and Plan: suspect secondary to pneumonia (+blood cultures noted) complicated by known history of COPD on steroids, nebulizer treatments, and antibiotics follow respiratory status (5) Hypotension: Code(s): I95.9 - Hypotension, unspecified Status: Acute Assessment and Plan: Blood pressure improved the last few days. off bp meds. Subjective Date/time seen: 10/30/21 09:39 Interval history: Patient is feeling okay. Getting a new IV. Patient is eating and drinking okay No chest pain or shortness of breath Exam Narrative: General: WD/WN female in NAD Heart: normal S1 and S2; no rub Lungs: Fairly clear Abdomen: soft, nontender, nondistended, positive bowel sounds Extremities: no cyanosis or clubbing; no edema Skin: no rash or subQ nodules Objective Data Vital Signs Vital Signs: Vital Signs - 24 hr 10/29/21 10:00 10/29/21 10:08 10/29/21 11:21 Temperature Pulse Rate 60 60 59 L Respiratory Rate 16 Blood Pressure Pulse Oximetry 10/29/21 11:29 10/29/21 12:00 10/29/21 16:00 Temperature 36.7 C 36.7 C Pulse Rate 61 57 L 58 L Respiratory Rate 18 24 H 24 H Blood Pressure 128/66 120/62 Pulse Oximetry 92 91 10/29/21 16:32 10/29/21 20:00 10/29/21 20:28 Temperature 36.7 C Pulse Rate 64 59 L 59 L Respiratory Rate 16 18 Blood Pressure 101/58 L Pulse Oximetry 97 10/29/21 21:05 10/29/21 21:16 10/29/21 22:00 Temperature Pulse Rate 66 69 60 Respiratory Rate 16 16 Blood Pressure Pulse Oximetry 10/29/21 23:22 10/30/21 00:00 10/30/21 00:50 Temperature 36.7 C Pulse Rate 57 L 52 L 66 Respiratory Rate 20 16 Blood Pressure 106/50 L Pulse Oximetry 97 10/30/21 01:00 10/30/21 02:00 10/30/21 04:00 Temperature Pulse Rate 63 51 L 51 L Respiratory Rate Blood Pressure Pulse Oximetry 10/30/21 08:00 10/30/21 08:20 10/30/21 08:49 Temperature 36.7 C 36.3 C L Pulse Rate 93 55 L 51 L Respiratory Rate 18 16 Blood Pressure 115/77 128/60 Pulse Oximetry 95 92 Intake/Output Intake/Output: Intake & Output 10/27/21 10/28/21 10/29/21 10/30/21 23:59 23:59 23:59 23:59 Intake Total 2301 2842 2290 Output Total 1250 1025 3200 1550 Balance 1050 2210 -918 -4403 Meds/Results
[2021-10-30 09:47] LABS: Albumin Level 2.6 g/dL (3.5-5.1); Anion Gap 5 mmol/L (8-16); Blood Urea Nitrogen 20 mg/dL (7-17); Calcium 7.7 mg/dL (8.4-10.2); Carbon Dioxide 22 mmol/L (22-30); Chloride 98 mmol/L (98-107); Estimated CRCL calculation 64 ml/min; Estimated Glomerular Filt Rate > 60; Glucose 96 mg/dL (65-110); Phosphorus 3.3 mg/dL (2.5-4.5); Potassium 4.4 mmol/L (3.4-5.0); Sodium 125 mmol/L (137-145)
--- NOTE | 2021-10-30 10:25 | ECG_ITS ---
Measurements Intervals [place] Rate: 52 P: 57 SD: 176 QRS: 44 QRSD: 83 T: 34 QT: 486 QTc: 453 Interpretive Statements SINUS BRADYCARDIA LOW QRS VOLTAGE IN PRECORDIAL LEADS BORDERLINE ST-T WAVE ABNORMALITY- HIGH LATERAL LEADS BASELINE ARTIFACT- I, III, AVL, V1-V6 BORDERLINE ECG Electronically Signed On 10-30-2021 10:00:16 BUSINESS UNIT DIRECTOR by Tee Hamlin D.O.
[2021-10-30] MEDS: VANCOMYCIN HCL 1,250 MG in SODIUM CHLORIDE 0.9% IV 250 ML 250 MG IVPB (11:06)
--- NOTE | 2021-10-30 14:57 | PM.IMPN ---
Progress Note: A&P Assessment and Plan (1) Acute hypoxemic respiratory failure: Code(s): J96.01 - Acute respiratory failure with hypoxia Status: Acute Assessment and Plan: Supplemental oxygen by nasal cannula 2 L Try and keep oxygen saturation between 92-94% Supportive care Continuous pulse ox 10/27/2021 Interval history: 71-year-old female with history of alcohol abuse resulting in liver cirrhosis as well as emphysema with chronic smoking presented emergency department with a complaint of generalized weakness unfortunately patient is very hard of hearing currently quite somnolent upon arrival patient was in atrial fibrillation with RVR diltiazem drip was started however patient blood pressure is soft, patient seen by fire equipment inspector helper continue diltiazem drip and added sotalol and hope for converting into sinus rhythm, will continue to monitor and further recommendation to follow. 10/28/2021 On oxygen supplementation which is decreasing not in respiratory distress due to pneumonia underlying (2) Community acquired pneumonia: Code(s): J18.9 - Pneumonia, unspecified organism Status: Acute Assessment and Plan: Patient was started on Rocephin and Zithromax Cultures positive for Streptococcus pneumoniae Supportive care COVID-19 is negative On vancomycin ceftriaxone and doxycycline Check pneumococcal Legionella and mycoplasma Will stop his doxycycline (3) COPD exacerbation: Code(s): J44.1 - Chronic obstructive pulmonary disease with (acute) exacerbation Status: Acute Assessment and Plan: Breathing treatments q.4 Systemic steroids (4) Atrial fibrillation with RVR: Code(s): I48.91 - Unspecified atrial fibrillation Status: Acute Assessment and Plan: Started on diltiazem drip now off was loaded with sotalol converted to sinus rhythm Continue to monitor Echocardiogram 10/27/2021 EF more than 70% severely enlarged left atrium mild aortic valve sclerosis Started on anticoagulation with enoxaparin which is switch to apixaban now Remains on sotalol and apixaban per Cardiology (5) Tobacco abuse: Code(s): Z72.0 - Tobacco use Status: Acute Assessment and Plan: Currently blood pressure is on the lower side nicotine patch not a good choice Encouraged tobacco cessation (6) Alcoholic cirrhosis of liver: Code(s): K70.30 - Alcoholic cirrhosis of liver without ascites Status: Acute Assessment and Plan: Patient on lactulose Currently with blood pressure being low and signs of dehydration on physical exam with dry mucous membranes Holding lactulose Restart as needed (7) Seizure: Code(s): R56.9 - Unspecified convulsions Status: Acute Assessment and Plan: Continue home meds Continue to monitor (8) Bacteremia: Code(s): R78.81 - Bacteremia Status: Acute Assessment and Plan: Blood culture 10/26/2021 GPC in chains turned out to be Streptococcus pneumoniae Repeat blood culture this morning to ensure clearance (9) Hypotension: Code(s): I95.9 - Hypotension, unspecified Status: Acute Assessment and Plan: This is improved continue to monitor likely from sepsis with bacteremia Hypotension has now resolved (10) Hyponatremia: Code(s): E87.1 - Hypo-osmolality and hyponatremia Status: Acute Assessment and Plan: 117 on admission baseline sodium 130s in 03/2021 have been mild chronic hyponatremia Improved with IV hydration to 120s, dwindling down again this morning is been restarted on normal saline at 75 cc an hour Nephrology has been consulted Slowly improving sodium level nephrology being consulted and following Subjective Date/time seen: 10/30/21 14:57 Interval history: HPI:This is a 71-year-old female with past medical history significant for hypertension, seizure, tobacco use, COPD, colon cancer, alcoholic cirrhosis of the liver, dislocated left arthroplasty of the hip.
[2021-10-30 18:25] LABS: Sodium 125 mmol/L (137-145)
[2021-10-30 21:12] LABS: Pneumococcal Antigen Urine Detected (Not Detected)
[2021-10-30 22:59] LABS: Vancomycin Trough 20.4 ug/mL (10.0-20.0)
[2021-10-31] VITALS (20 sets, daily range): BP systolic 105–138; BP diastolic 51–58; PULSE 50–59; RESP 16–24; TEMP 36.1–36.5; O2SAT 93–95; BMI 10.0
[2021-10-31] MEDS: IPRATROPIUM BR 0.02% INH SOLN 0.5 MG/2.5 ML VIAL INHALATION ×5 (01:13→21:22)
[2021-10-31] MEDS: VANCOMYCIN HCL 1,250 MG in SODIUM CHLORIDE 0.9% IV 250 ML 125 MG IVPB (01:21)
[2021-10-31 05:18] LABS: Hematocrit 30.9 % (37.0-47.0); Hemoglobin 11.1 g/dL (12.0-15.0); Mean Corpuscular HGB Conc 35.9 g/dl (32-36); Mean Corpuscular Hemoglobin 33.4 pg (26-34); Mean Corpuscular Volume 93.1 fl (80-100); Mean Platelet Volume 8.7 fl (7.4-10.4); Platelet Count Result 505 k/mm3 (150-375); Red Blood Count 3.32 M/mm3 (4.2-5.4); Red Cell Distribution Width 12.5 % (11.5-14.5); White Blood Count 25.1 K/mm3 (4.5-10.0)
[2021-10-31 05:29] LABS: Anion Gap 7 mmol/L (8-16); Blood Urea Nitrogen 18 mg/dL (7-17); Calcium 7.8 mg/dL (8.4-10.2); Carbon Dioxide 23 mmol/L (22-30); Chloride 95 mmol/L (98-107); Estimated CRCL calculation 75 ml/min; Estimated Glomerular Filt Rate > 60; Glucose 90 mg/dL (65-110); Magnesium 1.9 mg/dL (1.6-2.3); Potassium 3.9 mmol/L (3.4-5.0); Sodium 125 mmol/L (137-145)
--- NOTE | 2021-10-31 06:38 | PCRCNOTE ---
Window of time for administration has passed. See next scheduled administration.
[2021-10-31 07:51] LABS: Glucose Point of Care 85 mg/dl (65-105)
[2021-10-31] MEDS: FLUTICASONE/SALMETEROL 115-21 MCG INHALER 1 PUFF 2 PUFF INHALATION ×2 (09:05→21:25)
[2021-10-31] MEDS: FUROSEMIDE 20 MG TABLET PO (09:29)
[2021-10-31] MEDS: APIXABAN 5 MG TABLET PO ×2 (09:29→21:35)
[2021-10-31] MEDS: OXYBUTYNIN CHLORIDE 5 MG TABLET PO ×3 (09:29→17:06)
[2021-10-31] MEDS: THERAPEUTIC MULTIVITAMINS/MINERALS TAB (*BKC) 1 TABLET PO (09:29)
[2021-10-31] MEDS: predniSONE 20 MG TABLET 40 MG PO (09:29)
[2021-10-31] MEDS: risperiDONE 0.5 MG TABLET PO ×2 (09:30→17:06)
[2021-10-31] MEDS: PHENYTOIN SODIUM 100 MG EXTENDED RELEASE CAP PO ×4 (09:30→21:35)
[2021-10-31] MEDS: SODIUM CHLORIDE 1 GM TABLET PO ×2 (09:31→17:07)
[2021-10-31] MEDS: ACETAMINOPHEN 325 MG TABLET 650 MG PO (09:42)
--- NOTE | 2021-10-31 09:43 | PCOTNOTE ---
Pt. has dislocated L hip, awaiting change in orders from ortho consult. Will follow-up when appropriate for therapy
[2021-10-31 09:46] LABS: Albumin Level 2.6 g/dL (3.5-5.1); Anion Gap 6 mmol/L (8-16); Blood Urea Nitrogen 18 mg/dL (7-17); Calcium 7.9 mg/dL (8.4-10.2); Carbon Dioxide 24 mmol/L (22-30); Chloride 95 mmol/L (98-107); Estimated CRCL calculation 56 ml/min; Estimated Glomerular Filt Rate > 60; Glucose 88 mg/dL (65-110); Phosphorus 3.5 mg/dL (2.5-4.5); Potassium 4.2 mmol/L (3.4-5.0); Sodium 125 mmol/L (137-145)
--- NOTE | 2021-10-31 09:47 | P.PNNP_ITS ---
Progress Note: A&P Assessment and Plan (1) Hyponatremia: Code(s): E87.1 - Hypo-osmolality and hyponatremia Status: Acute Assessment and Plan: * acute on chronic from review of records * sodium has been running 126 - 133mmol in the last year * Chronic component most likely multifactorial, including cirrhosis, venlafaxine, narcotics, and COPD. * SPEP and UPEP pending. * Osmolality tests pending * She has an acute component: * suspect due volume depletion/dehydration * possible pneumonia * venlefaxine * TSH normal and cortisol level low, probably suppressed by the steroids. * on IV steroids so unable to check cosyntropin stim test now * Will repeat this once off IV steroids * goal for rate of change is ~ 4 - 6mmol/L in 24hr but not to exceed 8mmol/L * sodium is bouncing up and down. 10/28 Na 120 then 127 then 120 10/29 Na 124 10/30 Na 127 then 125 10/31 Na 125 * Current treatment: * On lasix 20 bid and sodium chloride tablets bid. * On 1000cc fluid restriction * sodium still low. * will cut venlafaxine down. * since volume status looks okay will stop lasix. (2) Atrial fibrillation with RVR: Code(s): I48.91 - Unspecified atrial fibrillation Status: Acute Assessment and Plan: * converted to NSR with sotalol * on anticoagulation * Cardiology following (3) Community acquired pneumonia: Code(s): J18.9 - Pneumonia, unspecified organism Status: Acute Assessment and Plan: * as noted by admission imaging * follow blood cultures positive for Strep pneumoniae * wbc still high (on steroids) and pt afebrile. * on doxy, ceftriaxone, vancomycin. (4) Acute hypoxemic respiratory failure: Code(s): J96.01 - Acute respiratory failure with hypoxia Status: Acute Assessment and Plan: * suspect secondary to pneumonia (+blood cultures noted) * complicated by known history of COPD * on steroids, nebulizer treatments, and antibiotics * breathing comfortably. (5) Hypotension: Code(s): I95.9 - Hypotension, unspecified Status: Acute Assessment and Plan: * BP doing fine Subjective Date/time seen: 10/31/21 09:47 Interval history: Patient is feeling okay. In some pain. Patient is eating and drinking okay No chest pain or shortness of breath Exam Narrative: General: WD/WN female in NAD Heart: normal S1 and S2; no rub or gallop Lungs: Clear to auscultation Abdomen: soft, nontender, nondistended, positive bowel sounds Extremities: no cyanosis or clubbing; no edema Skin: no rash or subQ nodules Objective Data Vital Signs Vital Signs: Vital Signs - 24 hr 10/30/21 12:00 10/30/21 14:00 10/30/21 15:38 Temperature 36.7 C Pulse Rate 49 L 50 L 71 Respiratory Rate 14 16 Blood Pressure 154/73 H Pulse Oximetry 95 10/30/21 15:50 10/30/21 16:00 10/30/21 20:00 Temperature Pulse Rate 65 49 L 56 L Respiratory Rate 18 Blood Pressure Pulse Oximetry 10/30/21 20:54 10/30/21 21:13 10/30/21 21:14 Temperature Pulse Rate 56 L 56 L Respiratory Rate 16 Blood Pressure Pulse Oximetry 92 10/30/21 21:23 10/30/21 22:00 10/31/21 00:00 Temperat
--- NOTE | 2021-10-31 09:47 | PM.PNNEP ---
Progress Note: A&P Assessment and Plan (1) Hyponatremia: Code(s): E87.1 - Hypo-osmolality and hyponatremia Status: Acute Assessment and Plan: acute on chronic from review of records sodium has been running 126 - 133mmol in the last year Chronic component most likely multifactorial, including cirrhosis, venlafaxine, narcotics, and COPD. SPEP and UPEP pending. Osmolality tests pending She has an acute component: suspect due volume depletion/dehydration possible pneumonia venlefaxine TSH normal and cortisol level low, probably suppressed by the steroids. on IV steroids so unable to check cosyntropin stim test now Will repeat this once off IV steroids goal for rate of change is ~ 4 - 6mmol/L in 24hr but not to exceed 8mmol/L sodium is bouncing up and down. 10/28 Na 120 then 127 then 120 10/29 Na 124 10/30 Na 127 then 125 10/31 Na 125 Current treatment: On lasix 20 bid and sodium chloride tablets bid. On 1000cc fluid restriction sodium still low. will cut venlafaxine down. since volume status looks okay will stop lasix. (2) Atrial fibrillation with RVR: Code(s): I48.91 - Unspecified atrial fibrillation Status: Acute Assessment and Plan: converted to NSR with sotalol on anticoagulation Cardiology following (3) Community acquired pneumonia: Code(s): J18.9 - Pneumonia, unspecified organism Status: Acute Assessment and Plan: as noted by admission imaging follow blood cultures positive for Strep pneumoniae wbc still high (on steroids) and pt afebrile. on doxy, ceftriaxone, vancomycin. (4) Acute hypoxemic respiratory failure: Code(s): J96.01 - Acute respiratory failure with hypoxia Status: Acute Assessment and Plan: suspect secondary to pneumonia (+blood cultures noted) complicated by known history of COPD on steroids, nebulizer treatments, and antibiotics breathing comfortably. (5) Hypotension: Code(s): I95.9 - Hypotension, unspecified Status: Acute Assessment and Plan: BP doing fine Subjective Date/time seen: 10/31/21 09:47 Interval history: Patient is feeling okay. In some pain. Patient is eating and drinking okay No chest pain or shortness of breath Exam Narrative: General: WD/WN female in NAD Heart: normal S1 and S2; no rub or gallop Lungs: Clear to auscultation Abdomen: soft, nontender, nondistended, positive bowel sounds Extremities: no cyanosis or clubbing; no edema Skin: no rash or subQ nodules Objective Data Vital Signs Vital Signs: Vital Signs - 24 hr 10/30/21 12:00 10/30/21 14:00 10/30/21 15:38 Temperature 36.7 C Pulse Rate 49 L 50 L 71 Respiratory Rate 14 16 Blood Pressure 154/73 H Pulse Oximetry 95 10/30/21 15:50 10/30/21 16:00 10/30/21 20:00 Temperature Pulse Rate 65 49 L 56 L Respiratory Rate 18 Blood Pressure Pulse Oximetry 10/30/21 20:54 10/30/21 21:13 10/30/21 21:14 Temperature Pulse Rate 56 L 56 L Respiratory Rate 16 Blood Pressure Pulse Oximetry 92 10/30/21 21:23 10/30/21 22:00 10/31/21 00:00 Temperature 36.2 C L Pulse Rate 55 L 54 L 52 L Respiratory Rate 16 16 Blood Pressure 138/65 Pulse Oximetry 94 10/31/21 01:15 10/31/21 04:00 10/31/21 06:00 Temperature 36.5 C Pulse Rate 51 L 54 L 53 L Respiratory Rate 16 16 Blood Pressure 138/53 L Pulse Oximetry 94 10/31/21 09:04 10/31/21 09:12 10/31/21 09:35 Temperature Pulse Rate 56 L 55 L 50 L Respiratory Rate 16 20 Blood Pressure 116/54 L Pulse Oximetry Intake/Output Intake/Output: Intake & Output 10/28/21 10/29/21 10/30/21 10/31/21 23:59 23:59 23:59 23:59 Intake Total 2842 2290 1050 440 Output Total 1025 3200 2750 1300 Balance 1817 -910 -1700 -860 Meds/Results Medications: Active Medications Generic Name Dose Route Start Last Admin Trade Name Freq PRN Reason Stop
[2021-10-31] MEDS: cefTRIAXone 2 GM in SODIUM CHLORIDE 0.9% IV 100 ML IVPB ×2 (09:58→21:34)
--- NOTE | 2021-10-31 11:40 | PM.CNOR ---
Assessment and Plan Additional Plan patient is a 71-year-old female that was asked to see this morning for evaluation of her left hip. She was admitted to the hospital on the , 5 days ago, complaining of weakness for 2 days with dry cough. She was found to be hypoxic hypotensive required fluid resuscitation and was complaining of lower abdominal pain and CT abdomen pelvis showed a severely displaced, dislocated left hip replacement jaison prosthesis and inferior lung pulmonary infiltrates. Both blood cultures done at admission were positive for strep pneumoniae. Last night she was complaining of more pain in her left hip and an x-ray was obtained which again shows the severely dislocated left hip. 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 The admission note states that she has been living with her niece bonny for the last 7 years. It states that prior to 3 weeks ago she was able to walk without gait aid but then at 3 weeks ago had to use a walker. I asked the patient about this in several different ways and she is adamant that she has not been able to walk without a walker for the last 2 years or more. While she lays in bed the left leg is had a neutral rotation but is approximately 6 in shorter than the right and she also was adamant that this shortening is chronic. She cannot remember when she had her 1st hip replacement in terms of we years other than to state that it has been a while. I think that her memory for dates is very poor. She does have chronic all call X serosa is and elevated ammonia levels and has had confusion with hospitalizations previously here. However, she remembers very well the name of her orthopedic surgeon Dr. Bennett at [facility]. Her history suggests that she had a hip replacement that was complicated with infection and the x-rays show that she has a jaison prosthesis a Jumbo cup with a titanium bulk block screwed to the lateral ilium to provide superior support for a Super Jumbo cup. The abduction angle looks very good. And, the acetabular component seems to be integrated with the acetabular bone. Approximately 50% of the cup is uncovered laterally where there is a sizable bulk graft supporting it. There is no cross-table lateral and I reviewed the CT scan and there was too much artifact for me to estimate the version of the cup. There is a proximal femoral replacement endoprosthesis present which comprises approximately the proximal 30 or 35% of the subtrochanteric shaft the femur which as a tapered stem which appears well fixed in the distal shaft with 2 cables the proximal end of the shaft and some evidence of resorption of the proximal shaft bone. I did not appreciate any obvious osteolysis on the acetabular side. The hip is completely dislocated and the femoral head rides approximately 85-90 mm proximal to its normal location in the center of the acetabular component. Its proximal level is probably a little bit proximal to the level of the anterior superior iliac spine. On exam today she has 1+ edema in both calves ankles feet which is little bit more prominent on the left on the right. When she lays supine the left leg looks about 6 in shorter. The rotational left foot is normal. She was able to sit up in bed and look at her foot in see the difference in lengths and confirm that she has had this leg length difference for at least a couple of years. She states that she saw Dr. Bennett about this and that he said that there was nothing to do about this and that it would always be short on the left leg. I could flex her left hip to about 40? then she felt discomfort. She was unable do a straight leg raise. She does move her ankle into dorsiflexion and plantar flexion as well as her toes on command and it denies any numbness to light touch testing. She had a 1+ dorsalis pedis pulse that I can feel on the
--- NOTE | 2021-10-31 11:47 | PM.IMPN ---
Progress Note: A&P Assessment and Plan (1) Septicemia: Code(s): A41.9 - Sepsis, unspecified organism Status: Acute Assessment and Plan: Patient with tachycardia and leukocytosis present on admission. Blood cultures positive for Streptococcus pneumoniae most likely from a lung source. Repeat blood cultures 10/29 are no growth today. Since cultures are negative for 2 days, will stop vancomycin and continue Rocephin. She is on high-dose Rocephin which will continue. WBC higher possibly related to steroids? Stop Prednisone. Watch for diarrhea to suggest CDiff (2) Acute hypoxemic respiratory failure: Code(s): J96.01 - Acute respiratory failure with hypoxia Status: Acute Assessment and Plan: Supplemental oxygen by nasal cannula 2 L Try and keep oxygen saturation between 92-94% Supportive care Continuous pulse ox 10/27/2021 Interval history: 71-year-old female with history of alcohol abuse resulting in liver cirrhosis as well as emphysema with chronic smoking presented emergency department with a complaint of generalized weakness unfortunately patient is very hard of hearing currently quite somnolent upon arrival patient was in atrial fibrillation with RVR diltiazem drip was started however patient blood pressure is soft, patient seen by sales development coordinator continue diltiazem drip and added sotalol and hope for converting into sinus rhythm, will continue to monitor and further recommendation to follow. 10/28/2021 On oxygen supplementation which is decreasing not in respiratory distress due to pneumonia underlying 10/31/21 -acute hypoxic respiratory failure resolved. Patient has been weaned to room air on 10/20/2021. Change nebs to p.r.n.. (3) Community acquired pneumonia: Code(s): J18.9 - Pneumonia, unspecified organism Status: Acute Assessment and Plan: Patient was started on Rocephin and Zithromax Blood Cultures positive for Streptococcus pneumoniae COVID-19 is negative Antibiotics changed to vancomycin ceftriaxone and doxycycline Urine pneumococcal antigen positive which is not unexpected. Sensitivities pending but biogram 100% sensitive to Rocephin. Repeat BCx NGTD. Doxycycline has been stopped. Will stop vancomycin today. (4) COPD exacerbation: Code(s): J44.1 - Chronic obstructive pulmonary disease with (acute) exacerbation Status: Acute Assessment and Plan: No further wheezing. Patient on room air. Will stop Prednisone given the fact she is bacteremic. (5) Atrial fibrillation with RVR: Code(s): I48.91 - Unspecified atrial fibrillation Status: Acute Assessment and Plan: Started was on diltiazem drip but able to be weaned off. She was started on sotalol as convert to normal sinus rhythm. She is now bradycardic at times and as such will decrease sotalol dose. Echocardiogram 10/27/2021 EF more than 70% severely enlarged left atrium mild aortic valve sclerosis. She has been started on Eliquis. Appreciate cardiology input. (6) Hyponatremia: Code(s): E87.1 - Hypo-osmolality and hyponatremia Status: Acute Assessment and Plan: Sodium was 117 on admission. Baseline sodium runs in the 130s. Sodium has improved to 125 but stable. She is on sodium chloride tablets. Appreciate Nephrology input. (7) Hypotension: Code(s): I95.9 - Hypotension, unspecified Status: Acute Assessment and Plan: Blood pressure has been soft at times possibly related to the sepsis and bacteremia. Blood pressure better controlled. Continue to monitor. (8) Alcoholic cirrhosis of liver: Code(s): K70.30 - Alcoholic cirrhosis of liver without ascites Status: Acute Assessment and Plan: Lactulose on hold due to use hypotension and clinical findings of dehydration. Continue to monitor for now. (9) Seizure: Code(s): R56.9 - Unspecified convulsions Status: Acute Assessment and P
[2021-10-31] MEDS: HYDROcodone/acetaminophen (*CRX) 5-325 MG TABLET 1 TAB PO ×2 (13:27→21:36)
[2021-10-31 14:21] LABS: Chloride Rand Ur 20 mmol/L (32-290); Chloride/Creatinine Rand Ur 33 (38-318); Creatinine Random Urine 61 mg/dL (20-275)
[2021-10-31 16:22] LABS: Sodium 124 mmol/L (137-145)
[2021-10-31 16:34] LABS: Creatinine, Random Urine 67 mg/dL (20-275); Total Protein/Creatinine Ratio 627 mg/g creat (21-161)
[2021-10-31] MEDS: VENLAFAXINE HCL 75 MG TABLET PO (17:07)
--- NOTE | 2021-10-31 17:29 | PM.PNORT ---
Progress Note: A&P Additional Plan I spoke with Dr Ackerman who reviewed Dr Bennett's note ( [facility]) from 2019 and patient was noted to have a dislocation of her CHANEL at that time. The dislocation was never addressed , so , it has been chronic for 2 years. Radiologist removed 80 cc green brown fluid (which sounds like dense pus). Cell count with diff was not set up according to lab but they will try and do this now as wel as stat gram stain. Cultures may not grow if has Strep Pneumo in fluid due to Ceftriaxoe treatment. 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 Subjective Subjective Date/Time Seen: 10/31/21 17:29 Objective Data Vital Signs Vital Signs: Vital Signs - 24 hr 10/30/21 20:00 10/30/21 20:54 10/30/21 21:13 Temperature Pulse Rate 56 L 56 L 56 L Respiratory Rate 16 Blood Pressure Pulse Oximetry 10/30/21 21:14 10/30/21 21:23 10/30/21 22:00 Temperature 36.2 C L Pulse Rate 55 L 54 L Respiratory Rate 16 16 Blood Pressure 138/65 Pulse Oximetry 92 94 10/31/21 00:00 10/31/21 01:15 10/31/21 04:00 Temperature Pulse Rate 52 L 51 L 54 L Respiratory Rate 16 Blood Pressure Pulse Oximetry 10/31/21 06:00 10/31/21 08:00 10/31/21 09:04 Temperature 36.5 C Pulse Rate 53 L 53 L 56 L Respiratory Rate 16 16 Blood Pressure 138/53 L Pulse Oximetry 94 10/31/21 09:12 10/31/21 09:35 10/31/21 10:48 Temperature Pulse Rate 55 L 50 L 50 L Respiratory Rate 20 Blood Pressure 116/54 L Pulse Oximetry 10/31/21 12:00 10/31/21 12:08 10/31/21 13:58 Temperature 36.2 C L Pulse Rate 55 L 55 L 52 L Respiratory Rate 20 20 24 H Blood Pressure 111/51 L Pulse Oximetry 95 10/31/21 16:00 10/31/21 16:34 10/31/21 16:44 Temperature Pulse Rate 54 L 56 L 55 L Respiratory Rate 20 20 Blood Pressure Pulse Oximetry Intake/Output Intake/Output: Intake & Output 10/28/21 10/29/21 10/30/21 10/31/21 23:59 23:59 23:59 23:59 Intake Total 2842 2290 1050 790 Output Total 1025 3200 2750 1800 Balance 1817 910 -1700 1010 Meds/Results Medications: Active Medications Generic Name Dose Route Start Last Admin Trade Name Freq PRN Reason Stop Dose Admin Acetaminophen 650 mg 10/26/21 22:02 10/31/21 09:42 Acetaminophen 325 Mg Tablet PO 650 mg Q4H PRN Administration Mild Pain (1-3) or Fever Hydrocodone Bitart/Acetaminophen 1 tab 10/26/21 22:02 10/31/21 13:27 Hydrocodone/Acetaminophen (*Crx) 5-325 Mg Tablet PO 1 tab Q4H PRN Administration Pain Rated 4-6 Apixaban 5 mg 10/28/21 21:00 10/31/21 09:29 Apixaban 5 Mg Tablet PO 5 mg Q12HR HORACIO Administration Ceftriaxone Sodium 2 gm/ 100 mls @ 200 mls/hr 10/28/21 21:00 10/31/21 09:58 Sodium Chloride IVPB 100 mls/hr Q12HR HORACIO Administration Ipratropium [place] 0.5 mg 10/27/21 04:00 10/31/21 16:34 Ipratropium Br 0.02% Inh Soln 0.5 Mg/2.5 Ml Vial INHALATION 0.5 mg Q4HRT HORACIO Administration Levalbuterol HCl 1.25 mg 10/27/21 04:00 10/31/21 16:34 Levalbuterol Neb 1.25 Mg/0.5 Ml INHALATION 1.25 mg Q4HRT HORACIO Administration Morphine Sulfate 2 mg 10/31/21 12:11 Morphine Sulfate (*Crx) 2 Mg/Ml Inj IV PUSH Q2H PRN Pain Rated 7-10 Multivitamins/Calcium 1 tablet 10/27/21 09:00 10/31/21 09:29 Therapeutic Multivitamins/Minerals Tab (*Bkc) PO 1 tablet DAILY HORACIO Administration Oxybutynin Chloride 5 mg 10/27/21 09:00 10/31/21 17:06 Oxybutynin Chloride 5 Mg Tablet PO 5 mg TID HORACIO Administration Phenytoin Sodium 100 mg 10/27/21 09:00 10/31/21 17:06 Phenytoin Sodium 100 Mg Extended Release Cap PO 100 mg QID HORACIO Administration Promethazine HCl 12.5 mg 10/26/21 22:02 Promethazine Hcl 25 Mg/Ml Ampul IV PUSH
[2021-10-31 19:29] LABS: Appearance Synovial Fluid Turbid (Clear); Color Synovial Fluid Other (Colorless); Source Synovial Fluid Synovial fluid
[2021-10-31 19:30] LABS: Lymphocytes Synovial Fluid 2 %; Macrophages Synovial Fluid 1 %; Neutrophils Synovial Fluid 97 % (0-25); RBC Synovial Fluid 62329 /uL (0-0)
--- NOTE | 2021-10-31 19:38 | PM.PNORT ---
Progress Note: A&P Additional Plan Left hip asp fluid wbc count 230,000 and 97% neuts. Gram stain GPC. This indicates a periprosthetic abscess and will require explantation. I will discuss transfer with with hospt service. ADD: I just spoke with Dr Ng and she will initiate transfer tonight. Subjective Subjective Date/Time Seen: 10/31/21 19:38 Objective Data Vital Signs Vital Signs: Vital Signs - 24 hr 10/30/21 20:00 10/30/21 20:54 10/30/21 21:13 Temperature Pulse Rate 56 L 56 L 56 L Respiratory Rate 16 Blood Pressure Pulse Oximetry 10/30/21 21:14 10/30/21 21:23 10/30/21 22:00 Temperature 36.2 C L Pulse Rate 55 L 54 L Respiratory Rate 16 16 Blood Pressure 138/65 Pulse Oximetry 92 94 10/31/21 00:00 10/31/21 01:15 10/31/21 04:00 Temperature Pulse Rate 52 L 51 L 54 L Respiratory Rate 16 Blood Pressure Pulse Oximetry 10/31/21 06:00 10/31/21 08:00 10/31/21 09:04 Temperature 36.5 C Pulse Rate 53 L 53 L 56 L Respiratory Rate 16 16 Blood Pressure 138/53 L Pulse Oximetry 94 10/31/21 09:12 10/31/21 09:35 10/31/21 10:48 Temperature Pulse Rate 55 L 50 L 50 L Respiratory Rate 20 Blood Pressure 116/54 L Pulse Oximetry 10/31/21 12:00 10/31/21 12:08 10/31/21 13:58 Temperature 36.2 C L Pulse Rate 55 L 55 L 52 L Respiratory Rate 20 20 24 H Blood Pressure 111/51 L Pulse Oximetry 95 10/31/21 16:00 10/31/21 16:34 10/31/21 16:44 Temperature Pulse Rate 54 L 56 L 55 L Respiratory Rate 20 20 Blood Pressure Pulse Oximetry Intake/Output Intake/Output: Intake & Output 10/28/21 10/29/21 10/30/21 10/31/21 23:59 23:59 23:59 23:59 Intake Total 2842 2290 1050 1090 Output Total 1025 3200 2750 2100 Balance 9977 -910 -1700 -1010 Meds/Results Medications: Active Medications Generic Name Dose Route Start Last Admin Trade Name Freq PRN Reason Stop Dose Admin Acetaminophen 650 mg 10/26/21 22:02 10/31/21 09:42 Acetaminophen 325 Mg Tablet PO 650 mg Q4H PRN Administration Mild Pain (1-3) or Fever Hydrocodone Bitart/Acetaminophen 1 tab 10/26/21 22:02 10/31/21 13:27 Hydrocodone/Acetaminophen (*Crx) 5-325 Mg Tablet PO 1 tab Q4H PRN Administration Pain Rated 4-6 Apixaban 5 mg 10/28/21 21:00 10/31/21 09:29 Apixaban 5 Mg Tablet PO 5 mg Q12HR HORACIO Administration Ceftriaxone Sodium 2 gm/ 100 mls @ 200 mls/hr 10/28/21 21:00 10/31/21 10:58 Sodium Chloride IVPB Infused Q12HR HORACIO Infusion Ipratropium [place] 0.5 mg 10/27/21 04:00 10/31/21 16:34 Ipratropium Br 0.02% Inh Soln 0.5 Mg/2.5 Ml Vial INHALATION 0.5 mg Q4HRT HORACIO Administration Levalbuterol HCl 1.25 mg 10/27/21 04:00 10/31/21 16:34 Levalbuterol Neb 1.25 Mg/0.5 Ml INHALATION 1.25 mg Q4HRT HORACIO Administration Morphine Sulfate 2 mg 10/31/21 12:11 Morphine Sulfate (*Crx) 2 Mg/Ml Inj IV PUSH Q2H PRN Pain Rated 7-10 Multivitamins/Calcium 1 tablet 10/27/21 09:00 10/31/21 09:29 Therapeutic Multivitamins/Minerals Tab (*Bkc) PO 1 tablet DAILY HORACIO Administration Oxybutynin Chloride 5 mg 10/27/21 09:00 10/31/21 17:06 Oxybutynin Chloride 5 Mg Tablet PO 5 mg TID HORACIO Administration Phenytoin Sodium 100 mg 10/27/21 09:00 10/31/21 17:06 Phenytoin Sodium 100 Mg Extended Release Cap PO 100 mg QID HORACIO Administration Promethazine HCl 12.5 mg 10/26/21 22:02 Promethazine Hcl 25 Mg/Ml Ampul IV PUSH Q6H PRN Nausea Risperidone 0.5 mg 10/27/21 09:00 10/31/21 17:06 Risperidone 0.5 Mg Tablet PO 0.5 mg BID HORACIO Administration Fluticasone/Salmeterol 2 puff 10/27/21 08:00 10/31/21 09:05 Fluticasone/Salmeterol 115-21 Mcg Inhaler 1 Puff INHALATION 2 puff Q12HRT HORACIO Administration Sodium Chloride 1 gm 10/31/21 09:00 10/31/21 17:07 Sodium Chloride 1 Gm Tablet PO 1 gm BID HORACIO Administration Sotalol HCl 40 mg 10/31/21 21:00 Sotalol Hcl
--- NOTE | 2021-10-31 20:32 | PM.EVENT ---
Event Note Event Note Event Note: 10/31/2021 at 8:00 p.m. I received a call from orthopedic surgeon after he had a received results from IR guided arthrocentesis of the patient's hip. The patient's synovial fluid demonstrated greater than 200,000 nucleated cells and 97% neutrophils. [place] [address] up to 25,000. G stain also demonstrate Gram-positive cocci. The patient had had bacteremia on her initial blood cultures from the with strep pneumonia. Her repeat blood cultures have been negative. I contacted Dr. Lopez the resident I was on-call for Dr. Bennett the orthopedic service at [facility]. He informed me the patient has chronic septic arthritis and she has been told in the past that if she does not quit smoking in make lifestyle changes diarrhea needed for appropriate wound healing she is not a candidate for revision of her hip. He stated that if the patient was overtly septic her her clinical condition worsened then they would consider performing an girdle amputation. But if she is clinically stable he recommended continuing antibiotics and treating the patient's pneumonia and then transition the patient to doxycycline b.i.d. for suppressive therapy. If he needed E stated he would recommend consulting Infectious Disease for antibiotic recommendations. Given the patient's white count has continued to increase I will place patient on vancomycin for the short term. And re-evaluate patient's condition in a.m.. 45 minutes was spent in patient care and attempting transfer.
[2021-10-31 21:10] LABS: Mycoplasma IgM Antibody Titer 15 U/mL (<770)
[2021-10-31] MEDS: SOTALOL HCL 40 MG TABLET PO (21:34)
[2021-11-01] VITALS (15 sets, daily range): BP systolic 114–129; BP diastolic 55–59; PULSE 54–82; RESP 17–20; TEMP 35.9–36.9; O2SAT 92–98
[2021-11-01] MEDS: HYDROcodone/acetaminophen (*CRX) 5-325 MG TABLET 1 TAB PO ×3 (01:52→17:04)
[2021-11-01 06:13] LABS: Basophils Absolute Auto 0.1 K/mm3 (0.0-0.1); Basophils Percent Auto 0.5 % (0.2-1.2); Eosinophils Absolute Auto 0.1 K/mm3 (0-0.3); Eosinophils Percent Auto 0.4 % (0-4.4); Hematocrit 31.2 % (37.0-47.0); Immature Granulocyte Absolute 1.78 K/mm3 (0.00-0.031); Immature Granulocyte Percent A 9.1 % (0-0.5); Lymphocytes Absolute Auto 0.86 K/mm3 (0.9-3.2); Lymphocytes Percent Auto 4.4 % (18.3-44.2); Mean Corpuscular HGB Conc 35.3 g/dl (32-36); Mean Corpuscular Hemoglobin 33.5 pg (26-34); Mean Corpuscular Volume 95.1 fl (80-100); Mean Platelet Volume 8.8 fl (7.4-10.4); Monocytes Absolute Auto 1.1 K/mm3 (0.1-0.6); Monocytes Percent Auto 5.4 % (2.6-8.5); Neutrophils Absolute Auto 15.7 K/mm3 (1.3-6.7); Neutrophils Percent Auto 80.2 % (45.5-73.1); Platelet Count Result 425 k/mm3 (150-375); Red Blood Count 3.28 M/mm3 (4.2-5.4); Red Cell Distribution Width 12.9 % (11.5-14.5); White Blood Count 19.6 K/mm3 (4.5-10.0)
[2021-11-01 06:37] LABS: Albumin 1.9 g/dL (3.8-4.8); Alpha 1 Globulin 0.6 g/dL (0.2-0.3); Alpha 2 Globulin 1.1 g/dL (0.5-0.9); Beta 1 Globulin 0.3 g/dL (0.4-0.6); Gamma Globulin 0.6 g/dL (0.8-1.7); Protein, Total 4.8 g/dL (6.1-8.1)
[2021-11-01 06:57] LABS: Albumin Level 2.5 g/dL (3.5-5.1); Anion Gap 8 mmol/L (8-16); Blood Urea Nitrogen 12 mg/dL (7-17); Calcium 7.5 mg/dL (8.4-10.2); Carbon Dioxide 24 mmol/L (22-30); Chloride 95 mmol/L (98-107); Estimated CRCL calculation 56 ml/min; Estimated Glomerular Filt Rate > 60; Glucose 96 mg/dL (65-110); Phosphorus 3.5 mg/dL (2.5-4.5); Potassium 3.3 mmol/L (3.4-5.0); Sodium 127 mmol/L (137-145)
[2021-11-01] MEDS: cefTRIAXone 2 GM in SODIUM CHLORIDE 0.9% IV 100 ML IVPB ×2 (08:33→21:39)
[2021-11-01] MEDS: SOTALOL HCL 40 MG TABLET PO ×2 (08:34→21:40)
[2021-11-01] MEDS: SODIUM CHLORIDE 1 GM TABLET PO ×2 (08:34→17:00)
[2021-11-01] MEDS: VENLAFAXINE HCL 75 MG TABLET PO ×2 (08:34→17:00)
[2021-11-01] MEDS: OXYBUTYNIN CHLORIDE 5 MG TABLET PO ×3 (08:34→17:00)
[2021-11-01] MEDS: PHENYTOIN SODIUM 100 MG EXTENDED RELEASE CAP PO ×4 (08:34→21:40)
[2021-11-01] MEDS: APIXABAN 5 MG TABLET PO (08:34)
[2021-11-01] MEDS: THERAPEUTIC MULTIVITAMINS/MINERALS TAB (*BKC) 1 TABLET PO (08:34)
[2021-11-01] MEDS: risperiDONE 0.5 MG TABLET PO ×2 (08:35→17:00)
[2021-11-01] MEDS: FLUTICASONE/SALMETEROL 115-21 MCG INHALER 1 PUFF 2 PUFF INHALATION ×2 (09:06→20:39)
[2021-11-01] MEDS: IPRATROPIUM BR 0.02% INH SOLN 0.5 MG/2.5 ML VIAL INHALATION ×4 (09:06→20:39)
--- NOTE | 2021-11-01 09:36 | P.PNNP_ITS ---
Progress Note: A&P Assessment and Plan (1) Hyponatremia: Code(s): E87.1 - Hypo-osmolality and hyponatremia Status: Acute Assessment and Plan: * acute on chronic from review of records * sodium has been running 126 - 133mmol in the last year * Chronic component most likely multifactorial, including cirrhosis, venlafaxine, narcotics, and COPD. * SPEP and UPEP pending. * Osmolality tests pending * She has an acute component: * suspect due volume depletion/dehydration * pneumonia * venlefaxine * TSH normal and cortisol level low, probably suppressed by the steroids. * on IV steroids so unable to check cosyntropin stim test now * Will repeat this once off IV steroids * goal for rate of change is ~ 4 - 6mmol/L in 24hr but not to exceed 8mmol/L * sodium is bouncing up and down. 10/28 Na 120 then 127 then 120 10/29 Na 124 10/30 Na 127 then 125 10/31 Na 125 11/01 Na 127 * Current treatment: * On 1000cc fluid restriction * sodium slowly better. * on lower dose of venlafaxine. (2) Atrial fibrillation with RVR: Code(s): I48.91 - Unspecified atrial fibrillation Status: Acute Assessment and Plan: * converted to NSR with sotalol * on anticoagulation * Cardiology following (3) Community acquired pneumonia: Code(s): J18.9 - Pneumonia, unspecified organism Status: Acute Assessment and Plan: * as noted by admission imaging * follow blood cultures positive for Strep pneumoniae * wbc still high (on steroids) and pt afebrile. * on doxy, ceftriaxone, vancomycin. (4) Acute hypoxemic respiratory failure: Code(s): J96.01 - Acute respiratory failure with hypoxia Status: Acute Assessment and Plan: * suspect secondary to pneumonia (+blood cultures noted) * complicated by known history of COPD * on steroids, nebulizer treatments, and antibiotics * breathing comfortably. (5) Hypotension: Code(s): I95.9 - Hypotension, unspecified Status: Acute Assessment and Plan: * BP doing fine (6) Septic arthritis: Code(s): M00.9 - Pyogenic arthritis, unspecified Status: Acute Assessment and Plan: Dr Eckert's note seen. Getting broad-spectrum antibiotics. Notes about approach as above Subjective Date/time seen: 11/01/21 09:36 Interval history: Patient is feeling okay. Poor appetite, but eating what she can. Breathing okay. No chest pain or shortness of breath Exam Narrative: General: WD/WN female in NAD Heart: normal S1 and S2; no rub or gallop Lungs: Clear Abdomen: soft, nontender, nondistended, positive bowel sounds Extremities: no cyanosis or clubbing; no edema Skin: no rash Objective Data Vital Signs Vital Signs: Vital Signs - 24 hr 10/31/21 10:48 10/31/21 12:00 10/31/21 12:08 Temperature Pulse Rate 50 L 55 L 55 L Respiratory Rate 20 20 Blood Pressure Pulse Oximetry 10/31/21 13:58 10/31/21 16:00 10/31/21 16:34 Temperature 36.2 C L Pulse Rate 52 L 54 L 56 L Respiratory Rate 24 H 20 Blood Pressure 111/51 L Pulse Oximetry 95 10/31/21 16:44 10/31/21 19:58 10/31/21 20:00 Temperature 36.1 C L Pulse Rate 55 L 56 L 58 L Respiratory Rate 20 18 Blo
--- NOTE | 2021-11-01 09:36 | PM.PNNEP ---
Progress Note: A&P Assessment and Plan (1) Hyponatremia: Code(s): E87.1 - Hypo-osmolality and hyponatremia Status: Acute Assessment and Plan: acute on chronic from review of records sodium has been running 126 - 133mmol in the last year Chronic component most likely multifactorial, including cirrhosis, venlafaxine, narcotics, and COPD. SPEP and UPEP pending. Osmolality tests pending She has an acute component: suspect due volume depletion/dehydration pneumonia venlefaxine TSH normal and cortisol level low, probably suppressed by the steroids. on IV steroids so unable to check cosyntropin stim test now Will repeat this once off IV steroids goal for rate of change is ~ 4 - 6mmol/L in 24hr but not to exceed 8mmol/L sodium is bouncing up and down. 10/28 Na 120 then 127 then 120 10/29 Na 124 10/30 Na 127 then 125 10/31 Na 125 11/01 Na 127 Current treatment: On 1000cc fluid restriction sodium slowly better. on lower dose of venlafaxine. (2) Atrial fibrillation with RVR: Code(s): I48.91 - Unspecified atrial fibrillation Status: Acute Assessment and Plan: converted to NSR with sotalol on anticoagulation Cardiology following (3) Community acquired pneumonia: Code(s): J18.9 - Pneumonia, unspecified organism Status: Acute Assessment and Plan: as noted by admission imaging follow blood cultures positive for Strep pneumoniae wbc still high (on steroids) and pt afebrile. on doxy, ceftriaxone, vancomycin. (4) Acute hypoxemic respiratory failure: Code(s): J96.01 - Acute respiratory failure with hypoxia Status: Acute Assessment and Plan: suspect secondary to pneumonia (+blood cultures noted) complicated by known history of COPD on steroids, nebulizer treatments, and antibiotics breathing comfortably. (5) Hypotension: Code(s): I95.9 - Hypotension, unspecified Status: Acute Assessment and Plan: BP doing fine (6) Septic arthritis: Code(s): M00.9 - Pyogenic arthritis, unspecified Status: Acute Assessment and Plan: Dr Eckert's note seen. Getting broad-spectrum antibiotics. Notes about approach as above Subjective Date/time seen: 11/01/21 09:36 Interval history: Patient is feeling okay. Poor appetite, but eating what she can. Breathing okay. No chest pain or shortness of breath Exam Narrative: General: WD/WN female in NAD Heart: normal S1 and S2; no rub or gallop Lungs: Clear Abdomen: soft, nontender, nondistended, positive bowel sounds Extremities: no cyanosis or clubbing; no edema Skin: no rash Objective Data Vital Signs Vital Signs: Vital Signs - 24 hr 10/31/21 10:48 10/31/21 12:00 10/31/21 12:08 Temperature Pulse Rate 50 L 55 L 55 L Respiratory Rate 20 20 Blood Pressure Pulse Oximetry 10/31/21 13:58 10/31/21 16:00 10/31/21 16:34 Temperature 36.2 C L Pulse Rate 52 L 54 L 56 L Respiratory Rate 24 H 20 Blood Pressure 111/51 L Pulse Oximetry 95 10/31/21 16:44 10/31/21 19:58 10/31/21 20:00 Temperature 36.1 C L Pulse Rate 55 L 56 L 58 L Respiratory Rate 20 18 Blood Pressure 105/58 L Pulse Oximetry 93 10/31/21 21:23 10/31/21 21:33 10/31/21 21:34 Temperature Pulse Rate 59 L 58 L 59 L Respiratory Rate 22 H 20 Blood Pressure Pulse Oximetry 11/01/21 00:00 11/01/21 04:00 11/01/21 04:38 Temperature 35.9 C L Pulse Rate 54 L 60 56 L Respiratory Rate 18 Blood Pressure 129/57 L Pulse Oximetry 92 11/01/21 08:34 11/01/21 09:06 11/01/21 09:13 Temperature Pulse Rate 56 L 72 79 Respiratory Rate 17 18 Blood Pressure Pulse Oximetry Intake/Output Intake/Output: Intake & Output 10/29/21 10/30/21 10/31/21 11/01/21 23:59 23:59 23:59 23:59 Intake Total 2290 1050 1190 310 Output Total 3200 2750 2100 400 Balance -910 -1700 -910 -90 Meds/Results M
--- NOTE | 2021-11-01 10:02 | PM.PNORT ---
Progress Note: A&P Additional Plan Note from Dr. Ng from last night indicates that she did speak with Dr. Costa orthopedic service at [facility] and they are aware of the situation. we are awaiting transfer to their orthopedic service for definitive treatment. Antibiotic suppression was discussed. The option of hip disarticulation amputation was also discussed. And then there is the consideration for incision drainage and debridement of abscess cavity. Explantation of the implants is Another option if subsequent revision surgery were a consideration would be component explantation but she was not felt to be a candidate for reimplantation apparently because of her health status and addiction to smoking. it was recommended that Infectious Disease be consulted and I have ordered that. White count is down to 19.6 following the aspiration of 80 cc purulent fluid yesterday. I am going to put her Eliquis on hold in the event that a surgical procedure proves necessarily. We can address anticoagulation on a day-by-day basis while we wait for transfer or at least until we know what day she will be transferred and then we can time the anticoagulation accordingly. If she is going to be here for several days, DVT prophylaxis would be appropriate and I would consider Lovenox 30 mg twice daily as it reverses in 24 hours instead of 48 hours and can be pharmacologically reversed in the emergency. Again we can modify that plan when we know her date of transfer. Subjective Subjective Date/Time Seen: 11/01/21 10:02 Objective Data Vital Signs Vital Signs: Vital Signs - 24 hr 10/31/21 10:48 10/31/21 12:00 10/31/21 12:08 Temperature Pulse Rate 50 L 55 L 55 L Respiratory Rate 20 20 Blood Pressure Pulse Oximetry 10/31/21 13:58 10/31/21 16:00 10/31/21 16:34 Temperature 36.2 C L Pulse Rate 52 L 54 L 56 L Respiratory Rate 24 H 20 Blood Pressure 111/51 L Pulse Oximetry 95 10/31/21 16:44 10/31/21 19:58 10/31/21 20:00 Temperature 36.1 C L Pulse Rate 55 L 56 L 58 L Respiratory Rate 20 18 Blood Pressure 105/58 L Pulse Oximetry 93 10/31/21 21:23 10/31/21 21:33 10/31/21 21:34 Temperature Pulse Rate 59 L 58 L 59 L Respiratory Rate 22 H 20 Blood Pressure Pulse Oximetry 11/01/21 00:00 11/01/21 04:00 11/01/21 04:38 Temperature 35.9 C L Pulse Rate 54 L 60 56 L Respiratory Rate 18 Blood Pressure 129/57 L Pulse Oximetry 92 11/01/21 08:34 11/01/21 09:06 11/01/21 09:13 Temperature Pulse Rate 56 L 72 79 Respiratory Rate 17 18 Blood Pressure Pulse Oximetry Intake/Output Intake/Output: Intake & Output 10/29/21 10/30/21 10/31/21 11/01/21 23:59 23:59 23:59 23:59 Intake Total 2290 1050 1190 410 Output Total 3200 2750 2100 1350 Balance -910 -1700 -910 -940 Meds/Results Medications: Active Medications Generic Name Dose Route Start Last Admin Trade Name Freq PRN Reason Stop Dose Admin Acetaminophen 650 mg 10/26/21 22:02 10/31/21 09:42 Acetaminophen 325 Mg Tablet PO 650 mg Q4H PRN Administration Mild Pain (1-3) or Fever Hydrocodone Bitart/Acetaminophen 1 tab 10/26/21 22:02 11/01/21 06:07 Hydrocodone/Acetaminophen (*Crx) 5-325 Mg Tablet PO 1 tab Q4H PRN Administration Pain Rated 4-6 Ceftriaxone Sodium 2 gm/ 100 mls @ 200 mls/hr 10/28/21 21:00 11/01/21 08:33 Sodium Chloride IVPB 100 mls/hr Q12HR HORACIO Administration Vancomycin HCl 1,250 mg in 250 mls @ 200 mls/hr 10/31/21 22:00 11/01/21 00:30 Vancomycin 1,250 Mg/D5w 250 Ml IVPB Infused Q12H HORACIO Infusion Ipratropium [place] 0.5 mg 10/27/21 04:00 11/01/21 09:06 Ipratropium Br 0.02% Inh Soln 0.5 Mg/2.5 Ml Vial INHALATION 0.5 mg Q4HRT HORACIO Administration Levalbuterol HCl 1.25 mg 10/27/21 04:00 11/01/21 09:06 Levalbuterol Neb 1.25 Mg/0.5 Ml INHALATION 1.25 mg Q4HRT HORACIO Administration Morphine Sulfate 2 mg
--- NOTE | 2021-11-01 12:32 | PM.PNORT ---
Progress Note: A&P Additional Plan Patient was seen. Her white count again is down to 19.6. She is afebrile with temperature in the 36 degree range. Her vital signs are stable. She is very hard of hearing again but if 1 speaks loudly and slowly she can understand. 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 Cultures are pending. She did have positive blood cultures on 10/26 strep pneumoniae. It is not clear whether that the blood cultures came from her left hip or from pneumonia On exam she was in good spirits and smile during the conversation. She is not having any pain unless she moves. She again has mild swelling edema diffusely around the left hip but no focal erythema or fluctuance noted. I have canceled the consultation for Infectious Disease because we do not have an infectious disease specialist that comes to this hospital as of very recently as the infectious disease specialist group recently resigned from staff. Patient is on ceftriaxone and vancomycin was started last night for additional g positive coverage. I did stop her Eliquis 5 mg twice daily. Her last dose was 9:00 a.m. this morning. I explained to the patient that We plan to transfer her to [facility] for higher level of orthopedic care and we are awaiting transfer and the hospitalist is going to be working on that again today. Subjective Subjective Date/Time Seen: 11/01/21 12:32 Objective Data Vital Signs Vital Signs: Vital Signs - 24 hr 10/31/21 13:58 10/31/21 16:00 10/31/21 16:34 Temperature 36.2 C L Pulse Rate 52 L 54 L 56 L Respiratory Rate 24 H 20 Blood Pressure 111/51 L Pulse Oximetry 95 10/31/21 16:44 10/31/21 19:58 10/31/21 20:00 Temperature 36.1 C L Pulse Rate 55 L 56 L 58 L Respiratory Rate 20 18 Blood Pressure 105/58 L Pulse Oximetry 93 10/31/21 21:23 10/31/21 21:33 10/31/21 21:34 Temperature Pulse Rate 59 L 58 L 59 L Respiratory Rate 22 H 20 Blood Pressure Pulse Oximetry 11/01/21 00:00 11/01/21 04:00 11/01/21 04:38 Temperature 35.9 C L Pulse Rate 54 L 60 56 L Respiratory Rate 18 Blood Pressure 129/57 L Pulse Oximetry 92 11/01/21 08:34 11/01/21 09:06 11/01/21 09:13 Temperature Pulse Rate 56 L 72 79 Respiratory Rate 17 18 Blood Pressure Pulse Oximetry 11/01/21 11:48 11/01/21 12:01 Temperature Pulse Rate 74 78 Respiratory Rate 17 19 Blood Pressure Pulse Oximetry Intake/Output Intake/Output: Intake & Output 10/29/21 10/30/21 10/31/21 11/01/21 23:59 23:59 23:59 23:59 Intake Total 2290 1050 1190 760 Output Total 3200 2750 2100 1350 Balance -910 -1700 -910 -590 Meds/Results Medications: Active Medications Generic Name Dose Route Start Last Admin Trade Name Freq PRN Reason Stop Dose Admin Acetaminophen 650 mg 10/26/21 22:02 10/31/21 09:42 Acetaminophen 325 Mg Tablet PO 650 mg Q4H PRN Administration Mild Pain (1-3) or Fever Hydrocodone Bitart/Acetaminophen 1 tab 10/26/21 22:02 11/01/21 06:07 Hydrocodone/Acetaminophen (*Crx) 5-325 Mg Tablet PO 1 tab Q4H PRN Administration Pain Rated 4-6 Ceftriaxone Sodium 2 gm/ 100 mls @ 200 mls/hr 10/28/21 21:00 11/01/21 09:33 Sodium Chloride IVPB Infused Q12HR HORACIO Infusion Vancomycin HCl 1,250 mg in 250 mls @ 200 mls/hr 10/31/21 22:00 11/01/21 11:20 Vancomycin 1,250 Mg/D5w 250 Ml IVPB Infused Q12H HORACIO Infusion Ipratropium [place] 0.5 mg 10/27/21 04:00 11/01/21 11:47 Ipratropium Br 0.02% Inh Soln 0.5 Mg/2.5 Ml Vial INHALATION 0.5 mg Q4HRT HORACIO Administration Levalbuterol HCl 1.25 mg 10/27/21 04:00 11/01/21 11:46 Levalbuterol Neb 1.25 Mg/0.5 Ml INHALATION 1.25 mg Q4HRT HORACIO Administration Morphine Sulfate 2 mg 10/31/21 12:11 Morphine Sulfate (*Crx) 2 Mg/Ml Inj IV PUSH Q2H PRN Pain Rated 7-10 Multivitamins/Calcium 1 tablet 10/27/21 09:00
--- NOTE | 2021-11-01 16:48 | P.PNIM_ITS ---
Progress Note: A&P Assessment and Plan (1) Septicemia: Code(s): A41.9 - Sepsis, unspecified organism Status: Acute Assessment and Plan: Patient with tachycardia and leukocytosis present on admission. Blood cultures positive for Streptococcus pneumoniae most likely from a lung source. Repeat blood cultures 10/29 are no growth today. Since cultures are negative for 2 days, will stop vancomycin and continue Rocephin. She is on high-dose Rocephin which will continue. WBC higher possibly related to steroids? Stop Prednisone. 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 10/28/2021 On oxygen supplementation which is decreasing not in respiratory distress due to pneumonia underlying 10/31/21 -acute hypoxic respiratory failure resolved. Patient has been weaned to room air on 10/20/2021. Change nebs to p.r.n.. (3) Community acquired pneumonia: Code(s): J18.9 - Pneumonia, unspecified organism Status: Acute Assessment and Plan: Patient was started on Rocephin and Zithromax Blood Cultures positive for Streptococcus pneumoniae COVID-19 is negative Antibiotics changed to vancomycin ceftriaxone and doxycycline Urine pneumococcal antigen positive which is not unexpected. Sensitivities pending but biogram 100% sensitive to Rocephin. Repeat BCx NGTD. Doxycycline has been stopped. Will stop vancomycin today. 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 Patient on room air. Will stop Prednisone given the fact she is bacteremic. (5) Atrial fibrillation with RVR: Code(s): I48.91 - Unspecified atrial fibrillation Status: Acute Assessment and Plan: Started was on diltiazem drip but able to be weaned off. She was started on sotalol as convert to normal sinus rhythm. She is now bradycardic at times and as such will decrease sotalol dose. Echocardiogram 10/27/2021 EF more than 70% severely enlarged left atrium mild aortic valve sclerosis. She has been started on Eliquis. Appreciate cardiology input. (6) Hyponatremia: Code(s): E87.1 - Hypo-osmolality and hyponatremia Status: Acute Assessment and Plan: Sodium was 117 on admission. Baseline sodium runs in the 130s. Sodium has improved to 125 but stable. She is on sodium chloride tablets. Appreciate Nephrology input. (7) Hypotension: Code(s): I95.9 - Hypotension, unspecified Status: Acute Assessment and Plan: Blood pressure has been soft at times possibly related to the sepsis and bacteremia. Blood pressure bet
[2021-11-02] VITALS (14 sets, daily range): BP systolic 108–136; BP diastolic 56–61; PULSE 54–88; RESP 16–20; TEMP 35.7–36.6; O2SAT 92–97
[2021-11-02] MEDS: IPRATROPIUM BR 0.02% INH SOLN 0.5 MG/2.5 ML VIAL INHALATION ×4 (00:08→20:13)
[2021-11-02] MEDS: HYDROcodone/acetaminophen (*CRX) 5-325 MG TABLET 1 TAB PO ×3 (00:25→14:25)
[2021-11-02 08:46] LABS: Basophils Absolute Auto 0.1 K/mm3 (0.0-0.1); Basophils Percent Auto 0.7 % (0.2-1.2); Eosinophils Absolute Auto 0.2 K/mm3 (0-0.3); Eosinophils Percent Auto 0.8 % (0-4.4); Hematocrit 33.1 % (37.0-47.0); Hemoglobin 11.3 g/dL (12.0-15.0); Immature Granulocyte Absolute 1.58 K/mm3 (0.00-0.031); Immature Granulocyte Percent A 7.9 % (0-0.5); Lymphocytes Absolute Auto 0.94 K/mm3 (0.9-3.2); Lymphocytes Percent Auto 4.7 % (18.3-44.2); Mean Corpuscular HGB Conc 34.1 g/dl (32-36); Mean Corpuscular Hemoglobin 33.8 pg (26-34); Mean Corpuscular Volume 99.1 fl (80-100); Mean Platelet Volume 8.5 fl (7.4-10.4); Monocytes Percent Auto 4.8 % (2.6-8.5); Neutrophils Absolute Auto 16.1 K/mm3 (1.3-6.7); Neutrophils Percent Auto 81.1 % (45.5-73.1); Platelet Count Result 455 k/mm3 (150-375); Red Blood Count 3.34 M/mm3 (4.2-5.4); Red Cell Distribution Width 13.2 % (11.5-14.5); White Blood Count 19.9 K/mm3 (4.5-10.0)
[2021-11-02 08:54] LABS: Alanine Aminotransferase 29 U/L (4-35); Albumin Level 2.7 g/dL (3.5-5.1); Alkaline Phosphatase 166 U/L (38-126); Anion Gap 5 mmol/L (8-16); Aspartate Amino Transferase 31 U/L (14-36); Bilirubin,Total 0.3 mg/dL (0.2-1.3); Blood Urea Nitrogen 8 mg/dL (7-17); Calcium 7.4 mg/dL (8.4-10.2); Carbon Dioxide 21 mmol/L (22-30); Chloride 98 mmol/L (98-107); Estimated CRCL calculation 66 ml/min; Estimated Glomerular Filt Rate > 60; Glucose 105 mg/dL (65-110); Phosphorus 3.1 mg/dL (2.5-4.5); Potassium 3.3 mmol/L (3.4-5.0); Sodium 124 mmol/L (137-145)
--- NOTE | 2021-11-02 09:08 | P.PNNP_ITS ---
Progress Note: A&P Assessment and Plan (1) Hyponatremia: Code(s): E87.1 - Hypo-osmolality and hyponatremia Status: Acute Assessment and Plan: * acute on chronic from review of records * sodium has been running 126 - 133mmol in the last year * Chronic component most likely multifactorial, including cirrhosis, venlafaxine, narcotics, and COPD. * SPEP and UPEP negative. * Osmolality tests pending? Will repeat the order. * She has an acute component: * suspect due volume depletion/dehydration * pneumonia * venlefaxine * TSH normal and cortisol level low, probably suppressed by the steroids. * on IV steroids so unable to check cosyntropin stim test now * Off steroids now. * Repeat cortisol in a couple of days * goal for rate of change is ~ 4 - 6mmol/L in 24hr but not to exceed 8mmol/L * sodium is bouncing up and down. 10/28 Na 120 then 127 then 120 10/29 Na 124 10/30 Na 127 then 125 10/31 Na 125 11/01 Na 127 11/02 Na 124 * Current treatment: * On 1000cc fluid restriction * sodium back down again. It seems to be wandering in the mid 120s. Will try demeclocycline. Has swelling so will add Lasix as well * on lower dose of venlafaxine. Continue to wean this to off after a few more days (2) Atrial fibrillation with RVR: Code(s): I48.91 - Unspecified atrial fibrillation Status: Acute Assessment and Plan: * converted to NSR with sotalol * on anticoagulation * Cardiology following (3) Community acquired pneumonia: Code(s): J18.9 - Pneumonia, unspecified organism Status: Acute Assessment and Plan: * as noted by admission imaging * follow blood cultures positive for Strep pneumoniae * wbc still high but this is probably due to the hip. * on ceftriaxone, vancomycin. (4) Acute hypoxemic respiratory failure: Code(s): J96.01 - Acute respiratory failure with hypoxia Status: Acute Assessment and Plan: * suspect secondary to pneumonia (+blood cultures noted) * complicated by known history of COPD * on steroids, nebulizer treatments, and antibiotics * breathing comfortably. (5) Hypotension: Code(s): I95.9 - Hypotension, unspecified Status: Acute Assessment and Plan: * BP doing fine (6) Septic arthritis: Code(s): M00.9 - Pyogenic arthritis, unspecified Status: Acute Assessment and Plan: Dr Eckert's note seen. Getting broad-spectrum antibiotics. Notes about approach as above Subjective Date/time seen: 11/02/21 09:08 Interval history: Patient is feeling okay. Poor appetite She has some hip pain still. Breathing okay. No chest pain or shortness of breath Exam Narrative: General: WD/WN female in NAD Heart: normal S1 and S2; no rub or gallop Lungs: Clear bilaterally Abdomen: soft, nontender, nondistended, positive bowel sounds Extremities: no cyanosis or clubbing; 1+ bilateral edema Skin: no rash Objective Data Vital Signs Vital Signs: Vital Signs - 24 hr 11/01/21 09:13 11/01/21 11:48 11/01/21 12:01 Temperature Pulse Rate 79 74 55 L Respiratory Rate 18 17 19 Blood Pressure Pulse Oximetry 11/01/21 14:00 11/01/21 16:04 11/01/21 20:00 Temperature 36.9 C Pulse Rate 54 L 58 L 62 Respiratory Rate 20
--- NOTE | 2021-11-02 09:08 | PM.PNNEP ---
Progress Note: A&P Assessment and Plan (1) Hyponatremia: Code(s): E87.1 - Hypo-osmolality and hyponatremia Status: Acute Assessment and Plan: acute on chronic from review of records sodium has been running 126 - 133mmol in the last year Chronic component most likely multifactorial, including cirrhosis, venlafaxine, narcotics, and COPD. SPEP and UPEP negative. Osmolality tests pending? Will repeat the order. She has an acute component: suspect due volume depletion/dehydration pneumonia venlefaxine TSH normal and cortisol level low, probably suppressed by the steroids. on IV steroids so unable to check cosyntropin stim test now Off steroids now. Repeat cortisol in a couple of days goal for rate of change is ~ 4 - 6mmol/L in 24hr but not to exceed 8mmol/L sodium is bouncing up and down. 10/28 Na 120 then 127 then 120 10/29 Na 124 10/30 Na 127 then 125 10/31 Na 125 11/01 Na 127 11/02 Na 124 Current treatment: On 1000cc fluid restriction sodium back down again. It seems to be wandering in the mid 120s. Will try demeclocycline. Has swelling so will add Lasix as well on lower dose of venlafaxine. Continue to wean this to off after a few more days (2) Atrial fibrillation with RVR: Code(s): I48.91 - Unspecified atrial fibrillation Status: Acute Assessment and Plan: converted to NSR with sotalol on anticoagulation Cardiology following (3) Community acquired pneumonia: Code(s): J18.9 - Pneumonia, unspecified organism Status: Acute Assessment and Plan: as noted by admission imaging follow blood cultures positive for Strep pneumoniae wbc still high but this is probably due to the hip. on ceftriaxone, vancomycin. (4) Acute hypoxemic respiratory failure: Code(s): J96.01 - Acute respiratory failure with hypoxia Status: Acute Assessment and Plan: suspect secondary to pneumonia (+blood cultures noted) complicated by known history of COPD on steroids, nebulizer treatments, and antibiotics breathing comfortably. (5) Hypotension: Code(s): I95.9 - Hypotension, unspecified Status: Acute Assessment and Plan: BP doing fine (6) Septic arthritis: Code(s): M00.9 - Pyogenic arthritis, unspecified Status: Acute Assessment and Plan: Dr Eckert's note seen. Getting broad-spectrum antibiotics. Notes about approach as above Subjective Date/time seen: 11/02/21 09:08 Interval history: Patient is feeling okay. Poor appetite She has some hip pain still. Breathing okay. No chest pain or shortness of breath Exam Narrative: General: WD/WN female in NAD Heart: normal S1 and S2; no rub or gallop Lungs: Clear bilaterally Abdomen: soft, nontender, nondistended, positive bowel sounds Extremities: no cyanosis or clubbing; 1+ bilateral edema Skin: no rash Objective Data Vital Signs Vital Signs: Vital Signs - 24 hr 11/01/21 09:13 11/01/21 11:48 11/01/21 12:01 Temperature Pulse Rate 79 74 55 L Respiratory Rate 18 17 19 Blood Pressure Pulse Oximetry 11/01/21 14:00 11/01/21 16:04 11/01/21 20:00 Temperature 36.9 C Pulse Rate 54 L 58 L 62 Respiratory Rate 20 Blood Pressure 121/59 L Pulse Oximetry 98 11/01/21 20:36 11/01/21 20:56 11/01/21 21:40 Temperature 36.1 C L Pulse Rate 82 61 61 Respiratory Rate 20 18 Blood Pressure 114/55 L Pulse Oximetry 95 11/02/21 00:00 11/02/21 00:08 11/02/21 04:00 Temperature Pulse Rate 56 L 88 59 L Respiratory Rate 20 Blood Pressure Pulse Oximetry 11/02/21 04:35 Temperature 35.7 C L Pulse Rate 58 L Respiratory Rate 18 Blood Pressure 136/59 L Pulse Oximetry 93 Intake/Output Intake/Output: Intake & Output 10/30/21 10/31/21 11/01/21 11/02/21 23:59 23:59 23:59 23:59 Intake Total 1050 1190 1760 120 Output Total 2750 2100 1900 400 Balance -1700 -910 -1
[2021-11-02] MEDS: THERAPEUTIC MULTIVITAMINS/MINERALS TAB (*BKC) 1 TABLET PO (09:10)
[2021-11-02] MEDS: risperiDONE 0.5 MG TABLET PO ×2 (09:11→17:00)
[2021-11-02] MEDS: VENLAFAXINE HCL 75 MG TABLET PO ×2 (09:11→17:00)
[2021-11-02] MEDS: OXYBUTYNIN CHLORIDE 5 MG TABLET PO ×3 (09:11→16:59)
[2021-11-02] MEDS: SOTALOL HCL 40 MG TABLET PO (09:11)
[2021-11-02] MEDS: PHENYTOIN SODIUM 100 MG EXTENDED RELEASE CAP PO ×3 (09:11→17:00)
[2021-11-02] MEDS: SODIUM CHLORIDE 1 GM TABLET PO ×2 (09:11→17:00)
[2021-11-02] MEDS: cefTRIAXone 2 GM in SODIUM CHLORIDE 0.9% IV 100 ML IVPB (09:14)
[2021-11-02 09:15] LABS: Vancomycin Trough 20.5 ug/mL (10.0-20.0)
--- NOTE | 2021-11-02 10:15 | PM.IMPN ---
Progress Note: A&P Assessment and Plan (1) Septicemia: Code(s): A41.9 - Sepsis, unspecified organism Status: Acute Assessment and Plan: Patient with tachycardia and leukocytosis present on admission. Blood cultures positive for Streptococcus pneumoniae most likely from a lung source. Repeat blood cultures 10/29 are no growth today. Since cultures are negative for 2 days, will stop vancomycin and continue Rocephin. She is on high-dose Rocephin which will continue. WBC higher possibly related to steroids? Stop Prednisone. Watch for diarrhea to suggest CDiff (2) Acute hypoxemic respiratory failure: Code(s): J96.01 - Acute respiratory failure with hypoxia Status: Acute Assessment and Plan: Supplemental oxygen by nasal cannula 2 L Try and keep oxygen saturation between 92-94% Supportive care Continuous pulse ox 10/27/2021 Interval history: 71-year-old female with history of alcohol abuse resulting in liver cirrhosis as well as emphysema with chronic smoking presented emergency department with a complaint of generalized weakness unfortunately patient is very hard of hearing currently quite somnolent upon arrival patient was in atrial fibrillation with RVR diltiazem drip was started however patient blood pressure is soft, patient seen by audit specialist continue diltiazem drip and added sotalol and hope for converting into sinus rhythm, will continue to monitor and further recommendation to follow. 10/28/2021 On oxygen supplementation which is decreasing not in respiratory distress due to pneumonia underlying 10/31/21 -acute hypoxic respiratory failure resolved. Patient has been weaned to room air on 10/20/2021. Change nebs to p.r.n.. (3) Community acquired pneumonia: Code(s): J18.9 - Pneumonia, unspecified organism Status: Acute Assessment and Plan: Patient was started on Rocephin and Zithromax Blood Cultures positive for Streptococcus pneumoniae COVID-19 is negative Antibiotics changed to vancomycin ceftriaxone and doxycycline Urine pneumococcal antigen positive which is not unexpected. Sensitivities pending but biogram 100% sensitive to Rocephin. Repeat BCx NGTD. Doxycycline has been stopped. Will stop vancomycin today. 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 Patient on room air. Will stop Prednisone given the fact she is bacteremic. (5) Atrial fibrillation with RVR: Code(s): I48.91 - Unspecified atrial fibrillation Status: Acute Assessment and Plan: Started was on diltiazem drip but able to be weaned off. She was started on sotalol as convert to normal sinus rhythm. She is now bradycardic at times and as such will decrease sotalol dose. Echocardiogram 10/27/2021 EF more than 70% severely enlarged left atrium mild aortic valve sclerosis. She has been started on Eliquis. Appreciate cardiology input. (6) Hyponatremia: Code(s): E87.1 - Hypo-osmolality and hyponatremia Status: Acute Assessment and Plan: Sodium was 117 on admission. Baseline sodium runs in the 130s. Sodium has improved to 125 but stable. She is on sodium chloride tablets. Appreciate Nephrology input. (7) Hypotension: Code(s): I95.9 - Hypotension, unspecified Status: Acute Assessment and Plan: Blood pressure has been soft at times possibly related to the sepsis and bacteremia. Blood pressure better controlled. Continue to monitor. (8) Alcoholic cirrhosis of liver: Code(s): K70.30 - Alcoholic cirrhosis of liver without ascites Status: Acute Assessment and Plan: Lactulose on hold due to use hypotension and clinical findings of dehydration. Continue to monitor for now. (9) Seizure: Code(s): R56.9 -
[2021-11-02] MEDS: POTASSIUM CHLORIDE 20 MEQ TABLET 40 MEQ PO (10:23)
[2021-11-02] MEDS: FUROSEMIDE 20 MG TABLET PO ×2 (10:23→16:59)
--- NOTE | 2021-11-02 10:24 | PCRCNOTE ---
Window of time for administration has passed. See next scheduled administration.
[2021-11-02] MEDS: FLUTICASONE/SALMETEROL 115-21 MCG INHALER 1 PUFF 2 PUFF INHALATION ×2 (10:45→20:15)
--- NOTE | 2021-11-02 10:47 | PM.PNORT ---
Subjective Subjective Date/Time Seen: 11/02/21 10:47 Objective Data Vital Signs Vital Signs: Vital Signs - 24 hr 11/01/21 11:48 11/01/21 12:01 11/01/21 14:00 Temperature 36.9 C Pulse Rate 74 55 L 54 L Respiratory Rate 17 19 20 Blood Pressure 121/59 L Pulse Oximetry 98 11/01/21 16:04 11/01/21 20:00 11/01/21 20:36 Temperature Pulse Rate 58 L 62 82 Respiratory Rate 20 Blood Pressure Pulse Oximetry 11/01/21 20:56 11/01/21 21:40 11/02/21 00:00 Temperature 36.1 C L Pulse Rate 61 61 56 L Respiratory Rate 18 Blood Pressure 114/55 L Pulse Oximetry 95 11/02/21 00:08 11/02/21 04:00 11/02/21 04:35 Temperature 35.7 C L Pulse Rate 88 59 L 58 L Respiratory Rate 20 18 Blood Pressure 136/59 L Pulse Oximetry 93 11/02/21 09:11 11/02/21 09:17 11/02/21 10:46 Temperature Pulse Rate 68 66 54 L Respiratory Rate 16 20 Blood Pressure 108/56 L Pulse Oximetry 97 Intake/Output Intake/Output: Intake & Output 10/30/21 10/31/21 11/01/21 11/02/21 23:59 23:59 23:59 23:59 Intake Total 1050 1190 1760 340 Output Total 2750 2100 1900 400 Balance -1700 -910 -140 -60 Meds/Results Medications: Active Medications Generic Name Dose Route Start Last Admin Trade Name Navinq PRN Reason Stop Dose Admin Acetaminophen 650 mg 10/26/21 22:02 10/31/21 09:42 Acetaminophen 325 Mg Tablet PO 650 mg Q4H PRN Administration Mild Pain (1-3) or Fever Hydrocodone Bitart/Acetaminophen 1 tab 10/26/21 22:02 11/02/21 09:12 Hydrocodone/Acetaminophen (*Crx) 5-325 Mg Tablet PO 1 tab Q4H PRN Administration Pain Rated 4-6 Demeclocycline HCl 150 mg 11/02/21 13:00 Demeclocycline Hcl 150 Mg Tablet PO QID HORACIO Furosemide 20 mg 11/02/21 09:15 11/02/21 10:23 Furosemide 20 Mg Tablet PO 20 mg BID HORACIO Administration Ceftriaxone Sodium 2 gm/ 100 mls @ 200 mls/hr 10/28/21 21:00 11/02/21 09:45 Sodium Chloride IVPB Infused Q12HR HORACIO Infusion Vancomycin HCl 1,250 mg in 250 mls @ 200 mls/hr 10/31/21 22:00 11/02/21 09:22 Vancomycin 1,250 Mg/D5w 250 Ml IVPB 200 mls/hr Q12H HORACIO Administration Ipratropium [place] 0.5 mg 10/27/21 04:00 11/02/21 10:45 Ipratropium Br 0.02% Inh Soln 0.5 Mg/2.5 Ml Vial INHALATION 0.5 mg Q4HRT HORACIO Administration Levalbuterol HCl 1.25 mg 10/27/21 04:00 11/02/21 10:45 Levalbuterol Neb 1.25 Mg/0.5 Ml INHALATION 1.25 mg Q4HRT HORACIO Administration Morphine Sulfate 2 mg 10/31/21 12:11 Morphine Sulfate (*Crx) 2 Mg/Ml Inj IV PUSH Q2H PRN Pain Rated 7-10 Multivitamins/Calcium 1 tablet 10/27/21 09:00 11/02/21 09:10 Therapeutic Multivitamins/Minerals Tab (*Bkc) PO 1 tablet DAILY HORACIO Administration Oxybutynin Chloride 5 mg 10/27/21 09:00 11/02/21 09:11 Oxybutynin Chloride 5 Mg Tablet PO 5 mg TID HORACIO Administration Phenytoin Sodium 100 mg 10/27/21 09:00 11/02/21 09:11 Phenytoin Sodium 100 Mg Extended Release Cap PO 100 mg QID HORACIO Administration Promethazine HCl 12.5 mg 10/26/21 22:02 Promethazine Hcl 25 Mg/Ml Ampul IV PUSH Q6H PRN Nausea Risperidone 0.5 mg 10/27/21 09:00 11/02/21 09:11 Risperidone 0.5 Mg Tablet PO 0.5 mg BID HORACIO Administration Fluticasone/Salmeterol 2 puff 10/27/21 08:00 11/02/21 10:45 Fluticasone/Salmeterol 115-21 Mcg Inhaler 1 Puff INHALATION 2 puff Q12HRT HORACIO Administration Sodium Chloride 1 gm 10/31/21 09:00 11/02/21 09:11 Sodium Chloride 1 Gm Tablet PO 1 gm BID HORACIO Administration Sotalol HCl 40 mg 10/31/21 21:00 11/02/21 09:11 Sotalol Hcl 40 Mg Tablet PO 40 mg Q12HR HORACIO Administration Venlafaxine HCl 75 mg 10/31/21 17:00 11/02/21 09:11 Venlafaxine Hcl 75 Mg Tablet PO 75 mg BIDWM HORACIO Administration Radiology Results: ITS Impressions Chest X-Ray 10/26/21 19:13 IMPRESSION: 1. Pulmonary vascular congestion and lower lung predominant increased interstit
--- NOTE | 2021-11-02 10:48 | PM.PNORT ---
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 Cultures are no growth thus far but she had positive blood cultures on admission on 10/26 both showing Streptococcus pneumoniae and it is probable that her left hip infection is to Streptococcus pneumoniae. Cultures may not grow as she was on antibiotics for 3 or 4 days IV prior to aspiration. She is being maintained on ceftriaxone IV. We are still awaiting for acceptance for transfer to [facility] in [place]. If she cannot be transferred today then I would recommend that she be seen in the office by Dr. Bennett tomorrow in [place] and then I am sure he would have the power to admit her if he felt necessary. On exam today she states her pain is still 10/10. She has mild to moderate diffuse edema around the left hip. She was not up to the chair yesterday. She is not sure she could tolerate that but is willing to try it today. She has a Matson catheter and and does not want to be removed today until she feels that she would be able to transfer to the [facility]. Her CBC is still pending. Her temperature remains in the 35-36 range. Her Eliquis is on hold as of yesterday morning. Usually, in the event of an active infection such as she has now, surgical debridement is a part of the treatment process as it is less common that antibiotics alone will resolve a deep periprosthetic abscess which she has. That should be performed at a tertiary care institution. Debridement would be associated with increased risk of neurovascular injury because of the marked distortion of anatomy. That is certainly a concern. I am going to order another aspiration under ultrasound guidance to assist in maintaining abscess decompression. We do not have infectious disease specialist coverage and if she is going to be transferred for an outpatient visit with Dr. Bennett and if he feels that no surgery is indicated then it would be optimal to have her seen by an infectious disease specialist at the same time. Subjective Subjective Date/Time Seen: 11/02/21 10:48 Objective Data Vital Signs Vital Signs: Vital Signs - 24 hr 11/01/21 11:48 11/01/21 12:01 11/01/21 14:00 Temperature 36.9 C Pulse Rate 74 55 L 54 L Respiratory Rate 17 19 20 Blood Pressure 121/59 L Pulse Oximetry 98 11/01/21 16:04 11/01/21 20:00 11/01/21 20:36 Temperature Pulse Rate 58 L 62 82 Respiratory Rate 20 Blood Pressure Pulse Oximetry 11/01/21 20:56 11/01/21 21:40 11/02/21 00:00 Temperature 36.1 C L Pulse Rate 61 61 56 L Respiratory Rate 18 Blood Pressure 114/55 L Pulse Oximetry 95 11/02/21 00:08 11/02/21 04:00 11/02/21 04:35 Temperature 35.7 C L Pulse Rate 88 59 L 58 L Respiratory Rate 20 18 Blood Pressure 136/59 L Pulse Oximetry 93 11/02/21 09:11 11/02/21 09:17 11/02/21 10:46 Temperature Pulse Rate 68 66 54 L Respiratory Rate 16 20 Blood Pressure 108/56 L Pulse Oximetry 97 11/02/21 10:47 Temperature Pulse Rate Respiratory Rate Blood Pressure Pulse Oximetry 92 Intake/Output Intake/Output: Intake & Output 10/30/21 10/31/21 11/01/21 11/02/21 23:59 23:59 23:59 23:59 Intake Total 1050 1190 1760 340 Output Total 2750 2100 1900 400 Balance -1700 -910 -140 -60 Meds/Results Medications: Active Medications Generic Name Dose Route Start Last Admin Trade Name Jackelyn PRN Reason Stop Dose Admin Acetaminophen 650 mg 10/26/21 22:02 10/31/21 09:42 Acetaminophen 325 Mg Tablet PO 650 mg Q4H PRN Administration Mild Pain (1-3) or Fever Hydrocodone Bitart/Acetaminophen 1 tab 10/26/21 22:02 11/02/21 09:12 Hydrocodone/Acetaminophen (*Crx) 5-325 Mg Tablet PO 1 tab Q4H PRN Administration Pain Rated 4-6 Demeclocycline HCl 150 mg 11/02/21 13:00 Demeclocycline Hcl 150 Mg Tablet PO QID HORACIO Furosemide 20 mg 11/02/21
--- NOTE | 2021-11-02 11:45 | PCOTNOTE ---
Attempted to see Patient for OT treatment session. Per RN, Patient is waiting to go down for a hip aspiration in ultrasound. Per RN, she will let therapy services know when she returns.
[2021-11-02] MEDS: DEMECLOCYCLINE HCL 150 MG TABLET PO ×2 (12:55→16:59)
--- NOTE | 2021-11-02 13:27 | PCOTNOTE ---
Attempted to check back on Patient at this time. Patient has not returned to her room at this time.
--- NOTE | 2021-11-02 13:32 | PCPTNOTE ---
Attempted to see patient for Physical Therapy session. Patient declined at this time stating she just returned from her hip aspiration and was in pain. Will attempt at a later time.
[2021-11-02 14:16] LABS: Appearance Synovial Fluid Turbid (Clear); Color Synovial Fluid Other (Colorless); Source Synovial Fluid Synovial fluid
--- NOTE | 2021-11-02 17:55 | PCRCNOTE ---
Window of time for administration has passed. See next scheduled administration.
--- NOTE | 2021-11-02 18:31 | PC.NURSE ---
called report at 1820 to [facility] in [place]. Report given to Eri. She is to go to room 203 bed 2.
--- NOTE | 2021-11-03 08:07 | PM.TDS ---
Transfer Discharge Sum: Prov Provider Date of admission: 10/27/21 12:43 Primary care physician: Castro Ackerman MD Admitting clinician: Alda Farias MD Consults: 10/27/21 Consult to Physician Routine Comment: Consulting Provider: Johnathan Barbosa Reason for consultation: A-fib, tachycardia, hypotension, cardizem drip Has provider been notified: Yes Consult to Physician Routine Comment: Consulting Provider: Dennis Ayala call center analyst/MD group to consult: nephrology Reason for consultation: hyponatremia Has provider been notified: Yes 10/31/21 Consult to Physician Routine Comment: Consulting Provider: Zeeshan Eckert Reason for consultation: hip dislocation Has provider been notified: Yes DS: Admitting Diagnosis Discharge Date 11/02/21 Admitting Diagnosis weakness DS: Discharge Diagnosis Discharge Diagnosis (1) Septicemia: Code(s): A41.9 - Sepsis, unspecified organism Status: Acute Assessment and Plan: Patient with tachycardia and leukocytosis present on admission. Blood cultures positive for Streptococcus pneumoniae most likely from a lung source suspected however was found to have left hip infection as well. Repeat blood cultures 10/29 are no growth today. She is on high-dose Rocephin along with vancomycin. WBC count still remained higher, could be from steroid hence was tapered off. she was later found to have left hip infection with abscess collection. (2) Acute hypoxemic respiratory failure: Code(s): J96.01 - Acute respiratory failure with hypoxia Status: Acute Assessment and Plan: Supplemental oxygen by nasal cannula 2 L on presentation. Try and keep oxygen saturation between 92-94% Supportive care Continuous pulse ox initail cxr with congestion vs pneumonia. however pateint denies any sob or cough all clinical stigmata for respiratory problem were negative. she was started on nebs and was weaned off the oxygen during the hospital stay. (3) Community acquired pneumonia: Code(s): J18.9 - Pneumonia, unspecified organism Status: Acute Assessment and Plan: Patient was started on Rocephin and Zithromax Blood Cultures positive for Streptococcus pneumoniae COVID-19 is negative Antibiotics changed to vancomycin ceftriaxone Urine pneumococcal antigen positive which is not unexpected. Sensitivities pending but biogram 100% sensitive to Rocephin. Repeat BCx NGTD. Doxycycline has been stopped. 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 Patient on room air. Will stop Prednisone given the fact she is bacteremic. (5) Atrial fibrillation with RVR: Code(s): I48.91 - Unspecified atrial fibrillation Status: Acute Assessment and Plan: Started was on diltiazem drip but able to be weaned off. She was started on sotalol as convert to normal sinus rhythm. She is now bradycardic at times and as such will decrease sotalol dose. Echocardiogram 10/27/2021 EF more than 70% severely enlarged left atrium mild aortic valve sclerosis. She has been started on Eliquis. Appreciate cardiology input. (6) Hyponatremia: Code(s): E87.1 - Hypo-osmolality and hyponatremia Status: Acute Assessment and Plan: Sodium was 117 on admission. Baseline sodium runs in the 130s. Sodium has improved to 125 but stable. She is on sodium chloride tablets. Appreciate Nephrology input who followed during the hospital stay. (7) Hypotension: Code(s): I95.9 - Hypotension, unspecified Status: Acute Assessment and Plan: Blood pressure has been soft at times possibly related to the sepsis and bacteremia. Blood pressure better controlled. Continue to monitor. (8) Alcoholic cirrhosis of
[2021-11-03 21:00] LABS: Legionella pneumophila Ag Ur Not Detected (Not Detected)
== END 2021-11-02 20:30 | disposition short-term general hospital (02) | DRG 720 ==
LOC: ANHED 19:19 → ANHIMU 23:02 → ANH2MED 10-30 17:02 → ANHIMU 11-05 17:02
PROVIDERS: Emergency Medicine; Family Medicine; Internal Medicine; Internal Medicine Nephrology; Nurse Practitioner; Orthopaedic Surgery; Admitting Provider Internal Medicine; Emergency Provider Emergency Medicine; PCP Family Medicine; Visit Provider Internal Medicine
DX: A40.3 Sepsis due to Streptococcus pneumoniae (principal); J18.9 Pneumonia, unspecified organism; J96.01 Acute respiratory failure with hypoxia; T84.52XA Infection and inflammatory reaction due to internal left hip prosthesis, initial encounter; T84.021A Dislocation of internal left hip prosthesis, initial encounter; Z20.822 Contact with and (suspected) exposure to COVID-19; J44.1 Chronic obstructive pulmonary disease with (acute) exacerbation; J44.0 Chronic obstructive pulmonary disease with (acute) lower respiratory infection; I48.91 Unspecified atrial fibrillation; E87.2 Acidosis; K70.30 Alcoholic cirrhosis of liver without ascites; I48.92 Unspecified atrial flutter; I95.9 Hypotension, unspecified; R56.9 Unspecified convulsions; E87.1 Hypo-osmolality and hyponatremia; F17.210 Nicotine dependence, cigarettes, uncomplicated; R32 Unspecified urinary incontinence; X58.XXXA Exposure to other specified factors, initial encounter; H91.93 Unspecified hearing loss, bilateral; Z85.038 Personal history of other malignant neoplasm of large intestine
CPT/HCPCS: 20611; 36415; 51701; 71045; 73502; 74177; 76942; 80048; 80053; 80069; 80202; 81001; 81050; 82140; 82436; 82533; 82570; 82948; 83605; 83735; 84100; 84155; 84156; 84165; 84166; 84295; 84300; 84443; 85025; 85027; 85999; 86738; 87040; 87070; 87075; 87077; 87186; 87205; 87426; 87449; 87899; 89051; 93005; 94640; 96361; 96365; 96366; 96367; 96372; 96375; 97161; 97167; 99285; A9270; C8929; C9803; G0378; G0379; J0456; J0696; J1650; J2270; J2920; J3250; J3370; J7030; J7050; J7512; Q9957; Q9967

== ENCOUNTER 2021-12-07 11:43 | Outpatient (NON) | payer OTHER, SELFPAY ==
[2021-12-07 12:19] LABS: Basophils Percent Auto 1.4 % (0.0-1.0); Eosinophils Absolute Auto 0.47 K/mm3 (0.02-0.50); Eosinophils Percent Auto 6.7 % (1.0-6.0); Hemoglobin 9.7 g/dL (11.7-13.8); Immature Granulocyte Absolute 0.04 K/mm3 (0.00-0.00); Immature Granulocyte Percent A 0.6 % (0.0-0.0); Lymphocytes Absolute Auto 0.93 K/mm3 (1.10-4.50); Lymphocytes Percent Auto 13.3 % (18.0-42.0); Mean Corpuscular HGB Conc 32.3 g/dL (32.0-36.0); Mean Corpuscular Hemoglobin 33.8 pg (27.0-31.0); Mean Corpuscular Volume 104.5 fL (78.0-102.0); Mean Platelet Volume 9.3 fl (9.2-11.8); Monocytes Absolute Auto 0.57 K/mm3 (0.10-0.90); Monocytes Percent Auto 8.2 % (2.0-11.0); Neutrophils Absolute Auto 4.9 K/mm3 (1.7-7.2); Neutrophils Percent Auto 69.8 % (50.0-70.0); Platelet Count Result 320 K/mm3 (150-420); Red Blood Count 2.87 M/mm3 (4.20-5.40); Red Cell Distribution Width 14.4 % (11.6-14.4)
[2021-12-07 12:28] LABS: Alanine Aminotransferase 21 U/L (14-59); Albumin Level 2.7 g/dL (3.4-5.0); Alkaline Phosphatase 147 U/L (46-116); Anion Gap 10 mmol/L (8-16); Aspartate Amino Transferase 14 U/L (15-37); Bilirubin,Total 0.2 mg/dL (0.00-1.00); Blood Urea Nitrogen 19 mg/dL (7-18); CRP 1.3 mg/dL (0.0-0.9); Calcium 8.4 mg/dL (8.5-10.1); Carbon Dioxide 24 mmol/L (21-32); Chloride 100 mmol/L (98-108); Estimated Glomerular Filt Rate > 60; Glucose 219 mg/dL (70-99); Osmolality Calculated 287 mOsm/kg (285-295); Potassium 4.3 mmol/L (3.5-5.1); Sodium 134 mmol/L (136-145); Total Protein 7.4 g/dL (6.4-8.2); Vancomycin Trough 13.9 ug/mL (10.0-15.0)
== END 2021-12-07 11:44 | disposition home or self-care (01) ==
LOC: CHSLAB 11:54
DX: L89.622 Pressure ulcer of left heel, stage 2 (principal); T84.52XA Infection and inflammatory reaction due to internal left hip prosthesis, initial encounter; Z45.2 Encounter for adjustment and management of vascular access device
CPT/HCPCS: 36415; 80053; 80202; 85025; 86140

== ENCOUNTER 2021-12-09 10:11 | Outpatient (NON) | payer OTHER, SELFPAY ==
[2021-12-09 10:50] LABS: Basophils Percent Auto 1.4 % (0.0-1.0); Eosinophils Absolute Auto 0.61 K/mm3 (0.02-0.50); Eosinophils Percent Auto 8.8 % (1.0-6.0); Hematocrit 30.3 % (35.0-42.0); Hemoglobin 9.5 g/dL (11.7-13.8); Immature Granulocyte Absolute 0.02 K/mm3 (0.00-0.00); Immature Granulocyte Percent A 0.3 % (0.0-0.0); Lymphocytes Absolute Auto 0.89 K/mm3 (1.10-4.50); Lymphocytes Percent Auto 12.8 % (18.0-42.0); Mean Corpuscular HGB Conc 31.4 g/dL (32.0-36.0); Mean Corpuscular Hemoglobin 32.5 pg (27.0-31.0); Mean Corpuscular Volume 103.8 fL (78.0-102.0); Monocytes Percent Auto 11.5 % (2.0-11.0); Neutrophils Absolute Auto 4.5 K/mm3 (1.7-7.2); Neutrophils Percent Auto 65.2 % (50.0-70.0); Platelet Count Result 381 K/mm3 (150-420); Red Blood Count 2.92 M/mm3 (4.20-5.40); Red Cell Distribution Width 14.4 % (11.6-14.4); White Blood Count 6.9 K/mm3 (4.8-10.8)
[2021-12-09 11:08] LABS: Alanine Aminotransferase 18 U/L (14-59); Albumin Level 2.7 g/dL (3.4-5.0); Alkaline Phosphatase 150 U/L (46-116); Anion Gap 10 mmol/L (8-16); Aspartate Amino Transferase 16 U/L (15-37); Bilirubin,Total 0.2 mg/dL (0.00-1.00); Blood Urea Nitrogen 13 mg/dL (7-18); CRP 4.1 mg/dL (0.0-0.9); Calcium 8.5 mg/dL (8.5-10.1); Carbon Dioxide 26 mmol/L (21-32); Chloride 98 mmol/L (98-108); Estimated Glomerular Filt Rate > 60; Glucose 138 mg/dL (70-99); Osmolality Calculated 280 mOsm/kg (285-295); Potassium 4.3 mmol/L (3.5-5.1); Sodium 134 mmol/L (136-145); Total Protein 7.2 g/dL (6.4-8.2); Vancomycin Trough 18.7 ug/mL (10.0-15.0)
== END 2021-12-09 10:12 | disposition home or self-care (01) ==
LOC: CHSLAB 10:37
DX: M00.9 Pyogenic arthritis, unspecified (principal); R78.81 Bacteremia; Z79.2 Long term (current) use of antibiotics
CPT/HCPCS: 36415; 80053; 80202; 85025; 86140

== ENCOUNTER 2021-12-15 11:55 | Outpatient (NON) | payer OTHER, SELFPAY ==
[2021-12-15 12:12] LABS: Basophils Absolute Auto 0.07 K/mm3 (0.00-0.10); Basophils Percent Auto 0.9 % (0.0-1.0); Eosinophils Absolute Auto 0.39 K/mm3 (0.02-0.50); Eosinophils Percent Auto 5.1 % (1.0-6.0); Hematocrit 28.4 % (35.0-42.0); Hemoglobin 9.1 g/dL (11.7-13.8); Immature Granulocyte Absolute 0.04 K/mm3 (0.00-0.00); Immature Granulocyte Percent A 0.5 % (0.0-0.0); Lymphocytes Absolute Auto 1.08 K/mm3 (1.10-4.50); Lymphocytes Percent Auto 14.1 % (18.0-42.0); Mean Corpuscular Hemoglobin 32.9 pg (27.0-31.0); Mean Corpuscular Volume 102.5 fL (78.0-102.0); Mean Platelet Volume 8.6 fl (9.2-11.8); Monocytes Absolute Auto 0.94 K/mm3 (0.10-0.90); Monocytes Percent Auto 12.3 % (2.0-11.0); Neutrophils Absolute Auto 5.1 K/mm3 (1.7-7.2); Neutrophils Percent Auto 67.1 % (50.0-70.0); Platelet Count Result 393 K/mm3 (150-420); Red Blood Count 2.77 M/mm3 (4.20-5.40); Red Cell Distribution Width 13.9 % (11.6-14.4); White Blood Count 7.6 K/mm3 (4.8-10.8)
[2021-12-15 12:24] LABS: Alanine Aminotransferase 18 U/L (14-59); Albumin Level 2.5 g/dL (3.4-5.0); Alkaline Phosphatase 178 U/L (46-116); Anion Gap 10 mmol/L (8-16); Aspartate Amino Transferase 16 U/L (15-37); Bilirubin,Total 0.2 mg/dL (0.00-1.00); Blood Urea Nitrogen 10 mg/dL (7-18); CRP 4.9 mg/dL (0.0-0.9); Calcium 8.4 mg/dL (8.5-10.1); Carbon Dioxide 26 mmol/L (21-32); Chloride 97 mmol/L (98-108); Estimated Glomerular Filt Rate > 60; Glucose 110 mg/dL (70-99); Osmolality Calculated 276 mOsm/kg (285-295); Potassium 4.2 mmol/L (3.5-5.1); Sodium 133 mmol/L (136-145); Total Protein 6.9 g/dL (6.4-8.2); Vancomycin Trough 19.6 ug/mL (10.0-15.0)
== END 2021-12-15 11:56 | disposition home or self-care (01) ==
LOC: CHSLAB 11:58
PROVIDERS: PCP Family Medicine
DX: T84.52XA Infection and inflammatory reaction due to internal left hip prosthesis, initial encounter (principal); R78.81 Bacteremia; Z79.2 Long term (current) use of antibiotics
CPT/HCPCS: 36415; 80053; 80202; 85025; 86140

== ENCOUNTER 2021-12-23 09:53 | Outpatient (NON) | payer OTHER, SELFPAY ==
[2021-12-23 10:25] LABS: Basophils Absolute Auto 0.08 K/mm3 (0.00-0.10); Eosinophils Absolute Auto 0.34 K/mm3 (0.02-0.50); Eosinophils Percent Auto 4.4 % (1.0-6.0); Hematocrit 32.5 % (35.0-42.0); Hemoglobin 10.4 g/dL (11.7-13.8); Immature Granulocyte Absolute 0.04 K/mm3 (0.00-0.00); Immature Granulocyte Percent A 0.5 % (0.0-0.0); Lymphocytes Absolute Auto 1.09 K/mm3 (1.10-4.50); Lymphocytes Percent Auto 14.1 % (18.0-42.0); Mean Corpuscular Hemoglobin 31.8 pg (27.0-31.0); Mean Corpuscular Volume 99.4 fL (78.0-102.0); Mean Platelet Volume 8.5 fl (9.2-11.8); Monocytes Absolute Auto 0.97 K/mm3 (0.10-0.90); Monocytes Percent Auto 12.6 % (2.0-11.0); Neutrophils Absolute Auto 5.2 K/mm3 (1.7-7.2); Neutrophils Percent Auto 67.4 % (50.0-70.0); Platelet Count Result 429 K/mm3 (150-420); Red Blood Count 3.27 M/mm3 (4.20-5.40); Red Cell Distribution Width 13.9 % (11.6-14.4); White Blood Count 7.7 K/mm3 (4.8-10.8)
[2021-12-23 10:51] LABS: Alanine Aminotransferase 16 U/L (14-59); Albumin Level 2.7 g/dL (3.4-5.0); Alkaline Phosphatase 195 U/L (46-116); Anion Gap 9 mmol/L (8-16); Aspartate Amino Transferase 15 U/L (15-37); Bilirubin,Total 0.2 mg/dL (0.00-1.00); Blood Urea Nitrogen 9 mg/dL (7-18); Calcium 8.7 mg/dL (8.5-10.1); Carbon Dioxide 28 mmol/L (21-32); Chloride 101 mmol/L (98-108); Estimated Glomerular Filt Rate > 60; Glucose 84 mg/dL (70-99); Osmolality Calculated 283 mOsm/kg (285-295); Potassium 4.3 mmol/L (3.5-5.1); Sodium 138 mmol/L (136-145); Total Protein 7.4 g/dL (6.4-8.2)
== END 2021-12-23 09:54 | disposition home or self-care (01) ==
LOC: CHSLAB 10:01
PROVIDERS: PCP Family Medicine
DX: M00.9 Pyogenic arthritis, unspecified (principal); R78.81 Bacteremia; Z79.2 Long term (current) use of antibiotics
CPT/HCPCS: 36415; 80053; 85025; 86140

== ENCOUNTER 2022-04-09 14:43 | Outpatient (CLI) | payer OTHER, SELFPAY ==
[2022-04-09 15:25] LABS: SARS-CoV-2 Ag Negative (Negative)
== END 2022-04-09 14:44 | disposition home or self-care (01) ==
LOC: CHSLAB 14:46
PROVIDERS: PCP Family Medicine; Visit Provider Family Medicine
DX: Z20.822 Contact with and (suspected) exposure to COVID-19 (principal)
CPT/HCPCS: 87426; C9803

== ENCOUNTER 2022-06-02 11:33 | Outpatient (CLI) | payer OTHER, SELFPAY ==
[2022-06-02 15:35] LABS: SARS-CoV-2 RNA PCR Negative (Negative)
== END 2022-06-02 11:34 | disposition home or self-care (01) ==
LOC: CHSLAB 11:36
PROVIDERS: PCP Family Medicine; Visit Provider Family Medicine
DX: Z20.822 Contact with and (suspected) exposure to COVID-19 (principal)
CPT/HCPCS: C9803; U0003; U0005

== ENCOUNTER 2022-10-14 11:47 | Emergency (ER) | payer OTHER, SELFPAY ==
--- NOTE | ~2022-10-14 | CT_ITS ---
Non-contrast CT scan of the Pelvis Clinical indication: Left hip abscess Technique: 2.5 mm axial scans were obtained through the pelvis without intravenous or oral contrast. Dose reduction technique was used on this scan by utilizing automated exposure control and iterative reconstruction technique. The dose-length product (DLP) was 654.31 mGy-cm. COMPARISON: 10/26/2021 Findings: Visualized inferior portions of the liver and kidneys are unremarkable. There is extensive atherosclerotic change of the aorta and iliac vessels. No bowel obstruction is identified. Urinary bladder unremarkable. No definite pelvic mass seen. The patient is status post prior total left hip arthroplasty. There is superior dislocation of the fe moral head component from the acetabular cup, probably best visualized on the AP topogram/manager knowledge image . No acute osseous fracture seen. Streak artifact from the hardware somewhat limits evaluation, no de finite abscess seen in the left hip region. There is subcutaneous soft tissue edema at the lateral as pect of the left hip/proximal thigh region. Impression: Superior dislocation of femoral head component from the acetabular cup component of left hip arthropl asty. Subcutaneous soft tissue edema about the left hip, but no definite abscess seen. Extensive streak art ifact somewhat limits evaluation. Reviewed, dictated and finalized at location [] F GRINDER Impression: Superior dislocation of femoral head component from the acetabular cup componen t of left hip arthroplasty. Subcutaneous soft tissue edema about the left hip, but no definite abscess seen . Extensive streak artifact somewhat limits evaluation.
[2022-10-14 13:12] VITALS: BP 125/78; PULSE 86; RESP 20; TEMP 36.6; O2SAT 95
--- NOTE | 2022-10-14 13:21 | ECG_ITS ---
Measurements Intervals [place] Rate: 136 P: [place]: 0 QRS: 49 QRSD: 86 T: 0 QT: 292 QTc: 440 Interpretive Statements ATRIAL FIBRILLATION WITH RAPID VENTRICULAR RESPONSE NONSPECIFIC T-WAVE ABNORMALITY ABNORMAL RHYTHM ECG COMPARED TO ECG 10/30/2021 01:27:00 ATRIAL FIBRILLATION NOW PRESENT T-WAVE ABNORMALITY NOW PRESENT Electronically Signed On 10-14-2022 15:59:44 OFFICE ADMINISTRATIVE ASSISTANT by Linh Preston M.D.
[2022-10-14 14:05] LABS: Hematocrit 30.3 % (35.0-42.0); Hemoglobin 10.7 g/dL (11.7-13.8); Mean Corpuscular HGB Conc 35.3 g/dL (32.0-36.0); Mean Corpuscular Hemoglobin 32.5 pg (27.0-31.0); Mean Corpuscular Volume 92.1 fL (78.0-102.0); Mean Platelet Volume 8.6 fl (9.2-11.8); Platelet Count Result 340 K/mm3 (150-420); Red Blood Count 3.29 M/mm3 (4.20-5.40); Red Cell Distribution Width 12.7 % (11.6-14.4)
[2022-10-14 14:11] LABS: White Blood Count 23.2 K/mm3 (4.8-10.8)
[2022-10-14 14:23] LABS: Alanine Aminotransferase 30 U/L (14-59); Albumin Level 1.7 g/dL (3.4-5.0); Alkaline Phosphatase 193 U/L (46-116); Anion Gap 9 mmol/L (8-16); Aspartate Amino Transferase 44 U/L (15-37); Bilirubin,Total 0.6 mg/dL (0.00-1.00); Blood Urea Nitrogen 17 mg/dL (7-18); Calcium 7.9 mg/dL (8.5-10.1); Carbon Dioxide 23 mmol/L (21-32); Chloride 90 mmol/L (98-108); Estimated CRCL calculation 50 ml/min; Estimated Glomerular Filt Rate > 60; Glucose 82 mg/dL (70-99); Osmolality Calculated 254 mOsm/kg (285-295); Potassium 3.9 mmol/L (3.5-5.1); Sodium 122 mmol/L (136-145); Total Protein 6.4 g/dL (6.4-8.2); Troponin I 6.7 ng/L (0.00-60.4)
[2022-10-14 14:24] LABS: Band Neutrophils Percent 5 % (0-6); Basophils Percent Manual 0 % (0-1); Eosinophils Percent Manual 0 % (1-6); Lymphocytes Absolute Manual 0.69 K/mm3 (1.1-4.5); Lymphocytes Percent Manual 3 % (18-44); Metamyelocytes Percent 2 %; Monocytes Absolute Manual 0.46 K/mm3 (0.1-0.90); Monocytes Percent Manual 2 % (3-9); Myelocytes Percent 6 %; Neutrophils Absolute Manual 20.18 K/mm3 (1.7-7.2); Neutrophils Percent Manual 82 % (46-73); Platelet Estimate Adequate (Adequate); Total Cells Counted 100
[2022-10-14] MEDS: AMPICILLIN SULB 3 GM/NS 100 ML 3 GM/100 ML VIAL IVPB (14:27)
[2022-10-14] MEDS: MORPHINE SULFATE (*CRX) 2 MG/ML INJ IV PUSH (14:27)
[2022-10-14] MEDS: SODIUM CHLORIDE 0.9% IV 500 ML 999 ML IV CONT (14:28)
[2022-10-14 15:00] VITALS: BP 118/79; PULSE 80; RESP 20; O2SAT 96
[2022-10-14 16:34] VITALS: BP 108/81; PULSE 86; RESP 18; TEMP 37; O2SAT 98
--- NOTE | 2022-10-14 16:49 | PC.NURSE ---
1645 ATTEMPTED TO CALL REPORT TO [facility] AND WAS TOLD THEY WILL CALL ME BACK FOR REPORT
--- NOTE | 2022-10-14 16:50 | PC.NURSE ---
CALL PLACED TO [facility] TRANSFER AT 1600 ORTHO SURGEON CALLED BACK AT [address] HORAN RETURNED CALL AT 1620
--- NOTE | 2022-10-14 17:38 | ED.WOUNDLAC ---
HPI - Wound/Laceration General Chief Complaint: Wound/Laceration Stated Complaint: ambulance Time Seen by Provider: 10/14/22 11:49 Source: patient, EMS and RN notes reviewed Mode of arrival: EMS Limitations: no limitations History of Present Illness HPI narrative: left hip abscess which started oozing when left hip was hit gently on the commode x this am. pt has chronic left hip dislocation. Onset (ago): hour(s) (2) Extremity Location: Left: hip Place: home Context: accidental Associated symptoms: pain Treatments prior to arrival: bandage Related Data Home Medications Medication Instructions Recorded Confirmed clonazepam 0.5 mg tablet 0.5 mg PO TID PRN anxiety 01/03/20 10/27/21 hydrocodone 10 mg-acetaminophen 1 tablet PO Q6H PRN Pain, Severe 01/03/20 10/27/21 325 mg tablet (Celestine) losartan 50 mg tablet 50 mg PO DAILY 01/03/20 10/27/21 multivit with 1 tablet PO DAILY 01/03/20 10/27/21 [id number]-TX-lutein 8 mg iron-400 mcg-300 mcg tablet (Multivitamin Women 50 Plus) oxybutynin chloride 5 mg tablet 5 mg PO TID 01/03/20 10/27/21 phenytoin sodium extended 100 mg 100 mg PO QID 01/03/20 10/27/21 capsule pravastatin 20 mg tablet 20 mg PO HS 01/03/20 10/27/21 risperidone 0.5 mg tablet 0.5 mg PO BID 01/03/20 10/27/21 venlafaxine 75 mg tablet 112.5 mg PO BID 01/03/20 10/27/21 vitamin B complex (Super B-50 1 cap PO DAILY 01/03/20 10/27/21 Complex capsule) Saccharomyces boulardii 250 mg 250 mg PO BID 10/14/22 10/14/22 capsule (Florastor) albuterol 90 mcg/actuation aerosol mcg inhalation 10/14/22 inhaler ammonium lactate 12 % topical cream 1 applic topical DAILY 10/14/22 10/14/22 cyanocobalamin (vitamin B-12) 1,000 mcg PO DAILY 10/14/22 10/14/22 1,000 mcg capsule duloxetine 30 mg capsule,delayed 30 mg PO BID 10/14/22 10/14/22 release (Cymbalta) famotidine 10 mg tablet 10 mg PO DAILY 10/14/22 10/14/22 folic acid 1 mg tablet 1 mg PO DAILY 10/14/22 10/14/22 Allergies Allergy/AdvReac Type Severity Reaction Status Date / Time No Known Allergies Allergy Verified 10/27/21 00:49 Review of Systems Review of Systems: All systems reviewed & are unremarkable except as noted in HPI and below Constitutional: Constitutional: Reports no additional constitutional complaints Eyes: Eyes: Reports no additional eye complaints ENT: Reports system reviewed and no additional complaints, except as documented Cardiovascular: Cardiovascular: Reports no additional cardiovascular complaints Respiratory: Respiratory: Reports no additional respiratory complaints Gastrointestinal: Gastrointestinal: Reports no additional gastrointestinal complaints Genitourinary: Genitourinary: Reports no additional female genitourinary complaints Musculoskeletal: Musculoskeletal: Reports no additional musculoskeletal complaints Integumentary/Breasts: Skin/Breast: Reports system reviewed and no additional complaints, except as docu Neurologic: Reports system reviewed and no additional complaints, except as documented Psychiatric: Psychiatric: Reports no additional psychiatric complaints Endocrine: Endocrine: Reports no additional endocrine complaints Hematologic/Lymphatic: Hematologic/Lymphatic: Reports no additional hematologic/lymphatic complaints Allergic/Immunologic: Allergic/Immunologic: Reports no additional allergic/immunologic complaints PMFSH Past Medical History Medical History Alcoholic cirrhosis of liver Anxiety Colon cancer Underwent partial colectomy, no radiation or chemotherapy COPD (chronic obstructive pulmonary disease) Depression [place] (hard of hearing) HTN (hypertension) Seizure Septic arthritis Septic hip History of left hip arthroplasty that became septic and requiring a 2nd surgery. Tobacco abuse Smokes 1.5-2 packs per day Urinary incontinence Stress incontinence Surgical History Surgical History (Reviewed 10/16/22 @ 17:54 by Isrrael
[2022-10-14 17:46] VITALS: BP 121/94; RESP 18; TEMP 36.7; O2SAT 97
--- NOTE | 2022-10-20 12:25 | PC.NURSE ---
final blood culture reports x2: no growth after 5 days. no action needed.
== END 2022-10-14 18:36 | disposition short-term general hospital (02) ==
PROVIDERS: Emergency Provider Emergency Medicine; PCP Family Medicine
DX: S73.005A Unspecified dislocation of left hip, initial encounter (principal); L02.416 Cutaneous abscess of left lower limb; I10 Essential (primary) hypertension; J44.9 Chronic obstructive pulmonary disease, unspecified; F17.210 Nicotine dependence, cigarettes, uncomplicated; Z85.038 Personal history of other malignant neoplasm of large intestine; Z79.891 Long term (current) use of opiate analgesic; W22.09XA Striking against other stationary object, initial encounter
CPT/HCPCS: 36415; 72192; 80053; 83605; 84484; 85025; 87040; 93005; 96365; 96375; 99285; J0295; J2270; J7040

== ENCOUNTER 2023-01-07 15:44 | Emergency (ER) | payer OTHER, SELFPAY ==
--- NOTE | ~2023-01-07 | CT_ITS ---
EXAMINATION: CT abdomen pelvis w con DATE: 01/07/2023 17:36 INDICATION: Abdominal distention with nausea and vomiting TECHNIQUE: Computed tomography (CT) of the abdomen and pelvis was performed with 100 mL Omnipaque-350 intravenous contrast. Automated exposure control and iterative reconstruction technique were employe d. The dose-length product was 676.38 mGy-cm. COMPARISON: 10/26/2021 FINDINGS: Mild dependent atelectasis in the bilateral lower lobes. Heart size is normal. Atherosclerotic craig ry artery calcification. No pericardial or pleural effusion. Small sliding-type hiatal hernia. Shrunk en and nodular cirrhotic liver. And there are couple closely opposed to 3.1 cm and 2.3 cm heterogeneo us enhancing nodules at the posterior aspect of the right hepatic lobe. Sludge and a few small calcif ied gallstones in the dependent aspect of the otherwise normal gallbladder with no wall thickening or pericholecystic inflammatory stranding to suggest acute cholecystitis. Multiple splenic calcificatio ns consistent with old granulomatous disease. Pancreas and bilateral adrenal glands are normal. Sever al subcentimeter low-attenuation cysts at both the left and right kidneys. Prominent distention of th e bladder measures 11.4 x 12.3 x 9.8 cm. Uterus and bilateral adnexa are unremarkable. Proximal right hemicolectomy with ileocolic anastomosis in the right abdomen. Moderate amount of stool scattered th roughout the colon. No abnormal bowel wall thickening or obstruction. No free intraperitoneal gas or fluid. No interval change in asymmetric mildly prominent but still normal-sized likely reactive left inguinal lymph node. There is calcified atherosclerosis of the aorta and many of the other arteries. Chronic dislocated left total hip arthroplasty with prominent cephalad migration of the head of the femoral component relative to the acetabulum. There is also a plate and screw fixation along the ceph alad aspect of the left acetabulum. Advanced right hip osteoarthritis. Severe lumbar spondylosis with chronic L1 and L2 compression fractures. IMPRESSION: 1. No acute intra-abdominal/pelvic process. 2. Cirrhotic liver with a couple indeterminate 3.1 and 2.3 cm heterogeneously enhancing mass in the r ight hepatic lobe. Recommend further evaluation with multiphase pre and postcontrast MRI or CT. 3. Cholelithiasis. Reviewed, dictated and finalized at location A. TYPE TELEGRAPHER IMPRESSION: 1. No acute intra-abdominal/pelvic process. 2. Cirrhotic liver with a couple indeterminate 3.1 and 2.3 cm heterogeneously e nhancing mass in the right hepatic lobe. Recommend further evaluation with mult iphase pre and postcontrast MRI or CT. 3. Cholelithiasis.
[2023-01-07 15:45] VITALS: BP 163/84; PULSE 58; RESP 20; O2SAT 96
--- NOTE | 2023-01-07 15:58 | ECG_ITS ---
Measurements Intervals [place] Rate: 58 P: 40 FL: 183 QRS: 41 QRSD: 90 T: 59 QT: 432 QTc: 427 Interpretive Statements SINUS BRADYCARDIA EARLY PRECORDIAL R/S TRANSITION BASELINE ARTIFACT- I, II, AVR, V6 BORDERLINE ECG COMPARED TO ECG 10/14/2022 14:44:16 SINUS BRADYCARDIA NOW PRESENT Electronically Signed On 01-07-2023 19:13:40 COMPENSATION/BENEFITS SPECIALIST by Tee Hamlin D.O.
[2023-01-07] MEDS: SODIUM CHLORIDE 0.9% IV 500 ML 999 ML IV CONT (16:11)
[2023-01-07] MEDS: PANTOPRAZOLE SODIUM IV 40 MG VIAL IV PUSH (16:11)
[2023-01-07] MEDS: ONDANSETRON INJ 4 MG/2 ML VIAL IV PUSH (16:11)
[2023-01-07 16:16] LABS: Basophils Percent Auto 1.3 % (0.0-1.0); Eosinophils Absolute Auto 0.19 K/mm3 (0.02-0.50); Eosinophils Percent Auto 2.5 % (1.0-6.0); Hemoglobin 12.8 g/dL (11.7-13.8); Immature Granulocyte Absolute 0.06 K/mm3 (0.00-0.00); Immature Granulocyte Percent A 0.8 % (0.0-0.0); Lymphocytes Absolute Auto 1.13 K/mm3 (1.10-4.50); Lymphocytes Percent Auto 14.6 % (18.0-42.0); Mean Corpuscular HGB Conc 33.7 g/dL (32.0-36.0); Mean Corpuscular Hemoglobin 32.1 pg (27.0-31.0); Mean Corpuscular Volume 95.2 fL (78.0-102.0); Mean Platelet Volume 8.4 fl (9.2-11.8); Monocytes Absolute Auto 1.17 K/mm3 (0.10-0.90); Monocytes Percent Auto 15.1 % (2.0-11.0); Neutrophils Absolute Auto 5.1 K/mm3 (1.7-7.2); Neutrophils Percent Auto 65.7 % (50.0-70.0); Platelet Count Result 351 K/mm3 (150-420); Red Blood Count 3.99 M/mm3 (4.20-5.40); Red Cell Distribution Width 13.5 % (11.6-14.4); White Blood Count 7.8 K/mm3 (4.8-10.8)
[2023-01-07 16:29] VITALS: BP 163/84; PULSE 60; RESP 20; TEMP 36.4; O2SAT 95
[2023-01-07 16:31] LABS: INR 1.1; Prothrombin Time 12.4 Seconds (9.50-12.10)
[2023-01-07 16:33] LABS: Alanine Aminotransferase 27 U/L (14-59); Albumin Level 2.9 g/dL (3.4-5.0); Alkaline Phosphatase 243 U/L (46-116); Anion Gap 7 mmol/L (8-16); Aspartate Amino Transferase 29 U/L (15-37); Bilirubin,Total 0.3 mg/dL (0.00-1.00); Blood Urea Nitrogen 20 mg/dL (7-18); CRP 2.6 mg/dL (0.0-0.9); Calcium 6.5 mg/dL (8.5-10.1); Carbon Dioxide 30 mmol/L (21-32); Chloride 95 mmol/L (98-108); Estimated Glomerular Filt Rate > 60; Glucose 110 mg/dL (70-99); Lipase 19 U/L (16-77); Osmolality Calculated 277 mOsm/kg (285-295); Sodium 132 mmol/L (136-145); Troponin I 5.9 ng/L (0.00-60.4)
[2023-01-07 16:49] LABS: Lactic Acid Reflex 0.6 mmol/L (0.4-2.0)
[2023-01-07 17:30] VITALS: BP 162/91; PULSE 61; RESP 20; O2SAT 95
[2023-01-07 18:11] LABS: Ammonia 22 umol/L (11-32)
--- NOTE | 2023-01-07 18:29 | ED.WEAKNESS ---
HPI - Weakness General Chief complaint: Weakness Stated complaint: generalized weakness/nausea Time Seen by Provider: 01/07/23 18:29 Source: patient and EMS Mode of arrival: EMS Limitations: no limitations History of Present Illness HPI Narrative: This is a 72-year-old a history of failure actually has some weakness and some nausea currently not nauseated there is no vomiting is currently on lactulose and not complaining of any fever chills no abdominal pain no chest pain no dysuria no shortness of breath. MD Complaint: generalized weakness Onset (ago): hour(s) Duration: improved Severity: mild Related Data Home Medications Medication Instructions Recorded Confirmed clonazepam 0.5 mg tablet 0.5 mg PO BID 01/03/20 01/07/23 multivit with 1 tablet PO DAILY 01/03/20 01/07/23 curqicec-nuvu-MT-lutein 8 mg iron-400 mcg-300 mcg tablet (Multivitamin Women 50 Plus) oxybutynin chloride 5 mg tablet 5 mg PO TID 01/03/20 01/07/23 phenytoin sodium extended 100 mg 100 mg PO QID 01/03/20 01/07/23 capsule venlafaxine 75 mg tablet 75 mg PO TID 01/03/20 01/07/23 Saccharomyces boulardii 250 mg 250 mg PO BID 10/14/22 01/07/23 capsule (Florastor) cyanocobalamin (vitamin B-12) 1,000 mcg PO DAILY 10/14/22 01/07/23 1,000 mcg capsule famotidine 10 mg tablet 40 mg PO DAILY 10/14/22 01/07/23 folic acid 1 mg tablet 1 mg PO DAILY 10/14/22 01/07/23 albuterol sulfate 90 mcg/actuation 2 inh inhalation Q6H PRN Shortness 01/07/23 01/07/23 aerosol inhaler Of Breath doxycycline monohydrate 100 mg 100 mg PO BID 01/07/23 01/07/23 tablet metoprolol succinate 25 mg 25 mg PO DAILY 01/07/23 01/07/23 tablet,extended release 24 hr oxycodone 5 mg tablet 5 mg PO Q6H PRN Pain 01/07/23 01/07/23 thiamine HCl (vitamin B1) 100 mg 100 mg PO BID 01/07/23 01/07/23 tablet Allergies Allergy/AdvReac Type Severity Reaction Status Date / Time NSAIDS (Non-Steroidal Allergy Unknown Verified 01/07/23 16:39 Anti-Inflamma Review of Systems Review of Systems: All systems reviewed & are unremarkable except as noted in HPI and below PMFSH Past Medical History Medical History Alcoholic cirrhosis of liver Anxiety Colon cancer Underwent partial colectomy, no radiation or chemotherapy COPD (chronic obstructive pulmonary disease) Depression [place] (hard of hearing) HTN (hypertension) Seizure Septic arthritis Septic hip History of left hip arthroplasty that became septic and requiring a 2nd surgery. Tobacco abuse Smokes 1.5-2 packs per day Urinary incontinence Stress incontinence Surgical History Surgical History History of left hip replacement x2, after initial became infected. History of partial colectomy Removal of colon cancer Family History Family History Mother Diabetes mellitus Hypertension Family history of alcoholism Cerebrovascular accident Family history of arthritis Family history of malignant neoplasm Family history of seizure disorder Social History Social History Smoking packs per day: 1 Smoking cigarettes per day: 20.0 Years smoked: 40 Smoking pack-years: 40.00 Smoking status: Heavy tobacco smoker Tobacco type: cigarettes Second hand tobacco smoke exposure: Yes Alcohol intake: former Alcohol use details: Former alcohol abuse, now with liver cirrhosis Substance use: current Substance use type: marijuana Other substance usage details: former heavy drinker-no drinks in 4-5 yrs Last use: heavy marijuana use, last use was at least a week ago Living arrangements: with family Additional living arrangements comments: Lives with her niece Eufemia for the last 7 years. She normally walks with out any assist devices, until the last few weeks she has been using a walker. Oc
[2023-01-07 18:51] VITALS: BP 159/104; PULSE 70; TEMP 36.6; O2SAT 96
== END 2023-01-07 19:20 | disposition home or self-care (01) ==
PROVIDERS: Emergency Provider Emergency Medicine; PCP Family Medicine
DX: K70.30 Alcoholic cirrhosis of liver without ascites (principal); R53.1 Weakness; I10 Essential (primary) hypertension; J44.9 Chronic obstructive pulmonary disease, unspecified; F17.210 Nicotine dependence, cigarettes, uncomplicated; Z85.038 Personal history of other malignant neoplasm of large intestine
CPT/HCPCS: 36415; 74177; 80053; 82140; 83605; 83690; 84484; 85025; 85610; 85730; 86140; 93005; 96361; 96374; 96375; 99284; C9113; J2405; J7040; Q9967

== ENCOUNTER 2023-01-13 13:45 | Emergency (ER) | payer OTHER, SELFPAY ==
[2023-01-13 13:45] VITALS: BP 157/99; PULSE 84; RESP 20; TEMP 36.5; O2SAT 92
--- NOTE | 2023-01-13 14:00 | ED.NAVMDI ---
HPI - Nausea/Vomiting/Diarrhea General Chief complaint: Nausea/Vomiting/Diarrhea Stated complaint: vomiting and altered LOC Time Seen by Provider: 01/13/23 13:58 Source: patient Mode of arrival: ambulatory History of Present Illness HPI Narrative: 72-year-old female, smoker with a history of alcoholic cirrhosis, marijuana use,COPD, seizure disorder, incontinence, colon cancer status post colectomy, status post hip surgery with shortening, bed-bound patient presents to the ER with -- large volume vomitus -- altered mental status. The patient is noted to be very drowsy MD elicited complaint: nausea and vomiting Onset (ago): day(s) Description of vomiting: watery Associated nausea: Yes Associated abdominal pain: No Severity: mild Related Data Home Medications Medication Instructions Recorded Confirmed clonazepam 0.5 mg tablet 0.5 mg PO BID 01/03/20 01/13/23 multivit with 1 tablet PO DAILY 01/03/20 01/13/23 gbdiopbu-xuwm-LL-lutein 8 mg iron-400 mcg-300 mcg tablet (Multivitamin Women 50 Plus) oxybutynin chloride 5 mg tablet 5 mg PO TID 01/03/20 01/13/23 phenytoin sodium extended 100 mg 100 mg PO QID 01/03/20 01/13/23 capsule venlafaxine 75 mg tablet 75 mg PO TID 01/03/20 01/13/23 Saccharomyces boulardii 250 mg 250 mg PO BID 10/14/22 01/13/23 capsule (Florastor) cyanocobalamin (vitamin B-12) 1,000 mcg PO DAILY 10/14/22 01/13/23 1,000 mcg capsule famotidine 10 mg tablet 40 mg PO DAILY 10/14/22 01/13/23 folic acid 1 mg tablet 1 mg PO DAILY 10/14/22 01/13/23 albuterol sulfate 90 mcg/actuation 2 inh inhalation Q6H PRN Shortness 01/07/23 01/07/23 aerosol inhaler Of Breath doxycycline monohydrate 100 mg 100 mg PO BID 01/07/23 01/13/23 tablet metoprolol succinate 25 mg 25 mg PO DAILY 01/07/23 01/13/23 tablet,extended release 24 hr oxycodone 5 mg tablet 5 mg PO Q6H PRN Pain 01/07/23 01/13/23 thiamine HCl (vitamin B1) 100 mg 100 mg PO BID 01/07/23 01/13/23 tablet lactulose 10 gram/15 mL oral 20 ml PO TID 01/13/23 01/13/23 solution Allergies Allergy/AdvReac Type Severity Reaction Status Date / Time NSAIDS (Non-Steroidal Allergy Unknown Verified 01/13/23 13:59 Anti-Inflamma Review of Systems Review of Systems: All systems reviewed & are unremarkable except as noted in HPI and below Constitutional: Constitutional: Reports as per HPI and Reports no additional constitutional complaints Eyes: Eyes: Reports as per HPI and Reports no additional eye complaints ENT: Reports system reviewed and no additional complaints, except as documented and Reports as per HPI Cardiovascular: Cardiovascular: Reports as per HPI and Reports no additional cardiovascular complaints Respiratory: Respiratory: Reports as per HPI and Reports no additional respiratory complaints Gastrointestinal: Gastrointestinal: Reports as per HPI, Reports no additional gastrointestinal complaints, Reports nausea and Reports vomiting Genitourinary: Genitourinary: Reports no additional female genitourinary complaints and Reports as per HPI Musculoskeletal: Musculoskeletal: Reports no additional musculoskeletal complaints and Reports as per HPI Integumentary/Breasts: Skin/Breast: Reports system reviewed and no additional complaints, except as docu and Reports as per HPI Neurologic: Reports system reviewed and no additional complaints, except as documented and Reports as per HPI Comments: drowsy Psychiatric: Psychiatric: Reports no additional psychiatric complaints and Reports as per HPI Endocrine: Endocrine: Reports no additional endocrine complaints and Reports as per HPI Hematologic/Lymphatic: Hematologic/Lymphatic: Reports no additional hematologic/lymphatic complaints and Reports as per HPI Allergic/Immunologic: Allergic/Immunologic: Reports no additional allergic/immunologic complaints and Reports as per HPI [facility] Past Medical History Medical History Alcoholic cirrhos
[2023-01-13 14:08] VITALS: BP 157/99; PULSE 84; RESP 20; TEMP 36.5; O2SAT 92
[2023-01-13 14:23] LABS: Basophils Absolute Auto 0.03 K/mm3 (0.00-0.10); Basophils Percent Auto 0.3 % (0.0-1.0); Eosinophils Absolute Auto 0.02 K/mm3 (0.02-0.50); Eosinophils Percent Auto 0.2 % (1.0-6.0); Hematocrit 40.4 % (35.0-42.0); Hemoglobin 13.7 g/dL (11.7-13.8); Immature Granulocyte Absolute 0.07 K/mm3 (0.00-0.00); Immature Granulocyte Percent A 0.6 % (0.0-0.0); Lymphocytes Absolute Auto 0.83 K/mm3 (1.10-4.50); Lymphocytes Percent Auto 6.9 % (18.0-42.0); Mean Corpuscular HGB Conc 33.9 g/dL (32.0-36.0); Mean Corpuscular Hemoglobin 31.4 pg (27.0-31.0); Mean Corpuscular Volume 92.4 fL (78.0-102.0); Mean Platelet Volume 8.2 fl (9.2-11.8); Monocytes Absolute Auto 0.92 K/mm3 (0.10-0.90); Monocytes Percent Auto 7.7 % (2.0-11.0); Neutrophils Absolute Auto 10.1 K/mm3 (1.7-7.2); Neutrophils Percent Auto 84.3 % (50.0-70.0); Platelet Count Result 285 K/mm3 (150-420); Red Blood Count 4.37 M/mm3 (4.20-5.40); Red Cell Distribution Width 13.5 % (11.6-14.4)
[2023-01-13 14:30] VITALS: BP 179/65; PULSE 60; RESP 16; TEMP 36.6; O2SAT 96
[2023-01-13 14:39] LABS: Alanine Aminotransferase 27 U/L (14-59); Albumin Level 2.7 g/dL (3.4-5.0); Alkaline Phosphatase 264 U/L (46-116); Anion Gap 7 mmol/L (8-16); Aspartate Amino Transferase 32 U/L (15-37); Bilirubin,Total 0.3 mg/dL (0.00-1.00); Blood Urea Nitrogen 8 mg/dL (7-18); Calcium 8.4 mg/dL (8.5-10.1); Carbon Dioxide 32 mmol/L (21-32); Chloride 87 mmol/L (98-108); Estimated CRCL calculation 56 ml/min; Estimated Glomerular Filt Rate > 60; Glucose 127 mg/dL (70-99); Osmolality Calculated 262 mOsm/kg (285-295); Potassium 3.6 mmol/L (3.5-5.1); Sodium 126 mmol/L (136-145); Total Protein 7.5 g/dL (6.4-8.2)
[2023-01-13 14:42] LABS: INR 1.1; Partial Thromboplastin Time 35.1 SEC (23.90-30.70); Prothrombin Time 12.3 Seconds (9.50-12.10)
[2023-01-13 14:44] LABS: Lipase 13 U/L (16-77); Troponin I 7.2 ng/L (0.00-60.4)
[2023-01-13 14:49] LABS: Ammonia < 10 umol/L (11-32)
[2023-01-13 15:30] VITALS: BP 183/74; PULSE 61; RESP 16; TEMP 36.6; O2SAT 97
== END 2023-01-13 16:05 ==
PROVIDERS: Emergency Provider Internal Medicine Critical Care Medicine; PCP Family Medicine
DX: E87.1 Hypo-osmolality and hyponatremia (principal); K74.60 Unspecified cirrhosis of liver; R11.2 Nausea with vomiting, unspecified; J44.9 Chronic obstructive pulmonary disease, unspecified; I10 Essential (primary) hypertension; F17.210 Nicotine dependence, cigarettes, uncomplicated; Z85.038 Personal history of other malignant neoplasm of large intestine
CPT/HCPCS: 36415; 80053; 82140; 83690; 84484; 85025; 85610; 85730; 99283

== ENCOUNTER 2023-01-16 10:11 | Outpatient (CLI) | payer OTHER, SELFPAY ==
--- NOTE | ~2023-01-16 | MR_ITS ---
MRI of the abdomen: Clinical indication: Right hepatic mass. Technique: Coronal SSFSE ARC, WATER:coronal LAVA-FLEX, Coronal 2D FIESTA FatSat, Axial SSFSE BH ARC, Axial 3D DualEcho BH, Axial SSFSE-IR, Axial DWI b=500, Axial 2D FIESTA FatSat, pre and dynamic postco ntrast Axial LAVA ARC, postcontrast Coronal In and Opposed phase LAVA FLEX. Following intravenous adm inistration of 10 cc MultiHance gadolinium, T1-weighted fat-sat imaging was performed in the axial an d coronal planes. COMPARISON: CT dated 01/07/2023 and 10/26/2021 Findings: Multiple gallstones are noted. The common bile duct is nondilated. No filling defects are seen within the CBD. No evidence of intrahepatic biliary ductal dilatation. The pancreatic duct is no rmal in size. In the posterior, inferior right hepatic lobe, there is a subtle mass measuring 3.2 cm in diameter, v yayo subtly T1 hypointense, with a very subtle hyperintense border on T2 fat-sat images. This correlat es with finding on recent CT scan. Lesion demonstrates apparent hypervascular enhancement pattern, as well as apparent restricted diffusion. Underlying liver demonstrate a nodular contour, suspicious fo r cirrhosis. Spleen, pancreas, adrenals, kidneys appear normal. The aorta and the paraaortic regions appear normal . Impression: 3.2 cm hypervascular mass in the posterior right hepatic lobe, which correlates with lesion seen on r ecent CT. In the setting of cirrhosis, this is suspicious for hepatocellular carcinoma, however there is suggestion that the lesion is subtly present on prior CT from 10/26/2021, and relative stability over this time interval would favor benign lesion. Therefore, the findings are overall inconclusive. Hepatocellular carcinoma is not excluded. Correlation with serum alpha-fetoprotein level advised. Tis ten sampling should be considered versus short-term follow-up exam to reassess. Cholelithiasis. Reviewed, dictated and finalized at [facility]. Impression: 3.2 cm hypervascular mass in the posterior right hepatic lobe, which correlates with lesion seen on recent CT. In the setting of cirrhosis, this is suspicious for hepatocellular carcinoma, however there is suggestion that the lesion is s ubtly present on prior CT from 10/26/2021, and relative stability over this shabbir e interval would favor benign lesion. Therefore, the findings are overall incon clusive. Hepatocellular carcinoma is not excluded. Correlation with serum alpha -fetoprotein level advised. Tissue sampling should be considered versus short-t erm follow-up exam to reassess. Cholelithiasis.
== END 2023-01-16 10:12 | disposition home or self-care (01) ==
LOC: CHSIMG 10:15
PROVIDERS: PCP Family Medicine; Visit Provider Family Medicine
DX: R16.0 Hepatomegaly, not elsewhere classified (principal); K80.20 Calculus of gallbladder without cholecystitis without obstruction
CPT/HCPCS: 74183; A9577

== ENCOUNTER 2023-01-28 12:36 | Inpatient (IN) | payer OTHER, SELFPAY ==
[2023-01-28] VITALS (7 sets, daily range): BP systolic 147–163; BP diastolic 80–109; PULSE 72–81; RESP 17–20; TEMP 36.1–37.1; O2SAT 94–98; BMI 25.7
--- NOTE | ~2023-01-28 | CT_ITS ---
EXAMINATION: CT brain wo con DATE: 01/28/2023 13:08 INDICATION: Confusion. TECHNIQUE: Computed tomography (CT) of the head was performed without intravenous contrast. The mA wa s adjusted according to patient size. Iterative reconstruction technique was employed. The dose-lengt h product was 605.33 mGy-cm. COMPARISON: None FINDINGS: There is an old infarct in left thalamus. There are scattered areas of low attenuation in t he cerebral white matter. There is no intracranial hemorrhage, acute infarction, or abnormal intracra nial mass lesion. The ventricles are normal in size. There is mucosal thickening in the paranasal sin uses. There are small bilateral mastoid effusions. IMPRESSION: 1. 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 2. Moderate nonspecific cerebral white matter disease, which likely represents chronic small vessel i schemic disease. Reviewed, dictated and finalized at location [facility]. IMPRESSION: 1. 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 2. Moderate nonspecific cerebral white matter disease, which likely represents chronic small vessel ischemic disease.
--- NOTE | 2023-01-28 12:54 | ECG_ITS ---
Measurements Intervals [place] Rate: 83 P: 76 NH: 171 QRS: 39 QRSD: 82 T: 64 QT: 318 QTc: 375 Interpretive Statements SINUS RHYTHM EARLY PRECORDIAL R/S TRANSITION BORDERLINE ST-T WAVE ABNORMALITY- DIFFUSE LEADS BASELINE ARTIFACT- I, II, III, AVR, AVL, AVF, V1-V6 BORDERLINE ECG COMPARED TO ECG 01/07/2023 16:14:02 SIN[address] NOW PRESENT ST-T WAVE ABNORMALITY NOW PRESENT Electronically Signed On 01-28-2023 13:21:10 CDT by Tee Hamlin D.O.
[2023-01-28 13:27] LABS: Basophils Percent Auto 0.8 % (0.0-1.0); Eosinophils Absolute Auto 0.07 K/mm3 (0.02-0.50); Eosinophils Percent Auto 0.6 % (1.0-6.0); Hematocrit 39.1 % (35.0-42.0); Hemoglobin 13.5 g/dL (11.7-13.8); Immature Granulocyte Absolute 0.07 K/mm3 (0.00-0.00); Immature Granulocyte Percent A 0.6 % (0.0-0.0); Lymphocytes Absolute Auto 0.69 K/mm3 (1.10-4.50); Lymphocytes Percent Auto 5.6 % (18.0-42.0); Mean Corpuscular HGB Conc 34.5 g/dL (32.0-36.0); Mean Corpuscular Hemoglobin 32.1 pg (27.0-31.0); Mean Corpuscular Volume 93.1 fL (78.0-102.0); Mean Platelet Volume 8.1 fl (9.2-11.8); Monocytes Absolute Auto 1.05 K/mm3 (0.10-0.90); Monocytes Percent Auto 8.4 % (2.0-11.0); Neutrophils Absolute Auto 10.5 K/mm3 (1.7-7.2); Platelet Count Result 369 K/mm3 (150-420); White Blood Count 12.4 K/mm3 (4.8-10.8)
[2023-01-28] MEDS: SODIUM CHLORIDE 0.9% IV 1,000 ML 999 ML IV CONT (13:28)
[2023-01-28 13:42] LABS: INR 1.4; Partial Thromboplastin Time 34.6 SEC (23.90-30.70); Prothrombin Time 14.9 Seconds (9.50-12.10)
[2023-01-28 13:49] LABS: Lactic Acid Reflex 0.8 mmol/L (0.4-2.0)
[2023-01-28 13:52] LABS: Alanine Aminotransferase 54 U/L (14-59); Albumin Level 2.4 g/dL (3.4-5.0); Alkaline Phosphatase 250 U/L (46-116); Ammonia 24 umol/L (11-32); Anion Gap 8 mmol/L (8-16); Aspartate Amino Transferase 60 U/L (15-37); Bilirubin,Total 0.6 mg/dL (0.00-1.00); Blood Urea Nitrogen 19 mg/dL (7-18); Calcium 8.3 mg/dL (8.5-10.1); Carbon Dioxide 29 mmol/L (21-32); Chloride 102 mmol/L (98-108); Estimated Glomerular Filt Rate > 60; Glucose 138 mg/dL (70-99); Osmolality Calculated 292 mOsm/kg (285-295); Potassium 3.4 mmol/L (3.5-5.1); Sodium 139 mmol/L (136-145); Total Protein 7.1 g/dL (6.4-8.2)
[2023-01-28 13:53] LABS: CRP 3.5 mg/dL (0.0-0.9); NT Pro B Type Natriuretic Pept 391 pg/mL (0-125)
[2023-01-28 14:09] LABS: Appearance Urine Slightly Cloudy (Clear); Bilirubin Urine Negative (Negative); Blood Urine Trace-Intact (Negative); Color Urine Light Yellow (Yellow); Glucose Urine UA Negative (Negative); Ketones Urine Negative (Negative); Leukocyte Esterase Ur 1+ LEU/UL (Negative); Nitrate Urine Positive (Negative); Protein Urine 1+ (Negative); Urobilinogen Urine 0.2 mg/dL (0.2-1.0); pH Urine 7.5 (5.0-8.0)
[2023-01-28 14:11] LABS: Add Urine Microscopic? YES; Bacteria Urine 3+ /hpf; RBC Urine 0-2 /hpf (0-2); Squamous Epithelial Cell Urine Few /hpf (Few)
[2023-01-28 14:13] LABS: Amphetamine Screen Urine Negative (Negative); Barbiturate Screen Urine Negative (Negative); Benzodiazepines Screen Urine Negative (Negative); Cannabinoid Screen Urine Negative (Negative); Cocaine Screen Urine Negative (Negative); Methadone Screen Urine Negative (Negative); Opiate Screen Urine Negative (Negative); Phencyclidine Screen Urine Negative (Negative)
--- NOTE | 2023-01-28 14:46 | ED.WEAKNESS ---
HPI - Weakness General Chief complaint: Weakness Stated complaint: hallucinations Time Seen by Provider: 01/28/23 12:42 Source: patient Mode of arrival: ambulatory Limitations: no limitations History of Present Illness HPI Narrative: this is a 72-year-old female [facility] patient presents with a generalized weakness was seen yesterday at hospital ER and was diagnosed with a urinary tract infection and sent back to the nursing, EMS was called and patient was brought to our facility [facility] with confusion and generalized weakness, patient not complaining of any pain or discomfort, there is no abdominal pain no shortness of breath no chest pain no fever chills vitals are stable. Patient does have weakness and confusion, patient with history of depression urinary incontinence hypertension. MD Complaint: generalized weakness Onset (ago): day(s) Duration: constant Location: generalized Severity: moderate Relieving factors: none Exacerbating factors: none Related Data Home Medications Medication Instructions Recorded Confirmed clonazepam 0.5 mg tablet 0.5 mg PO BID 01/03/20 01/28/23 multivit with 1 tablet PO DAILY 01/03/20 01/28/23 mmtvxjxz-equd-ST-lutein 8 mg iron-400 mcg-300 mcg tablet (Multivitamin Women 50 Plus) oxybutynin chloride 5 mg tablet 5 mg PO TID 01/03/20 01/28/23 phenytoin sodium extended 100 mg 100 mg PO QID 01/03/20 01/28/23 capsule venlafaxine 75 mg tablet 75 mg PO TID 01/03/20 01/28/23 Saccharomyces boulardii 250 mg 250 mg PO BID 10/14/22 01/28/23 capsule (Florastor) cyanocobalamin (vitamin B-12) 1,000 mcg PO DAILY 10/14/22 01/28/23 1,000 mcg capsule famotidine 10 mg tablet 40 mg PO DAILY 10/14/22 01/28/23 folic acid 1 mg tablet 1 mg PO DAILY 10/14/22 01/28/23 albuterol sulfate 90 mcg/actuation 2 inh inhalation Q6H PRN Shortness 01/07/23 01/28/23 aerosol inhaler Of Breath doxycycline monohydrate 100 mg 100 mg PO BID 01/07/23 01/28/23 tablet metoprolol succinate 25 mg 25 mg PO DAILY 01/07/23 01/28/23 tablet,extended release 24 hr oxycodone 5 mg tablet 5 mg PO Q6H PRN Pain 01/07/23 01/28/23 thiamine HCl (vitamin B1) 100 mg 100 mg PO BID 01/07/23 01/28/23 tablet lactulose 10 gram/15 mL oral 20 ml PO TID 01/13/23 01/28/23 solution Allergies Allergy/AdvReac Type Severity Reaction Status Date / Time NSAIDS (Non-Steroidal Allergy Unknown Verified 01/13/23 13:59 Anti-Inflamma Review of Systems Review of Systems: All systems reviewed & are unremarkable except as noted in HPI and below PMFSH Past Medical History Medical History Alcoholic cirrhosis of liver Anxiety Colon cancer Underwent partial colectomy, no radiation or chemotherapy COPD (chronic obstructive pulmonary disease) Depression [place] (hard of hearing) HTN (hypertension) Seizure Septic arthritis Septic hip History of left hip arthroplasty that became septic and requiring a 2nd surgery. Tobacco abuse Smokes 1.5-2 packs per day Urinary incontinence Stress incontinence Surgical History Surgical History History of left hip replacement x2, after initial became infected. History of partial colectomy Removal of colon cancer Family History Family History Mother Diabetes mellitus Hypertension Family history of alcoholism Cerebrovascular accident Family history of arthritis Family history of malignant neoplasm Family history of seizure disorder Social History Social History Smoking packs per day: 1 Smoking cigarettes per day: 20.0 Years smoked: 40 Smoking pack-years: 40.00 Smoking status: Heavy tobacco smoker Tobacco type: cigarettes Second hand tobacco smoke exposure: Yes Alcohol intake: former Alcohol use details: Former alcohol abuse, now wit
--- NOTE | 2023-01-28 16:20 | ADMGEN ---
This patient, Pattie Malloy, was admitted to 2nd Floor Room 207-1. Patient/family oriented to hospital policies and general routines including ID bracelet, bed and alarms, visiting hours, pain management, procedures, bathroom and other care routines, personal items, smoking policy, room service/diet, and visiting hours. Information on how to activate the Rapid Response Team has been discussed. Patient/Family are encouraged to report perceived risks to care and to ask questions if they do not understand what they are told or what they should do.
[2023-01-28] MEDS: LACTULOSE 20 GM/30 ML UDC 13.3333 GM PO (17:38)
[2023-01-28] MEDS: VENLAFAXINE HCL 75 MG TABLET PO (17:39)
[2023-01-28] MEDS: THIAMINE HCL 100 MG TABLET PO (17:39)
[2023-01-28] MEDS: METOPROLOL SUCCINATE EXT REL 25 MG TABCR PO (17:39)
[2023-01-28] MEDS: oxyBUTYnin CHLORIDE 5 MG TABLET PO (17:39)
[2023-01-28] MEDS: SACCHAROMYCES BOULARDII 250 MG CAPSULE PO (17:39)
[2023-01-28] MEDS: PHENYTOIN SODIUM 100 MG EXTENDED RELEASE CAP PO ×2 (17:40→21:36)
[2023-01-28] MEDS: BUDESONIDE/FORMOTEROL (*SP) 160-4.5 MCG 6 GM INH 2 PUFF INHALATION (21:37)
[2023-01-28] MEDS: ONDANSETRON INJ 4 MG/2 ML VIAL IV PUSH (21:52)
[2023-01-29 05:30] LABS: Basophils Absolute Auto 0.11 K/mm3 (0.00-0.10); Basophils Percent Auto 0.9 % (0.0-1.0); Eosinophils Absolute Auto 0.14 K/mm3 (0.02-0.50); Eosinophils Percent Auto 1.2 % (1.0-6.0); Hematocrit 36.8 % (35.0-42.0); Hemoglobin 12.4 g/dL (11.7-13.8); Immature Granulocyte Absolute 0.06 K/mm3 (0.00-0.00); Immature Granulocyte Percent A 0.5 % (0.0-0.0); Lymphocytes Absolute Auto 0.78 K/mm3 (1.10-4.50); Lymphocytes Percent Auto 6.7 % (18.0-42.0); Mean Corpuscular HGB Conc 33.7 g/dL (32.0-36.0); Mean Corpuscular Hemoglobin 31.6 pg (27.0-31.0); Mean Corpuscular Volume 93.9 fL (78.0-102.0); Mean Platelet Volume 8.3 fl (9.2-11.8); Monocytes Absolute Auto 1.11 K/mm3 (0.10-0.90); Monocytes Percent Auto 9.6 % (2.0-11.0); Neutrophils Absolute Auto 9.4 K/mm3 (1.7-7.2); Neutrophils Percent Auto 81.1 % (50.0-70.0); Platelet Count Result 314 K/mm3 (150-420); Red Blood Count 3.92 M/mm3 (4.20-5.40); Red Cell Distribution Width 14.1 % (11.6-14.4); White Blood Count 11.6 K/mm3 (4.8-10.8)
[2023-01-29 05:56] LABS: Alanine Aminotransferase 49 U/L (14-59); Albumin Level 2.1 g/dL (3.4-5.0); Alkaline Phosphatase 225 U/L (46-116); Anion Gap 8 mmol/L (8-16); Aspartate Amino Transferase 58 U/L (15-37); Bilirubin,Total 0.5 mg/dL (0.00-1.00); Blood Urea Nitrogen 13 mg/dL (7-18); Calcium 7.6 mg/dL (8.5-10.1); Carbon Dioxide 28 mmol/L (21-32); Chloride 102 mmol/L (98-108); Estimated CRCL calculation 49 ml/min; Estimated Glomerular Filt Rate > 60; Glucose 88 mg/dL (70-99); Magnesium 1.6 mg/dL (1.8-2.4); Osmolality Calculated 285 mOsm/kg (285-295); Potassium 3.1 mmol/L (3.5-5.1); Sodium 138 mmol/L (136-145); Total Protein 6.2 g/dL (6.4-8.2)
--- NOTE | 2023-01-29 06:15 | PM.IMHP ---
H&P: HPI History of Present Illness Date/Time: 01/29/23 06:15 Chief Complaint: Confusion with hallucinations Narrative: Patient is a 72-year-old female with a past medical history of COPD, hypertension, frequent UTIs, seizures , alcohol cirrhosis, colon cancer who [facility] ED [facility] with complaints of increased confusion and hallucinations. Patient is a very poor historian and just keeps saying Stop it! Quit it! and she looks all over the room. I asked her if she was seeing people or things and she really did not answer. She would not answer any my questions as well most of the H&P was taken from the EMR. patient was noted to have been at the ED at [facility] on 01/27/23 per ED provider. At that time she was diagnosed with a UTI and hyponatremia. patient was given IV fluids and was started on doxycycline. [facility] to the [facility]. The [facility] brought her [facility] to the ED as they stated that her confusion has increased and she was seeing things including spiders on the wall. UA did appear infectious with positive nitrates, leukocyte esterase, mild WBCs and 3+ bacteria. Patient has been started on IV ceftriaxone. Awaiting culture results this time. WBCs are slightly elevated at 12.4 on admission currently 11.6. Head CT was performed and showed no old infarct of left thalamus. Strength is present bilaterally patient is A&O x1. Blood pressure appears elevated however not sure if it is accurate as the patient is not entertaining the idea of getting her blood pressure taken. Home medications has been restarted. Complete review of systems unable to be obtained due to patient's mental status. Patient is being admitted to the hospitalist in observation Review of Systems Review of Systems: ROS unobtainable: Yes unobtainable due to mental status [facility] Past Medical History Medical History (Updated 01/29/23 @ 06:47 by DAYANA Ayala) Acute confusion Acute hyponatremia Acute hypoxemic respiratory failure Alcoholic cirrhosis of liver Anxiety Atrial fibrillation with RVR Bacteremia Colon cancer Underwent partial colectomy, no radiation or chemotherapy Community acquired pneumonia COPD (chronic obstructive pulmonary disease) COPD exacerbation Depression DVT prophylaxis Encounter for monitoring sotalol therapy Hip dislocation, left [place] (hard of [place]) HTN (hypertension) Hyponatremia Hypotension Seizure Sepsis Septic arthritis Septic hip History of left hip arthroplasty that became septic and requiring a 2nd surgery. Septicemia Thrush Tobacco abuse Smokes 1.5-2 packs per day Urinary incontinence Stress incontinence Weakness Surgical History Surgical History History of left hip replacement x2, after initial became infected. History of partial colectomy Removal of colon cancer Family History Family History Mother Diabetes mellitus Hypertension Family history of alcoholism Cerebrovascular accident Family history of arthritis Family history of malignant neoplasm Family history of seizure disorder Social History Social History Smoking packs per day: 1 Smoking cigarettes per day: 20.0 Years smoked: 40 Smoking pack-years: 40.00 Smoking status: Former smoker Tobacco type: cigarettes Second hand tobacco smoke exposure: Yes Alcohol intake: former Alcohol use details: Former alcohol abuse, now with liver cirrhosis Substance use: current Substance use type: marijuana Other substance usage details: former heavy drinker-no drinks in 4-5 yrs Last use: heavy marijuana use, last use was at least a week ago Living arrangements: with family Additional living arrangements comments: Lives with her niece Eufemia for the last 7 years. She normally walks with out any assist devices, u
[2023-01-29 07:18] LABS: Creatine Kinase 11 U/L (26-192)
--- NOTE | 2023-01-29 07:20 | PC.NURSE ---
Jack Potts NP, notified of pt's high panic value of 39.7 on phenytoin. Order received and noted.
[2023-01-29 08:00] VITALS: BP 151/75; PULSE 71; RESP 16; TEMP 36.3; O2SAT 94
[2023-01-29] MEDS: SODIUM CHLORIDE 0.9% IV 250 ML 50 ML IV CONT (09:14)
[2023-01-29] MEDS: KCL 20 MEQ/SW 100 ML 100 ML 50 MEQ IVPB ×2 (09:15→14:11)
[2023-01-29] MEDS: ENOXAPARIN 40 MG/0.4 ML SYRINGE SUB-Q (09:18)
[2023-01-29 10:03] VITALS: PULSE 71
[2023-01-29] MEDS: METOPROLOL SUCCINATE EXT REL 25 MG TABCR PO (10:03)
[2023-01-29] MEDS: LACTULOSE 20 GM/30 ML UDC 13.3333 GM PO ×3 (10:04→16:43)
[2023-01-29] MEDS: POTASSIUM CHLORIDE 20 MEQ TABLET 40 MEQ PO (10:04)
[2023-01-29] MEDS: VENLAFAXINE HCL 75 MG TABLET PO ×3 (10:04→16:43)
--- NOTE | 2023-01-29 10:10 | PC.NURSE ---
Patient non compliant with most care. Patient dislodged her IV and OIL SEPARATOR started a new site, and patient immediately pulled it out as OIL SEPARATOR was walking away. Patient took only a few of her PO meds and refused the others. New IV site established in [facility] and K+ running at this time.
[2023-01-29] MEDS: oxyBUTYnin CHLORIDE 5 MG TABLET PO ×2 (12:56→16:43)
[2023-01-29 16:00] VITALS: BP 142/108; PULSE 72; RESP 16; TEMP 36.1; O2SAT 96
[2023-01-29] MEDS: THIAMINE HCL 100 MG TABLET PO (16:43)
[2023-01-29] MEDS: SACCHAROMYCES BOULARDII 250 MG CAPSULE PO (16:43)
[2023-01-29 18:13] LABS: Potassium 4.4 mmol/L (3.5-5.1)
--- NOTE | 2023-01-29 18:32 | PC.NURSE ---
Jack Potts, LAMINATING PRESS OPERATOR/Hosptitalist, notified of Potassium level now 4.4. Also notified of BP of 146/90. New orders received.
[2023-01-29] MEDS: lisinopriL 10 MG TABLET PO (18:55)
[2023-01-29] MEDS: BUDESONIDE/FORMOTEROL (*SP) 160-4.5 MCG 6 GM INH 2 PUFF INHALATION (20:08)
[2023-01-29] MEDS: HYDROcodone/acetaminophen (*CRX) 5-325 MG TABLET 1 TAB PO (20:09)
--- NOTE | 2023-01-29 20:25 | PC.NURSE ---
Given ice cream, tried to suck on spoon like it was a straw. When oriented to spoon and coached to use spoon was unable to lift spoon to mouth, kept putting spoon to chin and lower lip. This nurse fed patient ice cream, tolerated well. No nausea.
[2023-01-30] VITALS: BP 112/63; PULSE 71; RESP 18; TEMP 37
[2023-01-30 05:14] LABS: Basophils Absolute Auto 0.06 K/mm3 (0.00-0.10); Basophils Percent Auto 0.6 % (0.0-1.0); Eosinophils Absolute Auto 0.19 K/mm3 (0.02-0.50); Eosinophils Percent Auto 1.9 % (1.0-6.0); Hematocrit 33.3 % (35.0-42.0); Hemoglobin 10.8 g/dL (11.7-13.8); Immature Granulocyte Absolute 0.06 K/mm3 (0.00-0.00); Immature Granulocyte Percent A 0.6 % (0.0-0.0); Lymphocytes Absolute Auto 1.11 K/mm3 (1.10-4.50); Lymphocytes Percent Auto 11.1 % (18.0-42.0); Mean Corpuscular HGB Conc 32.4 g/dL (32.0-36.0); Mean Corpuscular Hemoglobin 30.8 pg (27.0-31.0); Mean Corpuscular Volume 94.9 fL (78.0-102.0); Mean Platelet Volume 8.4 fl (9.2-11.8); Monocytes Absolute Auto 1.05 K/mm3 (0.10-0.90); Monocytes Percent Auto 10.5 % (2.0-11.0); Neutrophils Absolute Auto 7.5 K/mm3 (1.7-7.2); Neutrophils Percent Auto 75.3 % (50.0-70.0); Platelet Count Result 264 K/mm3 (150-420); Red Blood Count 3.51 M/mm3 (4.20-5.40); Red Cell Distribution Width 14.1 % (11.6-14.4)
[2023-01-30 05:33] LABS: Alanine Aminotransferase 52 U/L (14-59); Albumin Level 2.1 g/dL (3.4-5.0); Alkaline Phosphatase 218 U/L (46-116); Anion Gap 6 mmol/L (8-16); Aspartate Amino Transferase 62 U/L (15-37); Bilirubin,Total 0.6 mg/dL (0.00-1.00); Blood Urea Nitrogen 10 mg/dL (7-18); CRP 3.6 mg/dL (0.0-0.9); Calcium 7.8 mg/dL (8.5-10.1); Carbon Dioxide 28 mmol/L (21-32); Chloride 103 mmol/L (98-108); Creatine Kinase 10 U/L (26-192); Estimated CRCL calculation 43 ml/min; Estimated Glomerular Filt Rate > 60; Glucose 88 mg/dL (70-99); Magnesium 1.6 mg/dL (1.8-2.4); Osmolality Calculated 282 mOsm/kg (285-295); Potassium 4.4 mmol/L (3.5-5.1); Sodium 137 mmol/L (136-145)
[2023-01-30 08:00] VITALS: BP 140/68; PULSE 82; RESP 17; TEMP 36.4; O2SAT 94
[2023-01-30] MEDS: BUDESONIDE/FORMOTEROL (*SP) 160-4.5 MCG 6 GM INH 2 PUFF INHALATION ×2 (08:57→20:50)
[2023-01-30] MEDS: FAMOTIDINE 20 MG TABLET 40 MG PO (08:58)
[2023-01-30] MEDS: SACCHAROMYCES BOULARDII 250 MG CAPSULE PO ×2 (08:58→16:42)
[2023-01-30] MEDS: ENOXAPARIN 40 MG/0.4 ML SYRINGE SUB-Q (08:58)
[2023-01-30 08:59] VITALS: PULSE 84
[2023-01-30] MEDS: oxyBUTYnin CHLORIDE 5 MG TABLET PO ×2 (08:59→16:42)
[2023-01-30] MEDS: THERAPEUTIC MULTIVITAMINS/MINERALS TAB (*BKC) 1 TABLET PO (08:59)
[2023-01-30] MEDS: FOLIC ACID 1 MG TABLET PO (08:59)
[2023-01-30] MEDS: VENLAFAXINE HCL 75 MG TABLET PO ×2 (08:59→16:42)
[2023-01-30] MEDS: METOPROLOL SUCCINATE EXT REL 25 MG TABCR PO (08:59)
[2023-01-30] MEDS: lisinopriL 10 MG TABLET PO (08:59)
[2023-01-30] MEDS: THIAMINE HCL 100 MG TABLET PO ×2 (08:59→16:42)
[2023-01-30] MEDS: CYANOCOBALAMIN 1,000 MCG TABLET 1000 MCG PO (08:59)
[2023-01-30] MEDS: MAGNESIUM SULF 2 GM/WATER 50ML 2 GM/50 ML BAG IVPB (09:50)
--- NOTE | 2023-01-30 11:59 | P.PNIM_ITS ---
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 * could be related to UTI * ammonia level normal * Check a Dilantin level-elevated, hold Dilantin and recheck level in the morning * blood cultures and urine culture pending * continue IV Rocphin * adjust antibiotics when cultures results * continue trend mental status (2) Acute UTI: Code(s): N39.0 - Urinary tract infection, site not specified Status: Acute Assessment and Plan: * UA does appear infectious with positive nitrates, leukocyte esterase, WBCs and bacteria present * patient is noted to be incontinent * urine cultures pending * continue IV ceftriaxone * WBCs trending down * continue trend labs * adjust and deescalate as indicated (3) Seizure: Code(s): R56.9 - Unspecified convulsions Status: Acute Assessment and Plan: * head CT stable * will plan to continue home medications, Phenytoin 100 mg q.i.d. once Dilantin level down to normal * Obtain Dilantin level-elevated * Adjust medications as indicate * Seizure Precautions (4) Anxiety and depression: Code(s): F41.9 - Anxiety disorder, unspecified; F32.9 - Major depressive disorder, single episode, unspecified Status: Acute Assessment and Plan: * Continue home medications * Adjust therapy as indicated (5) Alcoholic cirrhosis of liver: Qualifiers: Ascites presence: unspecified Qualified Code(s): K70.30 - Alcoholic cirrhosis of liver without ascites Code(s): K70.30 - Alcoholic cirrhosis of liver without ascites Status: Acute Assessment and Plan: * History * Last Abd CT showed a lesion * Continue outpatient follow up * Ammonia level is stable * Could be contributing to the confusion and hallucinations Subjective Date/time seen: 01/30/23 1020 Review of Systems Review of Systems: ROS unobtainable: Yes unobtainable due to mental status (Patient very confused with visual hallucinations) Exam Narrative: patient is alert and oriented to self and here only. When asked where she was she keeps repeating I am right here. Patient having visual hallucinations of 2 dogs playing on the helipad outside. Const: General: comfortable and no acute distress HENMT: Face/Nose/Sinus: Normal nares present Mouth: Yes moist mucous membranes Eyes: General: appearance normal, both eyes and all related structures Neck: Neck: supple and no JVD Resp: Effort & Inspection: normal respiratory effort Other: Patient appears in no acute respiratory distress. Able to speak in complete sentences without difficulty. No use of accessory muscles appreciated. Lung sounds are clear and equal bilaterally. Cardio: Rate: regular rate Rhythm: regular rhythm Other: normal S1-S2 without any rub, murmur, gallop noted GI: Other: abdomen soft, nondistended, nontender to palpation with bowel sounds present x4 quad
--- NOTE | 2023-01-30 11:59 | PM.IMPN ---
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 could be related to UTI ammonia level normal Check a Dilantin level-elevated, hold Dilantin and recheck level in the morning blood cultures and urine culture pending continue IV Rocphin adjust antibiotics when cultures results continue trend mental status (2) Acute UTI: Code(s): N39.0 - Urinary tract infection, site not specified Status: Acute Assessment and Plan: UA does appear infectious with positive nitrates, leukocyte esterase, WBCs and bacteria present patient is noted to be incontinent urine cultures pending continue IV ceftriaxone WBCs trending down continue trend labs adjust and deescalate as indicated (3) Seizure: Code(s): R56.9 - Unspecified convulsions Status: Acute Assessment and Plan: head CT stable will plan to continue home medications, Phenytoin 100 mg q.i.d. once Dilantin level down to normal Obtain Dilantin level-elevated Adjust medications as indicate Seizure Precautions (4) Anxiety and depression: Code(s): F41.9 - Anxiety disorder, unspecified; F32.9 - Major depressive disorder, single episode, unspecified Status: Acute Assessment and Plan: Continue home medications Adjust therapy as indicated (5) Alcoholic cirrhosis of liver: Qualifiers: Ascites presence: unspecified Qualified Code(s): K70.30 - Alcoholic cirrhosis of liver without ascites Code(s): K70.30 - Alcoholic cirrhosis of liver without ascites Status: Acute Assessment and Plan: History Last Abd CT showed a lesion Continue outpatient follow up Ammonia level is stable Could be contributing to the confusion and hallucinations Subjective Date/time seen: 01/30/23 1020 Review of Systems Review of Systems: ROS unobtainable: Yes unobtainable due to mental status (Patient very confused with visual hallucinations) Exam Narrative: patient is alert and oriented to self and here only. When asked where she was she keeps repeating I am right here. Patient having visual hallucinations of 2 dogs playing on the helipad outside. Const: General: comfortable and no acute distress HENMT: Face/Nose/Sinus: Normal nares present Mouth: Yes moist mucous membranes Eyes: General: appearance normal, both eyes and all related structures Neck: Neck: supple and no JVD Resp: Effort & Inspection: normal respiratory effort Other: Patient appears in no acute respiratory distress. Able to speak in complete sentences without difficulty. No use of accessory muscles appreciated. Lung sounds are clear and equal bilaterally. Cardio: Rate: regular rate Rhythm: regular rhythm Other: normal S1-S2 without any rub, murmur, gallop noted GI: Other: abdomen soft, nondistended, nontender to palpation with bowel sounds present x4 quadrants. Skin: General skin exam: normal color and no rashes or lesions noted Neuro: Speech: normal speech Motor exam (neuro): Normal motor muscle tone present throughout Sensory Exam: normal sensation Other: Patient is alert and oriented to person and year only, however is mildly confused with visual hallucinations present Extrem: General: normal to inspection Other: bilateral pedal and posterior tibial pulses palpated and equal without any edema noted Psych: Other: patient is alert and oriented to person and year only however, is mildly confused with visual hallucinations present Objective Data Vital Signs Vital Signs: Vital Signs - 24 hr
[2023-01-30] MEDS: ACIDOPHILUS/BULGARICUS CHEWABLE TABLET 1 TABLET PO ×3 (12:07→20:49)
[2023-01-30 16:00] VITALS: BP 117/73; PULSE 77; RESP 18; TEMP 36.8; O2SAT 95
[2023-01-30 20:00] VITALS: PULSE 77; RESP 18; O2SAT 95
[2023-01-30] MEDS: HYDROcodone/acetaminophen (*CRX) 5-325 MG TABLET 1 TAB PO (20:52)
[2023-01-30] MEDS: clonazePAM (*CRX) 0.5 MG TABLET PO (20:52)
[2023-01-31] VITALS: BP 103/67; PULSE 73; RESP 16; TEMP 36.4; O2SAT 96
[2023-01-31 05:17] LABS: Basophils Absolute Auto 0.09 K/mm3 (0.00-0.10); Eosinophils Absolute Auto 0.26 K/mm3 (0.02-0.50); Eosinophils Percent Auto 2.8 % (1.0-6.0); Hematocrit 33.9 % (35.0-42.0); Hemoglobin 11.2 g/dL (11.7-13.8); Immature Granulocyte Absolute 0.07 K/mm3 (0.00-0.00); Immature Granulocyte Percent A 0.7 % (0.0-0.0); Lymphocytes Absolute Auto 1.06 K/mm3 (1.10-4.50); Lymphocytes Percent Auto 11.3 % (18.0-42.0); Mean Corpuscular Hemoglobin 31.1 pg (27.0-31.0); Mean Corpuscular Volume 94.2 fL (78.0-102.0); Mean Platelet Volume 8.4 fl (9.2-11.8); Monocytes Absolute Auto 0.86 K/mm3 (0.10-0.90); Monocytes Percent Auto 9.2 % (2.0-11.0); Platelet Count Result 254 K/mm3 (150-420); Red Cell Distribution Width 14.1 % (11.6-14.4); White Blood Count 9.4 K/mm3 (4.8-10.8)
[2023-01-31 05:32] LABS: Alanine Aminotransferase 65 U/L (14-59); Albumin Level 2.2 g/dL (3.4-5.0); Alkaline Phosphatase 257 U/L (46-116); Anion Gap 6 mmol/L (8-16); Aspartate Amino Transferase 70 U/L (15-37); Bilirubin,Total 0.5 mg/dL (0.00-1.00); Blood Urea Nitrogen 7 mg/dL (7-18); Calcium 7.4 mg/dL (8.5-10.1); Carbon Dioxide 28 mmol/L (21-32); Chloride 100 mmol/L (98-108); Estimated CRCL calculation 47 ml/min; Estimated Glomerular Filt Rate > 60; Glucose 82 mg/dL (70-99); Osmolality Calculated 275 mOsm/kg (285-295); Potassium 3.9 mmol/L (3.5-5.1); Sodium 134 mmol/L (136-145); Total Protein 6.2 g/dL (6.4-8.2)
[2023-01-31 08:00] VITALS: BP 131/86; PULSE 73; RESP 16; TEMP 35.9; O2SAT 96
--- NOTE | 2023-01-31 09:17 | P.PNIM_ITS ---
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 * ammonia level normal * blood cultures and urine culture with the growth of enterococcus started nitrofurantoin (2) Acute UTI: Code(s): N39.0 - Urinary tract infection, site not specified Status: Acute Assessment and Plan: * UA does appear infectious with positive nitrates, leukocyte esterase, WBCs and bacteria present * patient is noted to be incontinent * unknown baseline at this time * Head CT negative for any acute findings, 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 once Dilantin level down to normal * Obtain Dilantin level-elevated * Adjust medications as indicate * Seizure Precautions (4) Anxiety and depression: Code(s): F41.9 - Anxiety disorder, unspecified; F32.9 - Major depressive disorder, single episode, unspecified Status: Acute Assessment and Plan: * Continue home medications * Adjust therapy as indicated (5) Alcoholic cirrhosis of liver: Qualifiers: Ascites presence: unspecified Qualified Code(s): K70.30 - Alcoholic cirrhosis of liver without ascites Code(s): K70.30 - Alcoholic cirrhosis of liver without ascites Status: Acute Assessment and Plan: * History * Last Abd CT showed a lesion * Continue outpatient follow up * Ammonia level is stable * Could be contributing to the confusion and hallucinations Subjective Date/time seen: 01/31/23 09:17 Review of Systems Review of Systems: All systems reviewed & are unremarkable except as noted in HPI and below Exam Narrative: patient is alert and oriented to self and here only. When asked where she was she keeps repeating I am right here. Patient having visual hallucinations of 2 dogs playing on the helipad outside. Const: General: comfortable, no acute distress and well nourished Nutritional Appearance: well nourished Orientation/consciousness: patient oriented x3 Limitations: no limitations HENMT: Head: normal to inspection Face/Nose/Sinus: Normal nares present Mouth: Yes moist mucous membranes Eyes: General: appearance normal, both eyes and all related structures Conjunctivae: conjunctivae normal Pupils: Equal, round and reactive pupils present Neck: Neck: normal visual inspection, supple and no JVD Chest: Chest palpation & inspection: normal inspection of the chest Resp: Effort & Inspection: normal respiratory effort Auscultation: clear to auscultation bilaterally Other: Patient appears in no acute respiratory distress. Able to speak in complete sentences without difficulty. No use of accessory muscles appreciated. Lung
--- NOTE | 2023-01-31 09:17 | PM.IMPN ---
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 ammonia level normal blood cultures and urine culture with the growth of enterococcus started nitrofurantoin (2) Acute UTI: Code(s): N39.0 - Urinary tract infection, site not specified Status: Acute Assessment and Plan: UA does appear infectious with positive nitrates, leukocyte esterase, WBCs and bacteria present patient is noted to be incontinent unknown baseline at this time Head CT negative for any acute findings, 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 once Dilantin level down to normal Obtain Dilantin level-elevated Adjust medications as indicate Seizure Precautions (4) Anxiety and depression: Code(s): F41.9 - Anxiety disorder, unspecified; F32.9 - Major depressive disorder, single episode, unspecified Status: Acute Assessment and Plan: Continue home medications Adjust therapy as indicated (5) Alcoholic cirrhosis of liver: Qualifiers: Ascites presence: unspecified Qualified Code(s): K70.30 - Alcoholic cirrhosis of liver without ascites Code(s): K70.30 - Alcoholic cirrhosis of liver without ascites Status: Acute Assessment and Plan: History Last Abd CT showed a lesion Continue outpatient follow up Ammonia level is stable Could be contributing to the confusion and hallucinations Subjective Date/time seen: 01/31/23 09:17 Review of Systems Review of Systems: All systems reviewed & are unremarkable except as noted in HPI and below Exam Narrative: patient is alert and oriented to self and here only. When asked where she was she keeps repeating I am right here. Patient having visual hallucinations of 2 dogs playing on the helipad outside. Const: General: comfortable, no acute distress and well nourished Nutritional Appearance: well nourished Orientation/consciousness: patient oriented x3 Limitations: no limitations HENMT: Head: normal to inspection Face/Nose/Sinus: Normal nares present Mouth: Yes moist mucous membranes Eyes: General: appearance normal, both eyes and all related structures Conjunctivae: conjunctivae normal Pupils: Equal, round and reactive pupils present Neck: Neck: normal visual inspection, supple and no JVD Chest: Chest palpation & inspection: normal inspection of the chest Resp: Effort & Inspection: normal respiratory effort Auscultation: clear to auscultation bilaterally Other: Patient appears in no acute respiratory distress. Able to speak in complete sentences without difficulty. No use of accessory muscles appreciated. Lung sounds are clear and equal bilaterally. Cardio: Rate: regular rate Rhythm: regular rhythm Other: normal S1-S2 without any rub, murmur, gallop noted GI: Other: abdomen soft, nondistended, nontender to palpation with bowel sounds present x4 quadrants. : General: Yes bladder normal to palpation and Yes no CVA tenderness Bimanual exam- vagina & uterus: bladder normal to palpation Urinary Catheter: Urinary Catheter: patent and draining Back/Spine/Pelvis: Back: no CVA tenderness Skin: General skin exam: normal color and no rashes or lesions noted Rashes: no rashes Wounds: no wounds Neuro: General: patient oriented x3 and moves all extremit
[2023-01-31] MEDS: BUDESONIDE/FORMOTEROL (*SP) 160-4.5 MCG 6 GM INH 2 PUFF INHALATION (09:29)
[2023-01-31] MEDS: LACTULOSE 20 GM/30 ML UDC 13.3333 GM PO ×3 (09:30→17:28)
[2023-01-31] MEDS: ENOXAPARIN 40 MG/0.4 ML SYRINGE SUB-Q (09:31)
[2023-01-31] MEDS: CYANOCOBALAMIN 1,000 MCG TABLET 1000 MCG PO (09:32)
[2023-01-31] MEDS: FOLIC ACID 1 MG TABLET PO (09:32)
[2023-01-31] MEDS: SACCHAROMYCES BOULARDII 250 MG CAPSULE PO ×2 (09:32→17:28)
[2023-01-31 09:33] VITALS: PULSE 73
[2023-01-31] MEDS: FAMOTIDINE 20 MG TABLET 40 MG PO (09:33)
[2023-01-31] MEDS: THIAMINE HCL 100 MG TABLET PO ×2 (09:33→17:28)
[2023-01-31] MEDS: METOPROLOL SUCCINATE EXT REL 25 MG TABCR PO (09:33)
[2023-01-31] MEDS: VENLAFAXINE HCL 75 MG TABLET PO ×3 (09:33→17:28)
[2023-01-31] MEDS: oxyBUTYnin CHLORIDE 5 MG TABLET PO ×3 (09:34→17:28)
[2023-01-31] MEDS: THERAPEUTIC MULTIVITAMINS/MINERALS TAB (*BKC) 1 TABLET PO (09:34)
[2023-01-31] MEDS: lisinopriL 10 MG TABLET PO (09:34)
[2023-01-31] MEDS: ACIDOPHILUS/BULGARICUS CHEWABLE TABLET 1 TABLET PO ×4 (09:35→20:26)
--- NOTE | 2023-01-31 14:00 | PC.NURSE ---
Patient changed from observation to inpatient at 1358.
[2023-01-31 16:00] VITALS: BP 106/73; PULSE 76; RESP 16; TEMP 35.9; O2SAT 96
--- NOTE | 2023-01-31 16:09 | PC.NURSE ---
0830 mixer whipped topping called about phenytoin levels to be drawn today and if she wanted it to be a send out with results in a few days or do stat and have it sent to main [facility]. mixer whipped topping wants to wait for mixer whipped topping on Wednesday to make call.
[2023-01-31 20:00] VITALS: PULSE 76; RESP 16; O2SAT 96
[2023-01-31] MEDS: clonazePAM (*CRX) 0.5 MG TABLET PO (20:26)
[2023-01-31] MEDS: HYDROcodone/acetaminophen (*CRX) 5-325 MG TABLET 1 TAB PO (20:27)
[2023-01-31] MEDS: traZODone HCL 50 MG TABLET PO (20:28)
--- NOTE | 2023-01-31 20:30 | PC.NURSE ---
Pt has removed IV to right forearm, had been wraped in coban, IV noted lying in bed, no bleeding to site noted, auditory and visual hallucinations continue (hearing and seeing a cat, sees a gun), pt is restless/agitated PRN Clonazepam given, will attempt to replace IV once pt is calmer.
[2023-02-01] VITALS: BP 95/63; PULSE 87; RESP 17; TEMP 36.2; O2SAT 95
[2023-02-01 05:38] LABS: Basophils Absolute Auto 0.09 K/mm3 (0.00-0.10); Basophils Percent Auto 1.1 % (0.0-1.0); Eosinophils Absolute Auto 0.27 K/mm3 (0.02-0.50); Eosinophils Percent Auto 3.2 % (1.0-6.0); Hematocrit 33.2 % (35.0-42.0); Hemoglobin 11.3 g/dL (11.7-13.8); Immature Granulocyte Absolute 0.07 K/mm3 (0.00-0.00); Immature Granulocyte Percent A 0.8 % (0.0-0.0); Lymphocytes Absolute Auto 0.98 K/mm3 (1.10-4.50); Lymphocytes Percent Auto 11.8 % (18.0-42.0); Mean Corpuscular Hemoglobin 31.9 pg (27.0-31.0); Mean Corpuscular Volume 93.8 fL (78.0-102.0); Mean Platelet Volume 8.2 fl (9.2-11.8); Monocytes Absolute Auto 0.82 K/mm3 (0.10-0.90); Monocytes Percent Auto 9.9 % (2.0-11.0); Neutrophils Absolute Auto 6.1 K/mm3 (1.7-7.2); Neutrophils Percent Auto 73.2 % (50.0-70.0); Platelet Count Result 227 K/mm3 (150-420); Red Blood Count 3.54 M/mm3 (4.20-5.40); Red Cell Distribution Width 14.2 % (11.6-14.4); White Blood Count 8.3 K/mm3 (4.8-10.8)
[2023-02-01 05:57] LABS: Alanine Aminotransferase 70 U/L (14-59); Albumin Level 2.1 g/dL (3.4-5.0); Alkaline Phosphatase 265 U/L (46-116); Anion Gap 4 mmol/L (8-16); Aspartate Amino Transferase 81 U/L (15-37); Bilirubin,Total 0.4 mg/dL (0.00-1.00); Blood Urea Nitrogen 5 mg/dL (7-18); Calcium 7.6 mg/dL (8.5-10.1); Carbon Dioxide 30 mmol/L (21-32); Chloride 101 mmol/L (98-108); Estimated CRCL calculation 55 ml/min; Estimated Glomerular Filt Rate > 60; Glucose 79 mg/dL (70-99); Osmolality Calculated 276 mOsm/kg (285-295); Potassium 3.9 mmol/L (3.5-5.1); Sodium 135 mmol/L (136-145); Total Protein 6.2 g/dL (6.4-8.2)
[2023-02-01 08:00] VITALS: BP 119/71; PULSE 76; RESP 14; TEMP 36.2; O2SAT 97
[2023-02-01] MEDS: LACTULOSE 20 GM/30 ML UDC 13.3333 GM PO ×3 (09:28→18:00)
[2023-02-01] MEDS: SACCHAROMYCES BOULARDII 250 MG CAPSULE PO ×2 (09:30→18:00)
[2023-02-01] MEDS: THERAPEUTIC MULTIVITAMINS/MINERALS TAB (*BKC) 1 TABLET PO (09:30)
[2023-02-01] MEDS: AMOXICILLIN 500 MG CAPSULE 1000 MG PO ×2 (09:30→19:00)
[2023-02-01] MEDS: FAMOTIDINE 20 MG TABLET 40 MG PO (09:30)
[2023-02-01] MEDS: CYANOCOBALAMIN 1,000 MCG TABLET 1000 MCG PO (09:30)
[2023-02-01] MEDS: BUDESONIDE/FORMOTEROL (*SP) 160-4.5 MCG 6 GM INH 2 PUFF INHALATION ×2 (09:30→20:40)
[2023-02-01 09:31] VITALS: PULSE 76
[2023-02-01] MEDS: lisinopriL 10 MG TABLET PO (09:31)
[2023-02-01] MEDS: oxyBUTYnin CHLORIDE 5 MG TABLET PO ×3 (09:31→18:00)
[2023-02-01] MEDS: METOPROLOL SUCCINATE EXT REL 25 MG TABCR PO (09:31)
[2023-02-01] MEDS: FOLIC ACID 1 MG TABLET PO (09:31)
[2023-02-01] MEDS: VENLAFAXINE HCL 75 MG TABLET PO ×3 (09:31→18:00)
[2023-02-01] MEDS: THIAMINE HCL 100 MG TABLET PO ×2 (09:32→18:00)
[2023-02-01] MEDS: ENOXAPARIN 40 MG/0.4 ML SYRINGE SUB-Q (09:32)
[2023-02-01] MEDS: ACIDOPHILUS/BULGARICUS CHEWABLE TABLET 1 TABLET PO ×4 (09:34→20:49)
--- NOTE | 2023-02-01 15:28 | P.PNIM_ITS ---
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 Having difficulty getting a repeat Dilantin level. Will order again for the morning. * blood cultures-no growth and urine culture-Enterococcus * discontinue the Rocephin and start amoxil per the sensitivity report. * Liver enzymes all trending upward * continue trend mental status (2) Acute UTI: Code(s): N39.0 - Urinary tract infection, site not specified Status: Acute Assessment and Plan: * UA does appear infectious with positive nitrates, leukocyte esterase, WBCs and bacteria present * patient is noted to be incontinent * urine cultures-enterococcus * Change antibiotic to Amoxil for better sensitivity * WBCs trending down * continue trend labs * adjust and deescalate as indicated (3) Seizure: Code(s): R56.9 - Unspecified convulsions Status: Acute Assessment and Plan: * head CT stable * will plan to continue home medications, Phenytoin 100 mg q.i.d. once Dilantin level down to normal * Obtain Dilantin level-elevated at 39 initially. Having difficulty obtaining a repeat level. Will again order it for the morning. * Adjust medications as indicate * Seizure Precautions (4) Anxiety and depression: Code(s): F41.9 - Anxiety disorder, unspecified; F32.9 - Major depressive disorder, single episode, unspecified Status: Acute Assessment and Plan: * Continue home medications * Adjust therapy as indicated (5) Alcoholic cirrhosis of liver: Qualifiers: Ascites presence: unspecified Qualified Code(s): K70.30 - Alcoholic cirrhosis of liver without ascites Code(s): K70.30 - Alcoholic cirrhosis of liver without ascites Status: Acute Assessment and Plan: * History * Last Abd CT showed a lesion * Continue outpatient follow up * Liver enzymes trending upward * Could be contributing to the confusion and hallucinations Subjective Date/time seen: 02/01/23 1015 Review of Systems Review of Systems: All systems reviewed & are unremarkable except as noted in HPI and below Constitutional: Constitutional: Reports no additional constitutional complaints Gastrointestinal: Gastrointestinal: Reports abdominal pain (ache to RUQ) Exam Narrative: patient is alert and oriented to self and here only. When asked where she was she keeps repeating I am right here. Patient having visual hallucinations of 2 dogs playing on the helipad outside. Const: General: comfortable and no acute distress HENMT: Face/Nose/Sinus: Normal nares present Mouth: Yes moist mucous membranes Eyes: General: appearance normal, both eyes and all related structures Neck: Neck: supple and no JVD Resp: Effort & Inspection: normal respiratory effort Other: Patient appears in no acute respiratory
--- NOTE | 2023-02-01 15:28 | PM.IMPN ---
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 Having difficulty getting a repeat Dilantin level. Will order again for the morning. blood cultures-no growth and urine culture-Enterococcus discontinue the Rocephin and start amoxil per the sensitivity report. Liver enzymes all trending upward continue trend mental status (2) Acute UTI: Code(s): N39.0 - Urinary tract infection, site not specified Status: Acute Assessment and Plan: UA does appear infectious with positive nitrates, leukocyte esterase, WBCs and bacteria present patient is noted to be incontinent urine cultures-enterococcus Change antibiotic to Amoxil for better sensitivity WBCs trending down continue trend labs adjust and deescalate as indicated (3) Seizure: Code(s): R56.9 - Unspecified convulsions Status: Acute Assessment and Plan: head CT stable will plan to continue home medications, Phenytoin 100 mg q.i.d. once Dilantin level down to normal Obtain Dilantin level-elevated at 39 initially. Having difficulty obtaining a repeat level. Will again order it for the morning. Adjust medications as indicate Seizure Precautions (4) Anxiety and depression: Code(s): F41.9 - Anxiety disorder, unspecified; F32.9 - Major depressive disorder, single episode, unspecified Status: Acute Assessment and Plan: Continue home medications Adjust therapy as indicated (5) Alcoholic cirrhosis of liver: Qualifiers: Ascites presence: unspecified Qualified Code(s): K70.30 - Alcoholic cirrhosis of liver without ascites Code(s): K70.30 - Alcoholic cirrhosis of liver without ascites Status: Acute Assessment and Plan: History Last Abd CT showed a lesion Continue outpatient follow up Liver enzymes trending upward Could be contributing to the confusion and hallucinations Subjective Date/time seen: 02/01/23 1015 Review of Systems Review of Systems: All systems reviewed & are unremarkable except as noted in HPI and below Constitutional: Constitutional: Reports no additional constitutional complaints Gastrointestinal: Gastrointestinal: Reports abdominal pain (ache to RUQ) Exam Narrative: patient is alert and oriented to self and here only. When asked where she was she keeps repeating I am right here. Patient having visual hallucinations of 2 dogs playing on the helipad outside. Const: General: comfortable and no acute distress HENMT: Face/Nose/Sinus: Normal nares present Mouth: Yes moist mucous membranes Eyes: General: appearance normal, both eyes and all related structures Neck: Neck: supple and no JVD Resp: Effort & Inspection: normal respiratory effort Other: Patient appears in no acute respiratory distress. Able to speak in complete sentences without difficulty. No use of accessory muscles appreciated. Lung sounds are clear and equal bilaterally. Cardio: Rate: regular rate Rhythm: regular rhythm Other: normal S1-S2 without any rub, murmur, gallop noted GI: Other: abdomen soft, nondistended, nontender to palpation with bowel sounds present x4 quadrants. Skin: General skin exam: normal color and no rashes or lesions noted Neuro: Speech: normal speech Motor exam (neuro): Normal motor muscle tone present throughout Sensory Exam: normal sensation Other: Patient is alert and oriented to person and year only. Unsure of location, why s
[2023-02-01 16:40] VITALS: BP 106/69; PULSE 70; RESP 16; TEMP 37.1; O2SAT 95
[2023-02-01 19:41] VITALS: PULSE 70; RESP 16; O2SAT 95
[2023-02-01] MEDS: clonazePAM (*CRX) 0.5 MG TABLET PO (20:41)
[2023-02-01] MEDS: MICONAZOLE NITRATE 2% CREAM 30 GM TUBE 1 APPLIC TOPICAL (20:41)
[2023-02-01] MEDS: HYDROcodone/acetaminophen (*CRX) 5-325 MG TABLET 1 TAB PO (20:41)
[2023-02-02] VITALS: BP 99/60; PULSE 79; RESP 16; TEMP 36.6; O2SAT 95
[2023-02-02 05:40] LABS: Basophils Absolute Auto 0.07 K/mm3 (0.00-0.10); Basophils Percent Auto 0.9 % (0.0-1.0); Eosinophils Absolute Auto 0.24 K/mm3 (0.02-0.50); Hematocrit 32.9 % (35.0-42.0); Hemoglobin 10.8 g/dL (11.7-13.8); Immature Granulocyte Absolute 0.07 K/mm3 (0.00-0.00); Immature Granulocyte Percent A 0.9 % (0.0-0.0); Lymphocytes Absolute Auto 1.05 K/mm3 (1.10-4.50); Mean Corpuscular HGB Conc 32.8 g/dL (32.0-36.0); Mean Corpuscular Hemoglobin 30.9 pg (27.0-31.0); Mean Platelet Volume 8.5 fl (9.2-11.8); Monocytes Absolute Auto 0.83 K/mm3 (0.10-0.90); Monocytes Percent Auto 10.3 % (2.0-11.0); Neutrophils Absolute Auto 5.8 K/mm3 (1.7-7.2); Neutrophils Percent Auto 71.9 % (50.0-70.0); Platelet Count Result 220 K/mm3 (150-420); Red Cell Distribution Width 14.1 % (11.6-14.4); White Blood Count 8.1 K/mm3 (4.8-10.8)
[2023-02-02 05:58] LABS: Alanine Aminotransferase 65 U/L (14-59); Alkaline Phosphatase 263 U/L (46-116); Anion Gap 4 mmol/L (8-16); Aspartate Amino Transferase 78 U/L (15-37); Bilirubin,Total 0.4 mg/dL (0.00-1.00); Blood Urea Nitrogen 5 mg/dL (7-18); Calcium 7.8 mg/dL (8.5-10.1); Carbon Dioxide 29 mmol/L (21-32); Chloride 102 mmol/L (98-108); Estimated CRCL calculation 57 ml/min; Estimated Glomerular Filt Rate > 60; Glucose 78 mg/dL (70-99); Osmolality Calculated 276 mOsm/kg (285-295); Potassium 3.9 mmol/L (3.5-5.1); Sodium 135 mmol/L (136-145); Total Protein 5.9 g/dL (6.4-8.2)
[2023-02-02 06:11] LABS: Phenytoin Dilantin 26 ug/mL (10-20)
[2023-02-02 08:00] VITALS: BP 125/70; PULSE 77; RESP 14; TEMP 36.2; O2SAT 95
[2023-02-02] MEDS: ENOXAPARIN 40 MG/0.4 ML SYRINGE SUB-Q (09:28)
[2023-02-02] MEDS: AMOXICILLIN 500 MG CAPSULE 1000 MG PO (09:29)
[2023-02-02] MEDS: SACCHAROMYCES BOULARDII 250 MG CAPSULE PO (09:30)
[2023-02-02] MEDS: LACTULOSE 20 GM/30 ML UDC 13.3333 GM PO (09:30)
[2023-02-02] MEDS: ACIDOPHILUS/BULGARICUS CHEWABLE TABLET 1 TABLET PO (09:30)
[2023-02-02 09:31] VITALS: PULSE 95
[2023-02-02] MEDS: oxyBUTYnin CHLORIDE 5 MG TABLET PO (09:31)
[2023-02-02] MEDS: VENLAFAXINE HCL 75 MG TABLET PO (09:31)
[2023-02-02] MEDS: METOPROLOL SUCCINATE EXT REL 25 MG TABCR PO (09:31)
[2023-02-02] MEDS: CYANOCOBALAMIN 1,000 MCG TABLET 1000 MCG PO (09:31)
[2023-02-02] MEDS: FOLIC ACID 1 MG TABLET PO (09:31)
[2023-02-02] MEDS: FAMOTIDINE 20 MG TABLET 40 MG PO (09:31)
[2023-02-02] MEDS: THERAPEUTIC MULTIVITAMINS/MINERALS TAB (*BKC) 1 TABLET PO (09:32)
[2023-02-02] MEDS: BUDESONIDE/FORMOTEROL (*SP) 160-4.5 MCG 6 GM INH 2 PUFF INHALATION (09:32)
[2023-02-02] MEDS: lisinopriL 10 MG TABLET PO (09:32)
[2023-02-02] MEDS: THIAMINE HCL 100 MG TABLET PO (09:32)
--- NOTE | 2023-02-02 09:44 | P.DS_ITS ---
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 Having difficulty getting a repeat Dilantin level. Will order again for the morning. * blood cultures-no growth and urine culture-Enterococcus * discontinue the Rocephin and start amoxil per the sensitivity report. * Liver enzymes all trending upward * continue trend mental status - 02/02/23: At the time of discharge, this patient's mental status changes are most likely thought to be related to her elevated Dilantin level which has now decreased to 26. Although still elevated, pt is more alert and will engage in conversation. Her level of confusion waxes and wanes. Her UTI is also a possible contributor to her encephalopathy and it is being treated appropriately with Amoxcillin according to Urine Cx. Her blood cultures were normal and there are no clinical signs of Bacteremia. Her LFT's are stable today with no further increase, and her Bilirubin is normal. 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 (2) Acute UTI: Code(s): N39.0 - Urinary tract infection, site not specified Status: Acute Assessment and Plan: * UA does appear infectious with positive nitrates, leukocyte esterase, WBCs and bacteria present * patient is noted to be incontinent * urine cultures-enterococcus * Change antibiotic to Amoxil for better sensitivity * WBCs trending down * continue trend labs * adjust and deescalate as indicated - 02/02/23: At time of discharge, continuation of pt's UTI is being performed with Amoxicillin to end on 02/07/23, treatment per Culture report of Enterococcus. (3) Seizure: Code(s): R56.9 - Unspecified convulsions Status: Chronic Assessment and Plan: * head CT stable * will plan to continue home medications, Phenytoin 100 mg q.i.d. once Dilantin level down to normal * Obtain Dilantin level-elevated at 39 initially. Having difficulty obtaining a repeat level. Will again order it for the morning. * Adjust medications as indicate * Seizure Precautions - 02/02/23: At time of discharge, Dilantin levels are lower than they were on presentation at 26. Pt, has improved mentation and her Dilantin is being held as it was too high. She is stable for discharge today, but will need a Dilantin level checked tomorrow. Further orders for restart will come from Dr. Ackerman. There has been no seizure activity while here. (4) Anxiety and depression: Code(s): F41.9 - Anxiety disorder, unspecified; F32.9 - Major depressive disorder, single episode, unspecified Status: Chronic Assessment and Plan: * Continue home medications * Adjust therapy as indicated (5) Alcoholic cirrhosis of liver: Qualifiers: Ascites presence: unspecified Qualified Code(s): K70.30 - Alcoholic cirrhosis of liver without ascites Code(s): K70.30 - Alcoholic cirrhosis of liver without ascites Status: Chronic Assessment and Plan: * His
--- NOTE | 2023-02-02 09:44 | PM.DS ---
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 Having difficulty getting a repeat Dilantin level. Will order again for the morning. blood cultures-no growth and urine culture-Enterococcus discontinue the Rocephin and start amoxil per the sensitivity report. Liver enzymes all trending upward continue trend mental status - 02/02/23: At the time of discharge, this patient's mental status changes are most likely thought to be related to her elevated Dilantin level which has now decreased to 26. Although still elevated, pt is more alert and will engage in conversation. Her level of confusion waxes and wanes. Her UTI is also a possible contributor to her encephalopathy and it is being treated appropriately with Amoxcillin according to Urine Cx. Her blood cultures were normal and there are no clinical signs of Bacteremia. Her LFT's are stable today with no further increase, and her Bilirubin is normal. 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 (2) Acute UTI: Code(s): N39.0 - Urinary tract infection, site not specified Status: Acute Assessment and Plan: UA does appear infectious with positive nitrates, leukocyte esterase, WBCs and bacteria present patient is noted to be incontinent urine cultures-enterococcus Change antibiotic to Amoxil for better sensitivity WBCs trending down continue trend labs adjust and deescalate as indicated - 02/02/23: At time of discharge, continuation of pt's UTI is being performed with Amoxicillin to end on 02/07/23, treatment per Culture report of Enterococcus. (3) Seizure: Code(s): R56.9 - Unspecified convulsions Status: Chronic Assessment and Plan: head CT stable will plan to continue home medications, Phenytoin 100 mg q.i.d. once Dilantin level down to normal Obtain Dilantin level-elevated at 39 initially. Having difficulty obtaining a repeat level. Will again order it for the morning. Adjust medications as indicate Seizure Precautions - 02/02/23: At time of discharge, Dilantin levels are lower than they were on presentation at 26. Pt, has improved mentation and her Dilantin is being held as it was too high. She is stable for discharge today, but will need a Dilantin level checked tomorrow. Further orders for restart will come from Dr. Ackerman. There has been no seizure activity while here. (4) Anxiety and depression: Code(s): F41.9 - Anxiety disorder, unspecified; F32.9 - Major depressive disorder, single episode, unspecified Status: Chronic Assessment and Plan: Continue home medications Adjust therapy as indicated (5) Alcoholic cirrhosis of liver: Qualifiers: Ascites presence: unspecified Qualified Code(s): K70.30 - Alcoholic cirrhosis of liver without ascites Code(s): K70.30 - Alcoholic cirrhosis of liver without ascites Status: Chronic Assessment and Plan: History Last Abd CT showed a lesion Continue outpatient follow up Liver enzymes stable, no ammonia level checked. Could be contributing to the confusion and hallucinations (6) Subtherapeutic serum dilantin level: Code(s): R78.89 - Finding of other specified substances, not normally found in blood Status: Acute DS: Summary Hospital Course Reason for hospitalization: Encephalopathy Hospital Course: This 72 year old female patient with pm
--- NOTE | 2023-02-02 11:47 | PC.NURSE ---
Patient from [facility] contacted to edith patient back to [facility].
--- NOTE | 2023-02-08 15:09 | PC.NURSE ---
[facility] nurse states they received and understood discharge instructions.
== END 2023-02-02 12:20 | DRG 463 ==
LOC: CHSED 15:06 → CHS2ND 15:37
PROVIDERS: Nurse Practitioner; Nurse Practitioner Family; Admitting Provider Internal Medicine; Emergency Provider Emergency Medicine; PCP Family Medicine; Visit Provider Internal Medicine
DX: N39.0 Urinary tract infection, site not specified (principal); G93.41 Metabolic encephalopathy; I48.20 Chronic atrial fibrillation, unspecified; R56.9 Unspecified convulsions; I10 Essential (primary) hypertension; J44.9 Chronic obstructive pulmonary disease, unspecified; K70.30 Alcoholic cirrhosis of liver without ascites; B95.2 Enterococcus as the cause of diseases classified elsewhere; F41.9 Anxiety disorder, unspecified; F32.A Depression, unspecified; Z85.038 Personal history of other malignant neoplasm of large intestine; Z87.891 Personal history of nicotine dependence; Z90.49 Acquired absence of other specified parts of digestive tract
CPT/HCPCS: 36415; 70450; 80053; 80185; 80307; 81001; 82140; 82550; 83605; 83735; 83880; 84132; 85025; 85610; 85730; 86140; 87040; 87077; 87086; 87088; 87186; 93005; 96361; 96365; 96366; 96367; 96375; 99285; A9270; G0378; G0379; J0696; J1650; J2405; J3475; J3480; J7030; J7050

== ENCOUNTER 2023-02-04 06:59 | Outpatient (CLI) | payer OTHER, SELFPAY ==
--- NOTE | ~2023-02-04 | MR_ITS ---
EXAMINATION: MR pelvis wo/w con INDICATION: Right hepatic lobe mass TECHNIQUE: Coronal SSFSE ARC, WATER:coronal LAVA-FLEX, Coronal 2D FIESTA FatSat, Axial SSFSE BH ARC, Axial 3D DualEcho BH, Axial SSFSE-IR, Axial DWI b=500, Axial 2D FIESTA FatSat, pre and dynamic postco ntrast Axial LAVA ARC, postcontrast Coronal In and Opposed phase LAVA FLEX COMPARISON: CT, 01/17/2023 CONTRAST: Multihance, 12 cc FINDINGS: There is nodularity of the liver surface. There are no pathologically enlarged pelvic lymph nodes. No abnormal enhancement is present in the pelvis after contrast administration. There are no dilated loops of bowel. A dislocated left hip arthroplasty is again noted. There is cirrhosis of the partially imaged liver. There is severe lumbar spondylosis. IMPRESSION: 1. No acute or suspicious findings of the pelvis. Reviewed, dictated and finalized at location L.
== END 2023-02-04 07:00 | disposition home or self-care (01) ==
LOC: CHSIMG 07:00
PROVIDERS: PCP Family Medicine; Visit Provider Family Medicine
DX: R16.0 Hepatomegaly, not elsewhere classified (principal)
CPT/HCPCS: 72197; A9577

== ENCOUNTER 2023-10-26 12:23 | Observation (INO) | payer OTHER, SELFPAY ==
--- NOTE | ~2023-10-26 | XR_ITS ---
EXAMINATION: XR hip LT min 3V w AP pelvis DATE: 10/26/2023 13:04 INDICATION: Left hip pain. TECHNIQUE: An anteroposterior view of the pelvis and 3 views of left hip were obtained. COMPARISON: Pelvis and left hip radiograph 10/30/2021 FINDINGS: There is a total left hip arthroplasty. The femoral component is laterally and proximally d islocated relative to the acetabular cup. No fracture. There is severe right hip osteoarthritis. Ther e is lumbar levocurvature and severe spondylosis. IMPRESSION: 1. Dislocated total left hip arthroplasty. 2. Severe right hip osteoarthritis. Reviewed, dictated and finalized at location E. ICIDE CONTROL INSPECTOR
--- NOTE | ~2023-10-26 | CT_ITS ---
EXAMINATION: CT hip LT wo con DATE: 10/26/2023 14:09 INDICATION: Left hip pain with known dislocation. TECHNIQUE: High resolution computed tomography (CT) of the left hip was performed without intravenous contrast. Additional sagittal and coronal reconstructions were performed. Automated exposure control and iterative reconstruction technique were employed. The dose-length product was 606.41 mGy-cm. COMPARISON: Left hip radiographs dated 10/26/[address] dated 01/17/2023 FINDINGS: No significant change in a chronically dislocated revision left total hip arthroplasty with posterior , lateral and cephalad displacement with the head of the femoral component positioned along the super ficial margin of the severely atrophic left gluteus radha muscle. The acetabular component and plai n screw fixation along the lateral margin of the supra-acetabular pelvis appear unchanged. No lucency surrounding the screws to suggest loosening or infection. No fracture. Severe lower lumbar spondylos is. No significant change in the lateral fatty atrophy of the musculature of the left hemipelvis and visualized proximal left thigh. Bladder, uterus and bilateral adnexa are unremarkable although evalua tion is somewhat limited by the metallic streak artifact from the arthroplasty components. There are few diverticula along the visualized descending and sigmoid colon without adjacent comparison to sugg est diverticular colitis. Anastomotic suture line along the segment of colon in the right lower quadr ant. Unchanged mild likely reactive left inguinal lymphadenopathy. IMPRESSION: 1. 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 Reviewed, dictated and finalized at location A. STANCE SPECIALIST IMPRESSION: 1. Chronic dislocated revision left total hip arthroplasty with significant asy mmetric fatty atrophy of the musculature of the left hemipelvis and visualized proximal left thigh.
--- NOTE | ~2023-10-26 | US_ITS ---
EXAMINATION:US venous doppler LE BI INDICATION:Left hip and leg pain. Chronic hip fracture. TECHNIQUE: Multiple grayscale, color flow and Doppler images of the right and left lower extremity de ep venous systems were obtained and reviewed. COMPARISON:No prior studies for comparison. FINDINGS: The common femoral, superficial femoral and popliteal veins demonstrate normal respiratory variation, augmentation and compressibility. Color flow is also seen within the posterior tibial, pe roneal, greater saphenous and profunda veins. Suboptimal evaluation of the left profunda femoral and femoral veins. There is mild left inguinal lymphadenopathy. IMPRESSION: 1: No lower extremity deep venous thrombosis. Limited examination of the left leg. Reviewed, dictated and finalized at location B. WEAR STITCHER
--- NOTE | 2023-10-26 12:26 | ED.LOWEXIN ---
HPI - Extremity Injury (Lower) General Chief Complaint: Extremity Problem,Nontraumatic Stated Complaint: L hip pain Time Seen by Provider: 10/26/23 12:25 Source: patient Mode of arrival: ambulatory Limitations: no limitations Related Data Home Medications Medication Instructions Recorded Confirmed [id number] 8 mg-folic 400 1 tablet PO DAILY 01/03/20 10/26/23 mcg-K 50 mcg-lutein 300 mcg tablet (Multivitamin Women 50 Plus) phenytoin sodium extended 100 mg 100 mg PO TID 01/03/20 10/26/23 capsule venlafaxine 75 mg tablet 75 mg PO TID 01/03/20 10/26/23 Saccharomyces boulardii 250 mg 250 mg PO BID 10/14/22 10/26/23 capsule (Florastor) cyanocobalamin (vitamin B-12) 1,000 mcg PO DAILY 10/14/22 10/26/23 1,000 mcg capsule famotidine 10 mg tablet 40 mg PO DAILY 10/14/22 10/26/23 folic acid 1 mg tablet 1 mg PO DAILY 10/14/22 10/26/23 albuterol sulfate 90 mcg/actuation 2 inh inhalation Q6H PRN Shortness 01/07/23 10/26/23 aerosol inhaler Of Breath metoprolol succinate 25 mg 25 mg PO DAILY 01/07/23 10/26/23 tablet,extended release 24 hr thiamine HCl (vitamin B1) 100 mg 100 mg PO BID 01/07/23 10/26/23 tablet lactulose 10 gram/15 mL oral 20 ml PO TID 01/13/23 10/26/23 solution clonazepam 0.5 mg tablet 0.5 mg PO BID 10/26/23 10/26/23 doxycycline hyclate 100 mg tablet 100 mg PO BID 10/26/23 10/26/23 Allergies Allergy/AdvReac Type Severity Reaction Status Date / Time NSAIDS (Non-Steroidal Allergy Unknown Verified 10/26/23 12:35 Anti-Inflamma PMFSH Past Medical History Medical History Acute confusion Acute hyponatremia Acute hypoxemic respiratory failure Alcoholic cirrhosis of liver Anxiety Atrial fibrillation with RVR Bacteremia Colon cancer Underwent partial colectomy, no radiation or chemotherapy Community acquired pneumonia COPD (chronic obstructive pulmonary disease) COPD exacerbation Depression DVT prophylaxis Encounter for monitoring sotalol therapy Hip dislocation, left HO-CHUNK (hard of hearing) HTN (hypertension) Hyponatremia Hypotension Seizure Sepsis Septic arthritis Septic hip History of left hip arthroplasty that became septic and requiring a 2nd surgery. Septicemia Thrush Tobacco abuse Smokes 1.5-2 packs per day Urinary incontinence Stress incontinence Weakness Surgical History Surgical History History of left hip replacement x2, after initial became infected. History of partial colectomy Removal of colon cancer Family History Family History Mother Diabetes mellitus Hypertension Family history of alcoholism Cerebrovascular accident Family history of arthritis Family history of malignant neoplasm Family history of seizure disorder Social History Social History Smoking packs per day: 1 Smoking cigarettes per day: 20.0 Years smoked: 40 Smoking pack-years: 40.00 Smoking status: Former smoker Tobacco type: cigarettes Second hand tobacco smoke exposure: Yes Alcohol intake: former Alcohol use details: Former alcohol abuse, now with liver cirrhosis Substance use: current Substance use type: marijuana Other substance usage details: former heavy drinker-no drinks in 4-5 yrs Last use: heavy marijuana use, last use was at least a week ago Living arrangements: with family Additional living arrangements comments: Lives with her niece Eufemia for the last 7 years. She normally walks with out any assist devices, until the last few weeks she has been using a walker. Occupation/Education: retired Gender identity (if verbalized by the patient): Female Spiritual care concerns: No Agree to blood products: Yes Exam Const: General: healthy appearing Nutritional Appearance: well nourished Orientation/consciousness:
[2023-10-26 12:32] VITALS: BP 94/57; PULSE 78; RESP 18; TEMP 37; O2SAT 96
[2023-10-26 12:40] VITALS: BP 94/57; PULSE 78; RESP 18; TEMP 37; O2SAT 96
[2023-10-26 12:54] LABS: Basophils Absolute Auto 0.06 K/mm3 (0.00-0.10); Basophils Percent Auto 0.7 % (0.0-1.0); Eosinophils Absolute Auto 0.12 K/mm3 (0.02-0.50); Eosinophils Percent Auto 1.4 % (1.0-6.0); Hematocrit 32.3 % (35.0-42.0); Hemoglobin 10.6 g/dL (11.7-13.8); Immature Granulocyte Percent A 1.2 % (0.0-0.0); Lymphocytes Absolute Auto 1.14 K/mm3 (1.10-4.50); Lymphocytes Percent Auto 13.8 % (18.0-42.0); Mean Corpuscular HGB Conc 32.8 g/dL (32.0-36.0); Mean Corpuscular Volume 100.6 fL (78.0-102.0); Mean Platelet Volume 8.4 fl (9.2-11.8); Monocytes Absolute Auto 0.99 K/mm3 (0.10-0.90); Neutrophils Absolute Auto 5.9 K/mm3 (1.7-7.2); Neutrophils Percent Auto 70.9 % (50.0-70.0); Platelet Count Result 427 K/mm3 (150-420); Red Blood Count 3.21 M/mm3 (4.20-5.40); Red Cell Distribution Width 12.3 % (11.6-14.4); White Blood Count 8.3 K/mm3 (4.8-10.8)
[2023-10-26 13:10] LABS: Alanine Aminotransferase 19 U/L (14-59); Albumin Level 2.6 g/dL (3.4-5.0); Alkaline Phosphatase 134 U/L (46-116); Anion Gap 6 mmol/L (8-16); Aspartate Amino Transferase 16 U/L (15-37); Bilirubin,Total 0.3 mg/dL (0.00-1.00); Blood Urea Nitrogen 14 mg/dL (7-18); Calcium 9.3 mg/dL (8.5-10.1); Carbon Dioxide 29 mmol/L (21-32); Chloride 96 mmol/L (98-108); Estimated Glomerular Filt Rate > 60; Glucose 94 mg/dL (70-99); Osmolality Calculated 272 mOsm/kg (285-295); Potassium 4.3 mmol/L (3.5-5.1); Sodium 131 mmol/L (136-145); Total Protein 6.8 g/dL (6.4-8.2)
--- NOTE | 2023-10-26 13:15 | PC.NURSE ---
pt placed into gown, shortening to left leg is noted, rotation inward also noted. pt has large scar noted to left lateral upper leg. pt reports her hip was replaced approx 20 yrs ago. +pedal pulse noted. pt is able to move left foot. pt is in position of comfort. awaiting results at this time.
[2023-10-26 13:24] LABS: INR 1.1; Partial Thromboplastin Time 33.1 SEC (23.90-30.70); Prothrombin Time 12.1 Seconds (9.50-12.10)
[2023-10-26 13:26] LABS: D Dimer 0.53 mg/L (0.19-0.50)
--- NOTE | 2023-10-26 14:00 | PC.NURSE ---
SPOKE WITH CARMEN PARSONS FROM [facility] WHO REPORTS SHE WAS UNAWARE OF THAT PT HAD A HIP JOINT, REPORTS HER HX STATES ABSENCE OF LEFT HIP. PT STATES IT WAS REPLACED APPROX 20 YRS AGO. RN REPORTED THAT PT WOULD NORMALLY TRANSFER HERSELF FROM THE BED AND TOILET TO HER WC, HOWEVER REPORTS OVER THE PAST 4 DAYS SHE HAS BEEN UNABLE TO TRANSFER HERSELF DUE TO PAIN. STAFF REPORTS THE PINKISH RED DISCOLORATION TO LATERAL LEFT THIGH IS NEW, AND WAS NOTED WHEN PT BEGAN TO C/O PAIN. STAFF REPORTS PT HAS HX OF INFECTION TO THE LEFT HIP LAST YEAR AND IS ON CHRONIC DOXYCYCLINE FOR PREVENTIONAL TREATMENT. PT IS IN CT AT THIS TIME. WILL CONTINUE TO MONITOR.
[2023-10-26 16:04] VITALS: BP 123/77; PULSE 75; RESP 18; O2SAT 97
--- NOTE | 2023-10-26 16:06 | PC.NURSE ---
PT IS AWARE OF PLAN OF CARE. PT IS AGREEABLE TO ADMISSION. NAD NOTED.
--- NOTE | 2023-10-26 16:07 | PC.NURSE ---
PT TO BE ADMITTED TO 209 ,REPORT TO CARMEN KEE
[2023-10-26 16:20] VITALS: BP 105/78; PULSE 78; RESP 16; TEMP 36.4; O2SAT 96
--- NOTE | 2023-10-26 16:20 | ADMGEN ---
This patient, Pattie Malloy, was admitted to 2nd Floor Room 209-1. Patient/family oriented to hospital policies and general routines including ID bracelet, bed and alarms, visiting hours, pain management, procedures, bathroom and other care routines, personal items, smoking policy, room service/diet, and visiting hours. Information on how to activate the Rapid Response Team has been discussed. Patient/Family are encouraged to report perceived risks to care and to ask questions if they do not understand what they are told or what they should do.
[2023-10-26] MEDS: VENLAFAXINE HCL 75 MG TABLET PO (18:16)
[2023-10-26] MEDS: BUDESONIDE/FORMOTEROL (*SP) 160-4.5 MCG 6 GM INH 2 PUFF INHALATION (18:16)
[2023-10-26] MEDS: SACCHAROMYCES BOULARDII 250 MG CAPSULE PO (18:16)
[2023-10-26] MEDS: PHENYTOIN SODIUM 100 MG EXTENDED RELEASE CAP PO (18:16)
[2023-10-26] MEDS: THIAMINE HCL 100 MG TABLET PO (18:16)
[2023-10-26] MEDS: HYDROcodone/acetaminophen (*CRX) 5-325 MG TABLET 1 TAB PO (20:12)
[2023-10-26] MEDS: clonazePAM (*CRX) 0.5 MG TABLET PO (20:12)
[2023-10-26] MEDS: DOXYCYCLINE HYCLATE 100 MG TABLET PO (20:12)
[2023-10-26] MEDS: traZODone HCL 50 MG TABLET PO (20:13)
[2023-10-27] VITALS: BP 113/77; PULSE 87; RESP 16; TEMP 36.5; O2SAT 92
[2023-10-27 05:25] LABS: Basophils Absolute Auto 0.06 K/mm3 (0.00-0.10); Basophils Percent Auto 0.9 % (0.0-1.0); Eosinophils Absolute Auto 0.17 K/mm3 (0.02-0.50); Eosinophils Percent Auto 2.5 % (1.0-6.0); Hematocrit 30.7 % (35.0-42.0); Hemoglobin 10.1 g/dL (11.7-13.8); Immature Granulocyte Absolute 0.08 K/mm3 (0.00-0.00); Immature Granulocyte Percent A 1.2 % (0.0-0.0); Mean Corpuscular HGB Conc 32.9 g/dL (32.0-36.0); Mean Corpuscular Hemoglobin 33.6 pg (27.0-31.0); Mean Platelet Volume 8.8 fl (9.2-11.8); Monocytes Absolute Auto 0.96 K/mm3 (0.10-0.90); Neutrophils Absolute Auto 4.5 K/mm3 (1.7-7.2); Neutrophils Percent Auto 65.4 % (50.0-70.0); Platelet Count Result 400 K/mm3 (150-420); Red Blood Count 3.01 M/mm3 (4.20-5.40); Red Cell Distribution Width 12.4 % (11.6-14.4); White Blood Count 6.9 K/mm3 (4.8-10.8)
[2023-10-27 05:49] LABS: Alanine Aminotransferase 17 U/L (14-59); Albumin Level 2.4 g/dL (3.4-5.0); Alkaline Phosphatase 128 U/L (46-116); Anion Gap 7 mmol/L (8-16); Aspartate Amino Transferase 14 U/L (15-37); Bilirubin,Total 0.2 mg/dL (0.00-1.00); Blood Urea Nitrogen 18 mg/dL (7-18); Calcium 8.9 mg/dL (8.5-10.1); Carbon Dioxide 29 mmol/L (21-32); Chloride 99 mmol/L (98-108); Estimated Glomerular Filt Rate > 60; Glucose 86 mg/dL (70-99); Magnesium 1.9 mg/dL (1.8-2.4); Osmolality Calculated 280 mOsm/kg (285-295); Potassium 4.2 mmol/L (3.5-5.1); Sodium 135 mmol/L (136-145); Total Protein 6.6 g/dL (6.4-8.2)
[2023-10-27] MEDS: BUDESONIDE/FORMOTEROL (*SP) 160-4.5 MCG 6 GM INH 2 PUFF INHALATION (06:05)
[2023-10-27 08:00] VITALS: BP 114/66; PULSE 72; RESP 16; TEMP 36.4; O2SAT 99
--- NOTE | 2023-10-27 10:36 | PM.SD2 ---
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 Patient reports that she was having left leg pain yesterday so they sent her to the emergency department for evaluation. In the ER she had an unremarkable workup with essentially normal labs except for D-dimer of 0.53. White blood cell count was normal. Patient received additional pain control and rested well overnight. ER doctor was initially concern for DVT verses recurrent joint infection so admission was requested for ultrasound of the leg today. Ultrasound grossly unremarkable no obvious fluid collection in the joint, clinically there is no fluctuance only slight discomfort with palpation in the area slight erythema Of the skin. Patient is on chronic doxycycline. Patient is afebrile. She reports only slight soreness to mobilization of her left hip. At this time it is unlikely that there is an acute infection or blood clot to cause patient discomfort. We will provide as needed pain medication as well as Keflex for cellulitis. Patient is ready to return to the correction. [facility] Past Medical History Medical History Acute confusion Acute hyponatremia Acute hypoxemic respiratory failure Alcoholic cirrhosis of liver Anxiety Atrial fibrillation with RVR Bacteremia Colon cancer Underwent partial colectomy, no radiation or chemotherapy Community acquired pneumonia COPD (chronic obstructive pulmonary disease) COPD exacerbation Depression DVT prophylaxis Encounter for monitoring sotalol therapy Hip dislocation, left RINCON (hard of hearing) HTN (hypertension) Hyponatremia Hypotension Seizure Sepsis Septic arthritis Septic hip History of left hip arthroplasty that became septic and requiring a 2nd surgery. Septicemia Thrush Tobacco abuse Smokes 1.5-2 packs per day Urinary incontinence Stress incontinence Weakness Surgical History Surgical History History of left hip replacement x2, after initial became infected. History of partial colectomy Removal of colon cancer Family History Family History Mother Diabetes mellitus Hypertension Family history of alcoholism Cerebrovascular accident Family history of arthritis Family history of malignant neoplasm Family history of seizure disorder Social History Social History Smoking packs per day: 1 Smoking cigarettes per day: 20.0 Years smoked: 40 Smoking pack-years: 40.00 Smoking status: Former smoker Tobacco type: cigarettes Second hand tobacco smoke exposure: Yes Alcohol intake: former Alcohol use details: Former alcohol abuse, now with liver cirrhosis Substance use: never Substance use type: does not use Other substance usage details: former heavy drinker-no drinks in 4-5 yrs Last use: heavy marijuana use, last use was at least a week ago Do You Feel Safe in your Home?: Yes Lack of Transportation: No Lack of Food: Never True Current Housing: I Have Housing Concerned About Future Housing: No Difficulty Paying Gas/Electric Bills: No Difficulty Paying for Meds: No Currently Unemployed: No Education: Decline to Answer Difficulty w/ Childcare or Family Care: No Living arrangements: with family Additional living arrangements comments: Lives with her niece Eufemia for the last 7 years. She normally walks with out any assist devices, until the last few weeks she has been using a walker. Occupation/Education: retired Gender identity (if verbalized by the patient): Female Spiritual care concerns: No Agree to blood products: Yes Same Day Admit/Disch: Med Pre-ad
[2023-10-27] MEDS: cefTRIAXone 2 GM/NS 100 ML 2 GM/100 ML BAG IVPB (11:36)
[2023-10-27] MEDS: THERAPEUTIC MULTIVITAMINS/MINERALS TAB (*BKC) 1 TABLET PO (11:38)
[2023-10-27] MEDS: CYANOCOBALAMIN 1,000 MCG TABLET 1000 MCG PO (11:38)
[2023-10-27] MEDS: FOLIC ACID 1 MG TABLET PO (11:38)
[2023-10-27] MEDS: clonazePAM (*CRX) 0.5 MG TABLET PO (11:38)
[2023-10-27] MEDS: SACCHAROMYCES BOULARDII 250 MG CAPSULE PO (11:38)
[2023-10-27] MEDS: FAMOTIDINE 20 MG TABLET 40 MG PO (11:39)
[2023-10-27] MEDS: THIAMINE HCL 100 MG TABLET PO (11:39)
[2023-10-27] MEDS: lisinopriL 10 MG TABLET PO (11:39)
[2023-10-27] MEDS: DOXYCYCLINE HYCLATE 100 MG TABLET PO (11:39)
[2023-10-27 11:40] VITALS: PULSE 78
[2023-10-27] MEDS: METOPROLOL SUCCINATE EXT REL 25 MG TABCR PO (11:40)
[2023-10-27] MEDS: oxyCODONE HCL (*CRX) 5 MG TAB IR PO (11:52)
[2023-10-27] MEDS: PHENYTOIN SODIUM 100 MG EXTENDED RELEASE CAP PO (12:03)
[2023-10-27] MEDS: VENLAFAXINE HCL 75 MG TABLET PO (12:03)
--- NOTE | 2023-10-27 13:15 | PC.NURSE ---
Called report to Mohini at [facility]
--- NOTE | 2023-10-27 15:15 | PC.NURSE ---
Report given to [facility]. Pt transferred to [facility]
--- NOTE | 2023-10-28 09:23 | PC.NURSE ---
DC call back, patient returned to [facility] via ambulance, recieved DC instructions, no questions or concerns
== END 2023-10-27 15:15 ==
LOC: CHSED 14:35 → CHS2ND 15:50
PROVIDERS: Nurse Practitioner; Admitting Provider Internal Medicine; Emergency Provider Emergency Medicine; PCP Family Medicine; Visit Provider Internal Medicine
DX: L03.116 Cellulitis of left lower limb (principal); T84.021S Dislocation of internal left hip prosthesis, sequela; M25.552 Pain in left hip; K70.30 Alcoholic cirrhosis of liver without ascites; I10 Essential (primary) hypertension; I48.91 Unspecified atrial fibrillation; J44.9 Chronic obstructive pulmonary disease, unspecified; M16.12 Unilateral primary osteoarthritis, left hip; G47.00 Insomnia, unspecified; R11.2 Nausea with vomiting, unspecified; R06.02 Shortness of breath; H91.90 Unspecified hearing loss, unspecified ear; F41.9 Anxiety disorder, unspecified; F12.90 Cannabis use, unspecified, uncomplicated; F32.A Depression, unspecified; Z87.891 Personal history of nicotine dependence; Z99.3 Dependence on wheelchair; Z79.51 Long term (current) use of inhaled steroids; Z79.899 Other long term (current) drug therapy; Z96.642 Presence of left artificial hip joint; Z85.038 Personal history of other malignant neoplasm of large intestine
CPT/HCPCS: 36415; 73502; 73700; 80053; 83605; 83735; 85025; 85380; 85610; 85730; 87040; 93970; 96365; 99285; A9270; G0378; G0379; J0696

== ENCOUNTER 2025-03-27 07:38 | Emergency (ER) | payer OTHER, SELFPAY ==
[2025-03-27] VITALS (20 sets, daily range): BP systolic 96–114; BP diastolic 61–88; PULSE 65–79; RESP 14–16; TEMP 36.3–36.7; O2SAT 91–98
--- NOTE | ~2025-03-27 | CT_ITS ---
EXAMINATION: CT hip LT wo con DATE: 03/27/2025 09:18 INDICATION: Chronic left hip dislocation. TECHNIQUE: Computed tomography (CT) of the left hip was performed without intravenous contrast. Addit ional CT reconstructions of the left hip were obtained in the coronal, and sagittal planes. The dose- length product was 1196.09 mGy-cm. COMPARISON: Radiographs dated 03/27/[address] dated 10/26/2023 FINDINGS: Again seen is a chronically dislocated revision left total hip arthroplasty with posterior, lateral a nd cephalad displacement of the femoral component positioned along the superficial margin of the moncho rely atrophic left gluteus radha muscle. There is dense metallic streak artifact surrounding the fe moral and acetabular components of the arthroplasty which limits evaluation of the immediately adjace nt bone and soft tissues. There is there is a loculated fluid collection in the subcutaneous tissues positioned posterior and lateral to the head and neck of the femoral component which measures 7 cm in transverse length and up to 3.0 cm in thickness to essentially representing an adventitial bursal fo rmation. This appears to have been present but smaller on the prior study the majority of which is ob scured by the streak artifact. Stable appearance of the left acetabular component to the arthroplasty and associated plate and screw fixation along the lateral margin of the superior acetabular left aguilar um. No lucencies surrounding the screws to suggest loosening or infection. No fracture identified. Th ere is severe chronic fatty atrophy of the musculature about the left hip With moderate fatty atrophy of the musculature of the left thigh. There are few scattered descending and sigmoid colon diverticula without adjacent inflammatory stranding to suggest diverticulitis. Visu alized portion of the bladder, uterus and left adnexa are unremarkable. No free fluid in the pelvis. No pathologically enlarged left pelvic or inguinal lymphadenopathy. IMPRESSION: 1. 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 No acute osseous abnormality. 2. Chronic fatty atrophy, severe of the left gluteal and iliopsoas muscles and moderate severity in t he visualized left thigh. Reviewed, dictated and finalized at location A. IMPRESSION: 1. 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 No acute osseous abnormality. 2. Chronic fatty atrophy, severe of the left gluteal and iliopsoas muscles and moderate severity in the visualized left thigh.
--- NOTE | ~2025-03-27 | XR_ITS ---
XR hip LT min 3V w AP pelvis 03/27/2025 08:13 Indication: Possible dislocation of left hip Procedure: 3 views left hip including AP pelvis Comparison: Comparison to multiple prior studies sequentially, with oldest reviewed study dated 06/24. 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 Osteopenia. There is lower lumbar spondylosis. Impression: 1: Chronic dislocation or vision left total hip arthroplasty. No acute underlying fracture identified . Reviewed, dictated and finalized at location A. Impression: 1: Chronic dislocation or vision left total hip arthroplasty. No acute underlyi ng fracture identified.
--- OUTSIDE RECORDS SUMMARY | 2025-03-27 07:40 | XMS_ITS | Encounter Summary ---
Author Organization [facility] Address [address] [place] [address] Care Team Providers Care Glass Wool Blanket Machine Feeder Name Role Phone Castro Ackerman MD Primary Care Provider Carmen Juárez RN Unavailable [phone] Encounter Details Date Type Department Care Team (Late st Contact Info) Description 11/18/2021 2:08 PM HYDRAULIC MINER BLASTING Hospital Encounter [address] [address] Charity Jackson MD [facility] [address] [place] [id number] [place] [address] [facility] [address] [place], [place] [id number] Select [employer] Social History Tobacco Use Types Packs/Day Years Used Date Smoking Tobacco: Former Cigarettes 0.5 45 0 11/01/1976 - 11/01/2021 Smokeless Tobacco: Never Alcohol Use Standard Drinks/Week Comments No 0 (1 standard drink = 0.6 oz pur e alcohol) Hunger Vital Sign Answer Date Recorded Within the past 12 months, y ou worried that your food would run out before you got the money to buy more. Never true 10/15/20 22 Within the past 12 months, t he food you bought just didn't last and you didn't have money to get more. Never true 10/15/2022 Comments No Sex and Gender Information Value Date Recorded Sex Assigned at Not on file Legal Sex Female 4:09 PM CDT Gender Identity Not on file Sexual Orientation Not on file documented as of this encounter Functional Status * Is person deaf or have serious hearing difficulty? Answer Date of Assessment Author Yes 11/02/2021 10:17 PM Romy Esparza RN * Is person blind or have serious difficulty seeing? Answer Date of Assessment Author No 11/02/2021 10:17 PM Romy Esparza RN * Does person have serious difficulty walking/climbing stairs? Answer Date of Assessment Author No 11/02/2021 10:17 PM Romy Esparza RN * Does person have difficulty dressing/bathing? Answer Date of Assessment Author No 11/02/2021 10:17 PM Romy Esparza RN * Does person have difficulty doing errands alone? Answer Date of Assessment Author No 11/02/2021 10:17 PM Romy Esparza RN documented as of this encounter Mental Status * Does person have difficulty concentrating/remembering/making decisions? Answer Entry Date Author Yes 11/02/2021 10:17 PM Romy Esparza RN documented in this encounter Plan of Treatment Not on file documented as of this encounter Visit Diagnoses Not on filedocumented in this encounter Additional Health Concerns Infection Onset Date Last Indicated Resolved Time COVID-19 Under Investigation 10/16/2022 10/16/2022 10/16/2022 5:12 PM HYDRAULIC MINER BLASTING COVID-19 Confirmed 10/16/2022 10/16/2022 4:33 AM HYDRAULIC MINER BLASTING documented as of this encounter Care Teams Glass Wool Blanket Machine Feeder Relationship Specialty Start Date End Date Castro Ackerman MD [address] [place] [address] PCP - General Family Medicine 06/05/15 Carmen Juárez, RN Glassware Verifier 06/06/15 documented as of this encounter
--- OUTSIDE RECORDS SUMMARY | 2025-03-27 07:41 | XMS_ITS | Clinical Summary ---
Author Organization [facility] Address [address] [facility] [place] [address] Care Team Providers Care Doctor Of Nurse Anesthesia Name Role Phone Castro Ackerman MD Primary Care Provider [phone] Carmen Juárez RN Unavailable [phone] [facility],non-owned Affiliates and Associated Physician Practices is amultiple site organization consisting of ambulatory clinics and hospital sitesin [place], [place], [place] and [place]. This disclosure is being madepursuant to the Care Everywhere program and may not contain all information available regarding this patient. Last updated 18.[facility] Allergies No known active allergies Medications * Be aware that medications may not be up to date on this document. Alwaysverify current medications with the patient. folic acid (FOLVITE) 1 MG tablet Take 1 (one) tablet by mouth once daily Active clonazePAM (KLONOPIN) 0.5 MG tabletIndication s:anxiety Take 1 Tab by mouth 3 times daily Reasons: anxiety 10 Tab 0 6 Active venlafaxine (EFFEXOR) 75 MG tablet Take 1 (one) tablet by mouth 3 times daily with meals 2 Active lactulose (Chronulac;Enulo se) 10 GM/15ML solution Take 20 mL by mouth 2 times daily 2 Active risperiDONE (RisperDAL) 0.5 MG tablet Take 1 (one) tablet by mouth 2 times daily 1 Active albuterol HFA (Proventil; Ventolin; Proair) 108 (90 Base) MCG/ACT inhaler Inhale 2 (two) puffs by mouth every 6 hours as needed for Shortness of Breath Active famotidine (Pepcid) 10 MG tablet Take by mouth once daily Active ammonium lactate (Lac-Hydrin) 12 % lotion Apply to affected area once daily Active saccharomyces (Florastor) 250 MG packet Take 1 (one) packet by mouth 2 times daily Active Multiple Vitamins-Mineral s (Multivitamin Womens 50+ Adv) TABS Take 1 tablet by mouth once daily Active budesonide-formo terol (Symbicort) 160-4.5 MCG/ACT inhaler Inhale 2 (two) puffs by mouth 2 times daily Active thiamine (Vitamin B-1) 100 MG tablet Take 2.5 (two and one-half) tablets by mouth once daily Active oxyCODONE, immediate release, (Roxicodone) 5 MG tablet Take 1 (one) tablet by mouth every 6 hours as needed 12 tablet 2 Active metoprolol succinate XL 24hr (Toprol XL) 25 MG tablet Take 1 (one) tablet by mouth once daily 2 Active doxycycline monohydrate 100 MG capsule Take 1 (one) capsule by mouth every 12 hours 2 Active oxybutynin (Ditropan) 5 MG tablet Take 1 (one) tablet by mouth 3 times daily 2 Active phenytoin ER (Dilantin) 100 MG capsuleIndicatio ns:Seizure Take 1 (one) capsule by mouth 4 times daily Reasons: Seizure 2 Active Active Problems Problem Noted Date Diagnosed Date 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, 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 Hyponatremia 11/12/2021 Obesity due to excess calories 11/12/2021 Seizure disorder 12/21/2015 Former tobacco use 12/21/2015 Hypokalemia 12/21/2015 COPD (chronic obstructive pulmonary disease) Depression 12/21/2015 Surgical wound infection 12/20/2015 S/P hip replacement 12/04/2015 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 (FLUAD QUADRIVALENT; 65Y+) (AIIV4) 11/19/2021 INFLUENZA VACCINE, QUADR. (F LUZONE; FLULAVAL; FLUARIX; AFLURIA QUADRIVALENT; 6MO+), 0.5 ML (IIV4) 11/29/2015 Social History Tobacco Use Types Packs/Day Years Used Date Smoking Tobacco: Former Cigarettes 0.5 45 0 11/01/1976 - 11/01/2021 Smokeless Tobacco: Never Tobacco Cessation:Counseling Given: No Alcohol Use Standard Drinks/Week Comments No 0 [...] on file Sexual Orientation Not on file Last Filed Vital Signs Vital Sign Reading Time Taken Comments Blood Pressure 126/79 10/23/2022 4:25 PM HAIR PREPARER Pulse 71 10/23/2022 4:25 PM HAIR PREPARER Temperature 36.3 C (97.4 F) 10/23/2022 4:25 PM HAIR PREPARER Respiratory Rate 19 10/23/2022 4:25 PM HAIR PREPARER Oxygen Saturation 96% 10/23/2022 4:25 PM HAIR PREPARER Inhaled Oxygen Concentration - - Weight 63.6 kg (140 lb 3.4 oz) 10/14/2022 10:10 PM HAIR PREPARER Height 154.9 cm (5' 1) 10/14/2022 10:10 PM HAIR PREPARER Body Mass Index 26.49 10/14/2022 10:10 PM HAIR PREPARER Plan of Treatment Health Maintenance Due Date Last Done Comments BONE DENSITY TESTING 1950 COLOGUARD (AGES 45-75) - COLON CA SCREENING 1950 COLON MONITORING 1951 COLONOSCOPY - COLON CA SCREENING 1950 CT COLONOGRAPHY - COLON CA SCREENING 1950 FLEX SIG - COLON CA SCREENING 1950 LIPID TESTING 1950 MAMMOGRAM 1950 HEPATITIS C SCREENING 06/27/1969 DTAP/TDAP/TD VACCINES (1 - Tdap) 1970 PNEUMOCOCCAL VACCINE 50+ (1 of 2 - PCV) 1970 LUNG CANCER SCREENING 2001 ZOSTER VACCINE (1 of 2) 2001 HEPATITIS B VACCINE (1 of 3 - Risk 3-dose series) 2011 Respiratory Syncytial Virus (RSV) Vaccine Pt: or over 60 yrs (1 - Risk 60-74 years 1-dose series) 2011 Colorectal Cancer Screening 10/12/2023 FIT - COLON CA SCREENING 10/12/2023 10/12/2022 COVID-19 VACCINE ( season) 2024 DEPRESSION SCREENING 11/01/2024 INFLUENZA VACCINE (Season Ended) 2025 11/19/2021, 11/29/2015 SCREENING FOR DIABETES 10/22/2025 , 10/20/2022, 10/19/2022, Additional history exists HIB VACCINE Aged Out No longer eligi ble based on patient's age to complete this topic HPV VACCINE Aged Out No longer eligi ble based on patient's age to complete this topic MENINGOCOCCAL (Group B) VACCINE SHARED DECISION-MAKING Aged Out No longer eligible based on patient's age to complete this topic MENINGOCOCCAL GROUPS A/C/Y/W VACCINE Aged Out No longer eligible based on patient's age to complete this topic Medical Devices Implanted Type Area Scientist/Engineer Device Identifier Shelf Expiration Date Model / Serial / Lot 2.0 Cable With Clamp Implanted:Qty: 1 on 06/06/2015 by Willian Bennett MD at [facility] Left: Hip [employer] 08/30/2023 [id number] / / [id number] Mx Bone Jaime Tabiona 40g Implanted:Qty: 1 on 06/06/2015 by Willian Bennett MD at [facility] Left: Hip [employer] 02/28/2018 [id number] / / [id number] Mx Bone Jaime Tabiona 40g Implanted:Qty: 1 on 06/06/2015 by Willian Bennett MD at [facility] Left: Hip [employer] 10/30/2017 [id number] / / [id number] Mx Bone Jaime Tabiona 40g Implanted:Qty: 1 on 06/06/2015 by Willian Bennett MD at [facility] Left: Hip [employer] 11/30/2017 [id number] / / [id number] Space Hip Implanted:Qty: 1 on 06/06/2015 by Willian Bennett MD at [facility] Left: Hip [employer] 03/30/2025 [id number] / / [id number] Bill Only Hip Part Rev 50% Of 2014 Implanted:Qty: 1 on 06/06/2015 by Willian Bennett MD at [facility] [employer] HR1 PART HIP REVISION LUSIA BILL ONLY / / 20mm Bone Screw Implanted:Qty: 1 on 11/28/2015 by Willian Bennett MD at [facility] Left: Hip [employer] 09/28/2025 / / [id number] 40mm Bone Screw Implanted:Qty: 1 on 11/28/2015 by Willian Bennett MD at [facility] Left: Hip [employer] 09/28/2025 / / [id number] Left Posterior Tantalum Implanted:Qty: 1 on 11/28/2015 by Willian Bennett MD at [facility] Left: Hip [employer] 01/27/2020 [id number] / / [id number] Kt Jaime Palacos R 40gm Implanted:Qty: 1 on 11/28/2015 by Willian Bennett MD at [facility] Left: Hip [employer] 06/28/2019 [id number] / / [id number] 35mm Bone Screw Implanted:Qty: 1 on 11/28/2015 by Willian Bennett MD at [facility] Left: Hip [employer] 11/28/2024 / / [id number] 30mm Bone Screw Implanted:Qty: 1 on 11/28/2015 by Willian Bennett MD at [facility] Left: Hip [employer] 09/28/2025 / / [id number] 30mm Bone Screw Implanted:Qty: 1 on 11/28/2015 by Willian Bennett MD at [facility] Left: Hip [employer] 04/28/2024 / / [id number] 20mm Bone Screw Implanted:Qty: 1 on 11/28/2015 by Willian Bennett MD at [facility] Left: Hip [employer] 08/28/2025 / / [id number] Oss Diaphyseal Segment Implanted:Qty: 1 on 11/28/2015 by Willian Bennett MD at [facility] Left: Hip [employer] 04/28/2024 [id number] / / [id number] Description:REVISION IMPLANT ,COMPONET OF TOTAL REVISION DIFFERENT VENDOR Femoral W/Claw Hole Implanted:Qty: 1 on 11/28/2015 by Willian Bennett MD at [facility] Left: Hip [employer] 02/26/2025 [id number] / / [id number] Description:REVISION IMPLANT ,COMPONET OF TOTAL REVISION DIFFERENT VENDOR Porous Plasma Implanted:Qty: 1 on 11/28/2015 by Willian Bennett MD at [facility] Left: Hip [employer] 08/28/2025 [id number] / / [id number] Description:REVISION IMPLANT ,COMPONET OF TOTAL REVISION DIFFERENT VENDOR Neutral Liner Implanted:Qty: 1 on 11/28/2015 by Willian Bennett MD at [facility] Left: Hip [employer] 12/29/2015 [id number] / / [id number] Cable Rn Birthing Implanted:Qty: 1 on 11/28/2015 by Willian Bennett MD at [facility] Left: Hip [employer] 05/28/2025 2232-02-17 / / [id number] Femoral Head Implanted:Qty: 1 on 11/28/2015 by Willian Bennett MD at [facility] Left: Hip [employer] 06/28/2024 [id number] / / [id number] Chema Hip Tot Rev 50% Of 2014 Implanted:Qty: 1 on 11/28/2015 by Willian Bennett MD at [facility] [employer] HR2 TOTAL HIP REVISION LUISA BILL ONLY / / Cbl Cerclage W/Crmp 1.8mm Implanted:Qty: 1 on 11/28/2015 by Willian Bennett MD at [facility] Left: Hip [employer] 05/31/2025 [id number] / / [id number] Trabecular Metal Implanted:Qty: 1 on 11/28/2015 by Willian Bennett MD at [facility] Left: Hip [employer] 02/26/2022 [id number] / / [id number] Cmnt Bone Rally 40gm Med Vsc Sprmnt Grn Implanted:Qty: 1 on 11/06/2021 by Willian Bennett MD at [facility] Left: Hip [employer] 12/29/2025 [id number] / / [id number] Description:20 antibiotic ce ment beads implanted Explanted Type Area Scientist/Engineer Device Identifier Shelf Expiration Date Model / Serial / Lot 2.0 Cable With Clamp Implanted:Qty: 1 Explanted:Qty: 1 on 06/06/2015 [facility] Left: Hip [employer] 08/30/2023 [id number] / / [id number] 15mm Self-Tapping Screw Explanted:Qty: 1 on 11/28/2015 by Willian Bennett MD at [facility] Left: Hip [employer] 09/28/2025 / / [id number] 20mm Bone Screw Explanted:Qty: 1 on 11/28/2015 by Willian Bennett MD at [facility] Left: Hip [employer] 08/28/2025 / / [id number] Procedures Procedure Name Priority Date/Time Associated Diagnosis Comments COMPREHENSIVE METABOLIC PANEL AM Draw 10/22/2022 5:17 AM HAIR PREPARER from Last 3 Months or Most Recently Relevant to Health Maintenance Results * (ABNORMAL) COMPREHENSIVE METABOLIC PANEL (10/22/2022 5:17 AM HAIR PREPARER) Glucose 72 70 - 105 mg/dL 10/22/2022 6:23 AM HAIR PREPARER [facility] Sodium 135(L) 136 - 145 mmol/L 10/22/2022 6:23 AM HAIR PREPARER [facility] Potassium 3.8 3.5 - 5.1 mmol/L 10/22/2022 6:23 AM HAIR PREPARER [facility] Chloride 104 98 - 107 mmol/L 10/22/2022 6:23 AM HAIR PREPARER [facility] CO2 21(L) 23 - 31 mmol/L 10/22/2022 6:23 AM HAIR PREPARER [facility] Calcium 8.2(L) 8.4 - 10.4 mg/dL 10/22/2022 6:23 AM HAIR PREPARER [facility] Anion Gap 10 8 - 18 mmol/L 10/22/2022 6:23 AM HAIR PREPARER [facility] BUN 13 9.8 - 20.1 mg/dL 10/22/2022 6:23 AM HAIR PREPARER [facility] Creatinine 0.58 0.57 - 1.11 mg/dL 10/22/2022 6:23 AM HAIR PREPARER [facility] Alkaline Phosphatase 154(H) 40 - 150 U/L 10/22/2022 6:23 AM HAIR PREPARER [facility] ALT 18 0 - 61 U/L 10/22/2022 6:23 AM HAIR PREPARER [facility] AST 18 5 - 34 U/L 10/22/2022 6:23 AM HAIR PREPARER [facility] Protein Total 6.1(L) 6.4 - 8.3 gm/dL 10/22/2022 6:23 AM HAIR PREPARER [facility] Albumin 2.6(L) 3.2 - 4.6 gm/dL 10/22/2022 6:23 AM HAIR PREPARER [facility] Bilirubin Total 0.3 0.2 - 1.2 mg/dL 10/22/2022 6:23 AM HAIR PREPARER [facility] eGFR by CKD-EPI >90 >=90 mL/min/1.7 3 m2 10/22/2022 6:23 AM HAIR PREPARER [facility] Blood BLOOD SPECIMEN / Unknown Lab Venipuncture / Unknown 10/22/2022 5:17 AM HAIR PREPARER 10/22/2022 5:56 AM HAIR PREPARER César Busch MD LAB - CHEMISTRY ORDERABLES Final Result [facility] [address] [place] [address] from Last 3 Months or Most Recently Relevant to Health Maintenance Insurance MEDICAID [employer] [place] Advance Directives * Full Code (Latest Code Status on File) Date Activated Date Inactivated Comments 10/14/2022 8:33 PM 10/23/2022 7:51 PM * Full Code Date Activated Date Inactivated Comments 11/19/2021 1:31 PM 12/06/2021 6:49 PM * Full Code Date Activated Date Inactivated Comments 11/02/2021 9:41 PM 11/19/2021 12:17 PM * Full Code Date Activated Date Inactivated Comments 12/18/2015 3:44 AM 12/26/2015 2:00 PM * Full Code Date Activated Date Inactivated Comments 11/28/2015 6:34 PM 12/04/2015 9:16 PM Care Teams Doctor Of Nurse Anesthesia Relationship Specialty Start Date End Date Castro Ackerman MD [address] [place] [address] PCP - General Family Medicine 06/05/15 Carmen Juárez, RN Gi Tech 06/06/15
--- NOTE | 2025-03-27 07:54 | ED_ITS ---
HPI - Extremity Injury (Lower) General Chief Complaint: Extremity Injury, Lower Stated Complaint: left hip displacement Time Seen by Provider: 03/27/25 07:47 Source: patient and EMS Mode of arrival: EMS History of Present Illness HPI Narrative: 74 years old white female, history of dementia and chronic left hip dislocation and infection since 2022. history of left total hip arthroplasty debridement with chronic infection and chronic dislocation after she refused resection At the skilled nursing patient started on doxycycline for possible left hip skin infection. In the ED patient denies any fever or chills pain as long as laying down in bed. Related Data Home Medications ?Medication ?Instructions ?Recorded ?Confirmed ?Last Taken ?Type [id number] 8 mg-folic 400 1 tablet PO DAILY 01/03/20 10/26/23 01/03/20 History mcg-K 50 mcg-lutein 300 mcg tablet (Multivitamin Women 50 Plus) phenytoin sodium extended 100 mg 100 mg PO BID 01/03/20 10/26/23 01/03/20 19:30 History capsule venlafaxine 75 mg tablet 112.5 mg PO BID 01/03/20 10/26/23 01/03/20 08:00 History Saccharomyces boulardii 250 mg 250 mg PO BID 10/14/22 10/26/23 Unknown History capsule (Florastor) cyanocobalamin (vitamin B-12) 1,000 mcg PO DAILY 10/14/22 10/26/23 Unknown History 1,000 mcg capsule famotidine 10 mg tablet 40 mg PO DAILY 10/14/22 10/26/23 Unknown History folic acid 1 mg tablet 1 mg PO DAILY 10/14/22 10/26/23 Unknown History albuterol sulfate 90 mcg/actuation 2 inh inhalation Q6H PRN Shortness 01/07/23 10/26/23 Unknown History aerosol inhaler Of Breath metoprolol succinate 25 mg 25 mg PO DAILY 01/07/23 10/26/23 Unknown History tablet,extended release 24 hr thiamine HCl (vitamin B1) 100 mg 100 mg PO BID 01/07/23 10/26/23 Unknown History tablet lactulose 10 gram/15 mL oral 20 ml PO TID 01/13/23 10/26/23 Unknown History solution doxycycline hyclate 100 mg tablet 100 mg PO BID 10/26/23 10/26/23 Unknown History Saccharomyces boulardii 250 mg 250 mg PO BID 03/27/25 Unknown History capsule (Daily Probiotic (S. boulardii)) calcium 600 mg (as 1 cap PO BID 03/27/25 Unknown History carbonate)-vitamin D3 10 mcg (400 unit) capsule clonazepam 0.5 mg tablet 0.5 mg PO HS 03/27/25 Unknown History hydrocortisone-aloe vera 1 % 1 applic topical BID 03/27/25 Unknown History topical cream phenytoin sodium extended 30 mg 30 mg PO .am 03/27/25 Unknown History capsule (Dilantin) Allergies Allergy/AdvReac Type Severity Reaction Status Date / Time NSAIDS (Non-Steroidal Allergy Unknown Verified 03/27/25 07:42 Anti-Inflamma Review of Systems 2 Review of Systems: All systems reviewed & are unremarkable except as noted in HPI and below PMFSH Past Medical History Medical History Acute confusion Weakness Septic arthritis Hip dislocation, left DVT prophylaxis Septicemia Encounter for monitoring sotalol therapy Bacteremia Hypotension Hyponatremia Acute hyponatremia Atrial fibrillation with RVR Thrush Seizure Urinary incontinence Stress incontinence Tobacco abuse Smokes 1.5-2 packs per day Septic hip History of left hip arthroplasty that became septic and requiring a 2nd surgery. Alcoholic cirrhosis of liver Sepsis COPD exacerbation Community acquired pneumonia Acute hypoxemic respiratory failure [place] (hard of hearing) HTN (hypertension) Depression Anxiety COPD (chronic obstructive pulmonary disease) Colon cancer Underwent partial colectomy, no radiation or chemotherapy Surgical History Surgical History History of partial colectomy Removal of colon cancer History of left hip replacement x2, after initial became infected. Family History Family History Mother Diabetes mellitus Hypertension Family history of alcoholism Cerebrovascular accident Family history of arthritis Family history of malignant neoplasm Family history of seizure disorder Social History Social History Smoking packs per day: 1 Smoking cigarettes per day: 20.0 Years smoked: 40 Smoking pack-years: 40.00 Smoking status: Former smoker Tobacco type: cigarettes Second hand tobacco smoke exposure: Yes Alcohol intake: former Alcohol use details: Former alcohol abuse, now with liver cirrhosis Substance use: never Substance use type: does not use Other substance usage details: former heavy drinker-no drinks in 4-5 yrs Last use: heavy marijuana use, last use was at least a week ago Do You Feel Safe in your Home?: Yes Lack of Transportation: No Lack of Food: Never True Current Housing: I Have Housing Concerned About Future Housing: No Difficulty Paying Gas/Electric Bills: No Difficulty Paying for Meds: No Currently Unemployed: No Education: Decline to Answer Difficulty w/ Childcare or Family Care: No Living arrangements: with family Additional living arrangements comments: Lives with her niece Eufemia for the last 7 years. She normally walks with out any assist devices, until the last few weeks she has been using a walker. Occupation/Education: retired Gender identity (if verbalized by the patient): Female Spiritual care concerns: No Agree to blood products: Yes Exam 2 Narrative: General appearance: Well-developed, well-nourished Skin: Normal color Head: Normocephalic, nontraumatic Eyes: Clear conjunctiva ENT: Oropharynx normal, ears normal, nose normal Neck: Supple, nontender Chest and respiratory: Airway patent, no respiratory distress, no accessory muscle use Heart: Regular rate/rhythm Abdomen: Soft, nontender, no organomegaly, quiet bowel sounds Vascular: Normal peripheral pulses, normal capillary refill. Musculoskeletal: Examination of the left hip reveals flexion to 90, abduction 30, internal rotation . Patient can dorsiflex and plantar flex both ankles and toes without difficulty. Limp length reveals she is chronically short on the left , surgical scar laterally no surrounding erythema, no bruises, no discharge, slight tenderness with deep palpation Neurologic: Alert and oriented to her name only Course Vital Signs Vital signs: Vital Signs Temperature 36.3 C L 03/27/25 07:38 Pulse Rate 65 03/27/25 07:38 Respiratory Rate 16 03/27/25 07:38 Blood Pressure 96/64 L 03/27/25 07:38 Pulse Oximetry 96 03/27/25 07:38 Oxygen Delivery Room Air 03/27/25 07:38 Temperature 36.3 C L 03/27/25 07:38 Pulse Rate 74 03/27/25 09:46 Respiratory Rate 16 03/27/25 09:46 Blood Pressure 101/88 03/27/25 09:46 Pulse Oximetry 97 03/27/25 09:46 Oxygen Delivery Room Air 03/27/25 07:38 MDM - Extremity Injury (Lower) MDM Narrative Medical decision making narrative: patient started on doxycycline antibiotic for chronic left hip infection and dislocation. Sent to the ED for further evaluation Vital signs showing blood pressure 96/64 otherwise within normal limit Physical examination consistent with chronic left hip dislocation a shortening of the leg and internal rotation. No signs of infection. Blood workup today includes CBC, CMP, blood culture, sed rate showed no significant abnormality. Waiting for blood culture result tomorrow CT scan of the left hip showed no acute osseous abnormality Differential Diagnosis Differential diagnosis: Likely other ( new fracture, joint effusion, signs of infection) Medical Records Attestation: I reviewed the patient's medical records. Lab Data Attestation: I reviewed the patient's lab results. 03/27/25 09:16 03/27/25 09:16 Labs: Lab Results 03/27/25 Range/Units 09:16 WBC 6.9 (4.8-10.8) K/mm3 RBC 3.32 L (4.20-5.40) M/mm3 Hgb 10.6 L (11.7-13.8) g/dL Hct 32.8 L (35.0-42.0) % MCV 98.8 (78.0-102.0) fL MCH 31.9 H (27.0-31.0) pg MCHC 32.3 (32-36) g/dL RDW 12.9 (11.6-14.4) % Plt Count 295 (150-420) K/mm3 MPV 8.9 L (9.2-11.8) fl Immature Gran % (Auto) 0.4 H (0.0-0.0) % Neut % (Auto) 68.7 (50.0-70.0) % Lymph % (Auto) 13.9 L (18.0-42.0) % [place] % (Auto) 12.2 H (2.0-11.0) % Eos % (Auto) 3.6 (1.0-6.0) % Baso % (Auto) 1.2 H (0.0-1.0) % Lymph # (Auto) 0.96 L (1.10-4.50) K/mm3 [place] # (Auto) 0.84 (0.10-0.90) K/mm3 Eos # (Auto) 0.25 (0.02-0.50) K/mm3 Baso # (Auto) 0.08 (0.00-0.10) K/mm3 Abs Immat Gran (auto) 0.03 H (0.00-0.00) K/mm3 Absolute Neuts (auto) 4.73 (1.70-7.20) K/mm3 Absolute Nucleated RBC 0.00 (0.00-0.00) K/mm3 Nucleated RBC % 0.0 (0-0.0) % ESR Pending Sodium 133 L (137-145) mmol/L Potassium 4.3 (3.4-5.0) mmol/L Chloride 102 (98-107) mmol/L Carbon Dioxide 28 (22-30) mmol/L Anion Gap 3 L (4-12) mmol/L BUN 15 D (7-17) mg/dL Creatinine 0.80 (0.7-1.0) mg/dL Estim Creat Clear Calc 50 ml/min Estimated GFR > 60 (59 - ) Glucose 81 (65-110) mg/dL Calculated Osmolality 275 L (285-295) mOsm/kg Calcium 9.0 (8.4-10.2) mg/dL Total Bilirubin 0.4 (0.2-1.3) mg/dL AST 31 (14-36) U/L ALT 17 (6-35) U/L Alkaline Phosphatase 156 H (38-126) U/L C-Reactive Protein 1.3 H (<1.0) mg/dL Total Protein 7.1 (6.3-8.2) g/dL Albumin 3.9 (3.5-5.1) g/dL Imaging Data Radiologist's impression: Impressions Hip/Pelvis X-Ray 03/27/25 08:20 Impression: 1: Chronic dislocation or vision left total hip arthroplasty. No acute underlying fracture identified. Critical Care Time Critical Care Time Critical Care Time: No Discharge Plan Discharge Clinical Impression: Dislocation, hip closed Patient Disposition: [place] Nursing Home/Asst Living Condition: Stable Instructions: Hip Dislocation (ED) Additional Instructions: Return if symptoms are worsening , call your family physician for appointment, take Tylenol as as needed for aches and pain, continue home medications. Patient Language: Nigerien Prescriptions: No Action famotidine 10 mg Tablet 40 mg PO DAILY Saccharomyces boulardii [Florastor] 250 mg Capsule 250 mg PO BID cyanocobalamin (vitamin B-12) 1,000 mcg Capsule 1,000 mcg PO DAILY folic acid 1 mg Tablet 1 mg PO DAILY thiamine HCl (vitamin B1) 100 mg Tablet 100 mg PO BID metoprolol succinate 25 mg tablet extended release 24 hr 25 mg PO DAILY albuterol sulfate 90 mcg/actuation HFA aerosol inhaler 2 inh INHALATION Q6H PRN (Reason: Shortness Of Breath) ondansetron 4 mg tablet,disintegrating 4 mg PO Q6H PRN (Reason: nausea and vomiting) Qty: 14 0RF lactulose 10 gram/15 mL solution 20 ml PO TID lisinopril 10 mg Tablet 10 mg PO DAILY Qty: 30 0RF doxycycline hyclate 100 mg tablet 100 mg PO BID hydrocodone-acetaminophen 5-325 mg Tablet 1 tablet PO Q4H PRN (Reason: Severe pain not controlled by oxycodone) Qty: 12 0RF oxycodone 5 mg tablet 5 mg PO Q6H PRN (Reason: Pain) Qty: 12 0RF calcium carbonate-vitamin D3 600 mg-10 mcg (400 unit) capsule 1 cap PO BID Saccharomyces boulardii [Daily Probiotic (S. boulardii)] 250 mg capsule 250 mg PO BID hydrocortisone-aloe vera 1 % cream 1 applic TOPICAL BID Dilantin 30 mg capsule 30 mg PO .am clonazepam 0.5 mg tablet 0.5 mg PO HS venlafaxine 75 mg Tablet 112.5 mg PO BID phenytoin sodium extended 100 mg Capsule 100 mg PO BID Multivitamin Women 50 Plus 8 mg iron-400 mcg-300 mcg Tablet 1 tablet PO DAILY budesonide-formoterol [Symbicort] 160-4.5 mcg/actuation HFA aerosol inhaler 2 puff INHALATION Q12H Qty: 10.2 0RF Follow-up/Referrals: Castro Ackerman MD [Primary Care Provider] -
--- OUTSIDE RECORDS SUMMARY | 2025-03-27 08:18 | XMS_ITS | Encounter Summary ---
Author Organization [facility] Address [address] [place] [address] Care Team Providers Care Log Pond Worker Name Role Phone Castro Ackerman MD Primary Care Provider Carmen Juárez RN Unavailable [phone] Encounter Details Date Type Department Care Team (Late st Contact Info) Description 11/18/2021 2:08 PM MASTER NAVAL PARACHUTIST Hospital Encounter [address] [address] Charity Jackson MD [facility] [address] [place] [id number] [place] [address] [facility] [address] [place], [place] [id number] Select Direct Social History Tobacco Use Types [...] Under Investigation 10/16/2022 10/16/2022 10/16/2022 5:12 PM MASTER [employer] PARACHUTIST COVID-19 Confirmed 10/16/2022 10/16/2022 4:33 AM MASTER NAVAL PARACHUTIST documented as of this encounter Care Teams Log Pond Worker Relationship Specialty Start Date End Date Castro Ackerman MD [address] [place] [address] PCP - General Family Medicine 06/05/15 Carmen Juárez, RN Second Operator 06/06/15 documented as of this encounter
--- OUTSIDE RECORDS SUMMARY | 2025-03-27 08:18 | XMS_ITS | Clinical Summary ---
Author Organization [facility] Address [address] [facility] [place] [address] Care Team Providers Care Pin Inserter Regulator Name Role Phone Castro Ackerman MD Primary Care Provider [phone] Carmen Juárez RN Unavailable [phone] Source Comments [facility],non-owned Affiliates and Associated Physician Practices is amultiple site organization consisting of ambulatory clinics and hospital sitesin [place], [place], [place] and [place]. This disclosure is being madepursuant to the Care Everywhere program and may not contain all information available regarding this patient. Last updated 18.[facility] Allergies No known active allergies Medications * [...] Comments Blood Pressure 126/79 10/23/2022 4:25 PM KENNEL ATTENDANT Pulse 71 10/23/2022 4:25 PM KENNEL ATTENDANT Temperature 36.3 C (97.4 F) 10/23/2022 4:25 PM KENNEL ATTENDANT Respiratory Rate 19 10/23/2022 4:25 PM KENNEL ATTENDANT Oxygen Saturation 96% 10/23/2022 4:25 PM KENNEL ATTENDANT Inhaled Oxygen Concentration - - Weight 63.6 kg (140 lb 3.4 oz) 10/14/2022 10:10 PM KENNEL ATTENDANT Height 154.9 cm (5' 1) 10/14/2022 10:10 PM KENNEL ATTENDANT Body Mass Index 26.49 10/14/2022 10:10 PM KENNEL ATTENDANT Plan of Treatment Health Maintenance Due Date [...] this topic Medical Devices Implanted Type Area Aerial Photographer Device Identifier Shelf Expiration Date Model / Serial / Lot 2.0 Cable With Clamp Implanted:Qty: 1 on 06/06/2015 by Willian Bennett MD at [facility] Left: Hip [employer] 08/30/2023 [id number] / / [id number] Mx Bone Jaime Pal[place] 40g Implanted:Qty: 1 on 06/06/2015 by Willian Bennett MD at [facility] Left: Hip [employer] 02/28/2018 [id number] / / [id number] Mx Bone Jaime [place] 40g Implanted:Qty: 1 on 06/06/2015 by Willian Bennett MD at [facility] Left: Hip [employer] 10/30/2017 [id number] / / [id number] Mx Bone Jaime [place] 40g Implanted:Qty: 1 on 06/06/2015 by Willian Bennett MD at [facility] Left: Hip [employer] 11/30/2017 [id number] / / [id number] Space Hip Implanted:Qty: 1 on 06/06/2015 by Willian Bennett MD at [facility] Left: Hip [employer] 03/30/2025 [id number] / / [id number] Bill Only Hip Part Rev 50% Of 2014 Implanted:Qty: 1 on 06/06/2015 by Willian Bennett MD at [facility] [employer] HR1 PART HIP REVISION LUISA BILL ONLY / / 20mm Bone Screw Implanted:Qty: 1 on 11/28/2015 by Willian Bennett MD at [facility] Left: Hip [employer] 09/28/2025 / / [id number] 40mm Bone Screw Implanted:Qty: 1 on 11/28/2015 by Willian Bennett MD at [facility] Left: Hip [employer] 09/28/2025 / / [id number] Left Posterior Tantalum Implanted:Qty: 1 on 11/28/2015 by Willian Bennett MD at [facility] Left: Hip [employer] 01/27/2020 [id number] / / [id number] Kt Jaime Palacos R 40gm Implanted:Qty: 1 on 11/28/2015 by Willian Bennett MD at [facility] Left: Hip [employer] 06/28/2019 [id number] / / [id number] 35mm Bone Screw Implanted:Qty: 1 on 11/28/2015 by Willian Bennett MD at [facility] Left: Hip [employer] 11/28/2024 / / [id number] 30mm Bone Screw Implanted:Qty: 1 on 11/28/2015 by Willian Bennett MD at [facility] Left: Hip [employer] 09/28/2025 / / [id number] 30mm Bone Screw Implanted:Qty: 1 on 11/28/2015 by Willian Bennett MD at [facility] Left: Hip [employer] 04/28/2024 / / [id number] 20mm Bone Screw Implanted:Qty: 1 on 11/28/2015 by Willian Bennett MD at [facility] Left: Hip [employer] 08/28/2025 / / [id number] Oss Diaphyseal Segment Implanted:Qty: 1 on 11/28/2015 by Willian Bennett MD at [facility] Left: Hip [employer] 04/28/2024 [id number] / / [id number] Description:REVISION IMPLANT ,COMPONET OF TOTAL REVISION DIFFERENT VENDOR Femoral W/Claw Hole Implanted:Qty: 1 on 11/28/2015 by Willian Bennett MD at [facility] Left: Hip [employer] 02/26/2025 [id number] / / [id number] Description:REVISION IMPLANT ,COMPONET OF TOTAL REVISION DIFFERENT VENDOR Porous Plasma Implanted:Qty: 1 on 11/28/2015 by Willian Bennett MD at [facility] Left: Hip [employer] 08/28/2025 [id number] / / [id number] Description:REVISION IMPLANT ,COMPONET OF TOTAL REVISION DIFFERENT VENDOR Neutral Liner Implanted:Qty: 1 on 11/28/2015 by Willian Bennett MD at [facility] Left: Hip [employer] 12/29/2015 [id number] / / [id number] Cable Financial Institution Branch Manager Implanted:Qty: 1 on 11/28/2015 by Willian Bennett MD at [facility] Left: Hip [employer] 05/28/2025 [id number] / / [id number] Femoral Head Implanted:Qty: 1 on 11/28/2015 by Willian Bennett MD at [facility] Left: Hip [employer] 06/28/2024 [id number] / / [id number] Chema Hip Tot Rev 50% Of 2014 Implanted:Qty: 1 on 11/28/2015 by Willian Bennett MD at [facility] [employer] HR2 TOTAL HIP REVISION LUISA BILL ONLY / / Cbl Cerclage W/Crmp 1.8mm Implanted:Qty: 1 on 11/28/2015 by Willian Bennett MD at [facility] Left: Hip [employer] 05/31/2025 [id number] / / [id number] Trabecular Metal Implanted:Qty: 1 on 11/28/2015 by Willian Bennett MD at [facility] Left: Hip [employer] 02/26/2022 [id number] / / [id number] Cmnt Bone Rally 40gm Med Vsc Sprmnt Grn Implanted:Qty: 1 on 11/06/2021 by Willian Bennett MD at [facility] Left: Hip [employer] 12/29/2025 [id number] / / [id number] Description:20 antibiotic ce ment beads implanted Explanted Type Area Aerial Photographer Device Identifier Shelf Expiration Date Model / Serial / Lot 2.0 Cable With Clamp Implanted:Qty: 1 Explanted:Qty: 1 on 06/06/[facility]: Hip [employer] 08/30/2023 [id number] / / [id number] 15mm Self-Tapping Screw Explanted:Qty: 1 on 11/28/2015 by Willian Bennett MD at [facility] Left: Hip [employer] 09/28/2025 / / [id number] 20mm Bone Screw Explanted:Qty: 1 on 11/28/2015 by Willian Bennett MD at [facility] Left: Hip [employer] 08/28/2025 / / [id number] Procedures Procedure Name Priority Date/Time Associated Diagnosis Comments COMPREHENSIVE METABOLIC PANEL AM Draw 10/22/2022 5:17 AM KENNEL ATTENDANT from Last 3 Months or Most Recently Relevant to Health Maintenance Results * (ABNORMAL) COMPREHENSIVE METABOLIC PANEL (10/22/2022 5:17 AM KENNEL ATTENDANT) Glucose 72 70 - 105 mg/dL 10/22/2022 6:23 AM KENNEL ATTENDANT [facility] Sodium 135(L) 136 - 145 mmol/L 10/22/2022 6:23 AM KENNEL ATTENDANT [facility] Potassium 3.8 3.5 - 5.1 mmol/L 10/22/2022 6:23 AM KENNEL ATTENDANT [facility] Chloride 104 98 - 107 mmol/L 10/22/2022 6:23 AM KENNEL ATTENDANT [facility] CO2 21(L) 23 - 31 mmol/L 10/22/2022 6:23 AM KENNEL ATTENDANT [facility] Calcium 8.2(L) 8.4 - 10.4 mg/dL 10/22/2022 6:23 AM KENNEL ATTENDANT [facility] Anion Gap 10 8 - 18 mmol/L 10/22/2022 6:23 AM KENNEL ATTENDANT [facility] BUN 13 9.8 - 20.1 mg/dL 10/22/2022 6:23 AM KENNEL ATTENDANT [facility] Creatinine 0.58 0.57 - 1.11 mg/dL 10/22/2022 6:23 AM KENNEL ATTENDANT [facility] Alkaline Phosphatase 154(H) 40 - 150 U/L 10/22/2022 6:23 AM KENNEL ATTENDANT [facility] ALT 18 0 - 61 U/L 10/22/2022 6:23 AM KENNEL ATTENDANT [facility] AST 18 5 - 34 U/L 10/22/2022 6:23 AM KENNEL ATTENDANT [facility] Protein Total 6.1(L) 6.4 - 8.3 gm/dL 10/22/2022 6:23 AM KENNEL ATTENDANT [facility] Albumin 2.6(L) 3.2 - 4.6 gm/dL 10/22/2022 6:23 AM KENNEL ATTENDANT [facility] Bilirubin Total 0.3 0.2 - 1.2 mg/dL 10/22/2022 6:23 AM KENNEL ATTENDANT [facility] eGFR by CKD-EPI >90 >=90 mL/min/1.7 3 m2 10/22/2022 6:23 AM KENNEL ATTENDANT [facility] Blood BLOOD SPECIMEN / Unknown Lab Venipuncture / Unknown 10/22/2022 5:17 AM KENNEL ATTENDANT 10/22/2022 5:56 AM KENNEL ATTENDANT César Busch MD LAB - CHEMISTRY ORDERABLES Final Result [facility] [address] [place] [address] from Last 3 Months or Most Recently [...] 6:34 PM 12/04/2015 9:16 PM Care Teams Pin Inserter Regulator Relationship Specialty Start Date End Date Castro Ackerman MD [address] [place] [address] PCP - General Family Medicine 06/05/15 Carmen Juárez, RN [employer] 06/06/15
--- OUTSIDE RECORDS SUMMARY | 2025-03-27 08:18 | XMS_ITS ---
Author Organization [facility] Care Team Providers Care Lead Presser Name Role Phone Atif Romo Unavailable Unavailable Camilla Younger Unavailable Unavailable Castro Ackerman Unavailable Unavailable Miriam Page Unavailable Unavailable Victorino Greene Unavailable Unavailable Andrés Huntley Unavailable Unavailable Aubrey Cheng Unavailable Unavailable Dhaval Hernandez Unavailable Unavailable Allergies and adverse reactions Code CodeSystem Substance Reaction Severity StartDate Concern Status 480511473 SNOMED CT NSAIDs Unknown 06/04/2022 active Care Team Name Role Address Phone Organization Dates Castro Ackerman PCP [address] [place], [address], [place] (Office): : [facility] 11/06/2022 - present Atif Romo [address] [facility] [address], [place], [address], [place] (Office): [facility] 11/06/2022 - present Camilla Younger [address] [place] [address], [address], [place] (Office): : [facility] [place] 11/06/2022 - present Miriam Page [address] [facility], [place], [address], [place] (Office): : [facility] [place] 11/06/2022 - present Victorino Greene [address] [facility] [address], [place], [address], [facility] (Office): : [facility] [place] 11/06/2022 - present Andrés Huntley [address] [facility] [address], [place], [address], [place] (Office): [facility] [place] 11/06/2022 - present Aubrey Cheng [address] [place] [address], [facility], [place] (Office): : [facility] [place] 11/06/2022 - present Dhaval Hernandez [address] [facility] [address], [place], [address], [place] (Office): [facility] [place] 11/06/2022 - present Goals Section Description Status Target Date To Wash own face and hands after set up through next review Active 06/16/2025 To brush own teeth daily after set up through ne xt review Active 06/16/2025 Pattie to be up for all meals daily. Active 06/16/2025 Pattie will be able to make basic needs known on a daily basis through review date. Active 06/16/2025 Pattie will be clean, dry, well-groomed through review date Active 06/16/2025 Pattie will be free of any d iscomfort or adverse side effects from pain medication through the review date. Active 06/16/2025 Pattie will be will be free from s/sx of liver complications, including infection, abnormal or unexplained bleeding, malnutrition, anemia, cognitive decline or mental status changes through review date. Active 06/16/2025 Pattie will display optimal breathing patterns daily through review date. Active 06/16/2025 Pattie will have no complica tions related to diabetes through the review date. Active 06/16/2025 Pattie will maintain accepta ble quality of life through next review Active 06/16/2025 Pattie will maintain good nu trition and hydration as evidence by eating 75-100% and drinking at least 90% of all fluids at all meals daily through next review. Active 06/16/2025 Pattie will maintain optimal quality of life within limitation imposed by visual function through review date. Active 2024 Pattie will maintain optimal quality of life within limitation imposed by visual function through the review date. Active Pattie will minimize risk of injury through the review date. Active 06/16/2025 Pattie will not develop comp lications from being overweight, including skin breakdown, ineffective breathing pattern, altered cardiac output, diabetes, impaired mobility through review date. Active 06/16/2025 Pattie will not have an inte rruption in normal activities due to pain through next review Active 06/16/2025 Pattie will participate in a ctivities of her choosing each week through the next review. Active 06/16/2025 Pattie will receive services as directed per screening requirements through the next review Active 06/16/2025 Pattie will remain free from any adverse side effects from antidepressant use through next review Active 06/16/2025 Pattie will remain free from s/sx of hypertension through the review date. Active 06/16/2025 Pattie will remain free of s /sx of distress, symptoms of depression, anxiety or sad mood by/through review date. Active 06/16/2025 Pattie will remain safely in facility through ne xt review Active 06/16/2025 Pattie will safely utilized the designated side rails to promote independence with bed mobility and repositioning through next review Active 06/16/2025 Pattie will verbalize adequa te pain relief of pain or ability to cope with incompletely relieved pain through next review Active 06/16/2025 Pattie wishes will be honored thru next review A ctive 06/16/2025 My personal preferences will be assessed and addressed by facility staff as reasonable through the review date. Active No pressure ulcer will develop by the next revie w Active 06/16/2025 Resident will be free from a dverse reaction and will show improvement through the next review period. Active 06/16/2025 To transfer from one surface to another through next review date Active 06/16/2025 Will adjust to facility as e videnced by participating in activities thru next review Active 06/16/2025 Functional Status Code Name Recorded Time Value Entered By Chair/onz-va-vhfyw transfer 03/27/2025 Not assessed swasylenko Eating 03/27/2025 Setup or clean-up assistance swasylenko Feeding or Eating 03/26/2025 Independent kschar Indicate the type of wheelchair or scooter used 03/27/2025 Not assessed swasylenko Lying to sitting on side of bed 03/27/2025 Not assessed swasylenko Oral hygiene 03/27/2025 Supervision or t ouching assistance swasylenko Personal hygiene 03/27/2025 Dependent swasylenko Roll left and right 03/27/2025 Dependent swasylen ko Shower/bathe self 03/25/2025 Dependent lgaddis Sit to lying 03/27/2025 Not assessed swasylenko Sit to stand 03/27/2025 Not assessed swasylenko Toilet transfer 03/27/2025 Not assessed swasylenko Toileting hygiene 03/27/2025 Dependent swasylenko Walk 10 feet 03/27/2025 Not assessed swasylenko Walk 150 feet 03/27/2025 Not assessed swasylenko Wheel 150 feet 03/27/2025 Not assessed swasylenko Immunizations Immunization Status Vaccine Details Vaccine Code CodeSystem Date Notes Influenza completed Influenza, high-dose, split virus, quadrivalent, injectable, preservative free lotNumber: [id number] expiry: 04/30/2024 Mfg: SANOFI PASTEUR Given 0.5 ml Left Deltoid intramuscularly 197 CVX created date: 3 consent date: 3 administe red date: 3 Influenza completed Influenza, high-dose, split virus, quadrivalent, injectable, preservative free lotNumber: [id number] expiry: 04/30/2023 Mfg: SAN0FI PASTEUR Given 0.5 ml Right Deltoid intramuscularly 197 CVX created date: 2 consent date: 2 administe red date: 2 Administered by Farida JORDAN TB 2 Step Mantoux Skin Test completed tuberculin skin test; unspecified formulation lotNumber: [id number] expiry: 02/20/2023 Mfg: Tubersol Given 0.1 ml Left Forearm intradermally Step 2 of Multi-step with next step required 98 CVX created date: 2 consent date: 2 administe red date: 2 TB 2 Step Mantoux Skin Test completed tuberculin skin test; unspecified formulation lotNumber: [id number] expiry: 02/20/2023 Mfg: Tubersol Given 0.1 ml Right Forearm intradermally Step 1 of Multi-step with next step required 98 CVX created date: 2 consent date: 2 administe red date: 2 Pneumococcal polysaccharide vaccine (PPSV23) completed pneumococcal polysaccharide vaccine, 23 valent lotNumber: [id number] expiry: 07/26/2024 Given 0.5 ml Left Deltoid intramuscularly 33 CVX created date: 3 consent date: 3 administe red date: 3 SARS-COV-2 (COVID-19) completed SARS-COV-2 (COVID-19) vaccine, mRNA, spike protein, LNP, preservative free, 30 mcg/0.3mL dose lotNumber: [id number] [facility] [place] Step 2 of Multi-step with next step required 208 CVX created date: 2 administe red date: 2 SARS-COV-2 (COVID-19) completed SARS-COV-2 (COVID-19) vaccine, mRNA, spike protein, LNP, preservative free, 30 mcg/0.3mL dose lotNumber: [id number] [facility] [place] Step 1 of Multi-step with next step required 208 CVX created date: 2 administe red date: 2 Tdap completed diphtheria, tetanus toxoids and acellular pertussis vaccine lotNumber: [id number] expiry: 10/09/2023 Given 0.5 ml Left Deltoid intramuscularly 20 CVX created date: 3 consent date: 3 administe red date: 3 SARS-COV2 (COVID-19 w Omnicron) Pfizer Booster completed SARS-COV-2 (COVID-19) vaccine, mRNA, spike protein, LNP, bivalent, preservative free, 30 mcg/0.3 mL dose, samuel-sucrose formulation lotNumber: [id number] expiry: 11/30/2022 Mfg: pfizer bivalent Given 0.3 ml Right Deltoid intramuscularly 300 CVX created date: 2 consent date: 2 administe red date: 2 Administered by Farida JORDAN SARS-COV-2 (COVID-19) Updated monovalent completed SARS-COV-2 (COVID-19) vaccine, mRNA, spike protein, LNP, preservative free, samuel-sucrose, 30 mcg/0.3 mL dose lotNumber: [id number] expiry: 07/07/2025 Mfg: Comirnaty Given 0.5 ml Left Deltoid intramuscularly 309 CVX created date: 5 consent date: 5 administe red date: 5 Educated by on 01/24/2025 temp. 97.7 tolerated well SARS-COV-2 (COVID-19) Updated monovalent completed SARS-COV-2 (COVID-19) vaccine, mRNA, spike protein, LNP, preservative free, samuel-sucrose, 30 mcg/0.3 mL dose lotNumber: [id number] expiry: 03/31/2024 Mfg: Comirnaty Given 0.5 ml Left Deltoid intramuscularly 309 CVX created date: 3 consent date: 3 administe red date: 3 Influenza vaccine, quadrivalent, adjuvanted completed Influenza, adjuvanted, inactivated, quadrivalent, injectable, preservative free lotNumber: [id number] expiry: 04/30/2025 Mfg: [employer] Given 0.5 ml Left Deltoid intramuscularly 205 CVX created date: 4 consent date: 4 administe red date: 4 Medications Section Medication Name Status Code CodeSystem Dose Route Frequency Admin Type Sig Text Start Date End Date Lisinopril Oral Tablet 10 MG active 288130 RXNORM 10 mg Oral in the morning Routine Give 10 mg by mouth in the mornin g for hypert ension 2022 - Multivitamin Women 50+ Oral Tablet active 1 tablet Oral in the morning Routine Give 1 tablet by mouth in the mornin g for supple ment 2022 - Metoprolol Succinate ER Oral Tablet Extended Release 24 Hour 25 MG active 803625 RXNORM 25 mg Oral in the morning Routine Give 25 mg by mouth in the mornin g relate d to ESSENT IAL (PRIMA RY) HYPERT ENSION (I10) 2022 - Famotidine Oral Tablet 10 MG active 676288 RXNORM 40 mg Oral in the morning Routine Give 40 mg by mouth in the mornin g relate d to GASTRO -ESOPH AGEAL REFLUX DISEAS E WITHOU T ESOPHA GITIS (K21.9 ) 2022 - Budesonide-Fo rmoterol Fumarate Inhalation Aerosol 160-4.5 MCG/ACT active 0290326 RXNORM 2 puff Inhalat ion every 12 hours Routine 2 puff inhale orally every 12 hours for copd 2022 - Folic Acid Oral Tablet 1 MG active 659029 RXNORM 1 mg Oral in the morning Routine Give 1 mg by mouth in the mornin g for supple ment 2022 - Thiamine HCl Oral Tablet 100 MG active 084294 RXNORM 100 mg Oral two times a day Routine Give 100 mg by mouth two times a day for supple ment 2022 - Cyanocobalami n Oral Tablet 1000 MCG active 829735 RXNORM 1000 mcg Oral in the morning Routine Give 1000 mcg by mouth in the mornin g for supple ment 2022 - Ondansetron HCl Oral Tablet 4 MG active 537810 RXNORM 4 mg Oral as needed PRN Give 4 mg by mouth every 6 hours as needed for nausea and vomiti ng 2022 - Lactulose Oral Solution 10 GM/15ML active 957352 RXNORM 20 ml Oral three times a day Routine Give 20 ml by mouth three times a day relate d to ACUTE AND SUBACU TE HEPATI C FAILUR E WITHOU T COMA (K72.0 0) 2022 - Albuterol Sulfate HFA Inhalation Aerosol Solution 108 (90 Base) MCG/ACT active 632112 RXNORM 2 inhala tion Inhalat ion as needed PRN 2 inhala tion inhale orally every 6 hours as needed for shortn ess of breath 2022 - Florastor Oral Capsule 250 MG active 197201 RXNORM 1 capsul e Oral two times a day Routine Give 1 capsul e by mouth two times a day for probio tic 2022 - Calcium Carbonate-Vit hartman D Oral Tablet 600-400 MG-UNIT active 1 tablet Oral two times a day Routine Give 1 tablet by mouth two times a day for Vitami n Defici ency 2022 - oxyCODONE HCl Oral Tablet 5 MG active 7281363 RXNORM 1 tablet Oral as needed PRN Give 1 tablet by mouth every 6 hours as needed for pain 2023 - Hydrocortison e External Cream 1 % active 685880 RXNORM n/a n/a Topical every day and evening shift Routine Apply to feet topica lly every day and evenin g shift for psoria sis 2023 - Venlafaxine HCl Oral Tablet active 112.5 mg Oral two times a day Routine Give 112.5 mg by mouth two times a day relate d to MAJOR DEPRES SIVE DISORD ER, RECURR ENT, MILD (F33.0 ) 2024 - Phenytoin Sodium Extended Oral Capsule active 130 mg Oral in the morning Routine Give 130 mg by mouth in the mornin g for seizur es relate d to OTHER SEIZUR ES (G40.8 9) AND Give 100 mg by mouth in the evenin g for seizur es relate d to OTHER SEIZUR ES (G40.8 9) 2024 - 100 mg Oral in the evening Routine Give 130 mg by mouth in the mornin g for seizur es relate d to OTHER SEIZUR ES (G40.8 9) AND Give 100 mg by mouth in the evenin g for seizur es relate d to OTHER SEIZUR ES (G40.8 9) 2024 - clonazePAM Oral Tablet 0.5 MG active 564753 RXNORM 0.5 mg Oral at bedtime Routine Give 0.5 mg by mouth at bedtim e relate d to GENERA LIZED ANXIET Y DISORD ER (F41.1 ) 2024 - Doxycycline Hyclate Oral Tablet 100 MG active 2081127 RXNORM 1 tablet Oral two times a day Routine Give 1 tablet by mouth two times a day for L hip infect ion 2024 - Mental Status Section Date Assessment Total Score Description 02/23/2025 BIMS 07 severe cognitiv e impairment CAM 0 No delirium ind icated PHQ-9 10 moderate depres sheila 12/13/2024 BIMS 10 moderate cognit ruthie impairment CAM 0 No delirium ind icated PHQ-9 08 mild depression Problems Problem # Description Date of onset Resolved Date Code CodeSystem Concern Status 1 OTHER SEIZURES 12/23/[address] act ruthie 2 NAUSEA WITH VOMITING, UNSPECIFIED 12/07/2024 01/17/[address] completed 3 COVID-19 10/05/2024 11/01/[address] compl eted 4 CHRONIC OBSTRUCTIVE PULMONARY DISEASE, UNSPECIFIED 06/07/[address] active 5 ABNORMAL POSTURE 02/05/2023 05/19/2023 85100084 SNOMED C T completed 6 DIFFICULTY IN WALKING, NOT ELSEWHERE CLASSIFIED 02/05/2023 05/19/[address] completed 7 URINARY TRACT INFECTION, SITE NOT SPECIFIED 02/02/2023 04/01/[address] completed 8 ABNORMAL POSTURE 12/08/2022 12/10/2022 53737654 SNOMED C T completed 9 DIFFICULTY IN WALKING, NOT ELSEWHERE CLASSIFIED 12/08/2022 12/10/[address] completed 10 CUTANEOUS ABSCESS OF LEFT LOWER LIMB 11/05/2022 09/01/[address] completed 11 UNSPECIFIED OPEN WOUND, LEFT HIP, SUBSEQUENT ENCOUNTER 11/05/2022 12/10/[address] completed 12 MAJOR DEPRESSIVE DISORDER, RECURRENT, MILD 07/16/[address] active 13 ACQUIRED ABSENCE OF LEFT HIP JOINT 06/04/[address] active 14 ACUTE AND SUBACUTE HEPATIC FAILURE WITHOUT COMA 06/04/[address] active 15 ANEMIA, UNSPECIFIED 06/04/[address] active 16 ESSENTIAL (PRIMARY) HYPERTENSION 06/04/[address] active 17 GASTRO-ESOPHAGEAL REFLUX DISEASE WITHOUT ESOPHAGITIS 06/04/[address] active 18 GENERALIZED ANXIETY DISORDER 06/04/[address] active 19 PAIN IN LEFT HIP 06/04/[address] a ctive 20 TYPE 2 DIABETES MELLITUS WITHOUT COMPLICATIONS 06/04/[address] active Reason for Referral No Reasons for Referral Entered Social History Social History Observation Description Start Date End Date Code Code System Current Smoking Status Tobacco smoking consumption unknown 967161926 SNOMED CT Sex Assigned At Female 1950 80256-2 [facility] Gender Identity Female [id number] Vital Signs Code Code System Vitals Name Values and Units Timing Information 28804-7 [facility] Pain Level Value=0.0 03/27/2025 21335-9 [facility] O2 % BldC Oximetry Value=94.0 Units= % 03/27/2025 8310-5 [facility] Body Temperature Value=98.4 Units= F 03/27/2025 8462-4 [facility] Blood Pressure-Diastolic Value=58 Un its=mmHg 03/26/2025 8480-6 [facility] Blood Pressure-Systolic Value=93 Uni ts=mmHg 03/26/2025 8867-4 [facility] Heart rate Value=81.0 Units=/min 9279-1 [facility] Respiratory Rate Value=20.0 Units=/m in 03/26/2025 74047-6 [facility] Weight Ggojt=354.3 Units=Lbs 11/2024 8302-2 [facility] Height Value=62.0 Units=Inches 10/28/2023
[2025-03-27 09:23] LABS: Basophils Absolute Auto 0.08 K/mm3 (0.00-0.10); Basophils Percent Auto 1.2 % (0.0-1.0); Eosinophils Absolute Auto 0.25 K/mm3 (0.02-0.50); Eosinophils Percent Auto 3.6 % (1.0-6.0); Hematocrit 32.8 % (35.0-42.0); Hemoglobin 10.6 g/dL (11.7-13.8); Immature Granulocyte Absolute 0.03 K/mm3 (0.00-0.00); Immature Granulocyte Percent A 0.4 % (0.0-0.0); Lymphocytes Absolute Auto 0.96 K/mm3 (1.10-4.50); Lymphocytes Percent Auto 13.9 % (18.0-42.0); Mean Corpuscular HGB Conc 32.3 g/dL (32-36); Mean Corpuscular Hemoglobin 31.9 pg (27.0-31.0); Mean Corpuscular Volume 98.8 fL (78.0-102.0); Mean Platelet Volume 8.9 fl (9.2-11.8); Monocytes Absolute Auto 0.84 K/mm3 (0.10-0.90); Monocytes Percent Auto 12.2 % (2.0-11.0); Neutrophils Absolute Auto 4.73 K/mm3 (1.70-7.20); Neutrophils Percent Auto 68.7 % (50.0-70.0); Platelet Count Result 295 K/mm3 (150-420); Red Blood Count 3.32 M/mm3 (4.20-5.40); Red Cell Distribution Width 12.9 % (11.6-14.4); White Blood Count 6.9 K/mm3 (4.8-10.8)
[2025-03-27 09:35] LABS: Alanine Aminotransferase 17 U/L (6-35); Albumin Level 3.9 g/dL (3.5-5.1); Alkaline Phosphatase 156 U/L (38-126); Anion Gap 3 mmol/L (4-12); Aspartate Amino Transferase 31 U/L (14-36); Bilirubin,Total 0.4 mg/dL (0.2-1.3); Blood Urea Nitrogen 15 mg/dL (7-17); CRP 1.3 mg/dL (<1.0); Carbon Dioxide 28 mmol/L (22-30); Chloride 102 mmol/L (98-107); Estimated CRCL calculation 50 ml/min; Estimated Glomerular Filt Rate > 60; Glucose 81 mg/dL (65-110); Osmolality Calculated 275 mOsm/kg (285-295); Potassium 4.3 mmol/L (3.4-5.0); Sodium 133 mmol/L (137-145); Total Protein 7.1 g/dL (6.3-8.2)
[2025-03-27 10:23] LABS: Erythrocyte Sedimentation Rate 53 mm/hr (0-20)
[2025-03-27 14:02] LABS: Free T4 Free Thyroxine 1.31 ng/dL (0.78-2.19)
--- NOTE | 2025-03-29 13:37 | PC.NURSE ---
preliminary blood cultures x2 reviewed. no growth to date
--- NOTE | 2025-04-02 13:19 | PC.NURSE ---
blood culture final , no growth
== END 2025-03-27 10:25 ==
PROVIDERS: Emergency Provider Emergency Medicine; PCP Family Medicine
DX: S73.005A Unspecified dislocation of left hip, initial encounter (principal); F03.90 Unspecified dementia, unspecified severity, without behavioral disturbance, psychotic disturbance, mood disturbance, and anxiety; I48.91 Unspecified atrial fibrillation; J44.9 Chronic obstructive pulmonary disease, unspecified; I10 Essential (primary) hypertension; Z85.038 Personal history of other malignant neoplasm of large intestine; Z79.899 Other long term (current) drug therapy; Z87.891 Personal history of nicotine dependence
CPT/HCPCS: 36415; 73502; 73700; 80053; 84439; 84443; 85025; 85652; 86140; 87040; 99284